=== PATIENT | female | born 1975 | race Caucasian/White ===

== ENCOUNTER → 2018-09-09 08:01 | Outpatient (CLI) | payer BC, SELFPAY ==
--- NOTE | 2018-09-09 08:03 | MM_ITS ---
MM Dig screening mamm BI w/CAD CAD Screening COMPARISON: Digital mammograms with CAD 02/03/2013 INDICATION: There is a history of breast cancer patient paternal grandmother diagnosed at age 85 TECHNIQUE: Standard CC and MLO images were obtained. R2 CAD reviewed. FINDINGS: Minimal scattered fiber glandular densities are seen in both breast primarily subareolar regions. There is no suspicious lesion and no suspicious microcalcifications. IMPRESSION: Fibrofatty parenchyma with no suspicious lesion seen BI-RADS Category: 1 Negative RECOMMENDED FOLLOW-UP: 1YR - 1 YEAR FOLLOW-UP (A letter has been sent to the patient regarding results of the study.)
== END ==
PROVIDERS: PCP Family Medicine; Visit Provider Obstetrics & Gynecology
DX: Z12.31 Encounter for screening mammogram for malignant neoplasm of breast (principal)
CPT/HCPCS: 77067

== ENCOUNTER → 2019-09-11 07:51 | Outpatient (CLI) | payer BC, SELFPAY ==
--- NOTE | 2019-09-11 07:51 | MM_ITS ---
PROCEDURE: MM DIG SCREENING MAMM BI W/CAD Digital Breast Tomosynthesis Included CLINICAL INDICATION: Routine Screening Mammogram There is a history of breast cancer patient's paternal grandmother diagnosed after menopause. COMPARISON: DMDB DIGITAL MAMM-DX BILATERAL from 07/12/2011 DMDBAV DIG MAMM-DX MALINI ADD VIEWS from 02/03/2013 TECHNIQUE: Standard CC and MLO images and 3D Tomosynthesis was obtained. R2 CAD reviewed. FINDINGS: Scattered fibroglandular densities are seen throughout both breast. There is slightly asymmetrically increased glandular elements in the subareolar region of the right breast and this has been noted on previous studies as well. In ruling out any suspicious abnormality in either breast. There is a benign-appearing microcalcification left breast. There are no suspicious microcalcifications. IMPRESSION: Fibrofatty parenchyma with no suspicious lesions seen BI-RAD Category: 2 Benign Finding(s) FOLLOW-UP: 1YR 1 Year Follow-up (A letter has been sent to the patient regarding results of the study.) Dictated by: Dr. Jose García MD 09/13/2019 08:[address] Jose García MD in [facility] 09/13/2019 08:39
== END ==
PROVIDERS: PCP Family Medicine; Visit Provider Obstetrics & Gynecology
DX: Z12.31 Encounter for screening mammogram for malignant neoplasm of breast (principal)
CPT/HCPCS: 77063; 77067

== ENCOUNTER → 2020-09-13 08:40 | Outpatient (CLI) | payer BC, SELFPAY ==
--- NOTE | 2020-09-13 08:41 | MM_ITS ---
PROCEDURE INFORMATION: Exam: MG Screening 3D Mammography Exam date and time: 09/13/2020 8:41 AM Age: 45 years old Clinical indication: Encounter for screening mammogram for malignant neoplasm of breast TECHNIQUE: Imaging protocol: Screening tomosynthesis and 2D mammography including computer-aided detection (CAD) when performed. COMPARISON: 1. MG MM DIG SCREENING MAMM BI W/CAD 09/11/2019 8:11 AM 2. MG DIG MAMM-SCREEN MALINI 09/09/2018 8:35 AM FINDINGS: MAMMOGRAPHY: Breast composition: The breast tissue is composed of scattered areas of fibroglandular density. Mass: None. Architectural distortion: None. Calcifications: No suspicious calcifications. Asymmetric density: None. Skin thickening: None. Axillary adenopathy: None. IMPRESSION: No mammographic evidence of malignancy. Annual screening is recommended unless otherwise clinically indicated. ASSESSMENT: BI-RADS Category 1: Negative
== END ==
PROVIDERS: PCP Family Medicine; Visit Provider Obstetrics & Gynecology
DX: Z12.31 Encounter for screening mammogram for malignant neoplasm of breast (principal)
CPT/HCPCS: 77063; 77067

== ENCOUNTER → 2020-12-27 14:21 | Outpatient (CLI) | payer BC, SELFPAY ==
--- NOTE | 2020-12-27 14:21 | US_ITS ---
PROCEDURE: US TRANSVAGINAL CLINICAL INDICATION: Right lower quad pain Prior ablation. COMPARISON: US PTV US PELVIS-TRANSVAGINAL ONLY from 02/22/2016 FINDINGS: The uterus is retroverted. Endometrial outline is not well defined which could be due to prior ablation. There is an area of decreased echogenicity in the uterine fundus at 2.4 x 2.3 cm suggesting a fibroid. This area somewhat difficult to image due to the retroversion of the uterus. UTERUS: 7cm x 5cmx 5cm with a combined endometrial thickness of 5.4mm LEFT OVARY: 3 x 1.7 cm. Small follicles noted. Blood flow is present. RIGHT OVARY: 3 x 2 cm. Small follicles. Blood flow is present. No adnexal mass or cul-de-sac fluid. IMPRESSION: Retroverted uterus with suspected 2.4 cm fibroid in the fundus. Suspect post ablation changes within the endometrium. No adnexal mass or cul-de-sac fluid. Dictated by: Sky Gurrola MD 12/28/2020 07:35 Sky Gurrola MD in [facility] 12/28/2020 07:35
== END ==
PROVIDERS: PCP Family Medicine; Visit Provider Obstetrics & Gynecology
DX: R10.31 Right lower quadrant pain (principal); R10.2 Pelvic and perineal pain
CPT/HCPCS: 76830

== ENCOUNTER → 2022-12-31 15:34 | Outpatient (CLI) | payer BC, SELFPAY ==
--- NOTE | 2022-12-31 15:37 | MM_ITS ---
PROCEDURE INFORMATION: Exam: MG Bilateral Screening 3D Mammography Exam date and time: 12/31/2022 3:31 PM Age: 47 years old Clinical indication: Screening examination TECHNIQUE: Imaging protocol: Bilateral Screening tomosynthesis and 2D mammography including computer-aided detection (CAD) when performed. COMPARISON: 1. MG MM DIG SCREENING MAMM BI W/CAD 09/13/2020 8:41 AM 2. MG MM DIG SCREENING MAMM BI W/CAD 09/11/2019 8:11 AM FINDINGS: MAMMOGRAPHY: Breast composition: There are scattered areas of fibroglandular density. Mass: None. Architectural distortion: None. Calcifications: No suspicious calcifications. Asymmetric density: None. Skin thickening: None. Axillary adenopathy: None. IMPRESSION: No mammographic evidence of malignancy. Annual screening is recommended unless otherwise clinically indicated. ASSESSMENT: BI-RADS Category 1: Negative
== END ==
PROVIDERS: PCP Family Medicine; Visit Provider Obstetrics & Gynecology
DX: Z12.31 Encounter for screening mammogram for malignant neoplasm of breast (principal)
CPT/HCPCS: 77063; 77067

== ENCOUNTER 2024-02-05 14:57 | Outpatient (CLI) | payer BC, SELFPAY ==
--- NOTE | 2024-02-05 14:58 | MM_ITS ---
PROCEDURE INFORMATION: Exam: MG Bilateral Screening 3D Mammography Exam date and time: 02/05/2024 2:56 PM Age: 48 years old Clinical indication: Screening. Her paternal grandmother had breast cancer. TECHNIQUE: Imaging protocol: Bilateral Screening tomosynthesis and 2D mammography including computer-aided detection (CAD) when performed. COMPARISON: 1. MG MM DIG SCREENING MAMM BI W/CAD 12/31/2022 3:31 PM 2. MG MM DIG SCREENING MAMM BI W/CAD 09/13/2020 8:41 AM 3. MG MM DIG SCREENING MAMM BI W/CAD 09/11/2019 8:11 AM 4. MG DIG MAMM-SCREEN MALINI 09/09/2018 8:35 AM FINDINGS: MAMMOGRAPHY: Breast composition: There are scattered areas of fibroglandular density. Mass: None. Architectural distortion: None. Calcifications: No suspicious calcifications. Asymmetric density: None. Skin thickening: None. Axillary adenopathy: None. IMPRESSION: No mammographic evidence of malignancy. Annual screening is recommended unless otherwise clinically indicated. ASSESSMENT: BI-RADS Category 1: Negative.
== END 2024-02-05 23:59 | disposition home or self-care (01) ==
LOC: RAD 14:58
PROVIDERS: PCP Family Medicine; Visit Provider Obstetrics & Gynecology
DX: Z12.31 Encounter for screening mammogram for malignant neoplasm of breast (principal)
CPT/HCPCS: 77063; 77067

== ENCOUNTER 2024-11-11 14:39 | Outpatient (CLI) | payer BC, SELFPAY ==
--- OUTSIDE RECORDS SUMMARY | 2024-10-12 08:00 | XMS_ITS | Encounter Summary ---
Author Organization [facility] [place] [address] Care Team Providers Care Industrial Analyst Name Role Phone Sherin Brady MD Primary Care Provider [phone] Reason for Visit * Reason Comments Injections Encounter Details Date Type Department Care Team (Latest Contact Info) Description 10/12/2024 8:00 AM EDT Clinical Support [facility] [address] [place] [address] Hussein Bright RMA B12 deficiency (Primary Dx) Social History Tobacco Use Types Packs/Day Years Used Date Smoking Tobacco: Former Cigarettes 0.5 29.8 0 03/18/1993 - 01/16/2023 Passive Smoke Exposure: Past Smokeless Tobacco: Never Comments:Quit on 04/09/11 Alcohol Use Standard Drinks/Week Comments Yes 3 (1 standard drink = 0.6 oz pur e alcohol) Overall Financial Resource Strain (CARDIA) Answe r Date Recorded Difficulty of Paying Living Expenses Not hard at all 02/09/2019 PHQ-2 Answer Date Recorded PHQ-2 Total Score 0 07/21/2024 Hunger Vital Sign Answer Date Recorded Worried About Running Out of Food in the Last Ye ar Never true 02/09/2019 Ran Out of Food in the Last Year Never true 02/09/2019 PRAPARE - Transportation Answer Date Re corded Lack of Transportation (Medical) No 02/09/2019 Lack of Transportation (Non-Medical) No 02/09/2019 Education Answer Date Recorded What is the highest level of school you have completed or the highest degree you have received? Some college, no degree 02/09/2019 Sexually Active Control Partners Comments Yes Surgical Male Comments No Sex and Gender Information Value Date Recorded Sex Assigned at Not on file Legal Sex Female 3:23 AM EDT Gender Identity Not on file Sexual Orientation Not on file documented as of this encounter Last Filed Vital Signs Vital Sign Reading Time Taken Comments Blood Pressure - - Pulse - - Temperature - - Respiratory Rate - - Oxygen Saturation - - Inhaled Oxygen Concentration - - Weight 71.2 kg (157 lb) 10/12/2024 11:32 AM EDT Height 160 cm (5' 3 ) 10/12/2024 11:32 AM EDT Body Mass Index 27.81 10/12/2024 11:32 AM EDT documented in this encounter Functional Status * Is the person deaf or does he/she have serious difficulty hearing? Answer Date of Assessment Author No 07/21/2024 7:54 AM EDT Hussein Bright RMA * Is the person blind or does he/she have serious difficulty seeing even when wearing glasses? Answer Date of Assessment Author No 07/21/2024 7:54 AM EDT Hussein Bright RMA * Does this person have serious difficulty walking or climbing stairs? Answer Date of Assessment Author No 07/21/2024 7:54 AM EDT Hussein Bright RMA * Does this person have difficulty dressing or bathing? Answer Date of Assessment Author No 07/21/2024 7:54 AM EDT Hussein Bright RMA * Because of a physical, mental or emotional condition, does this person have difficulty doing errands alone such as visiting a doctor's office or shopping? Answer Date of Assessment Author No 07/21/2024 7:54 AM EDT Hussein Bright RMA documented as of this encounter Mental Status * Because of a physical, mental or emotional condition, does this person have serious difficulty concentrating, remembering or making decisions? Answer Entry Date Author No 07/21/2024 7:54 AM EDT Hussein Bright RMA documented in this encounter Progress Notes * Hussein Bright RMA - 10/12/2024 8:00 AM EDT Patient came into the office for a B-12 injections Patient was informed to expect muscle pain afteran intramuscular injection and to call the office if there are any issues. documented in this encounter Plan of Treatment Upcoming Encounters Date Type Department Care Team (Late st Contact Info) Description 11/12/2024 8:00 AM EDT Clinical Support [facility] [address] [place] [address] documented as of this encounter Goals Goal Patient Goal Type Associated Problems Recent Progress Patient-Stated? Author Blood Pressure < 140/90 Blood Pressure 122/78(2024 10:03 AM EDT) No Sherin Brady MD Maintain a healthy diet, exercise regularly and maintain an ideal body weight General No Lida Her RMA Stay Tobacco Free Lifestyle No Lida Her RMA documented as of this encounter Visit Diagnoses Diagnosis B12 deficiency- Primary Other B-complex deficiencies documented in this encounter Administered Medications Inactive Administered Medications - up to 1 most recent administrations Medication Order MAR Action Action Date Dose Rate Site cyanocobalamin injection 1,000 mcg 1,000 mcg, Intramuscular, ONCE, 1 dose, On Sat10/12/24 at 1145, Dx: 1. B12 deficiencyIndications:B12 deficiency Given 10/12/2024 11:44 AM EDT 1,000 mcg Right Deltoid documented in this encounter Care Teams Industrial Analyst Relationship Specialty Start Date End Date Sherin Brady MD [address] [place] [address] PCP - General 05/16/10 documented as of this encounter
--- OUTSIDE RECORDS SUMMARY | 2024-10-13 10:00 | XMS_ITS | Encounter Summary ---
Author Organization [place] [address] Care Team Providers Care Consulting Engineer Name Role Phone Sherin Brady MD Primary Care Provider [phone] Reason for Visit * Reason Comments Insect Bite x3 days ankle Ankle Pain hornet x3 days left ankle swollen Encounter Details Date Type Department Care Team (Late st Contact Info) Description 10/13/2024 10:00 AM EDT Office Visit [facility] [address] [place] [phone] Lionel Albrecht, [employer] [address] [place], [place] [id number] Cellulitis of left ankle (Primary Dx); Insect bite of left ankle, initial encounter; Vaginal yeast infection Social History Tobacco Use Types Packs/Day Years Used Date Smoking Tobacco: Former Cigarettes 0.5 29.8 0 03/18/1993 - 01/16/2023 Passive Smoke Exposure: Past Smokeless Tobacco: Never Tobacco Cessation:Counseling Given: Not Answered Comments:Quit on 04/09/11 Alcohol Use Standard Drinks/Week [...] Sign Reading Time Taken Comments Blood Pressure 122/78 10/13/2024 10:03 AM EDT Pulse - - Temperature 36.9 C (98.4 F) 10/13/2024 10:03 AM EDT Respiratory Rate - - Oxygen Saturation - - Inhaled Oxygen Concentration - - Weight 71.8 kg (158 lb 6 oz) 10/13/2024 10:03 AM EDT Height 160 cm (5' 3 ) 10/13/2024 10:03 AM EDT Body Mass Index 28.05 10/13/2024 10:03 AM EDT documented in this encounter Functional [...] Hussein Bright RMA documented in this encounter Ordered Prescriptions Prescription Sig Dispense Quantity Refills Last Filled Start Date End Date famotidine (PEPCID) 40 mg Oral TabletIndications: Insect bite of left ankle, initial encounter Take 1 Tablet by mouth every evening. 30 Tablet 10/13/2024 fluconazole (DIFLUCAN) 150 mg Oral TabletIndications: Vaginal yeast infection Take 1 Tablet by mouth once for 1 dose. 1 Tablet 10/13/2024 cephALEXin (KEFLEX) 500 mg Oral CapsuleIndications :Cellulitis of left ankle Take 1 Capsule by mouth every 8 hours for 7 days. 21 Capsule 10/13/2024 5 documented in this encounter Progress Notes * Lionel Albrecht APRN - 10/13/2024 10:00 AM EDT Images from the original note were not included. Vitals: 10/13/24 1003 BP: 122/78 BP Location: Left arm Patient Position: Sitting Temp: 98.4 ??F (36.9 ??C) TempSrc: Forehead Weight: 158 lb 6 oz (71.8 kg) Height: 5' 3 (1.6 m) Body mass index is 28.05 kg/m??. SUBJECTIVE: Chief Complaint Patient presents with Insect Bite x3 days ankle Ankle Pain hornet x3 days left ankle swollen HPI: Insect Bite This is a new problem. The current episode started in the past 7 days. The problem has been gradually worsening since onset. The affected locations include the left ankle. The rash is characterized by redness, swelling and pain. She was exposed to an insect bite/sting. Past treatments include antihistamine. The treatment provided no relief. Foot Pain The pain is present in the left ankle. This is a new problem. The current episode started in the past 7 days. There has been no history of extremity trauma. The problem occurs constantly. The problemhas been gradually worsening. The quality of the pain is described as pounding and sharp. The pain is at a severity of 7/10. The pain is moderate. Associated symptoms include an inability to bear weight, a limited range of motion and tingling. The symptoms are aggravated by activity, standing and contact. She has tried NSAIDS for the symptoms. The treatment provided mild relief. Presents with left ankle edema, erythema after sting of unknown insect 3 days ago. Has taken benadryl, elevated leg, and ibuprofen with minimal improvement. Denies SOB, difficulty Review of Systems Cardiovascular: Positive for leg swelling. Skin: Positive for color change and rash. Neurological: Positive for tingling. OBJECTIVE: Physical Exam Constitutional: General: She is not in acute distress. Appearance: She is well-developed. She is not diaphoretic. HENT: Head: Normocephalic and atraumatic. Eyes: General: Right eye: No discharge. Left eye: No discharge. Neck: Vascular: No JVD. Cardiovascular: Rate and Rhythm: Normal rate and regular rhythm. Heart sounds: Normal heart sounds. No murmur heard. Pulmonary: Effort: Pulmonary effort is normal. No respiratory distress. Breath sounds: Normal breath sounds. No wheezing or rales. Musculoskeletal: Cervical back: Normal range of motion and neck supple. Left foot: Decreased range of motion. Feet: Left foot: Skin integrity: Erythema present. Skin: General: Skin is warm and dry. Findings: No rash. Neurological: Mental Status: She is alert and oriented to person, place, and time. Psychiatric: Behavior: Behavior normal. Thought Content: Thought content normal. Judgment: Judgment normal. Assessment & Plan Cellulitis of left ankle Orders: cephALEXin (KEFLEX) 500 mg Oral Capsule; Take 1 Capsule by mouth every 8 hours for 7 days. Insect bite of left ankle, initial encounter Orders: methylPREDNISolone acetate (DEPO-Medrol) injection 120 mg famotidine (PEPCID) 40 mg Oral Tablet; Take 1 Tablet by mouth every evening. Vaginal yeast infection Orders: fluconazole (DIFLUCAN) 150 mg Oral Tablet; Take 1 Tablet by mouth once for 1 dose. documented in this encounter Plan of Treatment Upcoming Encounters Date Type Department Care Team (Late st Contact Info) Description 11/12/2024 8:00 AM EDT Clinical Support [facility] [address] [place] [phone] documented as of this encounter Goals Goal Patient Goal Type Associated Problems Recent Progress Patient-Stated? Author Blood Pressure < 140/90 Blood Pressure 122/78(2024 10:03 AM EDT) No Sherin Brady MD Maintain a healthy diet, exercise regularly and maintain an ideal body weight General No Lida Her RMA Stay Tobacco Free Lifestyle No Lida Her RMA documented as of this encounter Visit Diagnoses Diagnosis Cellulitis of left ankle- Primary Cellulitis and abscess of leg, except foot Insect bite of left ankle, initial encounter Vaginal yeast infection Candidiasis of vulva and vagina documented in this encounter Administered Medications Inactive Administered Medications - up to 1 most recent administrations Medication Order MAR Action Action Date Dose Rate Site methylPREDNISolone acetate (DEPO-Medrol) injection 120 mg 120 mg, Intramuscular, ONCE, 1 dose, On Sat10/13/24 at 1030, Dx: 1. Insect bite of left ankle, initial encounterIndications:In sect bite of left ankle, initial encounter Given 10/13/2024 10:54 AM EDT 120 mg Right Upper Outer Quadrant documented in this encounter Orders Medications Ordered That Ritesh ht Not Have Been Administered Count Last Ordered Date First Ordered Date methylPREDNISolone acetate ( DEPO-Medrol) injection 120 mg 1 10/13/2024 documented in this encounter Care Teams Consulting Engineer Relationship Specialty Start Date End Date Sherin Brady MD [address] [place] [address] PCP - General 05/16/10 documented as of this encounter
--- OUTSIDE RECORDS SUMMARY | 2024-11-11 14:43 | XMS_ITS | Encounter Summary ---
Author Organization [place] [address] Care Team Providers Care Relief Captain Name Role Phone Sherin Brady MD Primary Care Provider Reason for Visit * Reason Onset Date Comments Results 09/25/2024 External Results Request - Breast Cancer Screening Encounter Details Date Type Department Care Team (Late st Contact Info) Description 09/25/2024 Telephone [facility] [address] [place] [address] Sherin Brady MD [address] [place] [address] Results (External Results Request - Breast Cancer Screening ) Social History Tobacco Use Types Packs/Day Years [...] on file documented as of this encounter Functional Status * Is the [...] Hussein Bright RMA documented in this encounter Miscellaneous Notes * Telephone Encounter - Jack Wood RMA - 09/25/2024 11:17 AM EDT The requested records Breast Cancer Screening from the facility were received and abstracted in thepatient's chart on 09/25/2024. [facility] Department Clinical Pool: [id number] * Telephone Encounter - HuygeethaZoraidae BUBBA - 09/25/2024 10:51 AM EDT 1st Attempt: External result requested: Breast Cancer Screening Referral Encounter Provider: Dr. rBady External facility name: [facility] Faxed: [phone] Process: [facility] makes two outreaches to external facility four weeks apart. Results will be abstracted in chart once received and documented. If no results received from facility after 60 days, or no result completed, our team documents no records received/ completed and the External Results Request will be closed. Questions or concerns please contact [facility]. [facility] Quality Clinical Pool: [id number] documented in this encounter Plan of Treatment Upcoming Encounters Date Type Department Care Team (Late st Contact Info) Description 11/12/2024 8:00 AM EDT Clinical Support [facility] [address] [place] [phone] documented as of this encounter Goals Goal Patient Goal Type Associated Problems Recent Progress Patient-Stated? Author Blood Pressure < 140/90 Blood Pressure 122/78(2024 10:03 AM EDT) No Sherin Brady MD Maintain a healthy diet, exercise regularly and maintain an ideal body weight General No Lida Her RMA Stay Tobacco Free Lifestyle No Lida Her RMA documented as of this encounter Visit Diagnoses Not on filedocumented in this encounter Care Teams Relief Captain Relationship Specialty Start Date End Date Sherin Brady MD [address] [place] [address] PCP - General 05/16/10 documented as of this encounter
--- OUTSIDE RECORDS SUMMARY | 2024-11-11 14:43 | XMS_ITS | Referral Summary ---
Author Organization [facility] Address [address] [place] [address] [place] [address] Care Team Providers Care Help Desk Rep Name Role Phone Sherin Brady MD Primary Care Provider [phone] SejalPricila hart MD Unavailable Allergies Active Allergy Reactions Criticality Noted Date Comments Hydromorphone Nausea,Rash 04/30/2013 Morphine And Related Nausea,Rash 04/30/2013 Oxycodone-Acetaminophen Nausea,Rash 04/30/2013 Hydrocodone-Acetaminophen Nausea,Rash 4 Medications metFORMIN (GLUCOPHAGE) 500 MG TABS Take 500 mg by mouth 2 (two) times daily with meals. Active levothyroxine (SYNTHROID, LEVOTHROID) 100 MCG TABS Take 110 mcg by mouth daily. Active omeprazole (PRILOSEC) 40 MG CPDR Take 40 mg by mouth daily. Active Active Problems Problem Noted Date Diagnosed Date Mastodynia, female 04/30/2013 Social History Tobacco Use Types Packs/Day Years Used Date Smoking Tobacco: Former Cigarettes 1 15 0 10/16/1998 - 10/16/2013 Alcohol Use Standard Drinks/Week Comments Yes 0 (1 standard drink = 0.6 oz pur e alcohol) occasionally Comments Unknown Sex and Gender Information Value Date Recorded Sex Assigned at Not on file Legal Sex Female 4:33 PM EST Gender Identity Not on file Sexual Orientation Not on file Occupation Industry Job Start Date Job End Date Not on file Not on file Not on file Not on file Last Filed Vital Signs Vital Sign Reading Time Taken Comments Blood Pressure 102/68 12/31/2013 10:56 AM EDT Pulse 66 04/30/2013 11:07 AM EST Temperature - - Respiratory Rate - - Oxygen Saturation - - Inhaled Oxygen Concentration - - Weight 63.5 kg (140 lb) 12/31/2013 10:56 AM EDT Height 160 cm (5' 3 ) 12/31/2013 10:56 AM EDT Body Mass Index 24.8 12/31/2013 10:56 AM EDT Plan of Treatment Not on file Procedures Procedure Name Priority Date/Time Associated Diagnosis Comments LINA DIAG BILAT Routine 12/31/2013 10:40 AM EDT Abnormal mammogram, unspecified from Last 3 Months or Most Recently Relevant to Health Maintenance Results * MAMMOGRAM BILAT DIGITAL W CAD (12/31/2013 10:40 AM EDT) Anatomical Region Laterality Modality Chest Bilateral Mammography 12/31/2013 10:5 6 AM EDT Impressions 12/31/2013 10:58 AM EDT There are no mammographic findings to suggest malignancy. Stable mammogram ASSESSMENT: Category BI-RADS: 2: Benign. RECOMMENDATION: Annual mammogram is requested Narrative 12/31/2013 10:58 AM EDT BILATERAL DIAGNOSTIC DIGITAL MAMMOGRAM: HISTORY: 6 month followup right breast diagnostic mammogram to reassess patient with history of palpable right breast mass. Routine screening left breast mammogram TECHNIQUE: CC CC and MLO views of both breasts were submitted. COMPARISON: April [id number] FINDINGS: There are scattered bilateral fibroglandular densities there are no suspicious calcifications or masses. Procedure Note Ellen Cruz MD / Mammography, Provider - 12/31/2013 BILATERAL DIAGNOSTIC DIGITAL MAMMOGRAM: HISTORY: 6 month followup right breast diagnostic mammogram to reassesspatient with history of palpable right breast mass. Routine screening leftbreast mammogram TECHNIQUE: CC CC and MLO views of both breasts were submitted. COMPARISON: April [id number] FINDINGS: There are scattered bilateral fibroglandular densities there areno suspicious calcifications or masses. IMPRESSION There are no mammographic findings to suggest malignancy. Stablemammogram ASSESSMENT: Category BI-RADS: 2: Benign. RECOMMENDATION: Annual mammogram is requested us Pricila Post MD [facility] Final Result from Last 3 Months or Most Recently Relevant to Health Maintenance Care Teams Help Desk Rep Relationship Specialty Start Date End Date Sherin Brady MD PCP - General Family Medicine 04/30/13 Pricila Post MD Surgeon General Surgery 10/26/13
--- OUTSIDE RECORDS SUMMARY | 2024-11-11 14:43 | XMS_ITS | Clinical Summary ---
Author Organization [facility] Address [address], [address] [place] [address] Care Team Providers Care Thread Tool Grinder Set Up Operator Name Role Phone Sherin Brady MD Primary Care Provider [phone] Allergies Active Allergy Reactions Criticality Noted Date Comments Codeine 01/23/2012 Hydrocodone 01/23/2012 Medications omeprazole (PRILOSEC) 40 MG capsule Take 1 capsule by mouth daily. 01/11/2012 Active levothyroxine (SYNTHROID) 88 MCG tablet Take 1 tablet by mouth daily. 30 tablet 11 01/28/2012 Active metFORMIN (GLUCOPHAGE) 850 MG tablet TAKE ONE TABLET BY MOUTH THREE TIMES DAILY WITH MEALS 270 tablet 2 07/23/2013 Active Active Problems Problem Noted Date Diagnosed Date PCOS (polycystic ovarian syndrome) 01/23/2012 Hypothyroidism Social History Tobacco Use Types Packs/Day Years Used Date Smoking Tobacco: Every Day Cigarettes 1 19 Tobacco Cessation:Ready to Q uit: No; Counseling Given: Yes Alcohol Use Standard Drinks/Week Comments Yes 0 (1 standard drink = 0.6 oz pur e alcohol) Comments No Sex and Gender Information Value Date Recorded Sex Assigned at Not on file Legal Sex Female 1:21 AM EST Gender Identity Not on file Sexual Orientation Not on file Last Filed Vital Signs Vital Sign Reading Time Taken Comments Blood Pressure 104/66 01/23/2012 1:39 PM EST Pulse 60 01/23/2012 1:39 PM EST Temperature - - Respiratory Rate - - Oxygen Saturation - - Inhaled Oxygen Concentration - - Weight 64 kg (141 lb) 01/23/2012 1:39 PM EST Height 160 cm (5' 3 ) 01/23/2012 1:39 PM EST Body Mass Index 24.98 01/23/2012 1:39 PM EST Plan of Treatment Not on file Care Teams Thread Tool Grinder Set Up Operator Relationship Specialty Start Date End Date Sherin Brady MD PCP - General Family Medicine 01/23/12
--- OUTSIDE RECORDS SUMMARY | 2024-11-11 14:43 | XMS_ITS | Encounter Summary ---
Author Organization [place] [address] Care Team Providers Care Director Of Procurement Name Role Phone Sherin Brady MD Primary Care Provider [phone] Reason for Visit * Reason Comments Medication Refill Encounter Details Date Type Department Care Team (Late st Contact Info) Description 09/14/2024 Refill [facility] [address] [place] [address] Lionel Albrecht, MARA [address] [place] [address] Medication Refill Social History Tobacco Use Types Packs/Day Years [...] Refills Last Filled Start Date End Date LEVOthyroxine (SYNTHROID) 125 mcg Oral TabletIndications:H ypothyroidism, unspecified type Take 1 tablet by mouth once daily 90 Tablet 09/16/2024 documented in this encounter Miscellaneous Notes * Telephone Encounter - Leti Gonzales CPhT - 09/16/2024 7:08 AM EDT levothyroxine - Refill request deferred to the office: Medication order not complete. Please update order to include dose and frequency of use. documented in this encounter Plan of Treatment Upcoming Encounters Date Type Department Care Team (Late st Contact Info) Description 11/12/2024 8:00 AM EDT Clinical Support [facility] [address] [place] [phone] documented as of this encounter Goals Goal Patient Goal Type Associated Problems Recent Progress Patient-Stated? Author Blood Pressure < 140/90 Blood Pressure 122/78(2024 10:03 AM EDT) No Sherin Brady MD Maintain a healthy diet, exercise regularly and maintain an ideal body weight General No Lida Her RMA Stay Tobacco Free Lifestyle No Lida Her RMA documented as of this encounter Visit Diagnoses Diagnosis Hypothyroidism, unspecified type documented in this encounter Discontinued Medications Medication Sig Discontinue Reason Start Date End Da te LEVOthyroxine (SYNTHROID) 125 mcg Oral TabletIndications:Hypothy roidism, unspecified type Take 1/2 tablet by mouth Saturday and Saturday, 1 tablet by mouth every other day. 07/22/2024 09/16/2024 documented as of this encounter Care Teams Director Of Procurement Relationship Specialty Start Date End Date Sherin Brady MD [address] [place] [address] PCP - General 05/16/10 documented as of this encounter
--- OUTSIDE RECORDS SUMMARY | 2024-11-11 14:43 | XMS_ITS | Clinical Summary ---
Author Organization [facility] Address [address] [place] [address] Care Team Providers Care Nurses Supervisor Name Role Phone Sherin Brady MD Primary Care Provider [phone] SejalPricila hart MD Unavailable [phone] Allergies Active Allergy Reactions Criticality Noted Date [...] Noted Date Diagnosed Date Mastodynia, female 04/30/2013 Family History Medical History Relation Name Comments Breast cancer Paternal Grandmother Relation Name Status Comments Paternal Grandmother Social History Tobacco Use Types Packs/Day Years [...] 12/31/2013 10:56 AM EDT Plan of Treatment Health Maintenance Due Date Last Done Comments DTap,Tdap,and Td (1 - Tdap) 1988 Pap Screening 1998 Mammogram Screening 2017 12/31/2013, 04/30/2013 Colonoscopy 2022 Influenza Vaccine (#1) 2024 RSV Vaccine (60+ or ) (1 - 1-dose 75+ series) 2052 HPV Aged Out No longer eligi ble based on patient's age to complete this topic Meningococcal conjugate mary nt 4 (MCV4) Aged Out No longer eligible b ased on patient's age to complete this topic Pneumococcal 0-49 Aged Out No longer eligible based on patient's age to complete this topic RSV Immunization (<20 months) Aged Out No longer eligible based on patient's age to complete this topic Procedures Procedure Name Priority Date/Time Associated Diagnosis [...] of both breasts were submitted. COMPARISON: April 2013, 2012, 2011 FINDINGS: There are scattered bilateral fibroglandular densities there are no suspicious calcifications or masses. Procedure Note Ellen Cruz MD / Mammography, Provider - 12/31/2013 BILATERAL DIAGNOSTIC DIGITAL MAMMOGRAM: HISTORY: 6 month followup right breast diagnostic mammogram to reassesspatient with history of palpable right breast mass. Routine screening leftbreast mammogram TECHNIQUE: CC CC and MLO views of both breasts were submitted. COMPARISON: April 2013, 2012, 2011 FINDINGS: There are scattered bilateral fibroglandular densities there areno suspicious calcifications or masses. IMPRESSION There are no mammographic findings to suggest malignancy. Stablemammogram ASSESSMENT: Category BI-RADS: 2: Benign. RECOMMENDATION: Annual mammogram is requested us Pricila Post MD LINA Final Result from Last 3 Months or Most Recently Relevant to Health Maintenance Care Teams Nurses Supervisor Relationship Specialty Start Date End Date Sherin Brady MD PCP - General Family Medicine 04/30/13 Pricila Post MD Surgeon General Surgery 10/26/13
--- OUTSIDE RECORDS SUMMARY | 2024-11-11 14:43 | XMS_ITS | Encounter Summary ---
Author Organization [place] [address] Care Team Providers Care Library Circulation Technician Name Role Phone Sherin Brady MD Primary Care Provider [phone] Encounter Details Date Type Department Care Team (Late st Contact Info) Description 07/22/2024 Results Follow-Up [facility] [address] [place] [address] Lionel Albrecht, DRAPERY INSTALLER [address] [place] [address] CBC, COMPREHENSIVE METABOLIC PANEL, HEMOGLOBIN A1C, Additional followed-up results: 5 Social History Tobacco Use Types Packs/Day Years [...] End Date LEVOthyroxine (SYNTHROID) 125 mcg Oral TabletIndications: Hypothyroidism, unspecified type Take 1/2 tablet by mouth Saturday and Saturday, 1 tablet by mouth every other day. 07/22/2024 09/16/2024 documented in this encounter Plan of Treatment Upcoming Encounters Date Type Department Care Team (Late st Contact Info) Description 11/12/2024 8:00 AM EDT Clinical Support [facility] [address] [place] [address] documented as of this encounter Goals Goal [...] mcg Oral TabletIndications:Hypothy roidism, unspecified type Take 1 tablet by mouth once daily 06/16/2024 07/22/2024 documented as of this encounter Care Teams Library Circulation Technician Relationship Specialty Start Date End Date Sherin Brady MD [address] [place] [address] PCP - General 05/16/10 documented as of this encounter
--- OUTSIDE RECORDS SUMMARY | 2024-11-11 14:43 | XMS_ITS | Encounter Summary ---
Author Organization [facility] Address [address] [place] [address] [place] [address] Phone Care Team Providers Care Senior Bi Architect Name Role Phone Sherin Brady MD Primary Care Provider [phone] Pricila Post MD Unavailable [phone] Encounter Details Date Type Department Care Team (Late st Contact Info) Description 03/30/2013 [facility] [address] [address] [place] [phone] Pricila Post MD [address] [place], [place] [address] Social History Tobacco Use Types Packs/Day Years Used Date Smoking Tobacco: Never Assessed Comments Unknown Sex and Gender Information Value Date Recorded Sex Assigned at Not on file Legal Sex Female 4:33 PM EST Gender Identity Not on file Sexual Orientation Not on file documented as of this encounter Plan of Treatment Not on file documented as of this encounter Visit Diagnoses Not on filedocumented in this encounter Care Teams Senior Bi Architect Relationship Specialty Start Date End Date Sherin Brady MD PCP - General Family Medicine 04/30/13 Pricila Post MD Surgeon General Surgery 10/26/13 documented as of this encounter
--- OUTSIDE RECORDS SUMMARY | 2024-11-11 14:43 | XMS_ITS | Encounter Summary ---
Author Organization [place] [address] Care Team Providers Care Advanced Practice Nurse Psychotherapist Name Role Phone Sherin Brady MD Primary Care Provider [phone] Reason for Visit * Reason Onset Date Comments Central Order Completion Outreach 09/25/2024 Mammo Encounter Details Date Type Department Care Team (Late Contact Info) Description 09/25/2024 Patient Outreach [facility] [address] [place] [address] Sherin Brady MD [address] [place] [address] Central Order Completion Outreach (Mammo) Social History Tobacco Use Types Packs/Day Years [...] documented in this encounter Progress Notes * Sameera Gavin RN - 09/25/2024 10:44 AM EDT SEP Order Completion Outcome Tracking Contact Attempt:: Final Mammogram Outcome:: Patient Declined Patient declined reason:: Completed Elsewhere [facility] [place] Dec-Jan 2024. Already schedule for this year. RN place external result request. documented in this encounter Plan of Treatment Upcoming Encounters Date Type Department Care Team (Late st Contact Info) Description 11/12/2024 8:00 AM EDT Clinical Support [facility] [address] [place] [phone] documented as of this encounter Goals Goal Patient Goal Type Associated Problems Recent Progress Patient-Stated? Author Blood Pressure < 140/90 Blood Pressure 122/78(2024 10:03 AM EDT) No Sherin Brady MD Maintain a healthy diet, exercise regularly and maintain an ideal body weight General No Lida Her RMA Stay Tobacco Free Lifestyle No Lida Her RMA documented as of this encounter Visit Diagnoses Diagnosis PCOS (polycystic ovarian syndrome)- Primary Polycystic ovaries documented in this encounter Orders Nursing Count Last Ordered Date First Orde red Date EXTERNAL RESULTS REQUEST 1 09/25/2024 documented in this encounter Care Teams Advanced Practice Nurse Psychotherapist Relationship Specialty Start Date End Date Sherin Brady MD [address] [place] [address] PCP - General 05/16/10 documented as of this encounter
--- OUTSIDE RECORDS SUMMARY | 2024-11-11 14:45 | XMS_ITS | Clinical Summary ---
Author Organization [facility] Address [address] [place] [address] Care Team Providers Care Steward/Stewardess Third Class Name Role Phone Provider, No Known Primary Care Provider [phone] Social History Tobacco Use Types Packs/Day Years Used Date Smoking Tobacco: Never Assessed Abuse Screen Answer Date Recorded Unsafe at Home or Work/School Not on file Feels Threatened by Someone? Not on file 01/2023 Does Anyone Keep You from Co ntacting Others or Doint Things Outside the Home? Not on file 12/26/2022 Physical Sign of Abuse Present Not on file 1 Housing Stability Answer Date Recorded Current Living Arrangements Not on file 12/16 Potentially Unsafe Housing Conditions Not on colt e 12/26/2022 Family and Community Support Answer [place] e Recorded Help with Day-to-Day Activities Not on file 12/26/2022 Lonely or Isolated Not on file 12/26/2022 Employment Answer Date Recorded Do you want help finding or keeping work or a [place] b? Not on file 12/26/2022 Disabilities Answer Date Recorded Concentrating, Remembering, or Making Decisions Difficulty Not on file 12/26/2022 Doing Errands Independently Difficulty Not on fi le 12/26/2022 Education Answer Date Recorded Help with school or training? Not on file Preferred Language Not on file 12/26/2022 Comments Unknown Sex and Gender Information Value Date Recorded Sex Assigned at Not on file Legal Sex Female 12:59 PM EST Gender Identity Not on file Sexual Orientation Not on file Plan of Treatment Health Maintenance Due Date Last Done Comments ANNUAL PHYSICAL 1977 Annual Gynecologic Pelvic an d Breast Exam 1977 HEPATITIS C SCREENING 1977 TDAP/TD VACCINES (1 - Tdap) 1996 MAMMOGRAM 2017 COLOGUARD 2022 COLON CANCER SCREENING 5 YEA R SIGMOIDOSCOPY 2022 COLONOSCOPY [address] CAN[address]ER SCREENING [address] COLONOGRAPHY 2022 FECAL OCCULT BLOOD TEST 2022 FIT Testing (1 year) 2022 COVID-19 Vaccine ( - 2023-2 5 season) 2023 INFLUENZA VACCINE 12/16/2024 Pneumococcal Vaccine 0-49 Aged Out No longer eligible based on patient's age to complete this topic Insurance Care Teams Steward/Stewardess Third Class Relationship Specialty Start Date End Date Provider, [place] [address] PCP - General 11/07/15
[2024-11-11 19:27] LABS: Hepatitis C Ab Qual. W/ RFX NEGATIVE (Negative)
[2024-11-13 08:26] LABS: Hepatitis B Surface Antigen Negative (Negative)
== END 2024-11-11 23:59 | disposition home or self-care (01) ==
LOC: LAB 14:39
PROVIDERS: PCP Family Medicine; Visit Provider Obstetrics & Gynecology
DX: N93.9 Abnormal uterine and vaginal bleeding, unspecified (principal)
CPT/HCPCS: 36415; 86803; 87340; 87389

== ENCOUNTER 2024-12-29 14:10 | Outpatient (CLI) | payer BC, SELFPAY ==
--- OUTSIDE RECORDS SUMMARY | 2024-12-29 14:13 | XMS_ITS | Clinical Summary ---
Author Organization [facility] Address [address] [place] [address] [place] [address] Care Team Providers Care Shirring Machine Operator Name Role Phone Sherin Brady MD Primary Care Provider [phone] SejalPricila hart MD Unavailable [phone] Allergies Active Allergy Reactions Criticality Noted [...] Recently Relevant to Health Maintenance Care Teams Shirring Machine Operator Relationship Specialty Start Date End Date Sherin Brady MD PCP - General Family Medicine 04/30/13 Pricila Post MD Surgeon General Surgery 10/26/13
--- OUTSIDE RECORDS SUMMARY | 2024-12-29 14:13 | XMS_ITS | Encounter Summary ---
Author Organization [facility] Address [address] [place] [address] [place] [address] Phone Care Team Providers Care District Representative Name Role Phone Sherin Brady MD Primary Care Provider [phone] Pricila Post MD Unavailable [phone] Encounter Details Date Type Department Care Team (Late st Contact Info) Description 03/30/2013 [facility] [place] [address] [place] [phone] Pricila Post MD [address] [place], [place] [address] Social History Tobacco Use Types Packs/Day Years [...] on filedocumented in this encounter Care Teams District Representative Relationship Specialty Start Date End Date Sherin Brady MD PCP - General Family Medicine 04/30/13 Pricila Post MD Surgeon General Surgery 10/26/13 documented as of this encounter
--- OUTSIDE RECORDS SUMMARY | 2024-12-29 14:13 | XMS_ITS | Clinical Summary ---
Author Organization [facility] Address [address] [place] [address] Care Team Providers Care Automotive Collision Repair Instructor Name Role Phone Provider, No Known Primary Care Provider [phone] Social History Tobacco Use Types Packs/Day Years [...] TEST 2022 FIT Testing (1 year) 2022 INFLUENZA VACCINE 10/16/2024 Pneumococcal Vaccine 0-49 Aged Out No longer eligible based on patient's age to complete this topic Insurance Care Teams Automotive Collision Repair Instructor Relationship Specialty Start Date End Date Provider, [place] [address] PCP - General 11/07/15
[2024-12-30 09:13] LABS: CA 19-9 31 U/mL (0-35)
== END 2024-12-29 23:59 | disposition home or self-care (01) ==
LOC: LAB 14:10
PROVIDERS: PCP Family Medicine; Visit Provider Obstetrics & Gynecology
DX: N83.209 Unspecified ovarian cyst, unspecified side (principal); R93.89 Abnormal findings on diagnostic imaging of other specified body structures
CPT/HCPCS: 36415; 86301; 86305

== ENCOUNTER 2025-02-23 08:11 | Outpatient (CLI) | payer BC, SELFPAY ==
--- NOTE | 2025-02-23 08:00 | MM_ITS ---
PROCEDURE INFORMATION: Exam: MG Bilateral Screening 3D Mammography Exam date and time: 02/23/2025 8:16 AM Age: 49 years old Clinical indication: Screening examination TECHNIQUE: Imaging protocol: Bilateral Screening tomosynthesis and 2D mammography including computer-aided detection (CAD) when performed. COMPARISON: 1. MG MM DIG SCREENING MAMM BI W/CAD 02/05/2024 2:56 PM 2. MG MM DIG SCREENING MAMM BI W/CAD 12/31/2022 3:31 PM FINDINGS: MAMMOGRAPHY: Breast composition: There are scattered areas of fibroglandular density. Mass: Questionable 0.4 cm mass in the immediate left retroareolar region Architectural distortion: None. Calcifications: No suspicious calcifications. Asymmetric density: None. Skin thickening: None. Axillary adenopathy: None. IMPRESSION: Patient to be recalled for spot compression views of the left breast in the CC and MLO projections, a full 90 degree lateral view, and left breast ultrasound for further evaluation of a left breast mass. ASSESSMENT: BI-RADS Category 0: Incomplete- Need Additional Imaging Evaluation
== END 2025-02-23 23:59 | disposition home or self-care (01) ==
LOC: RAD 08:12
PROVIDERS: PCP Family Medicine; Visit Provider Obstetrics & Gynecology
DX: Z12.31 Encounter for screening mammogram for malignant neoplasm of breast (principal); R92.323 Mammographic fibroglandular density, bilateral breasts; R92.8 Other abnormal and inconclusive findings on diagnostic imaging of breast
CPT/HCPCS: 77063; 77067

== ENCOUNTER 2025-03-16 13:33 | Outpatient (CLI) | payer BC, SELFPAY ==
--- OUTSIDE RECORDS SUMMARY | 2025-02-02 05:35 | XMS_ITS | Encounter Summary ---
Author Organization Healthcare Address [address] [place] [address] Care Team Providers Care Anchorman Name Role Phone Nell Mckeon DO Unavailable [phone] Sherin Brady MD Primary Care Provider [phone] Reason for Visit * Auth/Cert (Routine) Specialty Diagnoses / Procedures Referred By Christelle levine Referred To Contact Diagnoses Complex cyst of left ovary Complex cyst of left ovary [N83.292] Procedures NH LAPAROSCOPY W TOT HYSTERECTUTERUS <=250 GRAM W TUBE/OVARY NH INTRAOPERATIVE SENTINEL LYMPH NODE ID W DYE INJECTION NH LAP,LYMPH NODE BX NH REMOVAL OF OMENTUM Robot TLHBSO, SLN, OMEN Marlee Mike MD [address] [facility] [address] [address] Phone: tel: fax: [facility] [address] [place] [address] Phone: tel: Referral ID Status Reason Start Date Expiration Date Visits Re quested Visits Authorized [id number] 1 1 Encounter Details Date Type Department Care Team (Late st Contact Info) Description 02/02/2025 5:35 AM EST - 02/02/2025 6:16 PM EST Hospital Encounter [facility] [address] [place] [address] Marlee Mike MD [address] [facility] Agata Varela [facility] [address], [place] [address] Complex cyst of left ovary Discharge Disposition: Home or Self Care Social History Tobacco Use Types Packs/Day Years Used Date Smoking Tobacco: Never Smokeless Tobacco: Never Alcohol Use Standard Drinks/Week Comments Yes 4 (1 standard drink = 0.6 oz pur e alcohol) Comments No Sex and Gender Information Value Date Recorded Sex Assigned at Not on file Legal Sex Female 8:40 PM EDT Gender Identity Not on file Sexual Orientation Not on file documented as of this encounter Last Filed Vital Signs Vital Sign Reading Time Taken Comments Blood Pressure 112/76 02/02/2025 4:00 PM EST Pulse 80 02/02/2025 4:00 PM EST Temperature 36.6 C (97.9 F) 02/02/2025 11:15 AM EST Respiratory Rate 12 02/02/2025 2:00 PM EST Oxygen Saturation 96% 02/02/2025 4:00 PM EST Inhaled Oxygen Concentration - - Weight 76 kg (167 lb 8 oz) 02/02/2025 10:[address] Height 160 cm (5' 2.99 ) 02/02/2025 10:20 AM EST Body Mass Index 29.68 02/02/2025 10:20 AM EST documented in this encounter Functional Status * Pre-op Phone Call Discharge Planning Question Answer Date of Assessment Author Release to Parent/Legal Guardian Confirmation Yes 02/02/2025 6:15 PM Cherie Lazaro RN Living Arrangements Alone 02/02/2025 6:15 PM Cherie Quinones RN Support Systems Spouse/significant other 02/02/2025 6:15 PM Cherie Lazaro RN Type of Residence Private residence 02/02/2025 6:15 PM Cherie Lazaro RN Patient expects to be discharged to: home 02/02/2025 6:15 PM Cherie Lazaro RN * BMI (Calculated) Answer Date of Assessment Author 29.7 02/02/2025 10:20 AM Dante Lazaro RN * Percent Excess Weight Loss Answer Date of Assessment Author 0 02/02/2025 10:20 AM Dante Lazaro RN * Total Weight Change Percent Answer Date of Assessment Author 222102/02/2025 10:20 AM Dante Lazaro RN * Weight Change Since Preop Answer Date of Assessment Author 75.96 02/02/2025 10:20 AM Dante Lazaro RN * Initial Excess Weight Answer Date of Assessment Author -52.15 02/02/2025 10:20 AM Dante Lazaro RN * IBW in lbs (Bariatric) Answer Date of Assessment Author 114.96 02/02/2025 10:20 AM Dante Lazaro RN * Weight Change Since Last Visit Answer Date of Assessment Author 0 02/02/2025 10:20 AM Dante Lazaro RN * IBW in kg (Bariatric) Answer Date of Assessment Author 52.15 02/02/2025 10:20 AM Dante Lazaro RN * Percent of IBW Answer Date of Assessment Author 5,139.06 02/02/2025 10:20 AM Dante Lazaro RN * EBW (kg) Answer Date of Assessment Author 2,678.54 02/02/2025 10:20 AM Dante Lazaro RN * EBW (lbs) Answer Date of Assessment Author 2,672.84 02/02/2025 10:20 AM Dante Lazaro RN * Pain Management Interventions Answer Date of Assessment Author medication (see MAR);pillow support provided;position adjusted;relaxation techniques promoted;rest;quiet environment facilitated 02/02/2025 10:50 AM Cherie Lazaro RN * Fluid/Electrolyte Management Answer Date of Assessment Author electrolyte supplement initiated 02/02/2025 7:15 AM Harper Platt RN * Elevated Risk Identified Answer Date of Assessment Author fluid and electrolyte imbalance 02/02/2025 7:15 AM Harper Platt RN * Outcome Physiologic Homeostasis Answer Date of Assessment Author met 02/02/2025 9:51 AM Marquise Hinojosa RN * Elevated Risk Identified Answer Date of Assessment Author VTE (venous thromboembolism) 02/02/2025 7:15 AM Harper Platt RN * Outcome Minimized Risk and Safety Answer Date of Assessment Author met 02/02/2025 9:51 AM Marquise Hinojosa RN * Outcome Summary Question Answer Date of Assessment Author Plan of Care Reviewed With patient 02/02/2025 11: 13 AM Cherie Lazaro RN * Goal: Anesthesia/Sedation Recovery Question Answer Date of Assessment Author Outcome Anesthesia/Sedation Recovery progressing 02/02/2025 11:13 AM Cherie Lazaro RN * Goal: Optimal Comfort and Wellbeing Question Answer Date of Assessment Author Problem Identified pain 02/02/2025 11:13 AM BRIDGETTE T Cherie Griffin RN Outcome Optimal Comfort and Wellbeing progressing 02/02/2025 11:13 AM Cherie Lazaro RN Elevated Risk Identified pain 02/02/2025 11:13 AM Cherie Lazaro RN * PACU Interventions Question Answer Date of Assessment Author Head of Bed Elevated Self regulated 02/02/2025 10:20 A M Cherie Lazaro RN Warming Device Warm blankets 02/02/2025 11:15 AM KRISTINA S Cherie middleton RN Additional Comfort/Environmental Interventions Warm blanket 02/02/2025 11:15 AM Cherie Lazaro RN * Weight Change 24 hrs Answer Date of Assessment Author 5.078 02/02/2025 10:20 AM Dante Laazro RN * HLM Score Question Answer Date of Assessment Author HL Daily Mobility Goal 8 02/02/2025 10: 20 AM Cherie Lazaro RN JH HLM Daily Mobility Score 4 02/02/2025 10 :20 AM Cherie Lazaro RN * Pressure Injury Prevention (PIP) Interventions Question Answer Date of Assessment Author Pressure Reducing Devices Preventative foam dressing 02/02/2025 10:20 AM Cherie Lazaro RN Preventative Foam Dressing Location Coccyx 02/02/2025 10:20 AM Cherie Lazaro RN Preventative Foam Dressing Intervention Applied 02/02/2025 7:12 AM Harper Platt RN Bed Type Stretcher 02/02/2025 7:12 AM Harper Platt RN * Vital Signs Question Answer Date of Assessment Author BP 112/76 02/02/2025 4:00 PM Cherie Lazaro RN Temp 97.9 02/02/2025 11:15 AM EST Cherie Clarke, LEANNA Pulse 80 02/02/2025 4:00 PM EST Cherie Griffin, RN Resp 12 02/02/2025 2:00 PM Cherie Lazaro RN Cardiac Rhythm NSR 02/02/2025 11:15 AM EST Sc Cherie conde RN MAP (mmHg) 89 02/02/2025 4:00 PM EST Cherie Griffin RN * Oxygen Therapy Question Answer Date of Assessment Author SpO2 96 02/02/2025 4:00 PM Cherie Lazaro, LEANNA O2 Flow Rate (L/min) 2 02/02/2025 11:15 AM Cherie Lazaro RN Oxygen Therapy None 02/02/2025 4:00 PM Cherie Melton RN O2 Delivery Method Nasal cannula 02/02/2025 11:[address] Cherie Griffin RN * Cross Tie Cutter Question Answer Date of Assessment Author Telemetry Strip Reviewed Yes, I have reviewed and acknowledged the strip measurements as interpreted by the CPT's 02/02/2025 10:20 AM Cherie Lazaro RN Pool Servicer On Yes 02/02/2025 11:15 AM Cherie Lazaro, trackless trolley driver Audible Yes 02/02/2025 11: 15 AM Cherie Lazaro RN Telemetry Alarms Set Yes 02/02/2025 11:15 AM Chreie Lazaro RN Bedside Cross Tie Cutter On Yes 02/02/2025 11:15 AM Cherie Lazaro, RN Bedside Cardiac Audible Yes 02/02/2025 11:15 AM Cherie Lazaro, LEANNA Bedside Cardiac Alarms Set Yes 02/02/2025 11:15 AM Cherie Lazaro RN * Gastrointestinal Question Answer Date of Assessment Author GI Symptoms None 02/02/2025 10:30 AM Cherie Bloom RN * Peripheral Vascular Question Answer Date of Assessment Author Peripheral Vascular (WDL) WDL 02/02/2025 11:15 AM EST Scalf, Cherie D , RN Capillary Refill Less than/equal to 2 seconds (All extremities) 02/02/2025 11:15 AM Cherie Lazaro, RN * Musculoskeletal Question Answer Date of Assessment Author Musculoskeletal (WDL) WDL 02/02/2025 11:15 AM Cherie Lazaro, RN * Urine Assessment Question Answer Date of Assessment Author Urine Color Yellow/straw 02/02/2025 11:15 AM EST Norma fCherie, RN Urine Appearance Clear 02/02/2025 11:15 AM EST Cherie Griffin, RN * Haas Fall Risk Question Answer Date of Assessment Author History of Falling, Immediat e or Within 3 Months 0 02/02/2025 10:20 AM Cherie Lazaro , RN Secondary Diagnosis 15 02/02/2025 10:[address] Cherie Griffin, zyglo technician Aid 0 02/02/2025 10:20 AM EST Sc eltonCherie RN Intravenous Therapy/Heparin Lock 20 02/03/20 10:20 AM EST Cherie Griffin, RN Gait/Transferring 10 02/02/2025 10:20 AM EST Cherie Griffin, RN Mental Status 15 02/02/2025 10:20 AM EST Sca lfCherie, RN Haas Fall Risk Score 60 02/02/2025 10:20 AM Cherie Lazaro, RN * Chandler Scale Question Answer Date of Assessment Author Sensory Perceptions 4 02/02/2025 10:[address] Cherie Griffin, RN Moisture 3 02/02/2025 10:20 AM EST Scal fCherie, RN Activity 3 02/02/2025 10:20 AM EST Scal fCherie, RN Mobility 4 02/02/2025 10:20 AM EST Scal fCherie, RN Nutrition 3 02/02/2025 10:20 AM EST Scal fCherie, RN Friction and Shear 3 02/02/2025 10:20 AM ES T Cherie Griffin, RN Chandler Scale Score 20 02/02/2025 10:20 AM ES T Cherie Griffin, RN * Pain Location Answer Date of Assessment Author Abdomen 02/02/2025 10:50 AM Dante Lazaro RN * Vitals Question Answer Date of Assessment Author Daysi src Oral 02/02/2025 6:09 AM EST Geil, Allison BP Location Right arm 02/02/2025 6:09 AM EST Geil, Allison BP Method Automatic 02/02/2025 6:09 AM EST Geil, Allison Weight Method Bed scale 02/02/2025 6:09 AM EST Geil , Allison Patient Position Sitting 02/02/2025 6:09 AM EST G eil, Allison * Safe Environment Question Answer Date of Assessment Author Arm Bands On ID 02/02/2025 10:20 AM EST Cherie Clarke, RN Side Rails/Bed Safety 06/1902/02/2025 10:20 AM Cherie Lazaro, RN NonSkid Footwear On;Patient in bed 02/02/2025 10:20 AM Cherie Lazaro RN The Patient's Environment is Safe Yes 02/02/2025 10:20 AM Cherie Lazaro RN Bed Foot Left Rail Up State Yes 02/02/2025 10:20 AM EST Cherie Griffin , RN Bed Head Right Rail Up State Yes 02/02/2025 10:20 AM EST Cherie Griffin , RN Bed Head Left Rail Up State Yes 02/02/2025 10:20 AM Cherie Lazaro , RN Bed Foot Right Rail Up State Yes 02/02/2025 10:20 AM Cherie Lazaro , RN Bed Brake State Yes 02/02/2025 10:20 AM EST S calfCherie, RN Bed Low Height State Yes 02/02/2025 10:20 AM Cherie Lazaro, RN * Fall Risk Interventions Question Answer Date of Assessment Author Enhanced Safety Measures education provided 02/02/2025 10:20 AM Cherie Lazaro, RN Toilet Every 2 Hours-In Advance of Need Education provided 02/02/2025 10:20 AM Cherie Lazaro RN Hourly Visual Checks In bed 02/02/2025 10:20 AM Cherie Lazaro RN Room Door Open Education provided 02/02/2025 10 :20 AM Cherie Lazaro RN Gait Belt Used For Transfers Not applicable 02/02/2025 10:20 AM Cherie Lazaro RN Fall Bundle Components Call light within reach;Personal belongings within reach;Overbed table within reach;Bed in lowest position;Bed wheels locked;Non-skid footwear on if up in chair or ambulating;Staff to remain with patient during toileting;Fall risk sign on door;Staff to remain with patient during ambulation and tranfers 02/02/2025 10:20 AM Cherie Lazaro RN * Mobility Question Answer Date of Assessment Author Activity Management activity adjusted pe r tolerance 02/02/2025 10:20 AM Cherie Lazaro RN VTE Prevention/Management bilateral;SCDs (sequential compression devices) on 02/02/2025 3:30 PM Cherie Lazaro RN * Hygiene Question Answer Date of Assessment Author Perineal Care absorbent pad;cathet er care provided;education provided 02/02/2025 10:20 AM Cherie Lazaro RN San Care [place] Wipes Used Yes;Education provided 02/02/2025 10:20 AM Maritza Lazaro RN CHG (Chlorhexidine Gluconate) Hygiene Wipes 02/02/2025 6:03 AM Allison Patten * Precautions Question Answer Date of Assessment Author Isolation Precautions protective 02/02/2025 10:20 AM Cherie Lazaro RN Precautions Fall risk 02/02/2025 10:20 AM Cherie Bloom RN * Family/Significant Other Communication Question Answer Date of Assessment Author Family/Significant Other Update Called 11:32 AM Cherie Lazaro RN * Miscellaneous Devices Question Answer Date of Assessment Author Equipment education provided 02/02/2025 10:20 AM Cherie Quinones RN * Safety Equipment at Bedside Question Answer Date of Assessment Author Standard Bedside Safety Ambu bag/mask at bedside;Oxygen available and working;Suction available, setup and working 02/02/2025 10:20 AM Cherie Lazaro RN Additional Bedside Safety Bed in locked and low position;Clutter free environment 02/02/2025 10:20 AM Cherie Lazaro RN * IBW/kg (Calculated) Male Answer Date of Assessment Author 56.88 02/02/2025 10:20 AM Dante Lazaro RN * IBW/kg (Calculated) Female Answer Date of Assessment Author 52.38 02/02/2025 10:20 AM Dante Lazaro RN * Provider Notification Question Answer Date of Assessment Author Provider Role Resident 02/02/2025 11:15 AM Cherie Melton RN Provider Name MD Raghavendra 02/02/2025 11:15 AM Cherie Melton RN Method of Communication Secure message 02/02/2025 11:1 5 AM Cherie Lazaro RN * Intraop Skin Assessment Question Answer Date of Assessment Author Presence of skin impairment on admission to OR? No 02/02/2025 8:29 AM Estefania Hinojosa RN Pressure relief dressing in place? Yes 02/02/2025 8:29 AM Estefania Hinojosa RN Underlying skin checked? No 025 8:29 AM Estefania Hinojosa RN Pressure Reducing Devices Preventative foam dressing 02/02/2025 8:29 AM Estefania Hinojosa RN Preventative Foam Dressing Location Sacrum;Coccyx 02/02/2025 8:29 AM Estefania Hinojosa RN * Hourly Rounding Question Answer Date of Assessment Author Hourly Rounding Complete Per Guideline Yes 02/02/2025 10:20 AM Cherie Lazaro RN * Patient Violence Risk Assessment Question Answer Date of Assessment Author History of Violence: In the past 12 hours has the PATIENT exhibited any of the following? None 02/02/2025 10:20 AM Cherie Lazaro RN Potential for Violence: In the past 12 hours has the PATIENT exhibited any of the following? None 02/02/2025 10:20 AM Cherie Lazaro RN Risk No identified risk 02/02/2025 10:20 AM Cherie Quinones RN History of Violence: In the past 12 hours has a PARTNER IN CARE of the patient exhibited any of the following? None 02/02/2025 10:20 AM Cherie Lazaro RN * Restart Vitals Timer Answer Date of Assessment Author Yes 02/02/2025 2:00 PM Katia Lazaro RN * Height and Weight Question Answer Date of Assessment Author Height 62.992 02/02/2025 10:20 AM Cherie Bloom RN Weight 2680.02 02/02/2025 10:20 AM Cherie Bloom RN BSA (Calculated - sq m) 1.84 02/02/2025 10:20 AM Cherie Lazaro RN BMI (Calculated) 29.68 02/02/2025 10:20 AM Cherie Lazaro RN IBW/kg (Calculated) 52.38 02/02/2025 10:[address] Cherie Griffin RN * Neurological Question Answer Date of Assessment Author Level of Consciousness Alert 11:15 AM Cherie Lazaro RN Orientation Level Oriented X4 02/02/2025 11: 15 AM Cherie Lazaro RN Cognition Impulsive;Follows commands 02/02/2025 11:15 AM Cherie Lazaro RN Speech Clear 02/02/2025 11:15 AM Cherie Lazaro RN L Pupil Reaction Brisk 02/02/2025 10:2 0 AM Cherie Lazaro RN L Pupil Size (mm) 2 02/02/2025 10: 20 AM Cherie Lazaro RN R Pupil Reaction Brisk 02/02/2025 10:2 0 AM Cherie Lazaro RN R Pupil Size (mm) 2 02/02/2025 10: 20 AM Cherie Lazaro RN Swallow Able to swallow antonio ds and liquids without difficulty 02/02/2025 11:15 AM Cherie Lazaro RN Neuro (WDL) WDL 02/02/2025 7:12 AM Harper Platt RN R Pupil Shape Round 02/02/2025 10:20 AM Cherie Lazaro RN L Pupil Shape Round 02/02/2025 10:20 AM Cherie Lazaro RN * HEENT Question Answer Date of Assessment Author HEENT ([facility]) [facility] 02/02/2025 11:15 AM Cherie Bloom RN * Cardiac Question Answer Date of Assessment Author Cardiac Regularity Regular 02/02/2025 11:15 AM Cherie Quinones RN Cardiac ([facility]) [facility] 02/02/2025 7:12 AM Harper Quintanilla pe, RN * Gastrointestinal Question Answer Date of Assessment Author Abdominal Tenderness Soft;Tenderness 02/02/2025 11:15 AM Cherie Lazaro RN Bowel Sounds (All Quadrants) Hypoactive 11:15 AM Cherie Lazaro RN Abdomen Inspection Soft;Rounded 02/02/2025 11 :15 AM Cherie Lazaro RN Gastrointestinal ([facility]) [facility] 02/02/2025 7:12 AM Harper Platt RN * Genitourinary Question Answer Date of Assessment Author Genitourinary ([facility]) [facility] 02/02/2025 2:10 PM Namrata Faria Genitourinary Symptoms None 02/02/2025 2:10 PM Namrata Salinas * Psychosocial Question Answer Date of Assessment Author Psychological state Appropriate for situation 02/02/2025 10:20 AM Cherie Lazaro RN * Pain Assessment Question Answer Date of Assessment Author Patient's Stated Pain Goal 3 02/02/2025 11:15 AM Cherie Lazaro RN Patient is asleep Yes, assume pain is decreased 02/02/2025 1:00 PM Jesica Bacon RN * Mobility Question Answer Date of Assessment Author Ambulation Independent 02/02/2025 7:12 AM Harper Platt RN * Ludy Coma Scale Question Answer Date of Assessment Author Best Eye Response Spontaneous 02/02/2025 4:00 PM Cherie Lazaro RN Best Verbal Response Oriented 02/02/2025 4:[address] Cherie Griffin RN Best Motor Response Follows commands 02/02/2025 4:00 P M Cherie Lazaro RN Ludy Coma Scale Score 15 02/02/2025 4:00 PM Cherie Lazaro RN * Post Procedural (Discharge) Scoring System Question Answer Date of Assessment Author Circulation 2 02/02/2025 6:15 PM EST Cherie Griffin, RN Activity 2 02/02/2025 6:15 PM EST Cherie Griffin, RN Nausea/ Vomiting 2 02/02/2025 6:15 PM EST S Cherie middleton RN Pain 2 02/02/2025 6:15 PM EST Cherie Griffin RN Surgical Bleeding 2 02/02/2025 6:15 PM Cherie Lazaro RN Post Anesthesia Discharge Score 10 6:15 PM Cherie Lazaro RN * Weight in (lb) to have BMI = 25 Answer Date of Assessment Author 140.8 02/02/2025 10:20 AM Dante Lazaro RN * BMI (Calculated) Answer Date of Assessment Author 29.7 02/02/2025 10:20 AM Dante aLzaro RN * Percent Excess Weight Loss Answer Date of Assessment Author 0 02/02/2025 10:20 AM Dante Lazaro RN * Weight Change Since Preop Answer Date of Assessment Author 75.98 02/02/2025 10:20 AM Dante Lazaro RN * Initial Excess Weight Answer Date of Assessment Author -52.15 02/02/2025 10:20 AM Dante Lazaro RN * IBW in kg (Bariatric) Answer Date of Assessment Author 52.15 02/02/2025 10:20 AM Dante Lazaro RN * IBW in lb (Bariatric) Answer Date of Assessment Author 114.96 02/02/2025 10:20 AM Dante Lazaro RN * Weight Change Since Last Visit Answer Date of Assessment Author 0 02/02/2025 10:20 AM Dante Lazaro RN * Percent of IBW Answer Date of Assessment Author 145.7 02/02/2025 10:20 AM Dante Lazaro RN * EBW (kg) Answer Date of Assessment Author 23.81 02/02/2025 10:20 AM Dante Lazaro RN * EBW (lb) Answer Date of Assessment Author 52.54 02/02/2025 10:20 AM Dante Lazaro, RN * Difference in Weight Since Last Visit Answer Date of Assessment Author 0 02/02/2025 10:20 AM Dante Lazaro, RN * Pain Type Answer Date of Assessment Author Surgical pain 02/02/2025 10:50 AM Dante Lazaro RN * Temp (in Celsius) for [place] Answer Date of Assessment Author 36.6 02/02/2025 11:15 AM Dante Lazaro RN * Nutrition Question Answer Date of Assessment Author Diet Type Regular 02/02/2025 10:20 AM Cherie Bloom RN * 4-Eyes Skin Assessment Question Answer Date of Assessment Author 4 Eyes Skin Assessment Completed No 02/03/20 10:20 AM Cherie Lazaro RN * IBW/kg (Calculated) Answer Date of Assessment Author 52.38 02/02/2025 10:20 AM Dante Lazaro RN * Adult Low Range Vt 6mL/kg Answer Date of Assessment Author 314.28 02/02/2025 10:20 AM Dante Lazaro RN * Adult Moderate Range Vt 8mL/kg Answer Date of Assessment Author 419.04 02/02/2025 10:20 AM Dante Lazaro RN * Adult High Range Vt 10mL/kg Answer Date of Assessment Author 523.8 02/02/2025 10:20 AM Dante Lazaro RN * Patient Belongings at Bedside Question Answer Date of Assessment Author Belongings at Bedside Retained by yolanda levine and/or family/legal medical sales representative who assumes responsibility 02/02/2025 7:11 AM Harper Platt RN * Pain Score Answer Date of Assessment Author 5 02/02/2025 10:50 AM Dante Lazaro RN * Urine Output/Assessment Question Answer Date of Assessment Author Urine 100 02/02/2025 4:24 PM Cherie Lazaro RN * Fall Risk Calculated Score Answer Date of Assessment Author Waldo Meyer 02/02/2025 10:20 AM Dante Lazaro RN * Patient Specific Goals Question Answer Date of Assessment Author Patient/Family-Specific Goals (Include Timeframe) patient will have an Dann score of a 12 or back to baseline before leaving PACU 02/02/2025 10:20 AM Cherie Lazaro RN Individualized Care Needs pain regiment education reviewed 02/02/2025 10:20 AM Cherie Lazaro RN Anxieties, Fears or Concerns post-op pain management 02/02/2025 10:20 AM Cherie Lazaro RN * Pain Assessment Answer Date of Assessment Author 0-10 (Adult DVPRS/Peds 0-10) 02/02/2025 10:50 AM Cherie Lazaro RN * Ludy Coma Scale Numeric Answer Date of Assessment Author 15 02/02/2025 4:00 PM Katia Lazaro RN * Vitals Timer Question Answer Date of Assessment Author Restart Vitals Timer Yes 02/02/2025 11:15 AM Cherie Lazaro RN * Respiratory Assessment Question Answer Date of Assessment Author Bilateral Breath Sounds Clear;Diminished 02/02/2025 11 :15 AM Cherie Lazaro RN Respiratory Pattern Regular 02/02/2025 11:15 AM E Cherie Sanchez RN Respiratory (WDL) WDL 02/02/2025 7:12 AM Harper Platt RN * Integumentary Question Answer Date of Assessment Author Integumentary (WDL) WDL 02/02/2025 7:12 AM Harper Sin RN * Modified Jass Question Answer Date of Assessment Author Activity 2 02/02/2025 11:15 AM Cherie Bloom RN Respiration 2 02/02/2025 11:15 AM Cherie Bloom RN Hemodynamic Stability 2 02/02/2025 11:15 AM Cherie Lazaro RN Consciousness 2 02/02/2025 11:15 AM Cherie Melton RN Oxygen Saturation 1 02/02/2025 11:15 AM Cherie Lazaro RN Modified Jass Score 12 02/02/2025 11:15 A M Cherie Lazaro RN Pain 1 02/02/2025 11:15 AM Cherie Bloom RN Emetic Symptoms 2 02/02/2025 11:15 AM KRISTINA S Cherie middleton RN * C-SSRS (Frequent Screener) Question Answer Date of Assessment Author Is patient awake, alert, and able/willing to answer questions appropriately? No 02/02/2025 10:20 AM Cherie Lazaro RN * Pre-op Phone Call Discharge Planning Question Answer Date of Assessment Author Release to Parent/Legal Guardian Confirmation Yes 02/02/2025 6:15 PM Cherie Lazaro RN Living Arrangements Alone 02/02/2025 6:15 PM BRIDGETTE T Cherie Griffin RN Support Systems Spouse/significant other 02/02/2025 6:15 PM Cherie Lazaro RN Type of Residence Private residence 02/02/2025 6:15 PM Cherie Lazaro RN Patient expects to be discharged to: home 02/02/2025 6:15 PM Cherie Lazaro RN * Pain Management Interventions Answer Date of Assessment Author medication (see MAR);pillow support provided;position adjusted;relaxation techniques promoted;rest;quiet environment facilitated 02/02/2025 10:50 AM Cherie Lazaro RN * Fluid/Electrolyte Management Answer Date of Assessment Author electrolyte supplement initiated 02/02/2025 7:15 AM Harper Platt RN * Elevated Risk Identified Answer Date of Assessment Author fluid and electrolyte imbalance 02/02/2025 7:15 AM Harper Platt RN * Outcome Physiologic Homeostasis Answer Date of Assessment Author met 02/02/2025 9:51 AM Marquise Hinojosa RN * Elevated Risk Identified Answer Date of Assessment Author VTE (venous thromboembolism) 02/02/2025 7:15 AM Harper Platt RN * Outcome Minimized Risk and Safety Answer Date of Assessment Author met 02/02/2025 9:51 AM Marquise Hinojosa RN * Outcome Summary Question Answer Date of Assessment Author Plan of Care Reviewed With patient 02/02/2025 11: 13 AM Cherie Lazaro RN * Goal: Anesthesia/Sedation Recovery Question Answer Date of Assessment Author Outcome Anesthesia/Sedation Recovery progressing 02/02/2025 11:13 AM Cherie Lazaro RN * Goal: Optimal Comfort and Wellbeing Question Answer Date of Assessment Author Problem Identified pain 02/02/2025 11:13 AM BRIDGETTE T Cherie Griffin RN Outcome Optimal Comfort and Wellbeing progressing 02/02/2025 11:13 AM Cherie Lazaro RN Elevated Risk Identified pain 02/02/2025 11:13 AM Cherie Lazaro RN * PACU Interventions Question Answer Date of Assessment Author Head of Bed Elevated Self regulated 02/02/2025 10:20 A M Cherie Lazaro RN Warming Device Warm blankets 02/02/2025 11:15 AM KRISTINA S calfCherie RN Additional Comfort/Environmental Interventions Warm blanket 02/02/2025 11:15 AM Cherie Lazaro RN * HLM Score Question Answer Date of Assessment Author [facility] Daily Mobility Goal 8 02/02/2025 10: 20 AM Cherie Lazaro RN [facility] HLM Daily Mobility Score 4 02/02/2025 10 :20 AM Cherie Lazaro RN * Pressure Injury Prevention (PIP) Interventions Question Answer Date of Assessment Author Pressure Reducing Devices Preventative foam dressing 02/02/2025 10:20 AM Cherie Lazaro RN Preventative Foam Dressing Location Coccyx 02/02/2025 10:20 AM Cherie Lazaro RN Preventative Foam Dressing Intervention Applied 02/02/2025 7:12 AM Harper Platt RN Bed Type Stretcher 02/02/2025 7:12 AM Harper Platt RN * Vital Signs Question Answer Date of Assessment Author BP 112/76 02/02/2025 4:00 PM Cherie Lazaro RN Temp 97.9 02/02/2025 11:15 AM EST Cherie Clarke RN Pulse 80 02/02/2025 4:00 PM Cherie Lazaro, LEANNA Resp 12 02/02/2025 2:00 PM Cherie Lazaro RN Cardiac Rhythm NSR 02/02/2025 11:15 AM EST Cherie Richardson RN MAP (mmHg) 89 02/02/2025 4:00 PM EST Cherie Griffin RN * Oxygen Therapy Question Answer Date of Assessment Author SpO2 96 02/02/2025 4:00 PM Cherie Lazaro RN O2 Flow Rate (L/min) 2 02/02/2025 11:15 AM Cherie Lazaro RN Oxygen Therapy None 02/02/2025 4:00 PM Cherie Melton RN O2 Delivery Method Nasal cannula 02/02/2025 11:[address] Cherie Griffin RN * Cross Tie Cutter Question Answer Date of Assessment Author Telemetry Strip Reviewed Yes, I have reviewed and acknowledged the strip measurements as interpreted by the CPT's 02/02/2025 10:20 AM Cherie Lazaro RN Pool Servicer On Yes 02/02/2025 11:15 AM Cherie Lazaro RN Telemetry Audible Yes 02/02/2025 11: 15 AM Cherie Lazaro RN Telemetry Alarms Set Yes 02/02/2025 11:15 AM Cherie Lazaro RN * Gastrointestinal Question Answer Date of Assessment Author GI Symptoms None 02/02/2025 10:30 AM Cherie Bloom RN * Peripheral Vascular Question Answer Date of Assessment Author Peripheral Vascular (WDL) WDL 02/02/2025 11:15 AM Cherie Lazaro RN Capillary Refill Less than/equal to 2 seconds (All extremities) 02/02/2025 11:15 AM Cherie Lazaro RN * Musculoskeletal Question Answer Date of Assessment Author Musculoskeletal (WDL) WDL 02/02/2025 11:15 AM Cherie Lazaro RN * Urine Assessment Question Answer Date of Assessment Author Urine Color Yellow/straw 02/02/2025 11:15 AM EST Scal fCherie, RN Urine Appearance Clear 02/02/2025 11:15 AM EST Cherie Griffin, RN * Haas Fall Risk Question Answer Date of Assessment Author History of Falling, Immediat e or Within 3 Months 0 02/02/2025 10:20 AM EST Cherie Griffin , RN Secondary Diagnosis 15 02/02/2025 10:[address] Cherie Griffin, zyglo technician Aid 0 02/02/2025 10:20 AM EST Sc eltonCherie, RN Intravenous Therapy/Heparin Lock 20 02/03/20 10:20 AM EST Cherie Griffin, RN Gait/Transferring 10 02/02/2025 10:20 AM EST Cherie Griffin, RN Mental Status 15 02/02/2025 10:20 AM EST Sca lfCherie, RN Haas Fall Risk Score 60 02/02/2025 10:20 AM EST Cherie Griffin, RN * Chandler Scale Question Answer Date of Assessment Author Sensory Perceptions 4 02/02/2025 10:[address] Cherie Griffin, RN Moisture 3 02/02/2025 10:20 AM EST Scal f, Cherie Denise, RN Activity 3 02/02/2025 10:20 AM EST Scal f, Cherie Denise, RN Mobility 4 02/02/2025 10:20 AM EST Scal f, Cherie Denise, RN Nutrition 3 02/02/2025 10:20 AM EST Scal f, Cherie Denise, RN Friction and Shear 3 02/02/2025 10:20 AM ES T Cherie Griffin, RN Chandler Scale Score 20 02/02/2025 10:20 AM ES T NormafCherie, RN * Pain Location Answer Date of Assessment Author Abdomen 02/02/2025 10:50 AM EST Dante Griffin, RN * Vitals Question Answer Date of Assessment Author Temp src Oral 02/02/2025 6:09 AM EST Geil Allison BP Location Right arm 02/02/2025 6:09 AM EST Geil Allison BP Method Automatic 02/02/2025 6:09 AM EST Geil, Allison Patient Position Sitting 02/02/2025 6:09 AM EST Allison Madsen * Safe Environment Question Answer Date of Assessment Arm Bands On ID 02/02/2025 10:20 AM Cherie Bloom RN Side Rails/Bed Safety 06/1902/02/2025 10:20 AM Cherie Lazaro RN NonSkid Footwear On;Patient in bed 02/02/2025 10:20 AM Cherie Lazaro RN The Patient's Environment is Safe Yes 02/02/2025 10:20 AM Cherie Lazaro , LEANNA Bed Foot Left Rail Up State Yes 02/02/2025 10:20 AM Cherie Lazaro , LEANNA Bed Head Right Rail Up State Yes 02/02/2025 10:20 AM Cherie Lazaro RN Bed Head Left Rail Up State Yes 02/02/2025 10:20 AM Cherie Lazaro RN Bed Foot Right Rail Up State Yes 02/02/2025 10:20 AM Cherie Lazaro RN Bed Brake State Yes 02/02/2025 10:20 AM KRISTINA S Cherie middleton RN Bed Low Height State Yes 02/02/2025 10:20 AM Cherie Lazaro RN * Fall Risk Interventions Question Answer Date of Assessment Author Enhanced Safety Measures education provided 02/02/2025 10:20 AM Cherie Lazaro RN Toilet Every 2 Hours-In Advance of Need Education provided 02/02/2025 10:20 AM Cherie Lazaro RN Hourly Visual Checks In bed 02/02/2025 10:20 AM Cherie Lazaro RN Room Door Open Education provided 02/02/2025 10 :20 AM Cherie Lazaro RN Gait Belt Used For Transfers Not applicable 02/02/2025 10:20 AM Cherie Lazaro RN Fall Bundle Components Call light within reach;Personal belongings within reach;Overbed table within reach;Bed in lowest position;Bed wheels locked;Non-skid footwear on if up in chair or ambulating;Staff to remain with patient during toileting;Fall risk sign on door;Staff to remain with patient during ambulation and tranfers 02/02/2025 10:20 AM Cherie Lazaro RN * Mobility Question Answer Date of Assessment Author Activity Management activity adjusted pe r tolerance 02/02/2025 10:20 AM Cherie Lazaro RN VTE Prevention/Management bilateral;SCDs (sequential compression devices) on 02/02/2025 3:30 PM Cherie Lazaro RN * Hygiene Question Answer Date of Assessment Author Perineal Care absorbent pad;cathet er care provided;education provided 02/02/2025 10:20 AM Cherie Lazaro RN San Care [place] Wipes Used Yes;Education provided 02/02/2025 10:20 AM Maritza Lazaro RN CHG (Chlorhexidine Gluconate) Hygiene Wipes 02/02/2025 6:03 AM Allison Patten * Precautions Question Answer Date of Assessment Author Isolation Precautions protective 02/02/2025 10:20 AM Cherie Lazaro RN Precautions Fall risk 02/02/2025 10:20 AM Cherie Bloom RN * Family/Significant Other Communication Question Answer Date of Assessment Author Family/Significant Other Update Called 11:32 AM Cherie Lazaro RN * Miscellaneous Devices Question Answer Date of Assessment Author Equipment education provided 02/02/2025 10:20 AM Cherie Quinones RN * Safety Equipment at Bedside Question Answer Date of Assessment Author Standard Bedside Safety Ambu bag/mask at bedside;Oxygen available and working;Suction available, setup and working 02/02/2025 10:20 AM Cherie Lazaro RN Additional Bedside Safety Bed in locked and low position;Clutter free environment 02/02/2025 10:20 AM Cherie Lazaro RN * Provider Notification Question Answer Date of Assessment Author Provider Role Resident 02/02/2025 11:15 AM Cherie Melton RN Provider Name MD Raghavendra 02/02/2025 11:15 AM EST Sca lf, Cherie D, RN Method of Communication Secure message 02/02/2025 11:1 5 AM Cherie Lazaro RN * Hourly Rounding Question Answer Date of Assessment Author Hourly Rounding Complete Per Guideline Yes 02/02/2025 10:20 AM Cherie Lazaro RN * Patient Violence Risk Assessment Question Answer Date of Assessment Author History of Violence: In the past 12 hours has the PATIENT exhibited any of the following? None 02/02/2025 10:20 AM Cherie Lazaro RN Potential for Violence: In the past 12 hours has the PATIENT exhibited any of the following? None 02/02/2025 10:20 AM Cherie Lazaro RN Risk No identified risk 02/02/2025 10:20 AM Cherie Quinones RN History of Violence: In the past 12 hours has a PARTNER IN CARE of the patient exhibited any of the following? None 02/02/2025 10:20 AM Cherie Lazaro RN * Restart Vitals Timer Answer Date of Assessment Author Yes 02/02/2025 2:00 PM Katia Lazaro RN * Height and Weight Question Answer Date of Assessment Author Height 62.992 02/02/2025 10:20 AM Cherie Bloom RN Weight 2680.02 02/02/2025 10:20 AM Cherie Bloom RN BSA (Calculated - sq m) 1.84 02/02/2025 10:20 AM Cherie Lazaro RN BMI (Calculated) 29.68 02/02/2025 10:20 AM Cherie Lazaro RN * Neurological Question Answer Date of Assessment Author Level of Consciousness Alert 11:15 AM Cherie Lazaro RN Orientation Level Oriented X4 02/02/2025 11: 15 AM Cherie Lazaro RN Cognition Impulsive;Follows commands 02/02/2025 11:15 AM Cherie Lazaro RN Speech Clear 02/02/2025 11:15 AM Cherie Lazaro RN L Pupil Reaction Brisk 02/02/2025 10:2 0 AM Cherie Lazaro RN L Pupil Size (mm) 2 02/02/2025 10: 20 AM Cherie Lazaro RN R Pupil Reaction Brisk 02/02/2025 10:2 0 AM Cherie Lazaro RN R Pupil Size (mm) 2 02/02/2025 10: 20 AM Cherie Lazaro RN Swallow Able to swallow antonio ds and liquids without difficulty 02/02/2025 11:15 AM Cherie Lazaro, LEANNA R Pupil Shape Round 02/02/2025 10:20 AM Cherie Lazaro, LEANNA L Pupil Shape Round 02/02/2025 10:20 AM Cherie Lazaro RN * Gastrointestinal Question Answer Date of Assessment Author Abdominal Tenderness Soft;Tenderness 02/02/2025 11:15 AM Cherie Lazaro RN Bowel Sounds (All Quadrants) Hypoactive 02/02/2025 11:15 AM Cherie Lazaro RN Abdomen Inspection Soft;Rounded 02/02/2025 11:15 AM ES T Cherie Griffin RN * Genitourinary Question Answer Date of Assessment Author Genitourinary Symptoms None 02/02/2025 2:10 PM EST Namrata Lorenzo * Psychosocial Question Answer Date of Assessment Author Psychological state Appropriate for situation 02/02/2025 10:20 AM Cherie Lazaro RN * Pain Assessment Question Answer Date of Assessment Author Patient's Stated Pain Goal 3 02/02/2025 11:15 AM Cherie Lazaro RN Patient is asleep Yes, assume pain is decreased 02/02/2025 1:00 PM Jesica Bacon RN * Mobility Question Answer Date of Assessment Author Ambulation Independent 02/02/2025 7:12 AM Harper Platt RN * [place] Coma Scale Question Answer Date of Assessment Author Best Eye Response Spontaneous 02/02/2025 4:00 PM Cherie Lazaro RN Best Verbal Response Oriented 02/02/2025 4:[address] Cherie Griffin RN Best Motor Response Follows commands 02/02/2025 4:00 P M Cherie Lazaro RN Ludy Coma Scale Score 15 02/02/2025 4:00 PM Cherie Lazaro RN * Weight in (lb) to have BMI = 25 Answer Date of Assessment Author 140.8 02/02/2025 10:20 AM Dante Lazaro RN * Pain Type Answer Date of Assessment Author Surgical pain 02/02/2025 10:50 AM Dante Lazaro RN * Nutrition Question Answer Date of Assessment Author Diet Type Regular 02/02/2025 10:20 AM Cherie Bloom RN * 4-Eyes Skin Assessment Question Answer Date of Assessment Author 4 Eyes Skin Assessment Completed No 02/03/20 10:20 AM Cherie Lazaro RN * Patient Belongings at Bedside Question Answer Date of Assessment Author Belongings at Bedside Retained by yolanda levine and/or family/legal medical sales representative who assumes responsibility 02/02/2025 7:11 AM Harper Platt RN * Pain Score Answer Date of Assessment Author 5 02/02/2025 10:50 AM Dante Lazaro RN * Patient Specific Goals Question Answer Date of Assessment Author Patient/Family-Specific Goals (Include Timeframe) patient will have an Dann score of a 12 or back to baseline before leaving PACU 02/02/2025 10:20 AM Cherie Lazaro RN Individualized Care Needs pain regiment education reviewed 02/02/2025 10:20 AM Cherie Lazaro RN Anxieties, Fears or Concerns post-op pain management 02/02/2025 10:20 AM Cherie Lazaro RN * Pain Assessment Answer Date of Assessment Author 0-10 (Adult DVPRS/Peds 0-10) 02/02/2025 10:50 AM Cherie Lazaro RN * Respiratory Assessment Question Answer Date of Assessment Author Bilateral Breath Sounds Clear;Diminished 02/02/2025 11 :15 AM Cherie Lazaro RN Respiratory Pattern Regular 02/02/2025 11:[address] Cherie Griffin RN * C-SSRS (Frequent Screener) Question Answer Date of Assessment Author Is patient awake, alert, and able/willing to answer questions appropriately? No 02/02/2025 10:20 AM Cherie Lazaro RN documented as of this encounter Mental Status * Pre-op Phone Call Discharge Planning Question Answer Entry Date Author Release to Parent/Legal Guardian Confirmation Yes 02/02/2025 6:15 PM Cherie Lazaro RN Living Arrangements Alone 02/02/2025 6 :15 PM Cherie Lazaro RN Support Systems Spouse/significant other 02/02/2025 6:15 PM Cherie Lazaro RN Type of Residence Private residence 02/02/2025 6 :15 PM Cherie Lazaro RN Patient expects to be discharged to: home 02/02/2025 6:15 PM Cherie Lazaro RN * BMI (Calculated) Answer Entry Date Author 29.7 02/02/2025 10:20 AM Dante Lazaro RN * Percent Excess Weight Loss Answer Entry Date Author 0 02/02/2025 10:20 AM Dante Lazaro RN * Total Weight Change Percent Answer Entry Date Author 222102/02/2025 10:20 AM Dante Lazaro RN * Weight Change Since Preop Answer Entry Date Author 75.96 02/02/2025 10:20 AM Dante Lazaro RN * Initial Excess Weight Answer Entry Date Author -52.15 02/02/2025 10:20 AM Dante Lazaro RN * IBW in lbs (Bariatric) Answer Entry Date Author 114.96 02/02/2025 10:20 AM Dante Lazaro RN * Weight Change Since Last Visit Answer Entry Date Author 0 02/02/2025 10:20 AM Dante Lazaro RN * IBW in kg (Bariatric) Answer Entry Date Author 52.15 02/02/2025 10:20 AM Dante Lazaro RN * Percent of IBW Answer Entry Date Author 5,139.06 02/02/2025 10:20 AM Dante Lazaro RN * EBW (kg) Answer Entry Date Author 2,678.54 02/02/2025 10:20 AM Dante Lazaro RN * EBW (lbs) Answer Entry Date Author 2,672.84 02/02/2025 10:20 AM Dante Lazaro RN * Preprocedure Normothermia Interventions Question Answer Entry Date Author Warming Blankets Applied Yes 02/02/2025 7:02 AM Harper Platt RN Forced Air Warming Applied No 02/02/2025 7:0 2 AM Harper Platt RN * Intraprocedure Normothermia Interventions Question Answer Entry Date Author Minimize Patient Exposure Yes 02/02/2025 8:22 AM Estefania Hinojosa RN * Pain Management Interventions Answer Entry Date Author medication (see MAR);pillow support provided;position adjusted;relaxation techniques promoted;rest;quiet environment facilitated 02/02/2025 10:50 AM Cherie Lazaro RN * Fluid/Electrolyte Management Answer Entry Date Author electrolyte supplement initiated 02/02/2025 7:15 AM Harper Platt RN * Elevated Risk Identified Answer Entry Date Author fluid and electrolyte imbalance 02/02/2025 7:15 AM Harper Platt RN * Outcome Physiologic Homeostasis Answer Entry Date Author met 02/02/2025 9:51 AM Marquise Hinojosa RN * Elevated Risk Identified Answer Entry Date Author VTE (venous thromboembolism) 02/02/2025 7:15 AM Harper Platt RN * Outcome Minimized Risk and Safety Answer Entry Date Author met 02/02/2025 9:51 AM Marquise Hinojosa RN * Outcome Summary Question Answer Entry Date Author Plan of Care Reviewed With patient 02/02/2025 11: 13 AM Cherie Lazaro RN * Goal: Anesthesia/Sedation Recovery Question Answer Entry Date Author Outcome Anesthesia/Sedation Recovery progressing 02/02/2025 11:13 AM Cherie Lazaro RN * Goal: Optimal Comfort and Wellbeing Question Answer Entry Date Author Problem Identified pain 02/02/2025 11:13 AM Cherie Quinones RN Outcome Optimal Comfort and Wellbeing progressing 02/02/2025 11:13 AM Cherie Lazaro RN Elevated Risk Identified pain 02/02/2025 11:13 AM Cherie Lazaro RN * PACU Interventions Question Answer Entry Date Author Head of Bed Elevated Self regulated 02/02/2025 10:20 AM Cherie Lazaro RN Warming Device Warm blankets 02/02/2025 11:15 AM Cherie Lazaro RN Additional Comfort/Environmental Interventions Warm blanket 02/02/2025 11:15 AM Cherie Lazaro RN * Weight Change 24 hrs Answer Entry Date Author 5.078 02/02/2025 10:20 AM Dante Lazaro RN * HLM Score Question Answer Entry Date Author HLM Daily Mobility Goal 8 02/02/2025 10: 20 AM Cherie Lazaro RN HLM Daily Mobility Score 4 02/02/2025 10 :20 AM Cherie Lazaro RN * Pressure Injury Prevention (PIP) Interventions Question Answer Entry Date Author Pressure Reducing Devices Preventative f oam dressing 02/02/2025 10:20 AM Cherie Lazaro RN Preventative Foam Dressing Location Coccyx 02/02/2025 10:20 AM Cherie Lazaro RN Preventative Foam Dressing Intervention Applied 02/02/2025 7:12 AM Harper Platt RN Bed Type Stretcher 02/02/2025 7:12 AM Harper Platt RN * Vital Signs Question Answer Entry Date Author BP 112/76 02/02/2025 4:00 PM Cherie Lazaro RN Temp 97.9 02/02/2025 11:15 AM Cherie Bloom RN Pulse 80 02/02/2025 4:00 PM Cherie Lazaro, RN Resp 12 02/02/2025 2:00 PM Cherie Lazaro RN Cardiac Rhythm NSR 02/02/2025 11:15 AM Cherie Simms RN MAP (mmHg) 89 02/02/2025 4:00 PM Cherie Lazaro RN * Oxygen Therapy Question Answer Entry Date Author SpO2 96 02/02/2025 4:00 PM Cherie Lazaro RN O2 Flow Rate (L/min) 2 02/02/2025 11:15 AM Cherie Lazaro RN Oxygen Therapy None 02/02/2025 4:00 PM Cherie Melton RN O2 Delivery Method Nasal cannula 02/02/2025 11:[address] Cherie Griffin RN * Cross Tie Cutter Question Answer Entry Date Author Telemetry Strip Reviewed Yes, I have reviewed and acknowledged the strip measurements as interpreted by the CPT's 02/02/2025 10:20 AM Cherie Lazaro, trackless trolley driverPool Servicer On Yes 02/02/2025 11:15 AM Cherie Lazaro, trackless trolley driver Audible Yes 02/02/2025 11: 15 AM Cherie Lazaro, trackless trolley driver Alarms Set Yes 02/02/2025 11:15 AM Cherie Lazaro, LEANNA Bedside Cross Tie Cutter On Yes 02/02/2025 11:15 AM Cherie Lazaro, RN Bedside Cardiac Audible Yes 02/02/2025 11:15 AM Cherie Lazaro, RN Bedside Cardiac Alarms Set Yes 02/02/2025 11:15 AM Cherie Lazaro, LEANNA * Gastrointestinal Question Answer Entry Date Author GI Symptoms None 02/02/2025 10:30 AM Cherie Bloom, LEANNA * Peripheral Vascular Question Answer Entry Date Author Peripheral Vascular (WDL) WDL 02/02/2025 11:15 AM Cherie Lazaro RN Capillary Refill Less than/equal to 2 seconds (All extremities) 02/02/2025 11:15 AM Cherie Lazaro, RN * Musculoskeletal Question Answer Entry Date Author Musculoskeletal (WDL) WDL 02/02/2025 11:15 AM Cherie Lazaro, LEANNA * Urine Assessment Question Answer Entry Date Author Urine Color Yellow/straw 02/02/2025 11:15 AM Cherie Bloom, LEANNA Urine Appearance Clear 02/02/2025 11:15 AM Cherie Lazaro, LEANNA * Haas Fall Risk Question Answer Entry Date Author History of Falling, Immediat e or Within 3 Months 0 02/02/2025 10:20 AM EST NormafCherie , RN Secondary Diagnosis 15 02/02/2025 10:[address] ScalfCherie, zyglo technician Aid 0 02/02/2025 10:20 AM EST Sc eltonCherie, RN Intravenous Therapy/Heparin Lock 20 02/03/20 10:20 AM EST NormafCherie, RN Gait/Transferring 10 02/02/2025 10:20 AM EST NormafCherie, RN Mental Status 15 02/02/2025 10:20 AM EST Sca lf, Cherie Denise, RN Haas Fall Risk Score 60 02/02/2025 10:20 AM EST NormafCherie, RN * Chandler Scale Question Answer Entry Date Author Sensory Perceptions 4 02/02/2025 10:[address] NormafCherie, RN Moisture 3 02/02/2025 10:20 AM EST Scal f, Cherie Denise, RN Activity 3 02/02/2025 10:20 AM EST Scal f, Cherie Denise, RN Mobility 4 02/02/2025 10:20 AM EST Scal f, Cherie Denise, RN Nutrition 3 02/02/2025 10:20 AM EST Scal f, Cherie Denise, RN Friction and Shear 3 02/02/2025 10:20 AM ES T NormafCherie, RN Chandler Scale Score 20 02/02/2025 10:20 AM ES T NormafCherie, RN * Pain Location Answer Entry Date Author Abdomen 02/02/2025 10:50 AM EST Dante Griffin, RN * Vitals Question Answer Entry Date Author Temp src Oral 02/02/2025 6:09 AM EST Geil, Allison BP Location Right arm 02/02/2025 6:09 AM EST Geil, Allison BP Method Automatic 02/02/2025 6:09 AM EST Geil, Allison Weight Method Bed scale 02/02/2025 6:09 AM EST Geil , Allison Patient Position Sitting 02/02/2025 6:09 AM EST G eil, Allison * Safe Environment Question Answer Entry Date Author Arm Bands On ID 02/02/2025 10:20 AM EST Cherie Griffin, RN Side Rails/Bed Safety 06/1902/02/2025 10:20 AM Cherie Lazaro RN NonSkid Footwear On;Patient in bed 02/02/2025 10 :20 AM Cherie Lazaro RN The Patient's Environment is Safe Yes 02/02/2025 10:20 AM Cherie Lazaro RN Bed Foot Left Rail Up State Yes 02/02/2025 10:20 AM Cherie Lazaro RN Bed Head Right Rail Up State Yes 02/02/2025 10:20 AM Cherie Lazaro RN Bed Head Left Rail Up State Yes 02/02/2025 10:20 AM Cherie Lazaro RN Bed Foot Right Rail Up State Yes 02/02/2025 10:20 AM Cherie Lazaro RN Bed Brake State Yes 02/02/2025 10:20 AM Cherie Lazaro RN Bed Low Height State Yes 02/02/2025 10:20 AM Cherie Lazaro RN * Fall Risk Interventions Question Answer Entry Date Author Enhanced Safety Measures education provided 01/16 10:20 AM Cherie Lazaro RN Toilet Every 2 Hours-In Advance of Need Education provided 02/02/2025 10:20 AM Cherie Lazaro RN Hourly Visual Checks In bed 02/02/2025 10:20 AM Cherie Lazaro RN Room Door Open Education provided 02/02/2025 10 :20 AM Cherie Lazaro RN Gait Belt Used For Transfers Not applicable 02/02/2025 10:20 AM Cherie Lazaro RN Fall Bundle Components Call light within reach;Personal belongings within reach;Overbed table within reach;Bed in lowest position;Bed wheels locked;Non-skid footwear on if up in chair or ambulating;Staff to remain with patient during toileting;Fall risk sign on door;Staff to remain with patient during ambulation and tranfers 02/02/2025 10:20 AM Cherie Lazaro RN * Mobility Question Answer Entry Date Author Activity Management activity adjusted pe r tolerance 02/02/2025 10:20 AM Cherie Lazaro RN VTE Prevention/Management bilateral;SCDs (sequential compression devices) on 02/02/2025 3:30 PM Cherie Lazaro RN * Hygiene Question Answer Entry Date Author Perineal Care absorbent pad;cathet er care provided;education provided 02/02/2025 10:20 AM Cherie Lazaro RN San Care [place] Wipes Used Yes;Education provided 02/02/2025 10:20 AM Cherie Lazaro RN CHG (Chlorhexidine Gluconate) Hygiene Wipes 02/02/2025 6:03 AM Allison Patten * Precautions Question Answer Entry Date Author Isolation Precautions protective 02/02/2025 10:20 AM Cherie Lazaro RN Precautions Fall risk 02/02/2025 10:20 AM Cherie Bloom RN * Family/Significant Other Communication Question Answer Entry Date Author Family/Significant Other Update Called 11:32 AM Cherie Lazaro RN * Miscellaneous Devices Question Answer Entry Date Author Equipment education provided 02/02/2025 10:20 AM Cherie Quinones RN * Safety Equipment at Bedside Question Answer Entry Date Author Standard Bedside Safety Ambu bag/mask at bedside;Oxygen available and working;Suction available, setup and working 02/02/2025 10:20 AM Cherie Lazaro RN Additional Bedside Safety Bed in locked and low position;Clutter free environment 02/02/2025 10:20 AM Cherie Lazaro RN * IBW/kg (Calculated) Male Answer Entry Date Author 56.88 02/02/2025 10:20 AM Dante Lazaro RN * IBW/kg (Calculated) Female Answer Entry Date Author 52.38 02/02/2025 10:20 AM Dante Lazaro RN * NPO/Void Status Question Answer Entry Date Author Time of Last Liquid 9000 02/02/2025 7:02 AM Harper Sin RN Time of Last Void 81592 02/02/2025 7:02 AM Harper Platt RN Date of Last Liquid 58708 02/02/2025 7:02 AM Harper Sin RN Date of Last Solid 92668 02/02/2025 7:02 AM Harper Platt RN Time of Last Solid 51751 02/02/2025 7:02 AM Harper Platt RN * Provider Notification Question Answer Entry Date Author Provider Role Resident 02/02/2025 11:15 AM Cherie Melton RN Provider Name MD Raghavendra 02/02/2025 11:15 AM Cherie Melton RN Method of Communication Secure message 02/02/2025 11:1 5 AM Cherie Lazaro RN * Hourly Rounding Question Answer Entry Date Author Hourly Rounding Complete Per Guideline Yes 02/02/2025 10:20 AM Cherie Lazaro RN * Patient Violence Risk Assessment Question Answer Entry Date Author History of Violence: In the past 12 hours has the PATIENT exhibited any of the following? None 02/02/2025 10:20 AM Cherie Lazaro RN Potential for Violence: In the past 12 hours has the PATIENT exhibited any of the following? None 02/02/2025 10:20 AM Cherie Lazaro RN Risk No identified risk 02/02/2025 10 :20 AM Cherie Lazaro RN History of Violence: In the past 12 hours has a PARTNER IN CARE of the patient exhibited any of the following? None 02/02/2025 10:20 AM Cherie Lazaro RN * Chlorhexidine Screening Question Question Answer Entry Date Author Have you ever had a rash or burn develop after a hospital procedure and/or operation or been told you have an allergy or sensitivity to chlorhexidine or pink pre-surgical soap? No 02/02/2025 7:02 AM Harper Platt RN * Restart Vitals Timer Answer Entry Date Author Yes 02/02/2025 2:00 PM Katia Lazaro RN * Height and Weight Question Answer Entry Date Author Height 62.992 02/02/2025 10:20 AM Cherie Bloom RN Weight 2680.02 02/02/2025 10:20 AM Cherie Bloom RN BSA (Calculated - sq m) 1.84 02/02/2025 10:20 AM Cherie Laazro RN BMI (Calculated) 29.68 02/02/2025 10:20 AM Cherie Lazaro RN IBW/kg (Calculated) 52.38 02/02/2025 10:[address] Cherie Griffin RN * Neurological Question Answer Entry Date Author Level of Consciousness Alert 11:15 AM Cherie Lazaro RN Orientation Level Oriented X4 02/02/2025 11: 15 AM Cherie Lazaro RN Cognition Impulsive;Follows commands 02/02/2025 11:15 AM Cherie Lazaro RN Speech Clear 02/02/2025 11:15 AM Cherie Lazaro RN L Pupil Reaction Brisk 02/02/2025 10:2 0 AM Cherie Lazaro RN L Pupil Size (mm) 2 02/02/2025 10: 20 AM Cherie Lazaro RN R Pupil Reaction Brisk 02/02/2025 10:2 0 AM Cherie Lazaro RN R Pupil Size (mm) 2 02/02/2025 10: 20 AM Cherie Lazaro RN Swallow Able to swallow antonio ds and liquids without difficulty 02/02/2025 11:15 AM Cherie Lazaro RN Neuro ([facility]) [facility] 02/02/2025 7:12 AM Harper Platt RN R Pupil Shape Round 02/02/2025 10:20 AM Cherie Lazaro RN L Pupil Shape Round 02/02/2025 10:20 AM Cherie Lazaro RN * HEENT Question Answer Entry Date Author JAMES ([place]) [place] 02/02/2025 11:15 AM Cherie Bloom RN * Cardiac Question Answer Entry Date Author Cardiac Regularity Regular 02/02/2025 11:15 AM ES T Cherie Griffin RN Cardiac ([facility]) [facility] 02/02/2025 7:12 AM Harper Quintanilla pe, RN * Gastrointestinal Question Answer Entry Date Author Abdominal Tenderness Soft;Tenderness 02/02/2025 11:15 AM Cherie Lazaro RN Bowel Sounds (All Quadrants) Hypoactive 11:15 AM Cherie Lazaro RN Abdomen Inspection Soft;Rounded 02/02/2025 11 :15 AM Cherie Lazaro RN Gastrointestinal ([facility]) [facility] 7:12 AM Harper Platt RN * Genitourinary Question Answer Entry Date Author Genitourinary ([facility]) [facility] 02/02/2025 2:10 PM Namrata Faria Genitourinary Symptoms None 02/02/2025 2:10 PM Namrata Salinas * Psychosocial Question Answer Entry Date Author Psychological state Appropriate for situation 10:20 AM Cherie Lazaro RN * Pain Assessment Question Answer Entry Date Author Patient's Stated Pain Goal 3 02/02/2025 11:15 AM Cherie Lazaro RN Patient is asleep Yes, assume pain is decreased 02/02/2025 1:00 PM Jesica Bacon RN * Mobility Question Answer Entry Date Author Ambulation Independent 02/02/2025 7:12 AM Harper Platt RN * Preop Holding - SSI Checklist Question Answer Entry Date Author Nasal decolonization swabs d one in preop holding? Yes 02/02/2025 7:02 AM Harper Platt RN * Ludy Coma Scale Question Answer Entry Date Author Best Eye Response Spontaneous 02/02/2025 4:00 PM Cherie Lazaro RN Best Verbal Response Oriented 02/02/2025 4:00 PM E Cherie Sanchez RN Best Motor Response Follows commands 02/02/2025 4:00 P M Cherie Lazaro RN [place] Coma Scale Score 15 02/02/2025 4:00 PM Cherie Lazaro RN * Restart Pain Assessment Timer Answer Entry Date Author Yes 02/02/2025 10:50 AM EST Dante Griffin RN * Post Procedural (Discharge) Scoring System Question Answer Entry Date Author Circulation 2 02/02/2025 6:15 PM EST Cherie Griffin, RN Activity 2 02/02/2025 6:15 PM EST Cherie Griffin, RN Nausea/ Vomiting 2 02/02/2025 6:15 PM EST S calfCherie, RN Pain 2 02/02/2025 6:15 PM EST Cherie Griffin, bread room hand Bleeding 2 02/02/2025 6:15 PM EST Cherie Griffin, RN Post Anesthesia Discharge Score 10 6:15 PM Cherie Lazaro RN * Weight in (lb) to have BMI = 25 Answer Entry Date Author 140.8 02/02/2025 10:20 AM Dante Lazaro RN * BMI (Calculated) Answer Entry Date Author 29.7 02/02/2025 10:20 AM Dante Lazaro RN * Percent Excess Weight Loss Answer Entry Date Author 0 02/02/2025 10:20 AM EST Dante Griffin RN * Weight Change Since Preop Answer Entry Date Author 75.98 02/02/2025 10:20 AM Dante Lazaro RN * Initial Excess Weight Answer Entry Date Author -52.15 02/02/2025 10:20 AM Dante Lazaro RN * IBW in kg (Bariatric) Answer Entry Date Author 52.15 02/02/2025 10:20 AM EST Dante Griffin RN * IBW in lb (Bariatric) Answer Entry Date Author 114.96 02/02/2025 10:20 AM EST Dante Griffin RN * Weight Change Since Last Visit Answer Entry Date Author 0 02/02/2025 10:20 AM EST Dante Griffin, LEANNA * Percent of IBW Answer Entry Date Author 145.7 02/02/2025 10:20 AM Dante Lazaro RN * EBW (kg) Answer Entry Date Author 23.81 02/02/2025 10:20 AM EST Dante Griffin RN * EBW (lb) Answer Entry Date Author 52.54 02/02/2025 10:20 AM Dante Lazaro RN * Difference in Weight Since Last Visit Answer Entry Date Author 0 02/02/2025 10:20 AM Dante Lazaro RN * Pain Type Answer Entry Date Author Surgical pain 02/02/2025 10:50 AM Dante Lazaro RN * Anthropometrics Question Answer Entry Date Author Weight Change 0 02/02/2025 10:20 AM Cherie Melton RN * Temp (in Celsius) for [place] Answer Entry Date Author 36.6 02/02/2025 11:15 AM Dante Lazaro RN * Nutrition Question Answer Entry Date Author Diet Type Regular 02/02/2025 10:20 AM Cherie Bloom RN * 4-Eyes Skin Assessment Question Answer Entry Date Author 4 Eyes Skin Assessment Completed No 02/03/20 10:20 AM Cherie Lazaro RN * IBW/kg (Calculated) Answer Entry Date Author 52.38 02/02/2025 10:20 AM Dante Lazaro RN * Adult Low Range Vt 6mL/kg Answer Entry Date Author 314.28 02/02/2025 10:20 AM Dante Lazaro RN * Adult Moderate Range Vt 8mL/kg Answer Entry Date Author 419.04 02/02/2025 10:20 AM Dante Lazaro RN * Adult High Range Vt 10mL/kg Answer Entry Date Author 523.8 02/02/2025 10:20 AM EST Dante Griffin RN * Patient Belongings at Bedside Question Answer Entry Date Author Belongings at Bedside Retained by yolanda levine and/or family/legal medical sales representative who assumes responsibility 02/02/2025 7:11 AM Harper Platt RN * Patient Medications Question Answer Entry Date Author Medications brought by patient? No 4:26 PM Cherie Lazaro RN * Pain Score Answer Entry Date Author 5 02/02/2025 10:50 AM Dante Lazaro RN * Urine Output/Assessment Question Answer Entry Date Author Urine 100 02/02/2025 4:24 PM Cherie Lazaro RN * Fall Risk Calculated Score Answer Entry Date Author Waldo Meyer 02/02/2025 10:20 AM Dante Lazaro RN * Patient Specific Goals Question Answer Entry Date Author Patient/Family-Specific Goals (Include Timeframe) patient will have an Dann score of a 12 or back to baseline before leaving PACU 02/02/2025 10:20 AM Cherie Lazaro RN Individualized Care Needs pain regiment education reviewed 02/02/2025 10:20 AM Cherie Lazaro RN Anxieties, Fears or Concerns post-op pain management 02/02/2025 10:20 AM Cherie Lazaro RN * Pain Assessment Answer Entry Date Author 0-10 (Adult DVPRS/Peds 0-10) 02/02/2025 10:50 AM Cherie Lazaro RN * Ludy Coma Scale Numeric Answer Entry Date Author 15 02/02/2025 4:00 PM Katia Lazaro RN * Vitals Timer Question Answer Entry Date Author Restart Vitals Timer Yes 02/02/2025 11:15 AM Cherie Lazaro RN * Respiratory Assessment Question Answer Entry Date Author Bilateral Breath Sounds Clear;Diminished 02/02/2025 11 :15 AM Cherie Lazaro RN Respiratory Pattern Regular 02/02/2025 11:[address] Cherie Griffin RN Respiratory (WDL) WDL 02/02/2025 7:12 AM Harper Platt RN * Integumentary Question Answer Entry Date Author Integumentary (WDL) WDL 02/02/2025 7:12 AM Harper Sin RN * Modified Jass Question Answer Entry Date Author Activity 2 02/02/2025 11:15 AM Cherie Bloom RN Respiration 2 02/02/2025 11:15 AM Cherie Bloom RN Hemodynamic Stability 2 02/02/2025 11:15 AM EST Cherie Griffin RN Consciousness 2 02/02/2025 11:15 AM EST Cherie Millard RN Oxygen Saturation 1 02/02/2025 11:15 AM Cherie Lazaro RN Modified Jass Score 12 02/02/2025 11:15 A M EST Cherie Griffin RN Pain 1 02/02/2025 11:15 AM EST Cherie Clarke RN Emetic Symptoms 2 02/02/2025 11:15 AM EST S Cherie middleton RN * C-SSRS (Frequent Screener) Question Answer Entry Date Author Is patient awake, alert, and able/willing to answer questions appropriately? No 02/02/2025 10:20 AM Cherie Lazaro RN documented in this encounter Discharge Instructions * Discharge Instructions* Alyssa Hubbard MD - 02/02/2025 4:52 PM EST Images from the original note were not included. Caring for Yourself after Minimally Invasive Hysterectomy Medications: - take pain medication and stool softeners as detailed below Follow up: - you will have a follow up appointment about 4 weeks after surgery. If you need to see a provider before your follow up, there are several options call your doctor to schedule an appointment: [phone] Visit the gynecologic oncology Walk-In Clinic which is open Saturday-Saturday 8am- 10am. It is helpful if you call the clinic before arrival: [phone] Call the Cancer acute Treatment Clinic. Same day-appointments are available Saturday-Saturday 8am-5pm. Please call [phone] before arrival to schedule a visit Fever - If you feel feverish or have chills, take your temperature. - Call your doctor if your temperature is 100.4 degrees or above. This can be a sign of an infection Activity Do - Walk every day. You may get tired quickly and need to take breaks. - You can go up and down stairs. Don???t - Do not put anything in the vagina for at least 6 weeks or until approved by your provider (no sexual intercourse, tampons, medicines, or douching). - No tub baths or swimming until after your follow-up appointment. - Please avoid heavy lifting (over 10 pounds) or strenuous exercise for at least 6 weeks. - Do not drive while taking narcotic pain medicine. Do not drive until soreness from surgery goes away. Pain Control - We recommend alternating acetaminophen (Tylenol) and ibuprofen (Motrin) around the clock for the first few days. For example, take 600 mg of ibuprofen, then 3 hours later, take 650 mg of acetaminophen. Three hours later, you will be due for another dose of ibuprofen. - For severe pain not relieved by this, take oxycodone (narcotic pain medicine) as needed. Do not take it more than every 4-6 hours. Incisions - Check your incision daily. - Call your doctor if you notice any of these: increased redness swelling bleeding pus-like drainage clear drainage that does not stop - Your incisions are closed with a suture that will slowly dissolve. You do not need to have it removed. They are covered with dermabond, a skin glue. - You may shower 24 hours after surgery. Let soapy water run over the incisions and pat dry. - You may peel off the skin glue 1-2 weeks after surgery. Bowel Movements - It may take a few days for bowel movements to return to normal. The bowels slow after surgery because of stress, diet changes, inactivity, and narcotic pain medicines. - To get your bowels moving, you may take a mild laxative (Senna). If there is no bowel movement byday 4 or 5, you may add Miralax or Milk of Magnesia. - High fiber foods and drinking more water can also help prevent constipation. - Call your doctor if the constipation is not relieved. - It is normal to have a small amount of clear yellow drainage from the incision. Nutrition - You may eat your regular diet. Drink plenty of water. - Call your doctor for nausea and vomiting that lasts over 24 hours. Vaginal Discharge and Bleeding - There are absorbable sutures at the top of the vagina. You may have light spotting and vaginal discharge for several weeks after surgery. - Please call your doctor if you have heavy bleeding. Important Phone Numbers 8 a.m.-4:30 p.m.: call the Gynecologic Oncology Clinic at [phone]. 4:30 p.m.-8 a.m.: call the [facility] at [phone] and ask for the Gynecologic Oncology provider on-call. documented in this encounter Medications at Time of Discharge busPIRone (Buspar) 10 MG tablet Take 1 tablet by mouth 4 times a day. 06/16/2024 cetirizine (ZyrTEC) 10 MG tablet Take 1 tablet by mouth daily. 01/04/2025 docusate sodium 100 MG capsule Take 100 mg by mouth 2 times a day. 60 capsule 1 02/02/2025 famotidine (Pepcid) 20 MG tablet Take 1 tablet by mouth 2 times a day. 60 tablet 02/02/2025 ibuprofen 600 MG tablet Take 1 tablet by mouth every 6 hours. 60 tablet 2 02/03/2025 levothyroxine (Synthroid, Levoxyl) 125 MCG tablet Take 1 tablet by mouth daily. 12/10/2024 liothyronine (Cytomel) 5 MCG tablet Take 1 tablet by mouth daily. 07/21/2024 lisinopril 10 MG tablet Take 1 tablet by mouth daily. 07/21/2024 ondansetron ODT (Zofran-ODT) 4 MG disintegrating tablet Dissolve 1 tablet on the tongue every 6 hours as needed for nausea or vomiting. 20 tablet 02/02/2025 metFORMIN XR (Glucophage-XR) 500 MG 24 hr tablet Take 1 tablet by mouth twice a day. 07/21/2024 5 oxyCODONE (Roxicodone) 5 MG immediate release tablet Take 1 tablet by mouth every 4 hours as needed for severe pain. 3 tablet 02/02/2025 5 documented as of this encounter Miscellaneous Notes * Anesthesia PACU Signout - Kaylyn Mabry MD - 02/02/2025 11:28 AM EST Patient: Gemma Zarco Anesthesia Type: general Vitals Value Taken Time BP 96/67 02/02/25 11:15 Temp 36.6 ??C (97.8 ??F) 02/02/25 10:20 Pulse 95 02/02/25 11:27 Resp 16 02/02/25 11:27 SpO2 95 % 02/02/25 11:27 Vitals shown include unfiled device data. Anesthesia PACU Signout Patient location during evaluation: PACU Patient participation: complete - patient participated Level of consciousness: baseline and awake Pain management: adequate (pain score 0-3) Airway patency: natural airway Hydration status: acceptable PONV: none Cardiovascular status: acceptable and hemodynamically stable Respiratory status: acceptable, spontaneous ventilation, unassisted, nonlabored ventilation and nasal cannula Discharge Disposition: admit to inpatient unit Cosigned by Iris Singh MD at 02/02/2025 12:27 PM EST Associated attestation - Iris Singh MD - 02/02/2025 12:27 PM EST Signature only. * Op Note - Marlee Mike MD - 02/02/2025 8:15 AM EST Operative Note Date: 02/02/25 Location: [place] [facility] Name: Gemma Zarco, : 1975, Diagnoses: Pre-op Diagnosis Complex cyst of left ovary AUB Obesity BMI 30 S/p open appy S/p CCY S/p endometrial ablation Post-op Diagnosis Complex cyst of left ovary AUB Obesity BMI 30 S/p open appy S/p CCY S/p endometrial ablation Procedure(s): Robotic TLH/BSO/extensive YURIDIA Attending Surgeon(s): * Marlee Mike I - Primary Fastener Sewing Machine Operator(s): * Rochelle Back MD - Fellow Anesthesia: General ASA: III Blood Administration: Blood Product Administration History None Estimated Blood Loss: 15 ml Drains: Urethral Catheter Non-latex 16 Fr. (Active) Specimen: Specimens ID Source Frozen? 1 Pelvic Washing No Description: PELVIC WASHING 2 Uterus No Description: Uterus, cervix, bilateral fallopian tubes and Ovaries . Findings: extensive omental and small bowel adhesions to anterior abdominal wall in what appears maria dolores an umbilical hernia repair with possible mesh. Required docking in LUQ to perform adhesiolysis. Uterus, cervix tubes and ovaries all appeared grossly normal. 1-2cm simple cyst on right ovary. Minimal remaining omentum. Indications: Gemma Zarco is an 49 y.o. female who is having surgery for Complex cyst of left ovary. Narrative: The patient was brought to the operating room after signing informed consent. The patient was induced with general anesthesia. The patient was placed in dorsal lithotomy position using Sky Stirrups. The vagina was prepped and a San catheter was placed. Next, a speculum was inserted into the vagina. The cervix was visualized and grasped with a single tooth tenaculum. The cervix was sounded anddilated. A Arc[employer] uterine manipulator was placed. The patient???s arms were tucked and the patient was placed on a pink postioner pad to prevent sliding. The abdomen was prepped in usual fashion. A LUQ port was placed in the midclavicular, 2 fingerbredths below the left costal margin. An optiview trocar and camera were used to obtain direct entry into the abdominal cavity. The abdomen was insufflated with heated CO2 gas to a pressure of 14 mm Hg. No injuries were noted to bowel or vascular structures. The patient was placed in 28 degrees of trendelenburg. We saw a significant amount of adhesions in the mid and right side of the abdomen. We were able to get in a midline robotic port through the falciform and a left lateral port. We placed a robotic trocar through the 12mm port. We docked the robot in the LUQ to target the mid and right abdomen. I used a scissor and fenestrated bipolar in the right and left arms. Adhesiolysis was performed with blunt dissection, sharp dissection andcautery where appropriate to clear the abdominal wall. There was a loop of small bowel included in the adhesions. There was a small area of possible serosal defect from manipulation of the adhesion. Note was made of this location. Two additional robotic ports were then placed in the right lateral abdominal wall. The robot was docked in usual fashion to target the pelvis. The surgery took place using a bipolar fenestrated grasper (left arm), needle wagon driver (right arm) and an prograsp grasper (far right 4th arm). The area of the small bowel was identified. 3-0 vicryl was used to imbricate this area x1 to reinforce the bowel wall. The needle wagon driver was then exchanged for a monopolar scissor. The left round ligament was grasped and cauterized. The retroperitoneal space was explored and the ureter identified. The left IP ligament was skeletonized and cauterized. The left IP was transected and the ovary was freed of its adnexal attachments. The same procedure was performed on the right side. A bladder flap was created sharply. The bladder was carefully dissected free with monopolar cauteryand sharp dissection to the level of the V-care ring. Ureterolysis was performed bilaterally to follow the ureters deep to the uterine vessels. The uterine arteries were skeletonized above the V-care. Bipolar cautery was used to ablate the arteries. Pedicles were created parallel to the cervix until the level of the V-care ring was reached. Anterior and posterior colpotomies were made with the monopolar scissors over the V-care. Once the cervix was circumferentially transected from the vagina, the uterus, cervix, tubes and ovaries were removed from the vagina. The upper abdomen was inspected and minimal omentum was noted so we did not sample. The vagina was closed with a 0 VLoc in a running fashion. No vascular bleeding was noted at the IP ligaments or uterine arteries. The course of the ureter was visible away from all pedicles with goodvermiculation. The pelvis was irrigated and monopolar cautery used for hemostasis. SurgiSNOW was placed over the surgical bed. The robot was undocked and the 12 mm port was removed and its fascia closed with a 0 Vicryl and a Lauro-Jonatan. All ports were removed under direct visualization of the camera. No bleeding was noted. The port sites were closed with a subcuticular closure, 3.0 monocryl. The patient was extubated and transferred to the PACU in stable condition. All sharp, sponge and instrument counts were correct. The patient received a pre- operative dose of antibiotic. Dr Mikeparticipated for the entire procedure. Adhesiolysis greatly prolonged the procedure. We had to first dock in the LUQ and perform robotic adhesiolysis before we were able to adequately clear enough abdominal wall for our surgery. Overall, >60 minutes of additional time was required for retraction and visualization. There were NO signs of surgical site infection (SSI) present at the time of surgery (PATOS). Complications: None; patient tolerated the procedure well. Submitted by: Marlee Mike MD - 02/02/2025 * Interval H&P Note - Rosalina De La Rosa DO - 02/02/2025 6:46 AM EST Gynecologic Oncology Interval History & Physical Update H&P from 01/08/25 clinic visit reviewed as below. Patient presents today scheduled for robotic TLH + BSO + omentectomy secondary to complex left ovarian cyst with suspicion for borderline tumor. Patient doing well today. The patient was examined and no changes noted to H&P. Consent form reviewed with patient. All questions answered to patient's satisfaction. Chronic Conditions: - HTN: managed on lisinopril - Alejandro's: managed on Synthroid and Cytomel - Anxiety: managed on anxiety Dispo: To OR for robotic TLH + BSO + omentectomy, all other indicated procedures. Plan for discharge home today following postoperative recovery if procedure uncomplicated and patient doing well. Rosalina De La Rosa DO, PGY3 Obstetrics & Gynecology Resident Source Note - Rochelle Back MD - 01/08/2025 9:00 AM EDT Patient ID: Gemma Zarco is a 49 y.o. female. Referring Physician: Nell Mckeon DO [address] [place] [id number] Primary Care Provider: No primary care provider on file. History of Present Illness: Chief Complaint: left ovarian cyst Gemma Zarco is a 49 y.o. female seen in consultation for a newly diagnosed left ovarian cyst at the request of Dr. Nell Mckeon. She mentioned RLQ cramping to PCP who ordered a TVUS. It noted ancyst in left ovary with mural nodule. LEFT ovary: 3.3 x 2.6 x 2.1 cm. Complex cyst with solid appearing mural nodule in the left ovary measures 2.7 x 2.4 x 2.4 cm, with the mural nodule measuring up to 12 mm (best seen on image 91). No definite internal vascularity. Cul-de-sac: Small volume free fluid. 12/29/24 HE4 43.8 CA19-9 31 CA125 37.5 She has a long history of painful menses, pain between menses. 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 Alternates diarrhea/constipation. Tolerates normal diet, no unintended weight loss. 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 HENT: Negative. Respiratory: Negative. Cardiovascular: Negative. Gastrointestinal: Positive for constipation and diarrhea. Endocrine: Positive for hot flashes. Genitourinary: Positive for pelvic pain and vaginal discharge. Musculoskeletal: Negative. Skin: Negative. Neurological: Negative. Psychiatric/Behavioral: Negative. Cancer Staging No matching staging information was found for the patient. [No matching plan found] Subjective History: Medical/Surgical/Social/Family History I have reviewed and updated the patient history. Allergies Patient has no allergy information on record. [Current Medications] [Current Medications] No current outpatient medications on file. Tobacco Use: Low Risk (01/08/2025) Patient History Smoking Tobacco Use: Never Smokeless Tobacco Use: Never Passive Exposure: Not on file Recent Concern: Tobacco Use - Medium Risk (12/25/2024) Received from [facility] Patient History Smoking Tobacco Use: Former Smokeless Tobacco Use: Never Passive Exposure: Past Social History Substance and Sexual Activity Alcohol Use None Social History Substance and Sexual Activity Drug Use Not on file Social Connections: Unknown (12/26/2022) Received from [facility] Family and Community Support Help with Day-to-Day Activities: Not on file Lonely or Isolated: Not on file Objective Physical Exam: Vital Signs for this encounter: BSA: 1.78 meters squared Visit Vitals BP 113/77 Pulse 91 Temp 36.7 ??C (98.1 ??F) (Temporal) Resp 16 Ht 1.6 m (5' 3 ) Wt 70.9 kg (156 lb 4.9 oz) SpO2 98% BMI 27.69 kg/m?? Smoking Status Never BSA 1.78 m?? Physical Exam Vitals reviewed. HENT: Head: Normocephalic and atraumatic. Cardiovascular: Rate and Rhythm: Normal rate and regular rhythm. Pulmonary: Effort: Pulmonary effort is normal. Breath sounds: Normal breath sounds. Abdominal: General: Abdomen is flat. Bowel sounds are normal. Palpations: Abdomen is soft. Tenderness: There is no abdominal tenderness. Genitourinary: Comments: Vulva normal in appearance Normal appearing vagina and cervix Uterus small, mobile, non-tender No adnexal masses palpated bilaterally Rectovaginal exam deferred Musculoskeletal: General: Normal range of motion. Cervical back: Normal range of motion. Skin: General: Skin is warm and dry. Neurological: Mental Status: She is alert. Mental status is at baseline. Psychiatric: Mood and Affect: Mood normal. Performance Status: Asymptomatic Pain Scale: 0 Results: Creatinine, Plasma (mg/dL) Date/Time Value 10/08/2017 0705 0.61 Impression Complex cyst in the left ovary with echogenic mural nodule. Recommend consultation with gynecology oncology given suspicious features. Heterogeneous myometrium is nonspecific, but compatible with adenomyosis as described on the MRI from 11/18/2015. - Note: Radiology results need to be interpreted within a comprehensive clinical context. If you have questions about the radiology report, please contact the office of the ordering clinician. Narrative US PELVIS AND TRANSVAGINAL NON OB COMPLETE 12/28/2024 8:00 AM CLINICAL HISTORY: R10.20-Pelvic and perineal pain unspecified [id number]. COMPARISON: Pelvic ultrasound from 11/10/2015 PROCEDURE COMMENTS: Sonographic evaluation of the pelvis per ordered protocol with medical sales representative images and tech notes for sent for review. FINDINGS: Uterus: 9.7 x 5.2 x 5.1 cm overall size. Heterogeneity of the myometrium. Endometrium: 4 mm thickness. RIGHT ovary: 2.7 x 1.9 x 1.8 cm. Normal appearance for age. LEFT ovary: 3.3 x 2.6 x 2.1 cm. Complex cyst with solid appearing mural nodule in the left ovary measures 2.7 x 2.4 x 2.4 cm, with the mural nodule measuring up to 12 mm (best seen on image 91). No definite internal vascularity. Cul-de-sac: Small volume free fluid. Doppler flow: Normal color Doppler and spectral Doppler flow to the bilateral ovaries. Assessment/Plan Pap Smear was not collected today. Problem 1: left ovarian cyst Assessment and plan 1: Recommend Robotic TLH/BSO/OMX due to possible borderline tumor. Risk of bleeding, infection, damage to anything within the abdomen (bladder, bowel, ureters, blood vessels, nerves, etc), DVT/PE, anesthesia. Procedure and Blood Transfusion consent obtained. Will collect preop labs: CBC, CMP, A1c. I discussed expected hospital stay, recovery time and potential to need adjuvant treatment depending on pathology. I identified this patient as a good candidate for the Enhanced Recovery After Surgery protocol and she is agreeable to this plan. Extra educational information and instructions were provided by clinic nursing staff including goals for early ambulation, incentive spirometry use, early return to normal diet, and multimodal pain management with minimization of narcotic usage. Reviewed extended recovery protocol, stay in recovery area for a few hours to overnight with planned dc from recovery area by 10am. Letter to Dr. Nell Mckeon Problem 2: HTN Assessment and plan 2: continue home meds Problem 3: Alejandro thyroiditis Assessment and plan 3: continue home meds Problem 4: Moderate alcohol use (5-10 drinks a week) Assessment and plan 4: counseled on healthy alcohol intake Patient seen and plan discussed with Dr. Mike. Rochelle Esqueda MD Gynecologic Oncology Fellow, PGY 7 [facility] [address] [address] [address] [facility] [address] Dept: [phone] Dept Loc: [phone] Cosigned by Marlee Mike MD at 01/11/2025 12:48 PM EDT * PAT Phone Note - Leti Browne RN - 01/26/2025 1:44 PM EST HPI Gemma Zarco is a 49 y.o. female who presents with Pre-op Diagnosis * Complex cyst of left ovary [N83.292] now scheduled for Robot TLHBSO, SLN, OMEN (Bilateral). Date scheduled is 02/02/2025. 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 Motion sickness PCOS (polycystic ovarian syndrome) PTSD (post-traumatic stress disorder) 2018 [1] Family History Problem Relation Name Age of Onset Malig Hyperthermia Neg Hx [1] Social History Tobacco Use Smoking status: Never Smokeless tobacco: Never Vaping Use Vaping status: Every Day Substances: Nicotine Devices: Disposable Substance Use Topics Alcohol use: Yes Alcohol/week: 4.0 standard drinks of alcohol Types: 4 Glasses of wine per week Drug use: Never [1] Past Surgical History: Procedure Laterality Date BLADDER SURGERY Unknown bladder sling BUNIONECTOMY CHOLECYSTECTOMY EYE SURGERY 2006 Lasik OTHER SURGICAL HISTORY Hemmoroidectomy, bunion surgery, appendectomy, gall bladder removal, tonsillectomy, TONSILLECTOMY [1] Allergies Allergen Reactions Hydrocodone Nausea Hydrocodone-Acetaminophen Nausea and Rash Oxycodone-Acetaminophen Nausea and Rash [1] No current facility-administered medications for this encounter. Current Outpatient Medications: busPIRone, Take 1 tablet by mouth 4 times a day. cetirizine, Take 1 tablet by mouth daily. levothyroxine, Take 1 tablet by mouth daily. liothyronine, Take 1 tablet by mouth daily. lisinopril, Take 1 tablet by mouth daily. metFORMIN XR, Take 1 tablet by mouth twice a day. * Preprocedure Instructions - Leti Browne RN - 01/26/2025 1:42 PM EST Home Medication Instructions Current Medications Medication Instructions busPIRone (Buspar) 10 MG tablet Take morning of surgery cetirizine (ZyrTEC) 10 MG tablet Take morning of surgery levothyroxine (Synthroid, Levoxyl) 125 MCG tablet Take morning of surgery liothyronine (Cytomel) 5 MCG tablet Take morning of surgery lisinopril 10 MG tablet Hold day of surgery metFORMIN XR (Glucophage-XR) 500 MG 24 hr tablet Hold 48 days before surgery General Preoperative Instructions You will be called the business day before surgery with your arrival time Do not eat or drink anything after midnight except water with your medications unless other instructions are given No alcohol or smoking prior to surgery Arrive on time to avoid delays Parking/Registration procedure explained You MUST have a responsible adult available for transport to and from hospital Visitation policy for the day of surgery reviewed Bring insurance card, photo ID, along with power of deputy commonwealth's attorney, guardianship or advanced directives if applicable Do not bring money, jewelry or other valuables Hibiclens or dial soap bathing instructions reviewed if applicable No topicals on skin Notify surgeon of fever, illness, any changes or if you decide not to have surgery No solid food or milk after midnight Clear liquids 2 hours prior to arrival for surgery (water, Gatorade, or apple juice) * Porsha Johnson - Leti Browne RN - 01/26/2025 1:42 PM EST Images from the original note were not included. 40 Bathing Before Surgery Basic instructions ? You need to bathe with Hibiclens (chlorhexidine) before surgery. This will clean your skin and remove germs that live on the skin. This reduces your risk of infection after surgery. ? You can buy Hibiclens at most drug stores. ? You need to bathe with Hibiclens twice before surgery - once the night before surgery and again the morning of surgery. ? Do not use Hibiclens on your hair or anywhere above the neck. ? You should not shave with a razor or use hair removal creams near the surgery site for 4 days before surgery. Night before surgery If you take a shower or tub bath: 1. Wash with regular soap and water and rinse off. 2. You may wash your hair the night before or the morning of surgery. Shampoo and rinse as usual. 3. Pour 1 ounce (2 tablespoons) of Hibiclens on a clean washcloth. Wash the area where you will be having your surgery first. Then wash the rest of the body, leaving the groin area until last. 4. Allow the Hibiclens to stay on the skin for 5 minutes, then rinse off completely. 5. Use a clean towel to dry off. 6. Put on clean clothing and be sure to have clean sheets on your bed. ? If you take a bed bath: 1. Wash with regular soap and water and rinse off. 2. Place 1 ounce (2 tablespoons) of Hibiclens solution in a wash basin of clean water. Wash the area where you will be having surgery first. 3. Then wash the rest of the body. Leave the groin area until last. 4. Allow the Hibiclens to stay on the skin for 5 minutes. Then rinse off completely. 5. Use a clean towel to dry off. 6. Put on clean clothing. Be sure to have clean sheets on your bed. Morning of surgery ? Repeat the above steps. You are now ready for surgery with the cleanest possible skin! If you develop a skin problem between now and your surgery, please tell your doctor as soon as possible! * [facility] Leti Browne RN - 01/26/2025 1:42 PM EST Images from the original note were not included. 489 Map to [facility] Facilities Directions Easy directions to and from [address] (from [address]) Directions from I-75/[address]-64 to the [facility] Parking Garage: ? From [address], turn right off the exit ramp onto [address] ([place] [address] [address]) toward [place]. ? In 4.1 miles, turn left onto [address]. (at the [employer]). ? In a half-mile, turn right onto [address]. ? In .3 miles, turn right onto [address] (just past the [employer] gas station). Garage entrance is on the left. ? Important: This garage address will change to Jaylen Guadarrama on September 15, 2024. Directions from HealthCare Parking Garage to I-75/I-64: ? Turn left out of the garage onto [facility] [address]. ? Turn left onto [address]. ? In .3 miles, turn left down [address] ? In a half-mile, turn right onto [address] (at the [employer] gas station). ? In 4.1 miles, merge onto [address] /[address] (near the [employer] by [employer]). Parking Any patients or visitors of [facility] can park in the following areas: ? [facility] Parking Garage (main garage): [address] (Levels A-F) ? [facility] Garage: [address] (Levels 1-6) ? [facility] Cancer lot: Located off [address] (limited parking for [facility] outpatients only). Upon Your Arrival ? Patients and visitors going to [facility], G and [facility] may walk across the pedway, located at Level C of the main parking garage ([address] or take the free shuttle from Level A. Golf carts are available on the pedway. ? Patients and visitors going to all other hospital pavilions are encouraged to take a free shuttleat Level A of the main garage. ? Emergency Department (ED) patients in need of immediate treatment may be dropped off at the ED entrance at the 15-minute dropoff area. Vehicles in this lot must be moved to the main hospital garage after 15 minutes. The ED may also be accessed via the pedway off [facility] garage on Level C. If you need a shuttle to the ED, one can be called for you at Level A of the main garage or contact any of the information desks, . Additional Information For additional information, please visit our information desks located throughout [facility]. Information desks have additional maps and resources. Information desks are located at the main entrances of: [place] [facility] (first floor and ground floor), [facility], [facility] H, Pav[facility] CC, [facility] WH, [facility] (first and third floor), and [facility]. Informationdesk number: [phone]. Important Addresses [address] [facility] ? [facility] entrance ? Pavilion A ? Pavilion G ([facility]) ? Emergency Department [address] ? Pav[facility] H ? [facility] CC ([facility]) ? [facility] ([facility]) ? [facility] [address] [facility] ? [facility] [address] [facility] ? [facility] 110 [facility] ? [facility] ? [facility] * Porsha Johnson - Leti Browne RN - 01/26/2025 1:42 PM EST Images from the original note were not included. 1072 Patient Surgery Guide The doctors and staff of Surgical [facility] would like to welcome you, your family, and friends to [facility]. We offer access to more than 1,500 doctors from many specialty areas. Our goal is to provide high-quality, patient- centered care throughout your experience. We have a team approach tosurgery, and you and your family are an important part of our team. Surgeons, surgical nurses, anesthesiologists, dietitians, social workers, pharmacists, and others will work with you to decide the best plan of care for you. We understand surgery is a stressful time. This information will help you be more comfortable with [facility] and the surgical process. This information provides an overview answering many of yourquestions. But if you have further questions, please ask your doctor or nurse. Preoperative Anesthesia Clinic Your doctor may ask you to go to the Preoperative Anesthesia Clinic before your surgery. This visitallows us to evaluate your overall health and reduce the chance of delays or cancellation on the day of surgery. Please bring a complete list of the medicines your currently take. Bring any recent test reports you may have, including blood work, EKG, X-rays. Bring the results of any recent heart evaluation, including doctor?s notes and test reports. If you are not scheduled for a Preoperative Anesthesia Clinic visit, a nurse will call you to go over your health history and give you information about your surgery. It is very important you speak to a nurse before your surgery. The Preoperative Anesthesia Clinic is located on the first floor of the [facility] near the Pharmacy and main clinic entrance. We are open Saturday-Saturday from 8 a.m. to 4:30 p.m. A clinic medical sales representative can be reached at [phone]. Parking is available in the [facility] garage on [facility] or in the [facility] garage located at [address] [place] [address], directly across [facility] from [facility]. The day before surgery You will receive a phone call telling you what time you need to arrive at the hospital for surgery.If you miss the call, please call one of the following numbers (depending on where your surgery is scheduled): ? [facility]: [phone] or [phone] ? [facility]: [phone] or [phone] The day of surgery ? Arrive on time to avoid delays or cancellation. ? Park in the [facility] parking garage located at [address] It is directly across [facility] from the [facility]. ? If you are scheduled for surgery at [facility], take the hospital garage elevator to Level C, then cross the concourse bridge to the Surgery Waiting Room to register for your surgery. [facility] is located down the first hallway to the right at the end of the concourse bridge. If you need help crossing the concourse, you may meat pickler the patient golf cart shuttle directlyto the right of the elevators on Level C. ? If you are scheduled for surgery at the [facility], take the garage elevator to Level A and catch the free shuttle to the hospital. (Be careful not to take the [facility] shuttle - there is an ambassador there who can help you.) Exit the shuttle at the first shuttle stop, then proceed to the registration desk to the right of the entrance. ? Registration staff will take your insurance information and confirm your name, birthday, address and other information. When you arrive After you register, we will take you to the preoperative area. Here the nurses will get you ready for surgery. Visitors are limited in the preoperative area. Nurses will: ? Allow you to change into a hospital gown. ? Check your arm band for your name and birthday. Your arm band will be checked many times throughout your stay at [facility] to ensure your safety. ? Go over your health history. ? Review your medicines and allergies. ? Check your temperature, blood pressure, heart rate, height and weight. ? Start an IV. ? Tell you what to expect during your stay at the hospital. During surgery Your family and friends will be directed to the Surgery Waiting Room. There they will receive regular updates during your surgery. Your doctor will talk to them after your surgery. A food clerk is available in the waiting room to help family and visitors. Space is limited, so please limit the number of people who come with you for your surgery. After surgery We will take you to a special area called the Post-Anesthesia Care Unit, or ?PACU.? There nurses will take care of you as you recover from surgery. Most patients will stay in the PACU for about 1-2 hours. Some people might need to stay longer. During this time the doctors and nurses will: ? Keep your pain level as low as possible. ? Help keep you from being sick to your stomach. ? Make sure you are warm and comfortable. ? Update your family on how you are doing. The anesthesia doctor will decide when you can go home or to your room. If you are going home after surgery: A nurse will give you and your family instructions on how to care for yourself when you go home. You will also get written instructions. This information will tell you how to schedule a follow-up appointment if an appointment is not scheduled before you leave, and how to contact your surgeon. If you are staying in the hospital after surgery: You will stay in the PACU until you are assigned a room. Your family and friends may visit you once you get to your hospital room. Parents of children or caregivers of special needs patients may remain in the preoperative area forthe entire time. They will be allowed in the PACU as soon as possible after the operation. At home ? Plan to go straight home to rest when you leave the hospital. If you wish, your medicines to takehome can be brought to your room before you leave. ? Follow your doctor?s instructions about rest, what to eat, what you can and cannot do, which medicines to take and when you may return to your normal activities. ? Be sure to keep your follow-up appointment with your doctor. You should be scheduled for a clinicappointment before you leave the hospital. Special reminders If you take insulin or other medicine for diabetes, the doctor will tell you what dose to take before your surgery. This will probably be different from your normal dose. Please bring your insulin with you on the day of surgery. If you are taking a blood thinner (for example: Coumadin, Plavix, aspirin, etc.), please tell your surgeon and anesthesia doctor. For all other medicines, you will receive instructions during your Anesthesia Preoperative Clinic visit or phone screening. Updates from the operating room It is important to protect your privacy when you are in the hospital. We also want to make it easy for your family to find out how you are doing while you are in surgery. To do this, on the day of your surgery a nurse will ask you to choose a password and share it with just one family member or friend. This password will then be put on your chart. When your family member calls to check on your condition, he or she must give the password to the nurse. The nurse will look on your chart to make sure it is the correct password and then give the person information on your condition. If you have any questions about this process, please ask. Our mission is to give you the very best care, including protecting your privacy. Feel better faster You should take walks if possible and do plenty of deep breathing. This will help you feel better more quickly after surgery. Walking and deep breathing help prevent blood clots and pneumonia and mayhelp ease any muscle soreness. Surgery do's ? Be sure to bring your current insurance card and a picture ID. ? Please bring copies of the following,if you have them: living will, health care surrogate, power of deputy commonwealth's attorney or guardianship papers. ? Bring a responsible adult to drive you home (or ride with you in a taxi) if you are having outpatient surgery. ? Plan to have someone stay with you at home for 24 hours after your surgery. ? Bring a list of your current medicines, including how much you take and when you take it. You mayalso just bring the medicines (in their original containers) with you. ? Tell your doctor about any allergies you have to medicines or food. ? Wear comfortable, loose-fitting clothes and low-heeled shoes. ? Bring a case to store glasses, contact lenses or dentures during surgery. Label the containers with your name. ? Pack an overnight bag that includes personal care items, such as a toothbrush and lotion, if you are staying in the hospital. ? Bring a parent or guardian if you are younger than 18. ? Bring a favorite toy or blanket for children having surgery. Surgery don'ts ? Starting at midnight, don?t eat anything on the day of your surgery. ? Don?t drink anything after midnight (unless told otherwise by your doctor or nurse) the day before your surgery. ? Don?t smoke, use smokeless tobacco, eat mints or chew gum after midnight the day of your surgery. ? Don?t drink alcohol 24 hours before your surgery. ? Don?t wear makeup, jewelry (including body piercing) or nail ku[place]. ? Don?t bring money or valuables to the hospital. ? Don?t drive a motor vehicle for 24 hours after your surgery. ? Don?t make important decisions or sign any legal documents for 24 hours after your surgery. ? Don?t drink alcohol or take medicine not prescribed by your doctor for 24 hours after your surgery. Need to cancel? If you decide not to have surgery or if you need to cancel because of a fever, a breathing or viralillness, or a family emergency, please call your surgeon?s office and the Preoperative Anesthesia Clinic at [phone] or [phone]. If it is the day of surgery, call the location where you are scheduled to have your surgery: [facility] at [phone] or [phone] or [facility] at [phone] or [phone]. For more information Visit [email or web address] or call [phone] or [phone]. HealthCare does not discriminate. HealthCare complies with applicable Federal civil rights laws and does not discriminate on the basis of race, color, national origin, age, disability, or sex. documented in this encounter Plan of Treatment Not on file documented as of this encounter Procedures Procedure Name Priority Date/Time Associated Diagnosis Comments CBC W/O DIFFERENTIAL STAT 02/02/2025 2:06 PM EST SURGICAL PATHOLOGY EXAM Routine 02/03/20 9:26 AM EST Complex cyst of left ovary NON-GYNECOLOGIC CYTOLOGY Routine 02/02/2025 8:47 AM EST Complex cyst of left ovary NH LAPAROSCOPY W TOT HYSTERECTUTERUS <=250 GRAM W TUBE/OVARY 02/02/2025 7:23 AM EST Complex cyst of left ovary TYPE AND SCREEN Routine 02/02/2025 6:57 AM EST POCT , URINE Routine 02/02/2025 6:23 AM EST POCT GLUCOSE METER UNSOLICITED RESULTS Routine 02/02/2025 6:15 AM EST documented in this encounter Results * (ABNORMAL) CBC W/O Differential (02/02/2025 2:06 PM EST) WBC Count 11.76(H) 3.70 - 10.30 10*3/uL LAB HEMATOLOGY METHOD 02/02/2025 2:38 PM EST [facility] RBC Count 4.22 3.90 - 5.20 10*6/uL LAB HEMATOLOGY METHOD 02/02/2025 2:38 PM EST [facility] HGB 12.5 11.2 - 15.7 g/dL LAB HEMATOLOGY METHOD 02/02/2025 2:38 PM EST [facility] HCT 36.8 34.0 - 45.0 % LAB HEMATOLOGY METHOD 02/02/2025 2:38 PM EST [facility] Platelet Count 240 155 - 369 10*3/uL LAB HEMATOLOGY METHOD 02/02/2025 2:38 PM EST [facility] MCV 87 79 - 98 fL LAB HEMATOLOGY METHOD 02/02/2025 2:38 PM EST [facility] MCH 29.6 26.0 - 32.0 pg LAB HEMATOLOGY METHOD 02/02/2025 2:38 PM EST [facility] MCHC 34.0 30.7 - 35.5 g/dL LAB HEMATOLOGY METHOD 02/02/2025 2:38 PM EST [facility] RDW 12.0 11.5 - 14.5 % LAB HEMATOLOGY METHOD 02/02/2025 2:38 PM EST [facility] MPV 10.4 8.8 - 12.5 fL LAB HEMATOLOGY METHOD 02/02/2025 2:38 PM EST [facility] nRBC 0.0 <=0.0 per 100 WBCs LAB HEMATOLOGY METHOD 02/02/2025 2:38 PM EST [facility] Blood Venous blood specimen / Unknown Venipuncture / Unknown 02/02/2025 2:06 PM EST 02/02/2025 2:31 PM EST us Marlee Mike MD LAB BLOOD ORDERABLES Samreen l Result [facility] [address] [place] [address] * Surgical Pathology Exam (02/02/2025 9:26 AM EST) Case Report Surgical Pathology Case: [id number] Authorizing Provider: Marlee Mike MD Collected: 02/02/2025 0926 Ordering Location: [facility] RO[facility] Received: 02/02/2025 1023 Pathologist: Estrella Sheriff MD Specimen: Uterus, Uterus, cervix, bilateral fallopian tubes and Ovaries . 02/04/2025 4:49 PM EST [facility] Final Diagnosis UTERUS, CERVIX, FALLOPIAN TUBES, AND OVARIES, TOTAL LAPAROSCOPIC HYSTERECTOMY WITH BILATERAL SALPINGO-OOPHOREC ODILON: - OVARIES WITH HEMORRHAGIC CORPUS LUTEAL CYSTS AND CORPORA ALBICANTIA - BENIGN ENDOCERVIX POLYP - UTERINE CELLULAR LEIOMYOMA - BENIGN ENDOMETRIUM - LEFT FALLOPIAN TUBE WITH PARATUBAL CYST - RIGHT FALLOPIAN TUBE WITH NO SIGNIFICANT PATHOLOGIC CHANGES - NEGATIVE FOR DYSPLASIA, HYPERPLASIA OR MALIGNANCY 02/04/2025 4:49 PM EST [facility] at 1648 EST Clinical Information Complex cyst of left ovary [N83.292] 02/04/2025 4:49 PM EST [facility] Gross Description A. UTERUS, CERVIX, BILATERAL FALLOPIAN TUBES AND OVARIES . The specimen is received fresh and placed in formalin, labeled u terus, cervix, bilateral fallopian tubes and ovaries , and consists of a 185.0 g, total hysterectomy and bilateral salpingo oophorectomy to include a uterus 9.6 (fundus to ectocervix) by 5.8 (cornu to cornu) by 4.6 cm (anterior to posterior), right ovary (8.6 x 2.8 x 2.1 cm), right fallopian tube (5.4 cm in length by 1.1 cm in diameter), left ovary (3.1 x 3.2 x 2.8 cm), and left fallopian tube (6.1 cm in length by 0.9 cm in diameter). The uterine serosa is is pink-purple and congested. The external surfaces of the ovaries are love-pink, intact, and cribriform. Sectioning the ovaries reveals multiple smooth lined cysts that range from 0.5 to 0.8 cm in greatest dimension. The right ovary contains a large hemorrhagic corpus luteum. No discrete masses are identified. The external surface of the fallopian tubes are rivera-purple, congested, smooth, and glistening. The lumens are stellate and patent. No masses are identified. The 3.1 x 1.3 cm endometrial cavity is pink-red, stenotic, and has an average thickness of 0.1 cm. No masses or polyps are identified. 2.1 cm thick myometrium is love-pink, severely trabeculated, and contains 0.8 cm olve-white, whirled, and well-circumscribe d nodule. Within the anterior cervix, there is a 2.2 x 1.1 x 1.1 cm polyp. [employer]r sections are submitted as follows: A1: Anterior endomyometrium, full-thickness A2-A3: Posterior endomyometrium, full-thickness, bisected A4: Whorled nodule A5-A6: Posterior cervix and lower uterine segment, bisected A7-A8: Anterior cervix and lower uterine segment, bisected A9-A10: Anterior cervical polyp, bisected A11-A12: Right ovary A13: Right fallopian tube A14-A15: Left ovary A16: Left fallopian tube Cold Time: 57m BUD Cerna (ASCP) 02/04/2025 4:49 PM EST [facility] Note: A resident was involved in the service. I attest I examined the relevant preparations for the specimens and confirmed the diagnosis or interpretation. 02/04/2025 4:49 PM EST [facility] Tissue Uterine structure / Unknown 02/02/2025 9:26 AM EST 02/02/2025 10:23 AM EST Comment:Pre-op diagnosis: Complex cyst of left ovary [N83.292] us Marlee Mike MD LAB PATHOLOGY ORDERABLES Final Result Performing Organization Address City/State/[facility] Co de Phone Number [facility] [address] [place] [address] * Non-Gynecologic Cytology (02/02/2025 8:47 AM EST) Case Report Cytology Case: [id number] Authorizing Provider: Marlee Mike MD Collected: 02/02/2025 0847 Ordering Location: [facility] Received: 02/02/2025 0900 Pathologist: Shayla Amos MD Specimen: Pelvic Washing, PELVIC WASHING 02/03/2025 1:08 PM EST [facility] Final Diagnosis A. PELVIC WASHING: -NEGATIVE FOR MALIGNANCY. - REACTIVE MESOTHELIAL CELLS. 02/03/2025 1:08 PM EST [facility] at 1308 EST Gross Description A. PELVIC WASHING 35 mls cloudy yellow fluid for cell block and thin prep processing Cold Time: 3h 43m 02/03/2025 1:08 PM EST [facility] Clinical Information Complex cyst of left ovary [N83.292] 02/03/2025 1:08 PM EST [facility] Washing Fluid specimen from pelvis / Unknown 02/02/2025 8:47 AM EST 02/02/2025 9:00 AM EST Comment:Pre-op diagnosis: Complex cyst of left ovary [N83.292] us Marlee Mike MD LAB CYTOLOGY ORDERABLES F inal Result Performing Organization Address City/[facility]/ZIP Co de Phone Number [facility] [address] [place] [address] * Type and screen (02/02/2025 6:57 AM EST) Pathologist [facility] ABO/Rh O Negative 02/02/2025 7:11 AM EST [facility] Antibody Screen Negative 02/02/2025 7:11 AM EST [facility] Specimen Expiration 02/05/2025 23:59 02/02/2025 7:11 AM EST [facility] Blood Venous blood specimen / Unknown Venipuncture / Unknown 02/02/2025 6:57 AM EST 02/02/2025 7:11 AM EST Marlee Mike MD LAB BLOOD BANK TEST ORDER JOSE Final Result Performing Organization Address [facility] de Phone Number BLOOD BANK [address] [place] [address], * POCT , URINE (02/02/2025 6:23 AM EST) [facility] POCT Test, Urine Negative Males and Non- Females: Negative 02/02/2025 6:30 AM EST [facility] Shuttle Threader ID Allison Corbett 02/02/2025 6:30 AM EST [facility]ARE LAB Device ID [id number] 02/02/2025 6:30 AM EST [facility] Urine Urine specimen obtained by clean catch procedure / Unknown 02/02/2025 6:23 AM EST 02/02/2025 6:30 AM EST Marlee Mike MD LAB POINT OF CARE TEST DOCKED DEVICE UNSOLICITED RESULTS Final Result Performing Organization Address City/[facility] Co de Phone Number [facility] [address] [place] [address] * POCT glucose meter (02/02/2025 6:15 AM EST) [facility] POCT Glucose 94 74 - 99 mg/dL 02/02/2025 6:16 AM EST [facility] Comment:Accuracy of a glucos e result obtained from a capillary whole blood specimen relies upon adequate, non-compromised capillary blood flow. If the capillary glucose result is not consistent with the patient's clinical signs and symptoms, glucose testing should be repeated with either an arterial or venous sample on the glucometer or sent to the main labortory for testing. Comment 02/02/2025 6:16 AM EST [facility] Shuttle Threader ID Allison Corbett 02/02/2025 6:16 AM EST [facility] Device ID [id number] 02/02/2025 6:16 AM EST [facility] Specimen Type POC Capillary 02/02/2025 6:16 AM EST [facility] Blood Capillary blood specimen / Unknown 02/02/2025 6:15 AM EST 02/02/2025 6:16 AM EST Marlee Mike MD LAB POINT OF CARE TEST DOCKED DEVICE UNSOLICITED RESULTS Final Result Performing Organization Address City/State/[facility] Co de Phone Number [facility] [address] [place] [address] documented in this encounter Visit Diagnoses Diagnosis Complex cyst of left ovary- Primary Ovarian mass, left documented in this encounter Admitting Diagnoses Diagnosis Complex cyst of left ovary Ovarian mass, left documented in this encounter Administered Medications Inactive Administered Medications - up to 3 most recent administrations Medication Order MAR Action Action Date Dose Rate Site acetaminophen (Tylenol) tablet 1,000 mg 1,000 mg, Oral, Once, 1 dose, On Sat02/02/25 at 0730, Routine, Holding - Preprocedure Given 02/02/2025 7:01 AM EST 1,000 mg diphenhydrAMINE (Benadryl) injection 12.5 mg 12.5 mg, Intravenous, Every 6 hours PRN, Starting on Sat02/02/25 at 0954, Until Sat02/02/25 at 2017, Routine, Recovery(Phase II-Outpatient)/On Unit(Inpatient), itching docusate sodium (Colace) capsule 100 mg 100 mg, Oral, 2 times daily, First dose on Sat02/02/25 at 1045, Until Discontinued, Routine, Phase II/On Unit Given 02/02/2025 10:30 AM EST 100 mg droperidol (Inapsine) injection 0.625 mg 0.625 mg, Intravenous, Once as needed, 1 dose, Starting on Sat02/02/25 at 0953, Until Sat02/02/25 at 1030, Routine, Recovery (Phase I only), nausea, vomiting Given 02/02/2025 10:30 AM EST 0.625 mg famotidine (Pepcid) 40 MG/5ML suspension 20 mg 20 mg, Oral, 2 times daily, First dose on Sat02/02/25 at 1045, Until Discontinued, Routine, Recovery(Phase II-Outpatient)/On Unit(Inpatient) famotidine (Pepcid) tablet 20 mg 20 mg, Oral, 2 times daily, First dose on Sat02/02/25 at 1045, Until Discontinued, Routine, Recovery(Phase II-Outpatient)/On Unit(Inpatient) Given 02/02/2025 10:30 AM EST 20 mg famotidine PF (Pepcid) injection 20 mg 20 mg, Intravenous, 2 times daily, First dose on Sat02/02/25 at 1045, Until Discontinued, Routine, Recovery(Phase II-Outpatient)/On Unit(Inpatient) fentaNYL (Sublimaze) injection 50 mcg 50 mcg, Intravenous, Every 5 min PRN, 2 doses, Starting on Sat02/02/25 at 0953, Until Sat02/02/25 at 1131, Routine, Recovery (Phase I only), DVPRS >/= 5, CPOT >/= 3, FLACC >/= 4, PAINAD >/= 4 Given 02/02/2025 10:50 AM EST 50 mcg gabapentin (Neurontin) capsule 100 mg 100 mg, Oral, 3 times daily, First dose on Sat02/02/25 at 1045, Until Discontinued, Routine, Recovery(Phase II-Outpatient)/On Unit(Inpatient) Given 02/02/2025 4:01 PM EST 100 mg Given 02/02/2025 10:30 AM EST 100 mg heparin (porcine) injection 5,000 Units 5,000 Units, Subcutaneous, Once, 1 dose, On Sat02/02/25 at 0730, Routine, Holding - Preprocedure Given 02/02/2025 6:59 AM EST 5,000 Units Right Upper Arm (Back) hydrOXYzine pamoate (Vistaril) capsule 25 mg 25 mg, Oral, Every 6 hours PRN, Starting on Sat02/02/25 at 0954, Until Sat02/02/25 at 2016, Routine, Recovery(Phase II-Outpatient)/On Unit(Inpatient), itching, anxiety Given 02/02/2025 10:30 AM EST 25 mg ibuprofen tablet 600 mg 600 mg, Oral, Every 6 hours scheduled, First dose on Sat02/02/25 at 1600, Until Discontinued, Routine Given 02/02/2025 4:01 PM EST 600 mg lactated Ringer's infusion 50 mL/hr, Intravenous, Continuous, Starting on Sat02/02/25 at 0730, Until Sat02/02/25 at 0959, Routine New Bag 02/02/2025 7:17 AM EST 50 mL/hr 50 mL/hr lactated Ringer's infusion 75 mL/hr, Intravenous, Continuous, Starting on Sat02/02/25 at 1045, Until Sat02/02/25 at 2017, Routine New Bag 02/02/2025 10:50 AM EST 75 mL/hr 75 mL/hr ondansetron (Zofran) 4 MG/5ML solution 4 mg 4 mg, Oral, Every 6 hours PRN, Starting on Sat02/02/25 at 0954, Until Sat02/02/25 at 2017, Routine, Recovery(Phase II-Outpatient)/On Unit(Inpatient), nausea, vomiting ondansetron (Zofran) injection 4 mg 4 mg, Intravenous, Every 6 hours PRN, Starting on Sat02/02/25 at 0954, Until Sat02/02/25 at 2017, Routine, Recovery(Phase II-Outpatient)/On Unit(Inpatient), vomiting, nausea ondansetron ODT (Zofran-ODT) disintegrating tablet 4 mg 4 mg, Oral, Every 6 hours PRN, Starting on Sat02/02/25 at 0954, Until Sat02/02/25 at 2016, Routine, Recovery(Phase II-Outpatient)/On Unit(Inpatient), nausea, vomiting oxyCODONE (Roxicodone) immediate release tablet 10 mg 10 mg, Oral, Every 30 min PRN, 2 doses, Starting on Sat02/02/25 at 0953, Until Sat02/02/25 at 1131, Routine, Recovery (Phase I only), Moderate Severe Pain with CPOT score of 3 or greater OR FLACC PAINAD NPASS NRS Peralta-Farmer Faces score of 4 or greater OR DVPRS NIPS score of 5 or greater, DVPRS >/= 5, CPOT >/= 3, FLACC >/= 4, PAINAD >/= 4 Given 02/02/2025 10:30 AM EST 10 mg Povidone-Iodine 5 % swab solution 1 Application Nasal, Once, 1 dose, On Sat02/02/25 at 0730, Routine Given 02/02/2025 7:07 AM EST 1 Application prochlorperazine (Compazine) injection 2.5 mg 2.5 mg, Intravenous, Every 6 hours PRN, Starting on Sat02/02/25 at 0954, Until Sat02/02/25 at 2016, Routine, Recovery(Phase II-Outpatient)/On Unit(Inpatient), nausea, vomiting prochlorperazine (Compazine) injection 5 mg 5 mg, Intramuscular, Every 6 hours PRN, Starting on Sat02/02/25 at 0954, Until Sat02/02/25 at 2016, Routine, Recovery(Phase II-Outpatient)/On Unit(Inpatient), nausea, vomiting prochlorperazine (Compazine) suppository 25 mg 25 mg, Rectal, Every 12 hours PRN, Starting on Sat02/02/25 at 0954, Until Sat02/02/25 at 2016, Routine, Recovery(Phase II-Outpatient)/On Unit(Inpatient), nausea, vomiting prochlorperazine (Compazine) tablet 5 mg 5 mg, Oral, Every 6 hours PRN, Starting on Sat02/02/25 at 0954, Until Sat02/02/25 at 2016, Routine, Recovery(Phase II-Outpatient)/On Unit(Inpatient), nausea, vomiting scopolamine (Transderm-Scop) patch 1 patch 1 patch, Transdermal, Every 72 hours, First dose on Sat02/02/25 at 0730, Until Discontinued, Routine, Holding - Preprocedure Medication Applied 02/02/2025 6:58 AM EST 1 patch Behind Right Ear senna (Senokot) tablet 8.6 mg 8.6 mg, Oral, Nightly, First dose on Sat02/02/25 at 2100, Until Discontinued, Routine, Phase II/On Unit documented in this encounter Active and Recently Administered Medications Times are shown in EST. Scheduled Medication Order 01/31/2025 02/01/2025 02/02/2025 acetaminophen (Tylenol) tablet 1,000 mg (COMPLETED) 1,000 mg, Oral, Once, 1 dose, On Sat02/02/25 at 0730, Routine, Holding - Preprocedure 0701 (Given - Provid er: Harper Hensley RN) ceFAZolin (Ancef) injection 2 g (COMPLETED) 2 g, Intravenous, Once, 1 dose, On Sat02/02/25 at 0830, Routine, Anesthesia Intraprocedure 0802 (Given - Provid er: Dawson Toscano CRNA, DNP) docusate sodium (Colace) capsule 100 mg 100 mg, Oral, 2 times daily, First dose on Sat02/02/25 at 1045, Until Discontinued, Routine, Phase II/On Unit 1030 (Given - Provid er: Cherie Griffin RN) famotidine (Pepcid) 40 MG/5ML suspension 20 mg(Linked Group 1) 20 mg, Oral, 2 times daily, First dose on Sat02/02/25 at 1045, Until Discontinued, Routine, Recovery(Phase II-Outpatient)/On Unit(Inpatient) 1030 (See Alternativ e - Provider: Cherie Griffin RN) famotidine (Pepcid) tablet 20 mg(Linked Group 1) 20 mg, Oral, 2 times daily, First dose on Sat02/02/25 at 1045, Until Discontinued, Routine, Recovery(Phase II-Outpatient)/On Unit(Inpatient) 1030 (Given - Provid er: Cherie Griffin RN) famotidine PF (Pepcid) injection 20 mg(Linked Group 1) 20 mg, Intravenous, 2 times daily, First dose on Sat02/02/25 at 1045, Until Discontinued, Routine, Recovery(Phase II-Outpatient)/On Unit(Inpatient) 1030 (See Alternativ e - Provider: Cherie Griffin RN) gabapentin (Neurontin) capsule 100 mg 100 mg, Oral, 3 times daily, First dose on Sat02/02/25 at 1045, Until Discontinued, Routine, Recovery(Phase II-Outpatient)/On Unit(Inpatient) 1030 (Given - Provid er: Cherie Griffin RN)1601 (Given - Provider: Cherie Griffin RN) heparin (porcine) injection 5,000 Units (COMPLETED) 5,000 Units, Subcutaneous, Once, 1 dose, On Sat02/02/25 at 0730, Routine, Holding - Preprocedure 0659 (Given - Provid er: Harper Hensley RN) ibuprofen tablet 600 mg 600 mg, Oral, Every 6 hours scheduled, First dose on Sat02/02/25 at 1600, Until Discontinued, Routine 1601 (Given - Provid er: Cherie Griffin RN) levothyroxine (Synthroid, Levoxyl) tablet 125 mcg 125 mcg, Oral, Every morning, First dose on Sat02/03/25 at 0600, Until Discontinued, Routine, Recovery(Phase II-Outpatient)/On Unit(Inpatient) Povidone-Iodine 5 % swab solution 1 Application (COMPLETED) Nasal, Once, 1 dose, On Sat02/02/25 at 0730, Routine 0707 (Given - Provid er: Harper Hensley RN) scopolamine (Transderm-Scop) patch 1 patch (CANCELED) 1 patch, Transdermal, Every 72 hours, First dose on Sat02/02/25 at 0730, Until Discontinued, Routine, Holding - Preprocedure 0658 (Medication Juancarlos lied - Provider: Harper Hensley RN)0959 (Due: Medication Removed - Provider: Cherie Griffin RN - Comment: Time automatically adjusted from order being discontinued) senna (Senokot) tablet 8.6 mg 8.6 mg, Oral, Nightly, First dose on Sat02/02/25 at 2100, Until Discontinued, Routine, Phase II/On Unit Continuous Medication Order 01/31/2025 02/01/2025 02/02/2025 lactated Ringer's infusion (CANCELED) 50 mL/hr, Intravenous, Continuous, Starting on Sat02/02/25 at 0730, Until Sat02/02/25 at 0959, Routine 0717 (New Bag - Prov ider: Harper Hensley RN) lactated Ringer's infusion 75 mL/hr, Intravenous, Continuous, Starting on Sat02/02/25 at 1045, Until Sat02/02/25 at 2017, Routine 1050 (New [facility] ider: Cherie Griffin RN) PRN Medication Order 01/31/2025 02/01/2025 02/02/2025 bupivacaine PF (Marcaine) 0.25 % injection (CANCELED) As needed, Starting on Sat02/02/25 at 1004, Until Sat02/02/25 at 1014, Routine, Intraprocedure 1004 (Given - Provid er: Marlee Mike MD) diphenhydrAMINE (Benadryl) injection 12.5 mg 12.5 mg, Intravenous, Every 6 hours PRN, Starting on Sat02/02/25 at 0954, Until Sat02/02/25 at 2017, Routine, Recovery(Phase II-Outpatient)/On Unit(Inpatient), itching droperidol (Inapsine) injection 0.625 mg (COMPLETED) 0.625 mg, Intravenous, Once as needed, 1 dose, Starting on Sat02/02/25 at 0953, Until Sat02/02/25 at 1030, Routine, Recovery (Phase I only), nausea, vomiting 1030 (Given - Provid er: Cherie Griffin RN) fentaNYL (Sublimaze) injection 50 mcg (CANCELED)(Linked Group 2) 50 mcg, Intravenous, Every 5 min PRN, 2 doses, Starting on Sat02/02/25 at 0953, Until Sat02/02/25 at 1131, Routine, Recovery (Phase I only), DVPRS >/= 5, CPOT >/= 3, FLACC >/= 4, PAINAD >/= 4 1050 (Given - Provid er: Cherie Griffin RN) hydrOXYzine pamoate (Vistaril) capsule 25 mg 25 mg, Oral, Every 6 hours PRN, Starting on Sat02/02/25 at 0954, Until Sat02/02/25 at 2017, Routine, Recovery(Phase II-Outpatient)/On Unit(Inpatient), itching, anxiety 1030 (Given - Provid er: Cherie Griffin RN) ondansetron (Zofran) 4 MG/5ML solution 4 mg(Linked Group 3) 4 mg, Oral, Every 6 hours PRN, Starting on Sat02/02/25 at 0954, Until Sat02/02/25 at 2016, Routine, Recovery(Phase II-Outpatient)/On Unit(Inpatient), nausea, vomiting ondansetron (Zofran) injection 4 mg(Linked Group 3) 4 mg, Intravenous, Every 6 hours PRN, Starting on Sat02/02/25 at 0954, Until Sat02/02/25 at 2016, Routine, Recovery(Phase II-Outpatient)/On Unit(Inpatient), vomiting, nausea ondansetron ODT (Zofran-ODT) disintegrating tablet 4 mg(Linked Group 3) 4 mg, Oral, Every 6 hours PRN, Starting on Sat02/02/25 at 0954, Until Sat02/02/25 at 2016, Routine, Recovery(Phase II-Outpatient)/On Unit(Inpatient), nausea, vomiting oxyCODONE (Roxicodone) immediate release tablet 10 mg (CANCELED)(Linked Group 4) 10 mg, Oral, Every 30 min PRN, 2 doses, Starting on Sat02/02/25 at 0953, Until Sat02/02/25 at 1131, Routine, Recovery (Phase I only), Moderate Severe Pain with CPOT score of 3 or greater OR FLACC PAINAD NPASS NRS Peralta-Farmer Faces score of 4 or greater OR DVPRS NIPS score of 5 or greater, DVPRS >/= 5, CPOT >/= 3, FLACC >/= 4, PAINAD >/= 4 1030 (Given - Provid er: Cherie Griffin RN) prochlorperazine (Compazine) injection 2.5 mg(Linked Group 5) 2.5 mg, Intravenous, Every 6 hours PRN, Starting on Sat02/02/25 at 0954, Until Sat02/02/25 at 2016, Routine, Recovery(Phase II-Outpatient)/On Unit(Inpatient), nausea, vomiting prochlorperazine (Compazine) injection 5 mg(Linked Group 5) 5 mg, Intramuscular, Every 6 hours PRN, Starting on Sat02/02/25 at 0954, Until Sat02/02/25 at 2016, Routine, Recovery(Phase II-Outpatient)/On Unit(Inpatient), nausea, vomiting prochlorperazine (Compazine) suppository 25 mg(Linked Group 5) 25 mg, Rectal, Every 12 hours PRN, Starting on Sat02/02/25 at 0954, Until Sat02/02/25 at 2017, Routine, Recovery(Phase II-Outpatient)/On Unit(Inpatient), nausea, vomiting prochlorperazine (Compazine) tablet 5 mg(Linked Group 5) 5 mg, Oral, Every 6 hours PRN, Starting on Sat02/02/25 at 0954, Until Sat02/02/25 at 2017, Routine, Recovery(Phase II-Outpatient)/On Unit(Inpatient), nausea, vomiting Linked Groups Order Group 1: famotidine (Pepcid) tablet 20 mgJump to med 20 mg, Oral, 2 times daily, First dose on Sat02/02/25 at 1045, Until Discontinued, Routine, Recovery(Phase II-Outpatient)/On Unit(Inpatient) Or famotidine (Pepcid) 40 MG/5ML suspension 20 mgJump to med 20 mg, Oral, 2 times daily, First dose on Sat02/02/25 at 1045, Until Discontinued, Routine, Recovery(Phase II-Outpatient)/On Unit(Inpatient) Or famotidine PF (Pepcid) injection 20 mgJump to med 20 mg, Intravenous, 2 times daily, First dose on Sat02/02/25 at 1045, Until Discontinued, Routine, Recovery(Phase II-Outpatient)/On Unit(Inpatient) Group 2: fentaNYL (Sublimaze) injection 50 mcg (CANCELED)Jump to med 50 mcg, Intravenous, Every 5 min PRN, 2 doses, Starting on Sat02/02/25 at 0953, Until Sat02/02/25 at 1131, Routine, Recovery (Phase I only), DVPRS >/= 5, CPOT >/= 3, FLACC >/= 4, PAINAD >/= 4 And HYDROmorphone (Dilaudid) injection 0.5 mg (CANCELED) 0.5 mg, Intravenous, Every 10 min PRN, 3 doses, Starting on Sat02/02/25 at 0953, Until Sat02/02/25 at 1131, Routine, Recovery (Phase I only), DVPRS >/= 5, CPOT >/= 3, FLACC >/= 4, PAINAD >/= 4 Group 3: ondansetron ODT (Zofran-ODT) disintegrating tablet 4 mgJump to med 4 mg, Oral, Every 6 hours PRN, Starting on Sat02/02/25 at 0954, Until Sat02/02/25 at 2017, Routine, Recovery(Phase II-Outpatient)/On Unit(Inpatient), nausea, vomiting Or ondansetron (Zofran) injection 4 mgJump to med 4 mg, Intravenous, Every 6 hours PRN, Starting on Sat02/02/25 at 0954, Until Sat02/02/25 at 2017, Routine, Recovery(Phase II-Outpatient)/On Unit(Inpatient), vomiting, nausea Or ondansetron (Zofran) 4 MG/5ML solution 4 mgJump to med 4 mg, Oral, Every 6 hours PRN, Starting on Sat02/02/25 at 0954, Until Sat02/02/25 at 2017, Routine, Recovery(Phase II-Outpatient)/On Unit(Inpatient), nausea, vomiting Group 4: oxyCODONE (Roxicodone) immediate release tablet 5 mg (CANCELED) 5 mg, Oral, Every 30 min PRN, 2 doses, Starting on Sat02/02/25 at 0953, Until Sat02/02/25 at 1131, Routine, Recovery (Phase I only), Moderate Severe Pain with CPOT score of 3 or greater OR FLACC PAINAD NPASS NRS Peralta-Farmer Faces score of 4 or greater OR DVPRS NIPS score of 5 or greater, DVPRS >/= 5, CPOT >/= 3, FLACC >/= 4, PAINAD >/= 4 Or oxyCODONE (Roxicodone) immediate release tablet 10 mg (CANCELED)Jump to med 10 mg, Oral, Every 30 min PRN, 2 doses, Starting on Sat02/02/25 at 0953, Until Sat02/02/25 at 1131, Routine, Recovery (Phase I only), Moderate Severe Pain with CPOT score of 3 or greater OR FLACC PAINAD NPASS NRS Peralta-Farmer Faces score of 4 or greater OR DVPRS NIPS score of 5 or greater, DVPRS >/= 5, CPOT >/= 3, FLACC >/= 4, PAINAD >/= 4 Group 5: prochlorperazine (Compazine) tablet 5 mgJump to med 5 mg, Oral, Every 6 hours PRN, Starting on Sat02/02/25 at 0954, Until Sat02/02/25 at 2016, Routine, Recovery(Phase II-Outpatient)/On Unit(Inpatient), nausea, vomiting Or prochlorperazine (Compazine) suppository 25 mgJump to med 25 mg, Rectal, Every 12 hours PRN, Starting on Sat02/02/25 at 0954, Until Sat02/02/25 at 2016, Routine, Recovery(Phase II-Outpatient)/On Unit(Inpatient), nausea, vomiting Or prochlorperazine (Compazine) injection 2.5 mgJump to med 2.5 mg, Intravenous, Every 6 hours PRN, Starting on Sat02/02/25 at 0954, Until Sat02/02/25 at 2016, Routine, Recovery(Phase II-Outpatient)/On Unit(Inpatient), nausea, vomiting Or prochlorperazine (Compazine) injection 5 mgJump to med 5 mg, Intramuscular, Every 6 hours PRN, Starting on Sat02/02/25 at 0954, Until Sat02/02/25 at 2016, Routine, Recovery(Phase II-Outpatient)/On Unit(Inpatient), nausea, vomiting documented in this encounter Care Teams Anchorman Relationship Specialty Start Date End Date Sherin Brady MD [address] [place] [id number] PCP - General 01/08/25 Nell Mckeon DO [facility] [address] Referring Physician Obstetrics and Gynecology 12/29/24 documented as of this encounter
--- OUTSIDE RECORDS SUMMARY | 2025-02-02 07:36 | XMS_ITS | Encounter Summary ---
Author Organization Healthcare Address [address] [place] [address] Care Team Providers Care Director Of Operations Home Health Name Role Phone Nell Mckeon DO Unavailable [phone] Sherin Brady MD Primary Care Provider [phone] Reason for Visit * Auth/Cert (Routine) Specialty Diagnoses / Procedures Referred By Christelle t Referred To Contact Diagnoses Complex cyst of left ovary Complex cyst of left ovary [N83.292] Procedures NE LAPAROSCOPY W TOT HYSTERECTUTERUS <=250 GRAM W TUBE/OVARY NE INTRAOPERATIVE SENTINEL LYMPH NODE ID W DYE INJECTION NE LAP,LYMPH NODE BX NE REMOVAL OF OMENTUM Robot TLHBSO, SLN, OMEN Marlee Mike MD [address] [facility] [address] [address] [place] [address] Phone: tel: fax: [facility] [address] [place] [address] Phone: tel: Referral ID Status Reason Start Date Expiration Date Visits Re quested Visits Authorized [id number] 1 1 Encounter Details Date Type Department Care Team (Late st Contact Info) Description 02/02/2025 7:36 AM EST Anesthesia Event [facility] [address] [place] [address] Kash Berman MD [address] [place] [address] Dawson Toscano CRNA, ROSALINO [address] [place] [address] Anesthesia Record Procedure Summary Procedure Name Responsible Anesthesiologist Anesthesia Start Time Anesthesia Stop Time Robot ULISES KIMBLE (Bilateral: Abdomen) Kash Berman MD 02/02/25 0736 02/02/25 1021 Events Date Time Event Comment 02/02/2025 0709 0736 An Start The patient was reevaluated immediately before sedation and remains eligible for anesthesia plan. 0738 In Room 0740 An Start Data 0745 An Induction The patient was reevaluated immediately before moderate or deep sedation use and before anesthesia induction. 0748 An Intubation 0750 Anesthesia Ready 0815 Proc Start 1006 Proc Fin 1011 An Extubation 1013 an stop data 1014 Out of Room 1019 Handoff to Receiving I compl eted my handoff to the receiving clinician during which we: 1. Identified the patient 2. Identified the responsible provider 3. Reviewed the pertinent medical history 4. Discussed the surgical course 5. Reviewed intra-op anesthesia management and issues during anesthesia 6. Set expectations for post-procedure period 7. Allowed opportunity for questions and acknowledgement of understanding. 1021 An Stop Meds Name Total midazolam (Versed) injection 1 mg/mL 2 m g fentaNYL (Sublimaze) injection 50 mcg/mL 100 mcg lidocaine PF (Xylocaine-MPF) 2% 100 mg propofol (Diprivan) injection 10 mg/mL 2 00 mg rocuronium (ZeMuron) injection 10 mg/mL 70 mg dexamethasone (Decadron) injection 4 mg/ mL 4 mg HYDROmorphone PF (Dilaudid) injection 1 mg/mL 1 mg phenylephrine (Zak-Synephrine) prefilled syringe 1 mg/10 mL 200 mcg ondansetron (Zofran) injection 2 mg/mL 4 mg sugammadex (Bridion) injection 100 mg/mL 100 mg ceFAZolin (Ancef) injection 2 g 2 g lactated Ringer's infusion 0 mL * Agents No agents on file. * Blood No blood administrations on file. Lines, Drains, and Airways Type Details Placement Removal Wound 02/02/25; 0835; N; Y es; Surgical; Abdomen; Upper, Mid 02/02/25 0835 by Estefania Resendiz RN Peripheral IV Placement Date: 02/02/25; Placement Time: 712; Catheter Size: 20 G; Orientation: Right; Location: Antecubital; Site Prep: Alcohol; Inserted by: dominic sanchez; Insertion Attempts: 1; Patient Tolerance: Tolerated well; Removal Date: 02/02/25; Removal Time: 181402/02/25 0713 by Dominic Sanchez RN 02/02/25 181 by Cherie Griffin RN ETT Placement Date: 02/02/25; Placement Time: 0748 (created via procedure documentation); Mask Ventilation: 1; Technique: Direct laryngoscopy; Type: ETT - single; Single Lumen Tube Size: 7.5 mm; Cuffed: Yes; Laryngoscope: Katharina; Blade Size: 3; Location: Oral; Grade View: Grade I; Insertion Attempts: 1; Placement Verification: Capnometry; Placed by: SILVINO; Removal Date: 02/02/25; Removal Time: 1011 02/02/25 0748 by Dawson Toscano CRNA, DNP 02/02/25 1011 by Dawson Toscano CRNA, DNP Peripheral IV Placement Date: 02/02/25; Placement Time: 0750 (created via procedure documentation); Catheter Size: 20 G; Orientation: Left, Posterior; Location: Hand; Technique: Anatomical landmarks; Inserted by: Dawson Toscano CRNA, DNP; Insertion Attempts: 1; Removal Date: 02/02/25; Removal Time: 181402/02/25 0750 by Dawson Toscano CRNA, DNP 02/02/25 1815 by Cherie Griffin RN Urethral Catheter Placement Date: 02/02/25; Placement Time: 0815; Inserted by: DR AKANKSHA VALERIO; Type: Non-latex; Size: 16 Fr.; Balloon Size: 10 mL; Urine Returned: Yes; Removal Date: 02/02/25; Removal Time: 1505; Removal Reason: Per order 02/02/25 0815 by Estefania Resendiz RN 02/02/25 1505 by Namrata Lorenzo documented in this encounter Social History Tobacco Use Types Packs/Day Years [...] on file documented as of this encounter Mental Status * Resp Rate (Set) Answer Entry Date Author 14 02/02/2025 10:06 AM EST Interfac e, Device In * Pressure Support (cm H2O) Answer Entry Date Author 10 02/02/2025 10:08 AM EST Interfac e, Device In * Minute Ventilation Set (L/min) Answer Entry Date Author 0.1 02/02/2025 10:12 AM EST Interfac e, Device In * Insp Time (sec) Answer Entry Date Author 2 02/02/2025 10:06 AM EST Interfac e, Device In * Patient Category Range Answer Entry Date Author Adult 02/02/2025 10:13 AM EST Interfac e, Device In * Output Question Answer Entry Date Author Urine 400 02/02/2025 9:58 AM EST Dawson Bean CRNA, DNP * Anesthesia Monitoring Question Answer Entry Date Author Temp 80.9 02/02/2025 10:07 AM EST Inte rface, Device In * Assessment Question Answer Entry Date Author Warming Device Forced warm air 02/02/2025 8:05 AM EST Dawson Toscano CRNA, DNP O2 Delivery Method Endotracheal tube;Mechanical ventilator 02/02/2025 7:48 AM EST Dawson Toscano CRNA, DNP * Other Vitals Question Answer Entry Date Author BIS Monitor 52 02/02/2025 10:08 AM EST Inte rface, Device In * iCO2 Answer Entry Date Author 0 02/02/2025 10:13 AM EST Interfac e, Device In documented in this encounter Miscellaneous Notes * Anesthesia Postprocedure Evaluation - Dawson Toscano CRNA, ROSALINO - 02/02/2025 10:23 AM EST Patient: Gemma Zarco Anesthesia Type: general Vitals Value Taken Time BP 148/106 02/02/25 10:20 Temp 37.2 02/02/25 10:23 Pulse 98 02/02/25 10:22 Resp 19 02/02/25 10:22 SpO2 97 % 02/02/25 10:22 Vitals shown include unfiled device data. Anesthesia Post Evaluation Patient location during evaluation: PACU Patient participation: complete - patient participated Level of consciousness: awake Pain management: adequate (pain score 0-3) Airway patency: natural airway Cardiovascular status: acceptable and hemodynamically stable Respiratory status: acceptable, spontaneous ventilation, unassisted, nonlabored ventilation and face mask Hydration status: acceptable Nausea/Vomiting: No No notable events documented. * Anesthesia Procedure Notes - Dawson Toscano CRNA, DNP - 02/02/2025 8:08 AM ESTAssociated Order(s): Peripheral IV Peripheral IV Date/Time: 02/02/2025 7:50 AM Inserted by: Dawson Toscano CRNA, DNP Placement Needle size: 20 G Location: hand Site prep: alcohol Technique: anatomical landmarks Attempts: 1 * Anesthesia Procedure Notes - Dawson Toscano CRNA, DNP - 02/02/2025 8:06 AM ESTAssociated Order(s): Airway Airway Date/Time: 02/02/2025 7:48 AM Reason: elective Airway not difficult General Information and Staff Patient location during procedure: OR Anesthesiologist: Kash Berman MD CHAR FILTER TANK TENDER: Dawson Toscano CRNA, DNP Performed: SILVINO Patient Condition Indications for airway management: anesthesia Patient position: sniffing Final Airway Details Final airway type: endotracheal airway Successful airway: ETT Cuffed: yes Successful intubation technique: direct laryngoscopy Adjuncts used in placement: intubating stylet Endotracheal tube insertion site: oral Blade: Katharina Blade size: #3 ETT size (mm): 7.5 Cormack-Lehane Classification: grade I - full view of glottis Placement verified by: capnometry Measured from: lips ETT to lips (cm): 21 * Anesthesia Preprocedure Evaluation - Kash Berman MD - 02/02/2025 6:51 AM EST Images from the original note were not included. Patient: Gemma Menendez Kiskaden is a 49 y.o. female with body mass index is 29.67 kg/m??. who presents with Complex cyst of left ovary, now for Robot TLHBSO, SLN, OMEN (Bilateral) Procedure Information Date/Time: 02/02/25744 Procedure: Robot TLHBSO, SLN, OMEN (Bilateral) Location: [facility] Surgeons: Marlee Mike MD Past Medical History: Diagnosis Date Depression 2008 GERD (gastroesophageal reflux disease) 2009 Hypertension Hypothyroidism 2008 [place]oto???s Motion sickness PCOS (polycystic ovarian syndrome) PTSD (post-traumatic stress disorder) 2017 The risks, options, and benefits of general anesthesia were discussed with the patient. All questions addressed. Rationale reviewed. Patient understands options (including no intervention), prefers general anesthesia. Relevant Problems No relevant active problems ALLERGIES Allergies[1] NPO STATUS Past Medical History[2] AIRWAY HISTORY Airway Detailed Review Displaying the 20 most recent records Date Difficult Airway Blade Size ETT Size C-L Class Final Type Intubation Method 08/07/23 - - - - - - 10/09/17 - - - - - - MEDICATIONS Outpatient Current Outpatient Medications Medication Instructions busPIRone (BUSPAR) 10 mg, 4 times daily cetirizine (ZYRTEC) 10 mg, Daily levothyroxine (SYNTHROID, LEVOXYL) 125 mcg, Daily liothyronine (CYTOMEL) 5 mcg, Daily lisinopril 10 mg, Daily metFORMIN XR (GLUCOPHAGE-XR) 500 mg, 2 times daily Scheduled Current Scheduled Medications[3] PRNs Current PRN Medications[4] SURGICAL HX: Surgical History[5] SOCIAL HX: Social History[6] OBJECTIVE DATA LABS Lab Results Component Value Date WBC 6.54 01/08/2025 HGB 14.2 01/08/2025 HCT 42.8 01/08/2025 MCV 88 01/08/2025 PLT 335 01/08/2025 Lab Results Component Value Date CALCIUM 9.1 01/08/2025 BUN 10 01/08/2025 CREATININE 0.56 (L) 01/08/2025 BCR 18 01/08/2025 NA 139 01/08/2025 K 4.6 01/08/2025 CL 106 01/08/2025 CO2 24 01/08/2025 Type and Screen No results found for: ABO Lab Results Component Value Date HGBA1C 5.1 01/08/2025 Lab Results Component Value Date PGLU 94 02/02/2025 GLUCOSE 112 (H) 01/08/2025 ABG No results found for: PHART , TRM2YKB , PO2ART , SO2ART , BEART , PHD0LUZ , HCTART , SODIUMART , POTASSIUMART , POCTCL , POCGLU , IONCALART , LACTATE No results found for: PH , PCO2 , PO2 , T2WZVDHK , BASEEXC , HCTSYR , KSYR , CLSYR , GLUSYR , CAION , LACTATE ECHO No echocardiogram results found for the past 12 months PFTs No results found for: CGN2FIK , VZX7CYIA , EDX6JZD , FVCPRED BP Readings from Last 5 Encounters: 02/02/25 119/88 01/08/25 113/77 Physical Exam Airway Mallampati: II Mouth opening: normal TM distance: >3 FB Neck ROM: full Cardiovascular Rhythm: regular Rate: normal Dental Pulmonary Breath sounds clear to auscultation Neurological Skin Musculoskeletal Extremities Anesthesia Plan ASA 3 Plan was reviewed with: CHAR FILTER TANK TENDER Anesthesia technique(s) discussed with the patient/family: general Anesthesia plan agreed upon was: general Anesthetic plan and risks discussed with patient and spouse. Use of blood products discussed with patient who consented to blood products. Anesthesia Evaluation [1] Allergies Allergen Reactions Hydrocodone Nausea Hydrocodone-Acetaminophen Nausea and Rash Oxycodone-Acetaminophen Nausea and Rash [2] Past Medical History: Diagnosis Date Depression 2008 GERD (gastroesophageal reflux disease) 2009 Hypertension Hypothyroidism 2007 [place]???s Motion sickness PCOS (polycystic ovarian syndrome) PTSD (post-traumatic stress disorder) 2017 [3] acetaminophen, 1,000 mg, Oral, Once heparin (porcine), 5,000 Units, Subcutaneous, Once lactated Ringer's, 100 mL/hr, Intravenous, Once Povidone-Iodine, 1 Application, Nasal, Once scopolamine, 1 patch, Transdermal, q72h Insert peripheral IV, , , Once AND Saline lock IV, , , Once AND sodium chloride, 10 mL, Intravenous, q12h AND sodium chloride, 10 mL, Intravenous, PRN Insert peripheral IV, , , Once AND Saline lock IV, , , Once AND sodium chloride, 10 mL, Intravenous, q12h AND sodium chloride, 10 mL, Intravenous, PRN [4] PRN medications: ipratropium-albuterol, lidocaine, ondansetron, Insert peripheral IV AND Saline lock IV AND sodium chloride AND sodium chloride, Insert peripheral IV AND Saline lock IV AND sodium chloride AND sodium chloride, sodium citrate-citric acid [5] Past Surgical History: Procedure Laterality Date BLADDER SURGERY Unknown bladder sling BUNIONECTOMY CHOLECYSTECTOMY EYE SURGERY 2006 Lasik OTHER SURGICAL HISTORY Hemmoroidectomy, bunion surgery, appendectomy, gall bladder removal, tonsillectomy, TONSILLECTOMY [6] Social History Tobacco Use Smoking status: Never Smokeless tobacco: Never Vaping Use Vaping status: Every Day Substances: Nicotine Devices: Disposable Substance Use Topics Alcohol use: Yes Alcohol/week: 4.0 standard drinks of alcohol Types: 4 Glasses of wine per week Drug use: Never documented in this encounter Plan of Treatment Not on file documented as of this encounter Procedures Procedure Name Priority Date/Time Associated Diagnosis Comments ANESTHESIA PERIPHERAL IV PLACEMENT Routine 02/02/2025 7:50 AM EST PB ANESTHESIA PLACEHOLDER Routine 02/02/2025 7:48 AM EST NE AN ELECTIVE ENDOTRACHEAL AIRWAY Routine 02/02/2025 7:48 AM EST documented in this encounter Results * Peripheral IV (02/02/2025 7:50 AM EST) Narrative Dawson Toscano CRNA, DNP - 02/02/2025 7:50 AM EST Dawson Toscano CRNA, DNP 02/02/2025 8:08 AM Peripheral IV Date/Time: 02/02/2025 7:50 AM Inserted by: Dawson Toscano CRNA, DNP Placement Needle size: 20 G Location: hand Site prep: alcohol Technique: anatomical landmarks Attempts: 1 us Kash Berman MD ANESTHESIA ORDERABLES Final Result * NE AN ELECTIVE ENDOTRACHEAL AIRWAY, PB ANESTHESIA PLACEHOLDER (02/02/2025 7:48 AM EST) Narrative Dawson Toscano CRNA, DNP - 02/02/2025 7:48 AM EST Dawson Toscano CRNA, DNP 02/02/2025 8:08 AM Airway Date/Time: 02/02/2025 7:48 AM Reason: elective Airway not difficult General Information and Staff Patient location during procedure: OR Anesthesiologist: Kash Berman MD CHAR FILTER TANK TENDER: Dawson Toscano CRNA, DNP Performed: SILVINO Patient Condition Indications for airway management: anesthesia Patient position: sniffing Final Airway Details Final airway type: endotracheal airway Successful airway: ETT Cuffed: yes Successful intubation technique: direct laryngoscopy Adjuncts used in placement: intubating stylet Endotracheal tube insertion site: oral Blade: Katharina Blade size: #3 ETT size (mm): 7.5 Cormack-Lehane Classification: grade I - full view of glottis Placement verified by: capnometry Measured from: lips ETT to lips (cm): 21 us Kash Berman MD ANESTHESIA ORDERABLES Final Result documented in this encounter Visit Diagnoses Not on filedocumented in this encounter Administered Medications Inactive Administered Medications - up to 3 most recent administrations Medication Order MAR Action Action Date Dose Rate Site ceFAZolin (Ancef) injection 2 g 2 g, Intravenous, Once, 1 dose, On Sat02/02/25 at 0830, Routine, Anesthesia Intraprocedure Given 02/02/2025 8:02 AM EST 2 g dexamethasone (Decadron) injection Intravenous, As needed, Starting on Sat02/02/25 at 0816, Until Sat02/02/25 at 1023, Routine, Anesthesia Intraprocedure Given 02/02/2025 8:16 AM EST 4 mg fentaNYL (Sublimaze) injection Intravenous, As needed, Starting on Sat02/02/25 at 0745, Until Sat02/02/25 at 1023, Routine, Anesthesia Intraprocedure Given 02/02/2025 8:16 AM EST 50 mcg Given 02/02/2025 7:45 AM EST 50 mcg HYDROmorphone PF (Dilaudid) injection Intravenous, As needed, Starting on Sat02/02/25 at 0955, Until Sat02/02/25 at 1023, Routine, Anesthesia Intraprocedure Given 02/02/2025 10:05 AM EST 0. 5 mg Given 02/02/2025 9:55 AM EST 0.5 mg lactated Ringer's infusion Intravenous, Continuous PRN, Starting on Sat02/02/25 at 0736, Until Sat02/02/25 at 1023, Routine New Bag 02/02/2025 7:36 AM EST lidocaine PF (Xylocaine) 2 % injection Intravenous, As needed, Starting on Sat02/02/25 at 0745, Until Sat02/02/25 at 1023, Routine, Anesthesia Intraprocedure Given 02/02/2025 7:45 AM EST 100 mg midazolam (Versed) injection Intravenous, As needed, Starting on Sat02/02/25 at 0736, Until Sat02/02/25 at 1023, Routine, Anesthesia Intraprocedure Given 02/02/2025 7:36 AM EST 2 m g ondansetron (Zofran) injection Intravenous, As needed, Starting on Sat02/02/25 at 0954, Until Sat02/02/25 at 1023, Routine, Anesthesia Intraprocedure Given 02/02/2025 9:54 AM EST 4 m g phenylephrine in NS (Zak-Synephrine) 100 mcg/mL prefilled syringe Intravenous, As needed, Starting on Sat02/02/25 at 0846, Until Sat02/02/25 at 1023, Routine, Anesthesia Intraprocedure Given 02/02/2025 9:07 AM EST 100 mcg Given 02/02/2025 8:46 AM EST 100 mcg propofol (Diprivan) injection Intravenous, As needed, Starting on Sat02/02/25 at 0745, Until Sat02/02/25 at 1023, Routine, Anesthesia Intraprocedure Given 02/02/2025 7:52 AM EST 50 mg Given 02/02/2025 7:45 AM EST 150 mg rocuronium (ZeMuron) injection Intravenous, As needed, Starting on Sat02/02/25 at 0736, Until Sat02/02/25 at 1023, Routine, Anesthesia Intraprocedure Given 02/02/2025 8:41 AM EST 20 mg Given 02/02/2025 7:45 AM EST 50 mg sugammadex (Bridion) 100 MG/ML injection Intravenous, As needed, Starting on Sat02/02/25 at 1006, Until Sat02/02/25 at 1023, Routine, Anesthesia Intraprocedure Given 02/02/2025 10:06 AM EST 10 0 mg documented in this encounter Care Teams Director Of Operations Home Health Relationship Specialty Start Date End Date Sherin Brady MD [address] [place] [address] PCP - General 01/08/25 Nell Mckeon DO [facility] [address] Referring Physician Obstetrics and Gynecology 12/29/24 documented as of this encounter
--- OUTSIDE RECORDS SUMMARY | 2025-02-02 07:45 | XMS_ITS | Encounter Summary ---
Author Organization Healthcare Address [address] [id number] Care Team Providers Care Packaging Inspector Name Role Phone Nell Mckeon DO Unavailable [phone] Sherin Brady MD Primary Care Provider [phone] Reason for Visit * Auth/Cert (Routine) Specialty Diagnoses / Procedures Referred By Christelle levine Referred To Contact Diagnoses Complex cyst of left ovary Complex cyst of left ovary [N83.292] Procedures NV LAPAROSCOPY W TOT HYSTERECTUTERUS <=250 GRAM W TUBE/OVARY NV INTRAOPERATIVE SENTINEL LYMPH NODE ID W DYE INJECTION NV LAP,LYMPH NODE BX NV REMOVAL OF OMENTUM Robot TLHBSO, SLN, OMEN Marlee Mike MD [address] [facility] Agata Varela [address] [address] Phone: tel: fax: [facility] [address] [place] [address] Phone: tel: Referral ID Status Reason Start Date Expiration Date Visits Re quested Visits Authorized [id number] 1 1 Encounter Details Date Type Department Care Team (Late st Contact Info) Description 02/02/2025 7:45 AM EST - 02/02/2025 12:00 PM EST Surgery [facility] [address] [place] [address] Marlee Mike MD [address] [place] [address] Agata V[address]la [address] [address] Robot TLHBSO, WASHINGS [[id number] (CPT )] Surgery Details Date/Time Status Location OR Service Patient Class Case Class Case Type Trauma Case? 02/02/2025 7:45 AM Posted AP OR [facility] Gynecologic Oncology Extended Recovery E1 - Elective (Do not proceed without financial clearance) Panel 1 Procedure LRB Anes Op Region Wound Class Comments Robot TLHBSO, WASHINGS Bilateral General Abdomen Cl ass II/ Clean Contaminated Surgeon Surgeon Role Service Panel Rochelle Back MD Fellow 1 Marlee Mike MD Primary Gynecologic Onco logy 1 documented in this encounter Social History Tobacco [...] Sign Reading Time Taken Comments Blood Pressure 99/74 02/02/2025 12:00 PM EST Pulse 92 02/02/2025 12:00 PM EST Temperature 36.6 C (97.9 F) 02/02/2025 11:15 AM EST Respiratory Rate 13 02/02/2025 12:00 PM EST Oxygen Saturation 96% 02/02/2025 12:00 PM EST Inhaled Oxygen Concentration - - [...] RN Living Arrangements Alone 02/02/2025 6:15 PM ES T Cherie Griffin RN Support Systems Spouse/significant other 02/02/2025 6:15 PM EST Cherie Griffin RN Type of Residence Private residence 02/02/2025 [...] Change Percent Answer Date of Assessment Author 2222 02/02/2025 10:20 AM Dante Lazaro RN * [...] Author VTE (venous thromboembolism) 02/02/2025 7:15 AM aHrper Platt RN * Outcome Minimized Risk and [...] Assessment Author 5.078 02/02/2025 10:20 AM Dante Lazaro RN * HLM Score Question Answer Date of Assessment Author SOLIS HLM Daily Mobility Goal 8 02/02/2025 10: 20 AM Cherie Lazaro RN JH HLDonny Daily Mobility Score 4 02/02/2025 10 :20 [...] RN Temp 97.9 02/02/2025 11:15 AM Cherie Bloom, LEANNA Pulse 80 02/02/2025 4:00 PM Cherie Lazaro, LEANNA Resp 12 02/02/2025 2:00 PM Cherie Lazaro RN Cardiac Rhythm NSR 02/02/2025 11:15 AM EST Sc Cherie conde RN MAP (mmHg) 89 02/02/2025 4:00 PM Cherie Lazaro RN * Oxygen Therapy Question Answer Date of Assessment Author SpO2 96 02/02/2025 4:00 PM Cherie Lazaro RN O2 Flow Rate (L/min) 2 02/02/2025 11:15 AM Cherie Lazaro RN Oxygen Therapy None 02/02/2025 4:00 PM Cherie Melton RN O2 Delivery Method Nasal cannula 02/02/2025 11:[address] Cherie Griffin RN * Senior Structural Engineer Question Answer Date of Assessment Author Telemetry Strip Reviewed Yes, I have reviewed and acknowledged the strip measurements as interpreted by the CPT's 02/02/2025 10:20 AM Cherie Lazaro RN Tunnel Worker On Yes 02/02/2025 11:15 AM Cherie Lazaro RN Telemetry Audible Yes 02/02/2025 11: 15 AM Cherie Lazaro RN Telemetry Alarms Set Yes 02/02/2025 11:15 AM Cherie Lazaro RN Bedside Senior Structural Engineer On Yes 02/02/2025 11:15 AM Cherie Lazaro RN Bedside Cardiac Audible Yes 02/02/2025 11:15 AM Cherie Lazaro RN Bedside Cardiac Alarms Set Yes 02/02/2025 11:15 AM Cherie Lazaro RN * Gastrointestinal Question Answer Date of Assessment Author GI Symptoms None 02/02/2025 10:30 AM EST Cherie Clarke, RN * Peripheral Vascular Question Answer Date of Assessment Author Peripheral Vascular ([facility]) [facility] 02/02/2025 11:15 AM Cherie Lazaro RN Capillary Refill Less than/equal to 2 seconds (All extremities) 02/02/2025 11:15 AM Cherie Lazaro, RN * Musculoskeletal Question Answer Date of Assessment Author Musculoskeletal ([facility]) [facility] 02/02/2025 11:15 AM Cherie Lazaro RN * Urine Assessment Question Answer Date of Assessment Author Urine Color Yellow/straw 02/02/2025 11:15 AM Cherie Bloom RN Urine Appearance Clear 02/02/2025 11:15 AM Cherie Lazaro, RN * Waldo Fall Risk Question Answer Date of Assessment Author History of Falling, Immediat e or Within 3 Months 0 02/02/2025 10:20 AM Cherie Lazaro RN Secondary Diagnosis 15 02/02/2025 10:[address] Cherie Griffin RN Ambulatory Aid 0 02/02/2025 10:20 AM EST Cherie Richardson RN Intravenous Therapy/Heparin Lock 20 02/03/20 25 10:20 AM EST Cherie Griffin RN Gait/Transferring 10 02/02/2025 10:20 AM EST Cherie Griffin, RN Mental Status 15 02/02/2025 10:20 AM EST Sca lfCherie, RN Waldo Fall Risk Score 60 02/02/2025 10:20 AM Cherie Lazaro, RN * Chandler Scale Question Answer Date of Assessment Author Sensory Perceptions 4 02/02/2025 10:[address] Cherie Griffin, RN Moisture 3 02/02/2025 10:20 AM EST Cherie Clarke, RN Activity 3 02/02/2025 10:20 AM EST [...] Bands On ID 02/02/2025 10:20 AM EST Norma fCherie, RN Side Rails/Bed Safety 4/02/02/2025 10:20 AM EST Cherie Griffin, RN NonSkid Footwear On;Patient in bed 02/02/2025 10:20 AM EST Cherie Griffin, RN The Patient's Environment is Safe Yes 02/02/2025 10:20 AM EST Cherie Griffin , RN Bed Foot Left Rail Up State Yes 02/02/2025 10:20 AM EST NormafCherie , RN Bed Head Right Rail Up State Yes 02/02/2025 10:20 AM EST Cherie Griffin , RN Bed Head Left Rail Up State Yes 02/02/2025 10:20 AM EST Cherie Griffin , RN Bed Foot Right Rail Up State Yes 02/02/2025 10:20 AM EST Cherie Griffin , RN Bed Brake State Yes 02/02/2025 10:20 AM Cherie Menon RN Bed Low Height State Yes 02/02/2025 [...] RN Precautions Fall risk 02/02/2025 10:20 AM EST Scal f, Cherie D, RN * Family/Significant Other Communication Question Answer [...] Complete Per Guideline Yes 02/02/2025 10:20 AM EST Scalf, Cherie D , RN * Patient Violence Risk Assessment Question [...] IBW/kg (Calculated) 52.38 02/02/2025 10:20 AM E Cherie Sanchez RN * Neurological Question Answer Date of [...] 02/02/2025 11:15 AM Cherie Lazaro RN Neuro ([facility]) [facility] 02/02/2025 7:12 AM Harper Platt RN R Pupil Shape Round 02/02/2025 10:20 AM Cherie Lazaro RN L Pupil Shape Round 02/02/2025 10:20 AM Cherie Lazaro RN * HEENT Question Answer Date of Assessment Author HEENT ([facility]) [facility] 02/02/2025 11:15 AM Cherie Bloom RN * Cardiac Question Answer Date of Assessment Author Cardiac Regularity Regular 02/02/2025 11:15 AM Cherie Quinones RN Cardiac ([facility]) [facility] 02/02/2025 7:12 AM Harper Juarez RN * Gastrointestinal Question Answer Date of Assessment Author Abdominal Tenderness Soft;Tenderness 02/02/2025 11:15 AM Cherie Lazaro RN Bowel Sounds (All Quadrants) Hypoactive 11:15 AM Cherie Lazaro RN Abdomen Inspection Soft;Rounded 02/02/2025 11 :15 AM Cherie Lazaro RN Gastrointestinal ([facility]) [facility] 02/02/2025 7:12 AM Harper Platt RN * Genitourinary Question Answer Date of Assessment Author Genitourinary ([facility]) [facility] 02/02/2025 2:10 PM Namrata Faria Genitourinary [...] assume pain is decreased 02/02/2025 1:00 PM EST Jesica Rubin RN * Mobility Question Answer Date of Assessment Author Ambulation Independent 02/02/2025 7:12 AM EST Harper Hensley RN * [place] Coma Scale Question Answer Date of Assessment Author Best Eye Response Spontaneous 02/02/2025 4:00 PM EST Cherie Griffin, LEANNA Best Verbal Response Oriented 02/02/2025 4:[address] Cherie Griffin RN Best Motor Response Follows commands 02/02/2025 4:00 P M Cherie Lazaro RN [place] Coma Scale Score 15 02/02/2025 4:00 PM Cherie Lazaro RN * Post Procedural (Discharge) Scoring System Question Answer Date of Assessment Author Circulation 2 02/02/2025 6:15 PM EST Cherie Griffin RN Activity 2 02/02/2025 6:15 PM EST Cherie Griffin RN Nausea/ Vomiting 2 02/02/2025 6:15 PM EST S calfCherie RN Pain 2 02/02/2025 6:15 PM EST Cherie Griffin wet roaster Bleeding 2 02/02/2025 6:15 PM EST Cherie Griffin RN Post Anesthesia Discharge Score 10 6:15 PM EST Cherie Griffin RN * Weight in (lb) to have [...] of Assessment Author -52.15 02/02/2025 10:20 AM EST Scalf, C aitlyn D, RN * IBW in kg (Bariatric) Answer Date of Assessment Author 52.15 02/02/2025 10:20 AM Dante Lazaro RN * IBW in lb (Bariatric) Answer Date of Assessment Author 114.96 02/02/2025 10:20 AM EST Dante Griffin, RN * Weight Change Since Last Visit Answer Date of Assessment Author 0 02/02/2025 10:20 AM Dante Lazaro, RN * Percent of IBW Answer Date of Assessment Author 145.7 02/02/2025 10:20 AM EST Dante Griffin, RN * EBW (kg) Answer Date of Assessment Author 23.81 02/02/2025 10:20 AM Dante Lazaro, RN * EBW (lb) Answer Date of Assessment Author 52.54 02/02/2025 10:20 AM Dante Lazaro, RN * Difference in Weight Since Last Visit Answer Date of Assessment Author 0 02/02/2025 10:20 AM Dante Lazaro, RN * Pain Type Answer Date of Assessment Author Surgical pain 02/02/2025 10:50 AM Dante Lazaro, RN * Temp (in Celsius) for SAUK-SUIATTLE IV Answer Date of Assessment Author 36.6 02/02/2025 11:15 AM Dante Lazaro, RN * Nutrition Question Answer Date of Assessment Author Diet Type Regular 02/02/2025 10:20 AM Cherie Bloom, LEANNA * 4-Eyes Skin Assessment Question Answer Date of Assessment Author 4 Eyes Skin Assessment Completed No 02/03/20 25 10:20 AM Cherie Lazaro, RN * IBW/kg (Calculated) Answer Date of Assessment Author 52.38 02/02/2025 10:20 AM Dante Lazaro, RN * Adult Low Range Vt 6mL/kg Answer Date of Assessment Author 314.28 02/02/2025 10:20 AM Dante Lazaro, RN * Adult Moderate Range Vt 8mL/kg Answer Date of Assessment Author 419.04 02/02/2025 10:20 AM Dante Lazaro, RN * Adult High Range Vt 10mL/kg Answer Date of Assessment Author 523.8 02/02/2025 10:20 AM Dante Lazaro RN * Patient Belongings at Bedside Question Answer Date of Assessment Author Belongings at Bedside Retained by yolanda levine and/or family/legal insurance verification representative who assumes responsibility 02/02/2025 7:11 AM Harper Platt RN * Pain Score Answer Date of Assessment Author 5 02/02/2025 10:50 AM Dante Lazaro RN * Urine Output/Assessment Question Answer Date of Assessment Author Urine 100 02/02/2025 4:24 PM Cherie Lazaro RN * Fall Risk Calculated Score Answer Date of Assessment Author Haas High 02/02/2025 10:20 AM Dante Lazaro RN * [...] Assessment Author Activity 2 02/02/2025 11:15 AM KRISTINA Green fCherie, LEANNA Respiration 2 02/02/2025 11:15 AM EST Norma fCherie, LEANNA Hemodynamic Stability 2 02/02/2025 11:15 AM Cherie Lazaro, RN Consciousness 2 02/02/2025 11:15 AM EST Sca lfCherie, RN Oxygen Saturation 1 02/02/2025 11:15 AM Cherie Lazaro RN Modified Jass Score 12 02/02/2025 11:15 A M Cherie Lazaro RN Pain 1 02/02/2025 11:15 AM Cherie Bloom RN Emetic Symptoms 2 02/02/2025 11:15 AM KRISTINA S calfCherie RN * C-SSRS (Frequent Screener) Question Answer [...] Score Question Answer Date of Assessment Author SOLIS SAUCEDO Daily Mobility Goal 8 02/02/2025 10: 20 [...] Lazaro RN * Oxygen Therapy Question Answer Date of Assessment Author SpO2 96 02/02/2025 4:00 PM Cherie Lazaro RN O2 Flow Rate (L/min) 2 02/02/2025 11:15 AM Cherie Lazaro RN Oxygen Therapy None 02/02/2025 4:00 PM Cherie Melton RN O2 Delivery Method Nasal cannula 02/02/2025 11:[address] Cherie Griffin RN * Senior Structural Engineer Question Answer Date of Assessment Author Telemetry Strip Reviewed Yes, I have reviewed and acknowledged the strip measurements as interpreted by the CPT's 02/02/2025 10:20 AM Cherie Lazaro RN Tunnel Worker On Yes 02/02/2025 11:15 AM Cherie Lazaro RN Telemetry Audible Yes 02/02/2025 11: 15 AM Cherie Lazaro RN Telemetry Alarms Set Yes 02/02/2025 11:15 AM Cherie Lazaro RN * Gastrointestinal Question Answer Date of Assessment Author GI Symptoms None 02/02/2025 10:30 AM EST Scal f, Cherie D, RN * Peripheral Vascular Question Answer Date of Assessment Author Peripheral Vascular (WDL) WD 02/02/2025 11:15 AM EST Cherie Griffin RN Capillary Refill Less than/equal to 2 seconds (All extremities) 02/02/2025 11:15 AM EST Cherie Griffin, RN * Musculoskeletal Question Answer Date of Assessment Author Musculoskeletal (WDL) WD 02/02/2025 11:15 AM Cherie Lazaro, RN * Urine Assessment Question Answer Date of Assessment Author Urine Color Yellow/straw 02/02/2025 11:15 AM EST Cherie Clarke, RN Urine Appearance Clear 02/02/2025 11:15 AM EST Cherie Griffin, RN * Haas Fall Risk Question Answer Date of Assessment Author History of Falling, Immediat e or Within 3 Months 0 02/02/2025 10:20 AM EST Cherie Griffin , RN Secondary Diagnosis 15 02/02/2025 10:[address] Cherie Griffin, boat laborer Aid 0 02/02/2025 10:20 AM EST Sc mcfpCherie, RN Intravenous Therapy/Heparin Lock 20 02/03/20 10:20 [...] Friction and Shear 3 02/02/2025 10:20 AM Cherie Quinones, RN Chandler Scale Score 20 02/02/2025 10:20 AM ES Cherie Noble, RN * Pain Location Answer Date of Assessment Author Abdomen 02/02/2025 10:50 AM Dante Lazaro RN * Vitals Question Answer Date of Assessment Author Daysi ramos Oral 02/02/2025 6:09 AM EST Geil, Allison [...] AM Cherie Lazaro , RN Bed Foot Left Rail Up State Yes 02/02/2025 10:20 AM EST Cherie Griffin , RN Bed Head Right Rail Up State Yes 02/02/2025 10:20 AM Cherie Lazaro , RN Bed Head Left Rail Up State Yes 02/02/2025 10:20 AM Cherie Lazaro , RN Bed Foot Right Rail Up State Yes 02/02/2025 10:20 AM EST Cherie Griffin , RN Bed Brake State Yes 02/02/2025 [...] difficulty 02/02/2025 11:15 AM Cherie Lazaro RN R Pupil Shape Round 02/02/2025 10:20 AM Cherie Lazaro RN L Pupil Shape Round 02/02/2025 10:20 AM Cherie Lazaro RN * Gastrointestinal Question Answer Date of Assessment Author Abdominal Tenderness Soft;Tenderness 02/02/2025 11:15 AM Cherie Lazaro RN Bowel Sounds (All Quadrants) Hypoactive 02/02/2025 11:15 AM Cherie Lazaro RN Abdomen Inspection Soft;Rounded 02/02/2025 11:15 AM ES T Cherie Grfifin RN * Genitourinary Question Answer Date of Assessment Author Genitourinary Symptoms None 02/02/2025 2:10 PM Namrata [...] 02/02/2025 7:12 AM Harper Platt RN * [place] Coma Scale Question Answer Date of Assessment Author Best Eye Response Spontaneous 02/02/2025 4:00 PM Cherie Lazaro RN Best Verbal Response Oriented 02/02/2025 4:[address] Cherie Griffin RN Best Motor Response Follows commands 02/02/2025 4:00 P M Cherie Lazaro RN [place] Coma Scale Score 15 02/02/2025 4:00 PM [...] Bedside Retained by yolanda levine and/or family/legal insurance verification representative who assumes responsibility 02/02/2025 7:11 AM [...] Pattern Regular 02/02/2025 11:[address] Chreie Griffin RN * C-SSRS (Frequent Screener) Question [...] Weight Change Percent Answer Entry Date Author 2222 02/02/2025 10:20 AM Dante Lazaro RN * [...] Author BP 112/76 02/02/2025 4:00 PM Cherie Lzaaro RN Temp 97.9 02/02/2025 11:15 AM Cherie Bloom RN Pulse 80 02/02/2025 4:00 PM Cherie Lazaro, RN Resp 12 02/02/2025 2:00 PM EST Cherie Griffin RN Cardiac Rhythm NSR 02/02/2025 11:15 AM EST Cherie Richardson RN MAP (mmHg) 89 02/02/2025 4:00 PM Cherie Lazaro, LEANNA * Oxygen Therapy Question Answer Entry Date Author SpO2 96 02/02/2025 4:00 PM Cherie Lazaro, LEANNA O2 Flow Rate (L/min) 2 02/02/2025 11:15 AM Cherie Lazaro RN Oxygen Therapy None 02/02/2025 4:00 PM Cherie Melton RN O2 Delivery Method Nasal cannula 02/02/2025 11:[address] Cherie Griffin RN * Senior Structural Engineer Question Answer Entry Date Author Telemetry Strip Reviewed Yes, I have reviewed and acknowledged the strip measurements as interpreted by the CPT's 02/02/2025 10:20 AM Cherie Lazaro RN Tunnel Worker On Yes 02/02/2025 11:15 AM Cherie Lazaro RN Telemetry Audible Yes 02/02/2025 11: 15 AM Cherie Lazaro RN Telemetry Alarms Set Yes 02/02/2025 11:15 AM Cherie Lazaro, LEANNA Bedside Senior Structural Engineer On Yes 02/02/2025 11:15 AM Cherie Lazaro RN Bedside Cardiac Audible Yes 02/02/2025 11:15 AM Cherie Lazaro, LEANNA Bedside Cardiac Alarms Set Yes 02/02/2025 11:15 AM Cherie Lazaro, LEANNA * Gastrointestinal Question Answer Entry Date Author GI Symptoms None 02/02/2025 10:30 AM Cherie Bloom RN * Peripheral Vascular Question Answer Entry Date Author Peripheral Vascular (WDL) WDL 02/02/2025 11:15 AM Cherie Lazaro RN Capillary Refill Less than/equal to 2 seconds (All extremities) 02/02/2025 11:15 AM EST Scalf, Cherie D, RN * Musculoskeletal Question Answer Entry Date Author Musculoskeletal (WDL) WDL 02/02/2025 11:15 AM EST Cherie Griffin, RN * Urine Assessment Question Answer Entry Date Author Urine Color Yellow/straw 02/02/2025 11:15 AM EST Norma fCherie, RN Urine Appearance Clear 02/02/2025 11:15 AM EST Cherie Griffin, RN * Haas Fall Risk Question Answer Entry Date Author History of Falling, Immediat e or Within 3 Months 0 02/02/2025 10:20 AM EST Cherie Griffin , RN Secondary Diagnosis 15 02/02/2025 10:[address] NormafCherie, boat laborer Aid 0 02/02/2025 10:20 AM EST Sc [...] Cherie Griffin, RN * Pain Location Answer Entry Date Author Abdomen 02/02/2025 10:50 AM EST Dante Griffin RN * Vitals Question Answer Entry Date [...] Bands On ID 02/02/2025 10:20 AM Cherie Lazaro, RN Side Rails/Bed Safety 402/02/2025 10:20 AM Cherie Lazaro, RN NonSkid Footwear On;Patient in bed 02/02/2025 10 :20 AM Cherie Lazaro, RN The Patient's Environment is Safe Yes 02/02/2025 10:20 AM Cherie Lazaro, RN Bed Foot Left Rail Up State Yes 02/02/2025 10:20 AM Cherie Lazaro, RN Bed Head Right Rail Up State Yes 02/02/2025 10:20 AM Cherie Lazaro, RN Bed Head Left Rail Up State Yes 02/02/2025 10:20 AM Cherie Lazaro, RN Bed Foot Right Rail Up State Yes 02/02/2025 10:20 AM Cherie Lazaro, RN Bed Brake State Yes 02/02/2025 10:20 AM Cherie Lazaro, RN Bed Low Height State Yes 02/02/2025 10:20 AM Cherie Lazaro, RN * Fall Risk Interventions Question Answer Entry Date Author Enhanced Safety Measures education provided 01/16 10:20 AM Cherie Lazaro, RN Toilet Every 2 Hours-In Advance of Need Education provided 02/02/2025 10:20 AM Cherie Lazaro, RN Hourly Visual Checks In bed 02/02/2025 [...] adjusted pe r tolerance 02/02/2025 10:20 AM Cherei Lazaro RN VTE Prevention/Management bilateral;SCDs (sequential compression [...] Author Equipment education provided 02/02/2025 10:20 AM BRIDGETTE T Cherie Griffin RN * Safety Equipment at Bedside Question [...] Harper Sin RN Time of Last Void 22738 02/02/2025 7:02 AM Harper Platt RN Date of Last Liquid 05063 02/02/2025 7:02 AM Harper Sin RN Date of Last Solid 38012 02/02/2025 7:02 AM Harper Platt RN Time of Last Solid 45923 02/02/2025 7:02 AM Harper Platt RN * [...] Bloom RN Weight 2680.02 02/02/2025 10:20 AM KRISTINA Green fCherie RN BSA (Calculated - sq m) 1.84 [...] * HEENT Question Answer Entry Date Author HEENT ([facility]) [facility] 02/02/2025 11:15 AM Cherie Bloom RN * Cardiac Question Answer Entry Date Author Cardiac Regularity Regular 02/02/2025 11:15 AM Cherie Quinones RN Cardiac ([facility]) [facility] 02/02/2025 7:12 AM Harper Juarez RN * Gastrointestinal Question Answer Entry Date Author Abdominal Tenderness Soft;Tenderness 02/02/2025 11:15 AM Cherie Lazaro RN Bowel Sounds (All Quadrants) Hypoactive 11:15 AM Cherie Lazaro RN Abdomen Inspection Soft;Rounded 02/02/2025 11 :15 AM Cherie Lazaro RN Gastrointestinal ([facility]) [facility] 7:12 AM Harper Platt RN * Genitourinary Question Answer Entry Date Author Genitourinary ([facility]) [facility] 02/02/2025 2:10 PM Namrata Faria Genitourinary [...] 02/02/2025 7:02 AM Harper Platt RN * [place] Coma Scale Question Answer Entry Date Author Best Eye Response Spontaneous 02/02/2025 4:00 PM Cherie Lazaro, LEANNA Best Verbal Response Oriented 02/02/2025 4:[address] Cherie Griffin RN Best Motor Response Follows commands 02/02/2025 4:00 P M Cherie Lazaro, LEANNA [place] Coma Scale Score 15 02/02/2025 4:00 PM Cherie Lazaro RN * Restart Pain Assessment Timer Answer Entry Date Author Yes 02/02/2025 10:50 AM Dante Lazaro RN * Post Procedural (Discharge) Scoring System Question Answer Entry Date Author Circulation 2 02/02/2025 6:15 PM EST Cherie Griffin, RN Activity 2 02/02/2025 6:15 PM Cherie Lazaro, RN Nausea/ Vomiting 2 02/02/2025 6:15 PM EST S calfCherie, RN Pain 2 02/02/2025 6:15 PM Cherie Lazaro, wet roaster Bleeding 2 02/02/2025 6:15 PM Cherie Lazaro, LEANNA Post Anesthesia Discharge Score 10 6:15 PM Cherie Lazaro RN * Weight in (lb) to have BMI = 25 Answer Entry Date Author 140.8 02/02/2025 10:20 AM Dante Lazaro RN * BMI (Calculated) Answer Entry Date Author 29.7 02/02/2025 10:20 AM Dante Lazaro RN * Percent Excess Weight Loss Answer Entry Date Author 0 02/02/2025 10:20 AM Dnate Lazaro RN * Weight Change Since Preop Answer Entry Date Author 75.98 02/02/2025 10:20 AM Dante Lazaro RN * Initial Excess Weight Answer Entry Date Author -52.15 02/02/2025 10:20 AM Dante Lazaro RN * IBW in kg (Bariatric) Answer Entry Date Author 52.15 02/02/2025 10:20 AM EST Scalf, C aitlyn D, RN * IBW in lb (Bariatric) Answer Entry Date Author 114.96 02/02/2025 10:20 AM EST ScalfDante, LEANNA * Weight Change Since Last Visit Answer Entry Date Author 0 02/02/2025 10:20 AM EST ScalfDante, RN * Percent of IBW Answer Entry Date Author 145.7 02/02/2025 10:20 AM EST NormafDante RN * EBW (kg) Answer Entry Date Author 23.81 02/02/2025 10:20 AM EST ScalfDante, RN * EBW (lb) Answer Entry Date Author 52.54 02/02/2025 10:20 AM EST Dante Griffin RN * Difference in Weight Since Last Visit Answer Entry Date Author 0 02/02/2025 10:20 AM EST Dante Griffin, RN * Pain Type Answer Entry Date Author Surgical pain 02/02/2025 10:50 AM EST Dante Griffin RN * Anthropometrics Question Answer Entry Date Author Weight Change 0 02/02/2025 10:20 AM EST Sca lfCherie RN * Temp (in Celsius) for SAUK-SUIATTLE IV Answer Entry Date Author 36.6 02/02/2025 11:15 AM EST Dante Griffin RN * Nutrition Question Answer Entry Date Author Diet Type Regular 02/02/2025 10:20 AM EST Cherie Clarke RN * 4-Eyes Skin Assessment Question Answer Entry Date Author 4 Eyes Skin Assessment Completed No 02/03/20 10:20 AM EST Cherie Griffin RN * IBW/kg (Calculated) Answer Entry Date Author 52.38 02/02/2025 10:20 AM EST NormafDante, RN * Adult Low Range Vt 6mL/kg Answer Entry Date Author 314.28 02/02/2025 10:20 AM EST NormafDante, RN * Adult Moderate Range Vt 8mL/kg Answer Entry Date Author 419.04 02/02/2025 10:20 AM EST NormafDante, RN * Adult High Range Vt 10mL/kg Answer Entry Date Author 523.8 02/02/2025 10:20 AM Dante Lazaro RN * Patient Belongings at Bedside Question Answer Entry Date Author Belongings at Bedside Retained by yolanda levine and/or family/legal insurance verification representative who assumes responsibility 02/02/2025 7:11 AM [...] Calculated Score Answer Entry Date Author Waldo High 02/02/2025 10:20 AM Dante Lazaro RN * [...] 02/02/2025 10:50 AM Cherie Lazaro RN * [place] Coma Scale Numeric Answer Entry Date Author [...] Date Author Activity 2 02/02/2025 11:15 AM EST Cherie Clarke, LEANNA Respiration 2 02/02/2025 11:15 AM EST Cherie Clarke, LEANNA Hemodynamic Stability 2 02/02/2025 11:15 AM EST Cherie Griffin, LEANNA Consciousness 2 02/02/2025 11:15 AM EST Sca lfCherie RN Oxygen Saturation 1 02/02/2025 11:15 AM EST Cherie Griffin RN Modified Jass Score 12 02/02/2025 11:15 A M EST Cherie Griffin RN Pain 1 02/02/2025 11:15 AM EST Cherie Clarke RN Emetic Symptoms 2 02/02/2025 11:15 AM EST S calfCherie RN * C-SSRS (Frequent Screener) Question Answer [...] call your doctor to schedule an appointment: [phone] Visit the gynecologic oncology [facility] which is open Saturday-Saturday 8am- 10am. It is helpful if you call the clinic before arrival: [phone] Call the Cancer acute Treatment Clinic. Same day-appointments are available Saturday-Saturday 8am-5pm. Please call [phone] before arrival to schedule a visit Fever [...] p.m.: call the Gynecologic Oncology Clinic at [phone]. 4:30 p.m.-8 a.m.: call the After Hours Paging Log Haul Operator at [phone] and ask for the Gynecologic Oncology provider [...] tablet by mouth twice a day. 07/21/2024 oxyCODONE (Roxicodone) 5 MG immediate release tablet [...] AM EST Operative Note Date: 02/02/25 Location: [facility] Name: Gemma Zarco, : 1975, Diagnoses: Pre-op Diagnosis Complex cyst of left ovary AUB Obesity BMI 30 S/p open appy S/p CCY S/p endometrial ablation Post-op Diagnosis Complex cyst of left ovary AUB Obesity BMI 30 S/p open appy S/p CCY S/p endometrial ablation Procedure(s): Robotic TLH/BSO/extensive YURIDIA Attending Surgeon(s): * Marlee Mike I - Primary Stock Transfer Clerk(s): * Rochelle Back MD - Fellow Anesthesia: [...] tenaculum. The cervix was sounded anddilated. A Travel [employer] uterine manipulator was placed. The patient???s arms [...] a bipolar fenestrated grasper (left arm), needle charter and tour bus driver (right arm) and an prograsp grasper (far right 4th arm). The area of the small bowel was identified. 3-0 vicryl was used to imbricate this area x1 to reinforce the bowel wall. The needle charter and tour bus driver was then exchanged for a monopolar [...] DO [address] [place] [address] Primary Care Provider: No primary care provider [...] menses, pain between menses. 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 Alternates diarrhea/constipation. Tolerates normal diet, no unintended weight loss. 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 COMPARISON: Pelvic ultrasound from 11/10/2015 PROCEDURE COMMENTS: Sonographic evaluation of the pelvis per ordered protocol with insurance verification representative images and tech notes for sent [...] MD Gynecologic Oncology Fellow, PGY 7 AP [facility] GYNECOLOGY [address] [facility] [id number] Dept: [phone] Dept Loc: [phone] Cosigned by Marlee Mike MD at 01/11/2025 [...] Date Depression 2008 GERD (gastroesophageal reflux disease) 2010 Hypertension Hypothyroidism 2008 [place]???s Motion sickness PCOS [...] card, photo ID, along with power of compliance attorney, guardianship or advanced directives if applicable [...] (water, Gatorade, or apple juice) * Porsha On[facility] - Leti Browne RN - 01/26/2025 1:42 [...] doctor as soon as possible! * Porsha Johnson - Leti Browne RN - 01/26/2025 1:42 PM EST Images from the original note were not included. 489 Map to HealthCare Facilities Directions Easy directions to and from I-[address] (from [address]) Directions from I-75/I-64 to the [facility] Parking Garage: ? From [address], turn right off the exit ramp onto [address] ([place] [address]/[place] [address]) toward [place]. ? In 4.1 miles, turn left onto [address] (at the [employer] gas station). ? In a half-mile, turn right onto [address]. ? In .3 miles, turn right onto [address] (just past the [employer] gas station). Garage entrance is on the left. ? Important: This garage address will change to [address] [place] [address] on September 15, 2024. Directions from HealthCare Parking Garage to I-75/I-64: ? Turn left out of the garage onto [facility]. ? Turn left onto [address]. ? In .3 miles, turn left down [address] ? In a half-mile, turn right onto [address] (at the [employer] gas station). ? In 4.1 miles, merge onto [address] /[address]75 (near the [facility] by Kehinde Patterson). Parking Any patients or visitors of [facility] can park in the following areas: ? [facility] Parking Garage (main garage): [address] (Levels A-F) ? [facility] Garage: [address] (Levels 1-6) ? [facility] Cancer lot: Located off [address] (limited parking for [facility] outpatients only). Upon Your Arrival ? Patients and visitors going to Pavilion A, H, G and [facility] may walk across the pedway, located at [...] also be accessed via the pedway off [facility] garage on Level C. If you need a shuttle to the ED, one can be called for you at Level A of the main garage or contact any of the information desks, . Additional Information For additional information, please visit our information desks located throughout [facility]. Information desks have additional maps and resources. Information desks are located at the main entrances of: [facility] A (first floor and ground floor), [facility], Pav[facility] H, Pavilion CC, [facility] WH, [facility] (first and third floor), and [facility]. Informationdesk number: [phone]. Important Addresses [address] [facility] ? [facility] entrance ? Pavilion A ? Pavilion G ([facility]) ? Emergency Department [address] ? Pavilion H ? Pavilion CC ([facility]) ? [facility] ([facility]) ? [facility] [address] [facility] ? [facility] [address] [facility] ? [facility] 110 [facility] ? [facility] ? [facility] * [facility] - Leti Browne RN - 01/26/2025 1:42 PM EST Images from the original note were not included. 1072 Patient Surgery Guide The doctors and staff of Surgical Services would like to welcome you, your family, and friends to [facility]. We offer access to more than [...] will help you be more comfortable with [facility] and the surgical process. This information [...] located on the first floor of the [facility] near the Pharmacy and main clinic entrance. We are open Saturday-Saturday from 8 a.m. to 4:30 p.m. A clinic insurance verification representative can be reached at [phone]. Parking is available in the [facility] garage on [facility] or in the [employer] garage located at [address] [place] [address], directly across [facility] from [facility]. The day before surgery You will receive a phone call telling you what time you need to arrive at the hospital for surgery.If you miss the call, please call one of the following numbers (depending on where your surgery is scheduled): ? [facility]: [phone] or [phone] ? [facility]: [phone] or [phone] The day of surgery ? Arrive on time to avoid delays or cancellation. ? Park in the [facility] parking garage located at [address] [facility]. It is directly across [facility] from the medical otis. ? If you are scheduled for surgery at [facility], take the hospital garage elevator to Level C, then cross the concourse bridge to the Surgery Waiting Room to register for your surgery. [facility] is located down the first hallway to the right at the end of the concourse bridge. If you need help crossing the concourse, you may cotton picker the patient golf cart shuttle directlyto the right of the elevators on Level C. ? If you are scheduled for surgery at the [facility], take the garage elevator to Level A and catch the free shuttle to the hospital. (Be careful not to take the [facility] shuttle - there is an [...] checked many times throughout your stay at [facility] to ensure your safety. ? Go [...] talk to them after your surgery. A hr clerk is available in the waiting room [...] living will, health care surrogate, power of compliance attorney or guardianship papers. ? Bring a [...] makeup, jewelry (including body piercing) or nail albanian. ? Don?t bring money or valuables to [...] office and the Preoperative Anesthesia Clinic at [phone] or [phone]. If it is the day of surgery, call the location where you are scheduled to have your surgery: [facility] at [phone] or [phone] or [facility] at [phone] or [phone]. For more information Visit [email or web address] or call [phone] or [phone]. HealthCare does not discriminate. [facility] complies with applicable Federal civil rights laws [...] AM EST Complex cyst of left ovary [place] LAPAROSCOPY W TOT HYSTERECTUTERUS <=250 GRAM W [...] LAB HEMATOLOGY METHOD 02/02/2025 2:38 PM EST [facility] RBC Count 4.22 3.90 - 5.20 10*6/uL LAB HEMATOLOGY METHOD 02/02/2025 2:38 PM EST [facility] HGB 12.5 11.2 - 15.7 g/dL LAB HEMATOLOGY METHOD 02/02/2025 2:38 PM EST [facility] HCT 36.8 34.0 - 45.0 % LAB HEMATOLOGY METHOD 02/02/2025 2:38 PM EST [facility] Platelet Count 240 155 - 369 10*3/uL LAB HEMATOLOGY METHOD 02/02/2025 2:38 PM EST [facility] MCV 87 79 - 98 fL LAB HEMATOLOGY METHOD 02/02/2025 2:38 PM EST [facility] MCH 29.6 26.0 - 32.0 pg LAB HEMATOLOGY METHOD 02/02/2025 2:38 PM EST [facility] MCHC 34.0 30.7 - 35.5 g/dL LAB HEMATOLOGY METHOD 02/02/2025 2:38 PM EST [facility] RDW 12.0 11.5 - 14.5 % LAB HEMATOLOGY METHOD 02/02/2025 2:38 PM EST [facility] MPV 10.4 8.8 - 12.5 fL LAB HEMATOLOGY METHOD 02/02/2025 2:38 PM EST [facility] nRBC 0.0 <=0.0 per 100 WBCs LAB HEMATOLOGY METHOD 02/02/2025 2:38 PM EST [facility] Blood Venous blood specimen / Unknown Venipuncture / Unknown 02/02/2025 2:06 PM EST 02/02/2025 2:31 PM EST us Marlee Mike MD LAB BLOOD ORDERABLES Samreen l Result [facility] [address] [place] [address] * Surgical Pathology Exam (02/02/2025 9:26 AM EST) Case Report Surgical Pathology Case: [id number] Authorizing Provider: Marlee Mike MD Collected: 02/02/2025 0926 Ordering Location: [facility] OPERATING ROOM Received: 02/02/2025 1023 Pathologist: Estrella Sheriff MD Specimen: Uterus, Uterus, cervix, bilateral fallopian tubes and Ovaries . 02/04/2025 4:49 PM EST [facility] Final Diagnosis UTERUS, CERVIX, FALLOPIAN TUBES, [...] HYPERPLASIA OR MALIGNANCY 02/04/2025 4:49 PM EST [facility] at 1648 EST Clinical Information Complex cyst of left ovary [N83.292] 02/04/2025 4:49 PM EST [facility] Gross Description A. UTERUS, CERVIX, BILATERAL [...] love-pink, severely trabeculated, and contains 0.8 cm love-white, whirled, and well-circumscribe d nodule. Within the anterior cervix, there is a 2.2 x 1.1 x 1.1 cm polyp. Title I Director sections are submitted as follows: A1: Anterior endomyometrium, full-thickness A2-A3: Posterior endomyometrium, full-thickness, bisected A4: Whorled nodule A5-A6: Posterior cervix and lower uterine segment, bisected A7-A8: Anterior cervix and lower uterine segment, bisected A9-A10: Anterior cervical polyp, bisected A11-A12: Right ovary A13: Right fallopian tube A14-A15: Left ovary A16: Left fallopian tube Cold Time: 57m BUD Cerna (ASCP) 02/04/2025 4:49 PM EST [facility] Note: A resident was involved in the service. I attest I examined the relevant preparations for the specimens and confirmed the diagnosis or interpretation. 02/04/2025 4:49 PM EST [facility] Tissue Uterine structure / Unknown 02/02/2025 9:26 AM EST 02/02/2025 10:23 AM EST Comment:Pre-op diagnosis: Complex cyst of left ovary [N83.292] us Marlee Mike MD LAB PATHOLOGY ORDERABLES Final Result [facility] [address] [place] [address] * Non-Gynecologic Cytology (02/02/2025 8:47 AM EST) Case Report Cytology Case: [id number] Authorizing Provider: Marlee Mike MD Collected: 02/02/2025 0847 Ordering Location: [facility] OPERATING ROOM Received: 02/02/2025 0900 Pathologist: Shayla Amos MD Specimen: Pelvic Washing, PELVIC WASHING 02/03/2025 1:08 PM EST [facility] Final Diagnosis A. PELVIC WASHING: -NEGATIVE FOR MALIGNANCY. - REACTIVE MESOTHELIAL CELLS. 02/03/2025 1:[address] [facility] at 1308 EST Gross Description A. PELVIC WASHING 35 mls cloudy yellow fluid for cell block and thin prep processing Cold Time: 3h 43m 02/03/2025 1:[address] [facility] Clinical Information Complex cyst of left ovary [N83.292] 02/03/2025 1:08 PM EST [facility] Washing Fluid specimen from pelvis / Unknown 02/02/2025 8:47 AM EST 02/02/2025 9:00 AM EST Comment:Pre-op diagnosis: Complex cyst of left ovary [N83.292] us Marlee Mike MD LAB CYTOLOGY ORDERABLES F inal Result Performing Organization Address City/[facility] Co de Phone Number [facility] [address] [place] [address] * Type and screen (02/02/2025 6:57 AM EST) ABO/Rh O Negative 02/02/2025 7:11 AM EST BLOOD BANK Antibody Screen Negative 02/02/2025 7:11 AM EST BLOOD BANK Specimen Expiration 02/05/2025 23:59 02/02/2025 7:11 AM EST BLOOD BANK Blood Venous blood specimen / Unknown Venipuncture / Unknown 02/02/2025 6:57 AM EST 02/02/2025 7:11 AM EST us Marlee Mike MD LAB BLOOD BANK TEST ORDER JOSE Final Result Performing Organization Address [facility] Phone Number BLOOD BANK [address] [place] [address], * POCT , URINE (02/02/2025 6:23 AM EST) POCT Test, Urine Negative Males and Non- Females: Negative 02/02/2025 6:30 AM EST [facility] Log Haul Operator ID Allison Corbett 02/02/2025 6:30 AM EST [facility] LAB Device ID [id number] 02/02/2025 6:30 AM EST [facility] Urine Urine specimen obtained by clean catch procedure / Unknown 02/02/2025 6:23 AM EST 02/02/2025 6:30 AM EST us Marlee Mike MD LAB POINT OF CARE TEST DOCKED DEVICE UNSOLICITED RESULTS Final Result Performing Organization Address [facility] Co de Phone Number [facility] [address] [place] [address] * POCT glucose meter (02/02/2025 6:15 AM EST) POCT Glucose 94 74 - 99 mg/dL [...] for testing. Comment 02/02/2025 6:16 AM EST [facility] Log Haul Operator ID Allison Corbett 02/02/2025 6:16 AM EST [facility] Device ID [id number] 02/02/2025 6:16 AM EST [facility] Specimen Type POC Capillary 02/02/2025 6:16 AM EST [facility] Blood Capillary blood specimen / Unknown 02/02/2025 6:15 AM EST 02/02/2025 6:16 AM EST us Marlee Mike MD LAB POINT OF CARE TEST DOCKED DEVICE UNSOLICITED RESULTS Final Result Performing Organization Address [facility] Co de Phone Number [facility] [address] [place] [address] documented in this encounter Visit Diagnoses Diagnosis Complex cyst of left ovary- Primary Ovarian mass, left Complex cyst of left ovary documented in this encounter Admitting Diagnoses Diagnosis [...] Given 02/02/2025 7:01 AM EST 1,000 mg bupivacaine PF (Marcaine) 0.25 % injection As needed, Starting on Sat02/02/25 at 1004, Until Sat02/02/25 at 1014, Routine, Intraprocedure Given 02/02/2025 10:04 AM EST 10 mL Abdominal Tissue diphenhydrAMINE (Benadryl) injection 12.5 mg 12.5 mg, [...] 2017, Routine, Recovery(Phase II-Outpatient)/On Unit(Inpatient), itching, anxiety Given [...] 2017, Routine, Recovery(Phase II-Outpatient)/On Unit(Inpatient), nausea, vomiting scopolamine [...] Until Sat02/02/25 at 2017, Routine 1050 (New Bag - Prov ider: Cherie Griffin RN) PRN Medication Order [...] 2017, Routine, Recovery(Phase II-Outpatient)/On Unit(Inpatient), nausea, vomiting oxyCODONE [...] 2016, Routine, Recovery(Phase II-Outpatient)/On Unit(Inpatient), nausea, vomiting Linked [...] vomiting documented in this encounter Care Teams Packaging Inspector Relationship Specialty Start Date End Date Sherin Brady MD [address] [id number] PCP - General 01/08/25 Nell Mckeon DO [facility] [id number] Referring Physician Obstetrics and Gynecology 12/29/24 documented as of this encounter
--- OUTSIDE RECORDS SUMMARY | 2025-02-13 19:41 | XMS_ITS | Encounter Summary ---
Author Organization Healthcare Address [address] [place] [address] Care Team Providers Care Inspector Balance Wheel Motion Name Role Phone Nell Mckeon DO Unavailable [phone] Sherin Brady MD Primary Care Provider [phone] Reason for Visit * Reason Comments Vaginal Bleeding Post-op Problem Encounter Details Date Type Department Care Team ([facility] st Contact Info) Description 02/13/2025 7:41 PM EST - 02/13/2025 11:56 PM EST Emergency [facility] Emergency Department [address] [place] [address] Kp Mann MD [address] [place] [address] Anton Obrien MD [address] [place] [address] Vaginal bleeding (Primary Dx); Acute UTI Discharge Disposition: Home or Self Care Social History Tobacco Use Types Packs/Day Years Used Date Smoking Tobacco: Never Smokeless Tobacco: Never Alcohol Use Standard Drinks/Week Comments Yes 4 (1 standard drink = 0.6 oz pur e alcohol) CAGE ASSESSMENT Answer Date Recorded Cage unable to access Not on file 02/13/2025 Maximum number of drinks you had on a given occasion in the last month? 3 drinks 02/13/2025 How many alcoholic Beverages do you typically drink in a week? 0 - 7 per week 02/13/2025 Have you ever felt you should CUT down on your d rinking? 0 02/13/2025 Have you been ANNOYED by peo ple criticizing your drinking? 0 02/13/2025 Have you felt GUILTY about your drinking? 0 02/13/2025 Have you had a drink first t [place] in the morning ([employer]DRAISING CONSULTANT) to steady your nerves or to get rid of a hangover? 0 02/13/2025 CAGE Questionnaire Score 0 025 Comments No Sex and Gender Information Value Date Recorded Sex Assigned at Not on file Legal Sex Female 8:40 PM EDT Gender Identity Not on file Sexual Orientation Not on file documented as of this encounter Last Filed Vital Signs Vital Sign Reading Time Taken Comments Blood Pressure 119/84 02/13/2025 11:32 PM EST Pulse 93 02/13/2025 11:32 PM EST Temperature 36.5 C (97.7 F) 02/13/2025 11:32 PM EST Respiratory Rate 18 02/13/2025 11:32 PM EST Oxygen Saturation 96% 02/13/2025 11:32 PM EST Inhaled Oxygen Concentration - - Weight 68 kg (150 lb) 02/13/2025 7:11 PM EST Height 160 cm (5' 3 ) 02/13/2025 7:11 PM EST Body Mass Index 26.57 02/13/2025 7:11 PM EST documented in this encounter Functional Status * BMI (Calculated) Answer Date of Assessment Author 26.6 02/13/2025 7:11 PM EST Nadya Urrutia RN * Percent Excess Weight Loss Answer Date of Assessment Author 0 02/13/2025 7:11 PM EST Nadya Urrutia RN * Total Weight Change Percent Answer Date of Assessment Author 222102/13/2025 7:11 PM Nadya Arguelles RN * Weight Change Since Preop Answer Date of Assessment Author 68.02 02/13/2025 7:11 PM Nadya Arguelles RN * Initial Excess Weight Answer Date of Assessment Author -52.16 02/13/2025 7:11 PM Nadya Arguelles RN * IBW in lbs (Bariatric) Answer Date of Assessment Author 115 02/13/2025 7:11 PM Nadya Arguelles RN * Weight Change Since Last Visit Answer Date of Assessment Author 68.02 02/13/2025 7:11 PM Nadya Arguelles RN * IBW in kg (Bariatric) Answer Date of Assessment Author 52.16 02/13/2025 7:11 PM Nadya Arguelles RN * Percent of IBW Answer Date of Assessment Author 4,601.23 02/13/2025 7:11 PM Nadya Arguelles RN * EBW (kg) Answer Date of Assessment Author 2,398.52 02/13/2025 7:11 PM Nadya Arguelles RN * EBW (lbs) Answer Date of Assessment Author 2,392.81 02/13/2025 7:11 PM Nadya Arguelles RN * Safety Interventions Question Answer Date of Assessment Author Safety Precautions/Falls Reduction assistive device/personal items within reach 02/13/2025 7:54 PM Jane Godinez RN All Alarms none present 02/13/2025 7:54 PM Jane Matthew RN * General Emergency Care CPG Interventions Question Answer Date of Assessment Author Coping Interventions care explained to patient/family prior to performing 02/13/2025 7:54 PM Jane Godinez RN General Care Management calm environment promoted 02/13/2025 7:54 PM Jane Godinez RN * Weight Change 24 hrs Answer Date of Assessment Author -7.938 02/13/2025 7:11 PM Nadya Arguelles RN * Vital Signs Question Answer Date of Assessment Author BP 119/84 02/13/2025 11:32 PM Jane Whitney RN Temp 97.7 02/13/2025 11:32 PM Jane Whitney RN Temp src Oral 02/13/2025 11:32 PM Jane Whitney RN Pulse 93 02/13/2025 11:32 PM Jane Whitney RN Resp 18 02/13/2025 11:32 PM Jane Whitney RN Heart Rate Source Monitor 02/13/2025 11:32 PM Jane Godinez RN BP Location Right arm 02/13/2025 11:32 PM Jane Whitney RN BP Method Automatic 02/13/2025 11:32 PM Jane Whitney RN MAP (mmHg) 96 02/13/2025 11:32 PM Jane Whitney RN Patient Position Sitting 02/13/2025 11:32 PM Jane Godinez RN * Oxygen Therapy Question Answer Date of Assessment Author SpO2 96 02/13/2025 11:32 PM Jane Whitney RN Pulse Oximetry Type Intermittent 02/13/2025 11:[address] Jane Ramos RN Patient Activity During SpO2 Measurement At rest 02/13/2025 11:32 PM Tona Godinez RN Oxygen Therapy None 02/13/2025 11:32 PM EST Jane Cardoso RN * BSA (Calculated - sq m) Answer Date of Assessment Author 1.74 02/13/2025 7:11 PM Nadya Arguelles RN * BMI (Calculated) Answer Date of Assessment Author 26.58 02/13/2025 7:11 PM Nadya Arguelles RN * Stool Assessment Question Answer Date of Assessment Author Most Recent BM Date [address] 02/13/2025 7:56 PM Jane Nevarez RN * Height and Weight Question Answer Date of Assessment Author Height 63 02/13/2025 7:11 PM Nadya Caal RN Weight 2400 02/13/2025 7:11 PM Nadya Caal RN Height Method Stated 02/13/2025 7:11 PM Nadya Buenrostro RN * IBW/kg (Calculated) Male Answer Date of Assessment Author 56.9 02/13/2025 7:11 PM Nadya Arguelles RN * IBW/kg (Calculated) Female Answer Date of Assessment Author 52.4 02/13/2025 7:11 PM Nadya Arguelles RN * PAINAD (Pain Assessment in Advanced Dementia) Question Answer Date of Assessment Author Pain Management Interventions rest 02/13/2025 11:31 PM Jane Godinez RN * Airway Question Answer Date of Assessment Author Airway Patency Patent 02/13/2025 7:57 PM EST Jane Hewitt RN Airway (WDL) WDL 02/13/2025 7:57 PM EST Jane Fabian RN * Breathing Question Answer Date of Assessment Author R Breath Sounds Clear 02/13/2025 7:57 PM EST Jane Cardoso RN L Breath Sounds Clear 02/13/2025 7:57 PM EST Jane Cardoso RN Chest Assessment Symmetrical 02/13/2025 7:57 PM Jane Lozano RN Breathing (WDL) WDL 02/13/2025 7:57 PM EST Jane Cardoso RN Respiratory Effort Unlabored 02/13/2025 7:57 PM EST Jane Ramos RN Respiratory Depth/Rhythm Regular 02/13/2025 7:57 PM Jane Godinez RN * Circulation Question Answer Date of Assessment Author R Radial Pulse +2 02/13/2025 7:57 PM EST Jane Hewitt RN L Radial Pulse +2 02/13/2025 7:57 PM EST Jane Hewitt RN Skin Color Appropriate for ethnicity 02/13/2025 7:57 PM Jane Godinez RN Circulation (WDL) WDL 02/13/2025 7:57 PM Jane Godinez RN Capillary Refill Less than/equal to 2 seconds (All extremities) 02/13/2025 7:57 PM Jane Godinez RN * Disability Question Answer Date of Assessment Author Level of Consciousness Alert 02/13/2025 7:57 PM Jane Godinez RN L Pupil Reaction Brisk 02/13/2025 7:57 PM Jane Lozano RN L Pupil Size (mm) 3 02/13/2025 7:57 PM Jane Godinez RN R Pupil Reaction Brisk 02/13/2025 7:57 PM Jane Lozano RN R Pupil Size (mm) 3 02/13/2025 7:57 PM Jane Godinez RN Disability (WDL) WDL 02/13/2025 7:57 PM Jane Lozano RN Best Eye Response Spontaneous 02/13/2025 7:57 PM Jane Godinez RN Best Verbal Response Oriented 02/13/2025 7:57 PM E Jane Landis RN Best Motor Response Follows commands 02/13/2025 7:57 P M Jane Godinez RN Ludy Coma Scale Score 15 02/13/2025 7:57 PM Jane Godinez RN R Pupil Shape Round 02/13/2025 7:57 PM Jane Whitney RN L Pupil Shape Round 02/13/2025 7:57 PM Jane Whitney RN * Restart Vitals Timer Answer Date of Assessment Author Yes 02/13/2025 11:32 PM Jane Godinez RN * IBW/kg (Calculated) Answer Date of Assessment Author 52.4 02/13/2025 7:11 PM Nadya Arguelles RN * Calculated C-SSRS Risk Score (Lifetime/Recent) Answer Date of Assessment Author No Risk Indicated 02/13/2025 7:57 PM Jane Abreu RN * Acuity Question Answer Date of Assessment Author Patient Acuity 3 02/13/2025 7:13 PM EST Nadya Bass RN * SBIRT CAGE Screen Question Answer Date of Assessment Author Have you ever felt you shoul d CUT down on your drinking? 0 02/13/2025 7:55 PM Jane Godinez RN Have you been ANNOYED by peo ple criticizing your drinking? 0 02/13/2025 7:55 PM Jane Godinez RN Have you felt GUILTY about y our drinking? 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 0 02/13/2025 7:55 PM Jane Godinez RN CAGE Questionnaire Score 0 02/13/2025 7:55 PM Jane Godinez RN Alcohol Screen ASN 02/13/2025 7:55 PM Jane Yadav RN * SBIRT Quantity and Frequency Questions Question Answer Date of Assessment Author Maximum number of drinks you had on a given occasion in the last month? 3 drinks 02/13/2025 7:55 PM Jane Godinez RN How many alcoholic Beverages do you typically drink in a week? 0 - 7 per week 02/13/2025 7:55 PM Jane Godinez RN * Learning Assessment Question Answer Date of Assessment Author Education Level College 02/13/2025 7:55 PM Jane Benton RN Factors that Impact Ability to Learn None 02/13/2025 7:55 PM Jane Godinez RN Cultural Considerations None 02/13/2025 7:55 P M Jane Godinez RN Church Considerations None 02/13/2025 7:55 PM Jane Godinez RN * Abuse Screen Question Answer Date of Assessment Author Are you or have you been threatened or abused physically, emotionally, or sexually by a partner, spouse, or family member? No 02/13/2025 7:54 PM Jane Godinez RN * TE 1 Fall Risk Factor Assessment Question Answer Date of Assessment Author Presented to ED because of fall 0 7:57 PM Jane Godinez RN Age > 70 0 02/13/2025 7:57 PM Jane Matthew RN Intoxicated with alcohol or substance confusion 0 02/13/2025 7:57 PM Jane Godinez RN Ambulates or transfers with assistive devices or assist 0 02/13/2025 7:57 PM Jane Godinez RN Unable to ambulate or transfer 0 02/13/2025 7:57 PM Jane Godinez RN Nursing judgement 0 02/13/2025 7:57 PM Jane Godinez RN KINDER 1 Fall Risk Score 0 02/13/2025 7:57 PM Jane Godinez RN * [place] Suicide Severity Rating Scale Question Answer Date of Assessment Author Is patient awake, alert, and able to answer questions appropriately? Yes 02/13/2025 7:57 PM Jane Godinez RN * Patient Belongings Placed in Locker Question Answer Date of Assessment Author Belongings at Bedside Retained by yolanda levine and/or family/legal guest experience representative who assumes responsibility 02/13/2025 7:55 PM Jane Godinez RN * [place] Suicide Severity Rating Scale Question Answer Date of Assessment Author 1. Wish to be (Past 1 Month) No 02/13/2025 7:57 PM Jane Godinez RN 2. Non-Specific Active Suici [place] Thoughts (Past 1 Month) No 02/13/2025 7:57 PM Nirav Godinez RN 6. Suicidal Behavior (Lifetime) No 7:57 PM Jane Godinez RN * Weight in (lb) to have BMI = 25 Answer Date of Assessment Author 140.8 02/13/2025 7:11 PM Nadya Arguelles RN * BMI (Calculated) Answer Date of Assessment Author 26.6 02/13/2025 7:11 PM Nadya Arguelles RN * Percent Excess Weight Loss Answer Date of Assessment Author 0 02/13/2025 7:11 PM Nadya Arguelles RN * Weight Change Since Preop Answer Date of Assessment Author 68.04 02/13/2025 7:11 PM Nadya Arguelles RN * Initial Excess Weight Answer Date of Assessment Author -52.16 02/13/2025 7:11 PM Nadya Arguelles RN * IBW in kg (Bariatric) Answer Date of Assessment Author 52.16 02/13/2025 7:11 PM Nadya Arguelles RN * IBW in lb (Bariatric) Answer Date of Assessment Author 115 02/13/2025 7:11 PM Nadya Arguelles RN * Weight Change Since Last Visit Answer Date of Assessment Author 68.04 02/13/2025 7:11 PM Nadya Arguelles RN * Percent of IBW Answer Date of Assessment Author 130.43 02/13/2025 7:11 PM Nadya Arguelles RN * EBW (kg) Answer Date of Assessment Author 15.86 02/13/2025 7:11 PM Nadya Arguelles RN * EBW (lb) Answer Date of Assessment Author 35 02/13/2025 7:11 PM Nadya Arguelles RN * Difference in Weight Since Last Visit Answer Date of Assessment Author -7.94 02/13/2025 7:11 PM Nadya Arguelles RN * Temp (in Celsius) for YUHAAVIATAM IV Answer Date of Assessment Author 36.5 02/13/2025 11:32 PM Jane Godinez RN * Pain Assessment Question Answer Date of Assessment Author Pain Location Abdomen 02/13/2025 11:31 PM Jane Godinez RN Pain Descriptors Aching 02/13/2025 10:2 8 PM Jane Godinez RN Patient's Stated Pain Goal 3 02/13/2025 7:55 PM Jane Godinez RN Pain Type Surgical pain 02/13/2025 11:31 PM Jane Godinez RN Pain Score 5 02/13/2025 11:31 PM Jane Godinez RN Pain Assessment 0-10 (Adult DVPRS/Peds 0-10) 02/13/2025 11:31 PM Jane Godinez RN * IBW/kg (Calculated) Answer Date of Assessment Author 52.4 02/13/2025 7:11 PM Nadya Arguelles RN * Adult Low Range Vt 6mL/kg Answer Date of Assessment Author 314.4 02/13/2025 7:11 PM Nadya Arguelles RN * Adult Moderate Range Vt 8mL/kg Answer Date of Assessment Author 419.2 02/13/2025 7:11 PM Nadya Argeulles RN * Adult High Range Vt 10mL/kg Answer Date of Assessment Author 524 02/13/2025 7:11 PM Nadya Arguelles RN * [place] Coma Scale Numeric Answer Date of Assessment Author 15 02/13/2025 7:57 PM Jane Godinez RN * Gastrointestinal Question Answer Date of Assessment Author Abdominal Tenderness Tenderness 02/13/2025 7:56 PM Jane Godinez RN Bowel Sounds (All Quadrants) Active 02/13/2025 7:56 PM Jane Godinez RN Abdomen Inspection Soft;Flat 02/13/2025 7: 56 PM Jane Godinez RN Pain Location Right lower quadrant;Epigastric;R ight upper quadrant;Left lower quadrant;Left upper quadrant 02/13/2025 7:56 PM Jane Godinez RN Gastrointestinal Pertinent Negatives Bowel sounds x 4 02/13/2025 7:56 PM Jane Godinez RN Gastrointestinal (WDL) X 7:56 PM Jane Godinez RN * Genitourinary Question Answer Date of Assessment Author Urine Color Red 02/13/2025 7:55 PM Jane Matthew RN Urinary Incontinence No 02/13/2025 7:55 PM E Jane Landis RN Genitourinary Pertinent Negatives Continent 02/13/2025 7:55 PM Jane Godinez RN Genitourinary (WDL) X 02/13/2025 7:55 PM Jane Nevarez RN * Vitals Timer Question Answer Date of Assessment Author Update Vitals Alert Interval 240 02/13/2025 1 1:32 PM Jane Godinez RN Restart Vitals Timer Yes 02/13/2025 11:32 PM Jane Godinez RN Restart Vitals Timer Yes 02/13/2025 11:32 PM Jane Godinez RN * Hourly Rounding Question Answer Date of Assessment Author Activity Assistance Patient independent 02/14/20 11:31 PM Jane Godinez RN Repositioned Turns self 02/13/2025 11:31 PM Jane Godinez RN Head of Bed Elevated HOB 30 02/13/2025 11:31 PM Jane Godinez RN Toileting Independent 02/13/2025 11:31 PM Jane Godinez RN Call Light Call light present a nd within reach 02/13/2025 11:31 PM Jane Godinez RN Rest/ Sleep Awake 02/13/2025 11:31 PM Jane Godinez RN Rest/ Sleep Enhancement Care clustered t o minimize awakenings 02/13/2025 11:31 PM Jane Godinez RN Completed Hourly Rounding Yes 02/13/2025 11:31 PM Jane Godinez RN Plan of Care Reviewed With Patient;Significant other 02/13/2025 11:31 PM Jane Godinez RN * Safety Interventions Question Answer Date of Assessment Author Safety Precautions/Falls Reduction assistive device/personal items within reach 02/13/2025 7:54 PM Jane Godinez RN All Alarms none present 02/13/2025 7:54 PM Jane Matthew RN * General Emergency Care CPG Interventions Question Answer Date of Assessment Author Coping Interventions care explained to patient/family prior to performing 02/13/2025 7:54 PM Jane Godinez RN General Care Management calm environment promoted 02/13/2025 7:54 PM Jane Godinez RN * Vital Signs Question Answer Date of Assessment Author BP 119/84 02/13/2025 11:32 PM Jane Whitney RN Temp 97.7 02/13/2025 11:32 PM Jane Whitney RN Temp src Oral 02/13/2025 11:32 PM Jane Whitney RN Pulse 93 02/13/2025 11:32 PM Jane Whitney RN Resp 18 02/13/2025 11:32 PM Jane Whitney RN Heart Rate Source Monitor 02/13/2025 11:32 PM Jane Godinez RN BP Location Right arm 02/13/2025 11:32 PM Jane Whitney RN BP Method Automatic 02/13/2025 11:32 PM Jane Whitney RN MAP (mmHg) 96 02/13/2025 11:32 PM Jane Whitney RN Patient Position Sitting 02/13/2025 11:32 PM Jane Godinez RN * Oxygen Therapy Question Answer Date of Assessment Author SpO2 96 02/13/2025 11:32 PM Jane Whitney RN Pulse Oximetry Type Intermittent 02/13/2025 11:32 PM E Jane Landis RN Patient Activity During SpO2 Measurement At rest 02/13/2025 11:32 PM Tona Godinez RN Oxygen Therapy None 02/13/2025 11:32 PM EST Jnae Cardoso RN * BSA (Calculated - sq m) Answer Date of Assessment Author 1.74 02/13/2025 7:11 PM EST Nadya Urrutia RN * BMI (Calculated) Answer Date of Assessment Author 26.58 02/13/2025 7:11 PM Nadya Arguelles RN * Stool Assessment Question Answer Date of Assessment Author Most Recent BM Date [address] 02/13/2025 7:56 PM Jane Nevarez RN * Height and Weight Question Answer Date of Assessment Author Height 63 02/13/2025 7:11 PM Nadya Caal RN Weight 2400 02/13/2025 7:11 PM Nadya Caal RN * PAINAD (Pain Assessment in Advanced Dementia) Question Answer Date of Assessment Author Pain Management Interventions rest 02/13/2025 11:31 PM Jane Godinez RN * Breathing Question Answer Date of Assessment Author R Breath Sounds Clear 02/13/2025 7:57 PM EST Jane Cardoso RN L Breath Sounds Clear 02/13/2025 7:57 PM Jane Benton RN Chest Assessment Symmetrical 02/13/2025 7:57 PM EST Jane Maldonado RN Respiratory Effort Unlabored 02/13/2025 7:57 PM Jane Godinez RN Respiratory Depth/Rhythm Regular 02/13/2025 7:57 PM Jane Godinez RN * Circulation Question Answer Date of Assessment Author R Radial Pulse +2 02/13/2025 7:57 PM EST Jane Hewitt RN L Radial Pulse +2 02/13/2025 7:57 PM EST Jane Hewitt RN Skin Color Appropriate for ethnicity 02/13/2025 7:57 PM Jane Godinez RN Capillary Refill Less than/equal to 2 seconds (All extremities) 02/13/2025 7:57 PM Jane Godinez RN * Disability Question Answer Date of Assessment Author Level of Consciousness Alert 02/13/2025 7:57 PM Jane Godinez RN L Pupil Reaction Brisk 02/13/2025 7:57 PM Jane Lozano RN L Pupil Size (mm) 3 02/13/2025 7:57 PM Jane Godinez RN R Pupil Reaction Brisk 02/13/2025 7:57 PM Jane Lozano RN R Pupil Size (mm) 3 02/13/2025 7:57 PM Jane Godinez RN Best Eye Response Spontaneous 02/13/2025 7:57 PM Jane Godinez RN Best Verbal Response Oriented 02/13/2025 7:57 PM Jane Bolden RN Best Motor Response Follows commands 02/13/2025 7:57 P Jane Araiza RN Ludy Coma Scale Score 15 02/13/2025 7:57 PM Jane Godinez RN R Pupil Shape Round 02/13/2025 7:57 PM Jane Whitney RN L Pupil Shape Round 02/13/2025 7:57 PM Jane Whitney RN * Restart Vitals Timer Answer Date of Assessment Author Yes 02/13/2025 11:32 PM Jane Godinez RN * Calculated C-SSRS Risk Score (Lifetime/Recent) Answer Date of Assessment Author No Risk Indicated 02/13/2025 7:57 PM Jane Abreu RN * Learning Assessment Question Answer Date of Assessment Author Education Level College 02/13/2025 7:55 PM Jane Benton RN Factors that Impact Ability to Learn None 02/13/2025 7:55 PM Jane Godinez RN Cultural Considerations None 02/13/2025 7:55 P Jane Araiza RN Church Considerations None 02/13/2025 7:55 PM Jane Godinez RN * KINDER 1 Fall Risk Factor Assessment Question Answer Date of Assessment Author Presented to ED because of fall 0 7:57 PM Jane Godinez RN Age > 70 0 02/13/2025 7:57 PM Jane Matthew RN Intoxicated with alcohol or substance confusion 0 02/13/2025 7:57 PM Jane Godinez RN Ambulates or transfers with assistive devices or assist 0 02/13/2025 7:57 PM Jane Godinez RN Unable to ambulate or transfer 0 02/13/2025 7:57 PM Jane Godinez RN Nursing judgement 0 02/13/2025 7:57 PM Jane Godinez RN KINDER 1 Fall Risk Score 0 02/13/2025 7:57 PM Jane Godinez RN * Patient Belongings Placed in Locker Question Answer Date of Assessment Author Belongings at Bedside Retained by jamelen t and/or family/legal guest experience representative who assumes responsibility 02/13/2025 7:55 PM Jane Godinez RN * [place] Suicide Severity Rating Scale Question Answer Date of Assessment Author 1. Wish to be (Past 1 Month) No 02/13/2025 7:57 PM Jane Godinez RN 2. Non-Specific Active Suici [place] Thoughts (Past 1 Month) No 02/13/2025 7:57 PM Nirav Godinez RN 6. Suicidal Behavior (Lifetime) No 7:57 PM Jane Godinez RN * Weight in (lb) to have BMI = 25 Answer Date of Assessment Author 140.8 02/13/2025 7:11 PM Nadya Arguelles RN * Pain Assessment Question Answer Date of Assessment Author Pain Location Abdomen 02/13/2025 11:31 PM Jane Godinez RN Pain Descriptors Aching 02/13/2025 10:2 8 PM Jane Godinez RN Patient's Stated Pain Goal 3 02/13/2025 7:55 PM Jane Godinez RN Pain Type Surgical pain 02/13/2025 11:31 PM Jane Godinez RN Pain Score 5 02/13/2025 11:31 PM Jane Godinez RN Pain Assessment 0-10 (Adult DVPRS/Peds 0-10) 02/13/2025 11:31 PM Jane Godinez RN * Gastrointestinal Question Answer Date of Assessment Author Abdominal Tenderness Tenderness 02/13/2025 7:56 PM E Jane Landis RN Bowel Sounds (All Quadrants) Active 02/13/2025 7:56 PM Jane Godinez RN Abdomen Inspection Soft;Flat 02/13/2025 7:56 PM Jane Godinez RN * Genitourinary Question Answer Date of Assessment Author Urine Color Red 02/13/2025 7:55 PM Jane Matthew RN Urinary Incontinence No 02/13/2025 7:55 PM E Jane Landis RN * Hourly Rounding Question Answer Date of Assessment Author Activity Assistance Patient independent 02/14/20 11:31 PM Jane Godinez RN Repositioned Turns self 02/13/2025 11:31 PM Jane Godinez RN Head of Bed Elevated HOB 30 02/13/2025 11:31 PM Jane Godinez RN Toileting Independent 02/13/2025 11:31 PM Jane Godinez RN Call Light Call light present a nd within reach 02/13/2025 11:31 PM Jane Godinez RN Rest/ Sleep Awake 02/13/2025 11:31 PM Jane Godinez RN Rest/ Sleep Enhancement Care clustered t o minimize awakenings 02/13/2025 11:31 PM Jane Godinez RN Completed Hourly Rounding Yes 02/13/2025 11:31 PM Jane Godinez RN Plan of Care Reviewed With Patient;Significant other 02/13/2025 11:31 PM Jane Godinez RN documented as of this encounter Mental Status * BMI (Calculated) Answer Entry Date Author 26.6 02/13/2025 7:11 PM Nadya Arguelles RN * Percent Excess Weight Loss Answer Entry Date Author 0 02/13/2025 7:11 PM Nadya Arguelles RN * Total Weight Change Percent Answer Entry Date Author 222102/13/2025 7:11 PM Nadya Arguelles RN * Weight Change Since Preop Answer Entry Date Author 68.02 02/13/2025 7:11 PM Nadya Arguelles RN * Initial Excess Weight Answer Entry Date Author -52.16 02/13/2025 7:11 PM Nadya Arguelles RN * IBW in lbs (Bariatric) Answer Entry Date Author 115 02/13/2025 7:11 PM aNdya Arguelles RN * Weight Change Since Last Visit Answer Entry Date Author 68.02 02/13/2025 7:11 PM Nadya Arguelles RN * IBW in kg (Bariatric) Answer Entry Date Author 52.16 02/13/2025 7:11 PM Nadya Arguelles RN * Percent of IBW Answer Entry Date Author 4,601.23 02/13/2025 7:11 PM Nadya Arguelles RN * EBW (kg) Answer Entry Date Author 2,398.52 02/13/2025 7:11 PM Nadya Arguelles RN * EBW (lbs) Answer Entry Date Author 2,392.81 02/13/2025 7:11 PM Nadya Arguelles RN * Safety Interventions Question Answer Entry Date Author Safety Precautions/Falls Reduction assistive device/personal items within reach 02/13/2025 7:54 PM Jane Godinez RN All Alarms none present 02/13/2025 7:54 PM Jane Godinez RN * General Emergency Care CPG Interventions Question Answer Entry Date Author Coping Interventions care explained to patient/family prior to performing 02/13/2025 7:54 PM Jane Godinez RN General Care Management calm environment promoted 02/13/2025 7:54 PM Jane Godinez RN * Acuity/Destination Question Answer Entry Date Author Triage Complete Triage complete 02/13/2025 7:32 PM Mandy Danielson RN ED Destination Main 02/13/2025 7:32 PM Mandy Lunsford RN * Weight Change 24 hrs Answer Entry Date Author -7.938 02/13/2025 7:11 PM Nadya Arguelles RN * Vital Signs Question Answer Entry Date Author BP 119/84 02/13/2025 11:32 PM Jane Whitney RN Temp 97.7 02/13/2025 11:32 PM Jane Whitney RN Temp src Oral 02/13/2025 11:32 PM Jane Whitney RN Pulse 93 02/13/2025 11:32 PM Jane Whitney RN Resp 18 02/13/2025 11:32 PM Jane Whitney RN Heart Rate Source Monitor 02/13/2025 11:32 PM Jane Godinez RN BP Location Right arm 02/13/2025 11:32 PM Jane Whitney RN BP Method Automatic 02/13/2025 11:32 PM Jane Whitney RN MAP (mmHg) 96 02/13/2025 11:32 PM Jane Whitney RN Patient Position Sitting 02/13/2025 11:32 PM Jane Godinez RN * Oxygen Therapy Question Answer Entry Date Author SpO2 96 02/13/2025 11:32 PM Jane Godinez RN Pulse Oximetry Type Intermittent 02/13/2025 1 1:32 PM Jane Godinez RN Patient Activity During SpO2 Measurement At rest 02/13/2025 11:32 PM Jane Godinez RN Oxygen Therapy None 02/13/2025 11:32 PM Jane Godinez RN * BSA (Calculated - sq m) Answer Entry Date Author 1.74 02/13/2025 7:11 PM Nadya Arguelles RN * BMI (Calculated) Answer Entry Date Author 26.58 02/13/2025 7:11 PM Nadya Arguelles RN * Stool Assessment Question Answer Entry Date Author Most Recent BM Date 67596 02/13/2025 7:56 PM Jane Nevarez RN * Height and Weight Question Answer Entry Date Author Height 63 02/13/2025 7:11 PM Nadya Caal RN Weight 2400 02/13/2025 7:11 PM Nadya Caal RN Height Method Stated 02/13/2025 7:11 PM Nadya Buenrostro RN * IBW/kg (Calculated) Male Answer Entry Date Author 56.9 02/13/2025 7:11 PM EST Nadya Urrutia RN * IBW/kg (Calculated) Female Answer Entry Date Author 52.4 02/13/2025 7:11 PM EST Nadya Urrutia RN * PAINAD (Pain Assessment in Advanced Dementia) Question Answer Entry Date Author Pain Management Interventions rest 02/13/2025 11:31 PM Jane Godinez RN * Airway Question Answer Entry Date Author Airway Patency Patent 02/13/2025 7:57 PM EST Jane Hewitt RN Airway (WDL) WDL 02/13/2025 7:57 PM EST Jane Fabian RN * Breathing Question Answer Entry Date Author R Breath Sounds Clear 02/13/2025 7:57 PM EST Jane Cardoso RN L Breath Sounds Clear 02/13/2025 7:57 PM EST Jane Cardoso RN Chest Assessment Symmetrical 02/13/2025 7:57 PM EST Jane Maldonado RN Breathing (WDL) WDL 02/13/2025 7:57 PM EST Jane Cardoso RN Respiratory Effort Unlabored 02/13/2025 7:57 PM Jane Godinez RN Respiratory Depth/Rhythm Regular 02/13/2025 7:57 PM Jane Godinez RN * Circulation Question Answer Entry Date Author R Radial Pulse +2 02/13/2025 7:57 PM Jane Godinez RN L Radial Pulse +2 02/13/2025 7:57 PM Jane Godinez RN Skin Color Appropriate for ethnicity 2024 7:57 PM Jane Godinez RN Circulation (WDL) WDL 02/13/2025 7:5 7 PM Jane Godinez RN Capillary Refill Less than/equal to 2 seconds (All extremities) 02/13/2025 7:57 PM Jane Godinez RN * Disability Question Answer Entry Date Author Level of Consciousness Alert 7:57 PM Jane Godinez RN L Pupil Reaction Brisk 02/13/2025 7:57 PM Jane Godinez RN L Pupil Size (mm) 3 02/13/2025 7:5 7 PM Jane Godinez RN R Pupil Reaction Brisk 02/13/2025 7:57 PM Jane Godinez RN R Pupil Size (mm) 3 02/13/2025 7:5 7 PM Jane Godinez RN Disability (WDL) WDL 02/13/2025 7:57 PM Jane Godinez RN Best Eye Response Spontaneous 02/13/2025 7:5 7 PM Jane Godinez RN Best Verbal Response Oriented 02/13/2025 7:57 PM Jane Godinez RN Best Motor Response Follows commands 02/13/2025 7:57 PM Jane Godinez RN Ludy Coma Scale Score 15 025 7:57 PM Jane Godinez RN R Pupil Shape Round 02/13/2025 7:57 PM Jane Godinez RN L Pupil Shape Round 02/13/2025 7:57 PM Jane Godinez RN * Restart Vitals Timer Answer Entry Date Author Yes 02/13/2025 11:32 PM Jane Godinez RN * Injection Rate mL/s Answer Entry Date Author 2 02/13/2025 9:23 PM EST Jose A Herrera T * IBW/kg (Calculated) Answer Entry Date Author 52.4 02/13/2025 7:11 PM EST Nadya Urrutia RN * Calculated C-SSRS Risk Score (Lifetime/Recent) Answer Entry Date Author No Risk Indicated 02/13/2025 7:57 PM Jane Abreu RN * Departure Condition Question Answer Entry Date Author Mobility at Departure Ambulatory 02/13/2025 11:55 PM Jane Godinez RN Patient Teaching Discharge instructio nando reviewed;Medications discussed;Patient verbalized understanding 02/13/2025 11:55 PM Jane Godinez RN Departure Mode With family or spouse 02/13/2025 11:55 PM Jane Godinez RN * Restart Pain Assessment Timer Answer Entry Date Author Yes 02/13/2025 11:31 PM Jane Godinez RN * Acuity Question Answer Entry Date Author Patient Acuity 3 02/13/2025 7:13 PM Nadya Johnston RN * SBIRT CAGE Screen Question Answer Entry Date Author Have you ever felt you shoul d CUT down on your drinking? 0 02/13/2025 7:55 PM Jane Godinez RN Have you been ANNOYED by peo ple criticizing your drinking? 0 02/13/2025 7:55 PM Jane Godinez RN Have you felt GUILTY about y our drinking? 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 0 02/13/2025 7:55 PM Jane Godinez RN CAGE Questionnaire Score 0 02/13/2025 7:55 PM Jane Godinez RN Alcohol Screen ASN 02/13/2025 7:55 PM Jane Yadav RN * TE 1 Fall Risk Factor Assessment Question Answer Entry Date Author Presented to ED because of fall 0 7:57 PM Jane Godinez RN Age > 70 0 02/13/2025 7:57 PM Jane Matthew RN Intoxicated with alcohol or substance confusion 0 02/13/2025 7:57 PM Jane Godinez RN Ambulates or transfers with assistive devices or assist 0 02/13/2025 7:57 PM Jane Godinez RN Unable to ambulate or transfer 0 02/13/2025 7:57 PM Jane Godinez RN Nursing judgement 0 02/13/2025 7:57 PM Jane Godinez RN KINDER 1 Fall Risk Score 0 02/13/2025 7:57 PM Jane Godinez RN * [place] Suicide Severity Rating Scale Question Answer Entry Date Author Is patient awake, alert, and able to answer questions appropriately? Yes 02/13/2025 7:57 PM Jane Godinez RN * Patient Belongings Placed in Locker Question Answer Entry Date Author Belongings at Bedside Retained by yolanda julianna and/or family/legal guest experience representative who assumes responsibility 02/13/2025 7:55 PM Jane Godinez RN * BODY AND FRAME MAN Information Question Answer Entry Date Author Mode of Arrival Private Vehicle 02/13/2025 7:19 PM Mandy Danielson RN * [place] Suicide Severity Rating Scale Question Answer Entry Date Author 1. Wish to be (Past 1 Month) No 02/13/2025 7:57 PM Jane Godinez RN 2. Non-Specific Active Suici [place] Thoughts (Past 1 Month) No 02/13/2025 7:57 PM Nirav Godinez RN 6. Suicidal Behavior (Lifetime) No 7:57 PM Jane Godinez RN * Weight in (lb) to have BMI = 25 Answer Entry Date Author 140.8 02/13/2025 7:11 PM Nadya Arguelles RN * BMI (Calculated) Answer Entry Date Author 26.6 02/13/2025 7:11 PM Nadya Arguelles RN * Percent Excess Weight Loss Answer Entry Date Author 0 02/13/2025 7:11 PM Nadya Arguelles RN * Weight Change Since Preop Answer Entry Date Author 68.04 02/13/2025 7:11 PM Nadya Arguelles RN * Initial Excess Weight Answer Entry Date Author -52.16 02/13/2025 7:11 PM Nadya Arguelles RN * IBW in kg (Bariatric) Answer Entry Date Author 52.16 02/13/2025 7:11 PM Nadya Arguelles RN * IBW in lb (Bariatric) Answer Entry Date Author 115 02/13/2025 7:11 PM Nadya Arguelles RN * Weight Change Since Last Visit Answer Entry Date Author 68.04 02/13/2025 7:11 PM Nadya Arguelles RN * Percent of IBW Answer Entry Date Author 130.43 02/13/2025 7:11 PM Nadya Arguelles RN * EBW (kg) Answer Entry Date Author 15.86 02/13/2025 7:11 PM Nadya Arguelles RN * EBW (lb) Answer Entry Date Author 35 02/13/2025 7:11 PM Nadya Arguelles RN * Difference in Weight Since Last Visit Answer Entry Date Author -7.94 02/13/2025 7:11 PM Nadya Arguelles RN * Temp (in Celsius) for YUHAAVIATAM IV Answer Entry Date Author 36.5 02/13/2025 11:32 PM Jane Godinez RN * Pain Assessment Question Answer Entry Date Author Pain Location Abdomen 02/13/2025 11:31 PM Jane Godinez RN Pain Descriptors Aching 02/13/2025 10:2 8 PM Jane Godinez RN Patient's Stated Pain Goal 3 02/13/2025 7:55 PM Jane Godinez RN Pain Type Surgical pain 02/13/2025 11:31 PM Jane Godinez RN Pain Score 5 02/13/2025 11:31 PM Jane Godinez RN Pain Assessment 0-10 (Adult DVPRS/Pe ds 0-10) 02/13/2025 11:31 PM Jane Godinez RN * IBW/kg (Calculated) Answer Entry Date Author 52.4 02/13/2025 7:11 PM Nadya Arguelles RN * Adult Low Range Vt 6mL/kg Answer Entry Date Author 314.4 02/13/2025 7:11 PM Nadya Arguelles RN * Adult Moderate Range Vt 8mL/kg Answer Entry Date Author 419.2 02/13/2025 7:11 PM Nadya Arguelles RN * Adult High Range Vt 10mL/kg Answer Entry Date Author 524 02/13/2025 7:11 PM Nadya Arguelles RN * Ludy Coma Scale Numeric Answer Entry Date Author 15 02/13/2025 7:57 PM Jane Godinez RN * Gastrointestinal Question Answer Entry Date Author Abdominal Tenderness Tenderness 02/13/2025 7:56 PM Jane Bolden RN Bowel Sounds (All Quadrants) Active 02/13/2025 7 :56 PM Jane Godinez RN Abdomen Inspection Soft;Flat 02/13/2025 7:56 PM Jane Godinez RN * Genitourinary Question Answer Entry Date Author Urine Color Red 02/13/2025 7:55 PM Jane Matthew RN Urinary Incontinence No 02/13/2025 7:55 PM E Jane Landis RN * Vitals Timer Question Answer Entry Date Author Update Vitals Alert Interval 240 02/13/2025 1 1:32 PM Jane Godinez RN Restart Vitals Timer Yes 02/13/2025 11:32 PM Jane Godinez RN Restart Vitals Timer Yes 02/13/2025 11:32 PM Jane Godinez RN * Hourly Rounding Question Answer Entry Date Author Activity Assistance Patient independent 02/14/20 11:31 PM Jane Godinez RN Repositioned Turns self 02/13/2025 11:31 PM Jane Godinez RN Head of Bed Elevated HOB 30 02/13/2025 11:31 PM Jane Godinez RN Toileting Independent 02/13/2025 11:31 PM Jane Godinez RN Call Light Call light present a nd within reach 02/13/2025 11:31 PM Jane Godinez RN Rest/ Sleep Awake 02/13/2025 11:31 PM Jane Godinez RN Rest/ Sleep Enhancement Care clustered t o minimize awakenings 02/13/2025 11:31 PM Jane Godinez RN Completed Hourly Rounding Yes 2024 11:31 PM Jane Godinez RN Plan of Care Reviewed With Patient;Significant other 02/13/2025 11:31 PM Jane Godinez RN documented in this encounter Discharge Instructions * Discharge Instructions* Mandy Urrutia MD - 02/13/2025 11:15 PM EST A prescription for an antibiotic has been sent to the pharmacy for you. Please take as prescribed. OBGYN will help arrange a close follow-up appointment for you on Saturday or Saturday. Please also schedule an appointment with your primary care provider and request that they obtain labs to check your liver function. Return to the emergency department if you have fever/chills, new or worsening abdominal pain, if your symptoms don't improve, vaginal bleeding, vomiting, or if you have any other concerns. documented in this encounter Medications at Time [...] for nausea or vomiting. 20 tablet 02/02/2025 amoxicillin-clavulan ate (Augmentin) 875-125 MG tabletIndications:Ac mtaheus UTI Take 1 tablet by mouth 2 times a day for 5 days. 10 tablet 02/13/2025 5 metFORMIN XR (Glucophage-XR) 500 MG 24 hr tablet Take 1 tablet by mouth twice a day. 07/21/2024 5 oxyCODONE (Roxicodone) 5 MG immediate release tablet Take 1 tablet by mouth every 4 hours as needed for severe pain. 3 tablet 02/02/2025 5 documented as of this encounter Miscellaneous Notes * Consults - Diego Santiago MD - 02/13/2025 9:40 PM ESTAssociated Order(s): Inpatient consult to Gynecologic Oncology Gynecologic Oncology Consult Note Patient Name: Gemma Zarco : 1975 Inpatient consult to Gynecologic Oncology Consult performed by: Diego Santiago MD Consult ordered by: Nichole Perez MD Subjective Subjective History of Present Illness: Gemma Zarco is a 49 y.o. female presenting with vaginal bleeding mixed with discharge on POD#11 from uncomplicated RA-TLH/BSO with Dr. Mike here for large/complex but benign ovarian cyst.She reports that she has been having vaginal bleeding that has filled several panty liners throughout the day today and has been present with wiping. She has had no vaginal bleeding since light spotting 3-4d following surgery. She also reports intermittent periumbilical and left lower quadrant painthat has been present over the past 1-2 days. She denies dizziness/lightheadedness. Denies fever, chills. States that she has not had anything inside the vagina since surgery. She otherwise has not done any heavy lifting. Past Medical History: Past Medical History[1] Past Surgical History: Surgical History[2] Family History: Family History[3] Social History: Social History[4] Medications: Current Outpatient Medications Medication Instructions amoxicillin-clavulanate (Augmentin) 875-125 MG tablet 1 tablet, Oral, 2 times daily busPIRone (BUSPAR) 10 mg, 4 times daily cetirizine (ZYRTEC) 10 mg, Daily DSS 100 mg, Oral, 2 times daily famotidine (PEPCID) 20 mg, Oral, 2 times daily ibuprofen 600 mg, Oral, Every 6 hours scheduled levothyroxine (SYNTHROID, LEVOXYL) 125 mcg, Daily liothyronine (CYTOMEL) 5 mcg, Daily lisinopril 10 mg, Daily metFORMIN XR (GLUCOPHAGE-XR) 500 mg, 2 times daily ondansetron ODT (ZOFRAN-ODT) 4 mg, Oral, Every 6 hours PRN oxyCODONE (ROXICODONE) 5 mg, Oral, Every 4 hours PRN Allergies: Allergies[5] Review of Systems: Review of Systems Constitutional: Negative for chills, fatigue and fever. Respiratory: Negative for cough, chest tightness and shortness of breath. Cardiovascular: Negative for chest pain and leg swelling. Gastrointestinal: Negative for abdominal pain, constipation, diarrhea, nausea and vomiting. Genitourinary: Positive for pelvic pain, vaginal bleeding and vaginal discharge. Negative for decreased urine volume, dysuria, flank pain, frequency, hematuria and urgency. Neurological: Negative for dizziness, weakness and light-headedness. Objective Objective Vital Signs: Visit Vitals BP 119/84 (BP Location: Right arm, Patient Position: Sitting) Pulse 93 Temp 36.5 ??C (97.7 ??F) (Oral) Resp 18 BMI: Body mass index is 26.57 kg/m??. Weight: Wt Readings from Last 3 Encounters: 02/13/25 68 kg (150 lb) 02/02/25 76 kg (167 lb 8 oz) 01/08/25 70.9 kg (156 lb 4.9 oz) Physical Exam Constitutional: General: She is not in acute distress. Appearance: Normal appearance. She is not ill-appearing. Genitourinary: No lesions in the vagina. Genitourinary Comments: intact vaginal cuff on visual speculum exam and bimanual exam. Some yellow/suárez discharge noted within the vaginal vault. Right Labia: No rash, tenderness or lesions. Left Labia: No tenderness, lesions or rash. Vaginal cuff intact. Perineal sutures intact. No vaginal discharge, tenderness, bleeding, ulceration or cuff induration. Cervix is absent. Uterus is absent. Pulmonary: Effort: Pulmonary effort is normal. No respiratory distress. Neurological: Mental Status: She is alert and oriented to person, place, and time. Gait: Gait normal. Vitals reviewed. Results: Lab Results Component Value Date WBC 12.43 (H) 02/13/2025 RBC 4.20 02/13/2025 HGB 12.5 02/13/2025 HCT 36.1 02/13/2025 PLT 424 (H) 02/13/2025 MCV 86 02/13/2025 MCH 29.8 02/13/2025 MCHC 34.6 02/13/2025 RDW 11.8 02/13/2025 MPV 9.4 02/13/2025 NRBC 0.0 02/13/2025 Lab Results Component Value Date GLUCOSE 109 (H) 02/13/2025 BUN 14 02/13/2025 CREATININE 0.70 02/13/2025 BCR 20 02/13/2025 NA 139 02/13/2025 K 4.3 02/13/2025 CL 102 02/13/2025 CO2 28 02/13/2025 ANIONGAP 9 02/13/2025 CALCIUM 9.6 02/13/2025 TP 7.2 02/13/2025 ALBUMIN 4.0 02/13/2025 AST 85 (H) 02/13/2025 ALT 155 (H) 02/13/2025 ALKPHOS 123 (H) 02/13/2025 BILITOT 0.2 02/13/2025 EGFR 107.5 02/13/2025 No results found for: MG , PHOS , CAION No results found for: INR Imaging: CT Abdomen Pelvis w IV Contrast Result Date: 02/13/2025 1. Status post hysterectomy. There is a fluid collection in the uterine bed measuring approximately5 x 3 cm. Small focus of air is present in the collection. This could be related to postoperative seroma. Cannot exclude the possibility of developing abscess. Postsurgical changes present in the pelvis 2. Thickening urinary bladder wall which could be due to nondistention or cystitis. Please correlate with urinalysis. 3. Low-density changes in a mildly prominent left gonadal vein raising the suspicion of thrombophlebitis CRITICAL RESULT: No. COMMUNICATION: Per this written report. Drafted by Sky Gurrola MD on 02/13/2025 9:58 PM Final report signed by Sky Gurrola MD on 02/13/2025 10:08 PM Assessment/Plan Assessment / Plan Gemma Zarco is a 49 y.o. presenting with vaginal bleeding mixed with discharge on POD#11 from uncomplicated RA-TLH/BSO. # Vaginal bleeding & discharge - vaginal bleeding mixed with discharge on POD#11 from uncomplicated RA-TLH/BSO with Dr. Mikefor large/complex but benign ovarian cyst. - Filled several panty liners throughout the day today and has been present with wiping. - No other vaginal bleeding since light spotting 3-4d following surgery. - H/H stable - AFVSS in ED - Exam reveals intact vaginal cuff on visual speculum exam and bimanual exam. Some yellow/suárez discharge noted within the vaginal vault. - CT A/P 02/13: Status post hysterectomy. There is a fluid collection in the uterine bed measuring approximately 5 x 3 cm. Small focus of air is present in the collection. This could be related to postoperative seroma. Cannot exclude the possibility of developing abscess. Postsurgical changes present in the pelvis. Thickening urinary bladder wall which could be due to nondistention or cystitis. Please correlate with urinalysis. Low-density changes in a mildly prominent left gonadal vein raisingthe suspicion of thrombophlebitis Plan: - Per imaging and exam findings, likely c/w seroma vs early abscess. - Patient is eager to discharge due to a family emergency - Plan for 5 days of PO Augmentin for coverage - Patient will follow-up this week in the [facility] for close observation - follow-up STI swabs # UTI - UA c/f UTI Plan: - Recommend 1 dose rocephin today in ED # Pelvic & periumbilical pain - 1-2d history - Pain with the palpation near the umbilicus and in the left lower quadrant. No rebound or guarding. Nonacute abdomen - Imaging as above Plan: - Non-emergent abdomen and CT findings c/w post-operative changes and possible early seroma vs abscess - Patient strongly desires discharge home due to a family emergency - Recommend pain management with tylenol/ibuprofen scheduled and muscle relaxers - Return precautions discussed at length - Replete electrolytes PRN Dispo: Appropriate for outpatient follow up. Thank you for including us in the care of this patient. [facility] will sign off.. Please message on-call [facility] resident via [employer] Secure Chat or page [phone] for questions or concerns regarding this patient's care. Diego Santiago MD PGY-3 Obstetrics & Gynecology [phone] [1] Past Medical History: Diagnosis Date Depression 2008 GERD (gastroesophageal reflux disease) 2010 Hypertension Hypothyroidism 2008 [place]???s Motion sickness PCOS (polycystic ovarian syndrome) PTSD (post-traumatic stress disorder) 2018 [2] Past Surgical History: Procedure Laterality Date BLADDER SURGERY Unknown bladder sling BUNIONECTOMY CHOLECYSTECTOMY EYE SURGERY 2006 Lasik OTHER SURGICAL HISTORY Hemmoroidectomy, bunion surgery, appendectomy, gall bladder removal, tonsillectomy, TONSILLECTOMY [3] Family History Problem Relation Name Age of Onset Malig Hyperthermia Neg Hx [4] Social History Socioeconomic History Marital status: Tobacco Use Smoking status: Never Smokeless tobacco: Never Vaping Use Vaping status: Every Day Substances: Nicotine Devices: Disposable Substance and Sexual Activity Alcohol use: Yes Alcohol/week: 4.0 standard drinks of alcohol Types: 4 Glasses of wine per week Drug use: Never Sexual activity: Not Currently Social Drivers of Health Financial Resource Strain: Low Risk (02/09/2019) Received from [facility] Overall Financial Resource Strain (CARDIA) Difficulty of Paying Living Expenses: Not hard at all Food Insecurity: No Food Insecurity (02/09/2019) Received from [facility] Hunger Vital Sign Worried About Running Out of Food in the Last Year: Never true Ran Out of Food in the Last Year: Never true Transportation Needs: No Transportation Needs (02/09/2019) Received from [facility] PRAPARE - Transportation Lack of Transportation (Medical): No Lack of Transportation (Non-Medical): No Social Connections: Unknown (12/26/2022) Received from [facility] Family and Community Support Help with Day-to-Day Activities: Not on file Lonely or Isolated: Not on file Intimate Partner Violence: Unknown (12/26/2022) Received from [facility] Abuse Screen Unsafe at Home or Work/School: Not on file Feels Threatened by Someone?: Not on file Does Anyone Keep You from Contacting Others or Doint Things Outside the Home?: Not on file Physical Sign of Abuse Present: Not on file Housing Stability: Unknown (12/26/2022) Received from [facility] Housing Stability Current Living Arrangements: Not on file Potentially Unsafe Housing Conditions: Not on file [5] Allergies Allergen Reactions Hydrocodone Nausea Hydrocodone-Acetaminophen Nausea and Rash Oxycodone-Acetaminophen Nausea and Rash Cosigned by Nichole Perez MD at 02/14/2025 9:21 AM EST Associated attestation - Nichole Perez MD - 02/14/2025 9:21 AM EST Signature only. * ED Provider Notes - Kp Mann MD - 02/13/2025 7:07 PM EST Images from the original note were not included. - HPI Chief Complaint Patient presents with Vaginal Bleeding Post-op Problem PIT NOTE Gemma Zarco is a 49 y.o. female with a h/o hysterectomy (02/02/2025) who presents to the ED withpost-op problem. Pt reports vaginal bleeding (saturating 3-4 panty liners) with onset beginning today. She states she had a total hysterectomy on 02/02/25. She states she was told by on-call sx team to come to ED. Per records, pathology after hysterectomy was normal. Pt c/o intermittent abdominal pain following sx but not worse than baseline today. Pt reports fever and pressure with urination. Pt denies chest pain, shortness of breath, cough, vomiting, and diarrhea. Pt denies any other complaints at this time. Resident attestation: I agree with the above statements and would like to add the following. Pt is a 49 yo F with past medical hx of endometriosis and PCOS s/p hysterectomy on 02/02/2025, HTN, and hypothyroidism who presents to the emergency department for abdominal pain and vaginal bleeding. Pt states she had been doing well since discharge. She endorses a temperature of 100.2 F two days ago. Today, she began experiencing intermittent, sharp, left-sided abdominal pain and vaginal bleeding. Pt states she has saturated 4 panty liners. She also endorses a pressure-like sensation with urination.Denies nausea, vomiting, constipation, diarrhea, dysuria, fever, and any other concerns. 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 Constitutional: General: She is not in acute distress. Appearance: She is not ill-appearing. HENT: Head: Normocephalic and atraumatic. Comments: No facial swelling Nose: Nose normal. Mouth/Throat: Mouth: Mucous membranes are moist. Eyes: Conjunctiva/sclera: Conjunctivae normal. Cardiovascular: Rate and Rhythm: Normal rate and regular rhythm. Heart sounds: Normal heart sounds. Pulmonary: Effort: Pulmonary effort is normal. No respiratory distress. Breath sounds: Normal breath sounds and air entry. Comments: Speaking full sentences. Symmetric chest rise Abdominal: General: There is no distension. Palpations: Abdomen is soft. Tenderness: There is abdominal tenderness. There is guarding. Musculoskeletal: General: No swelling or deformity. Normal range of motion. Cervical back: Normal range of motion. No rigidity. Comments: Atraumatic, moves all extremities spontaneously Skin: General: Skin is warm and dry. Neurological: General: No focal deficit present. Mental Status: She is alert. Mental status is at baseline. Comments: Awake Psychiatric: Mood and Affect: Mood normal. Behavior: Behavior normal. No data recorded ED Course & MDM Date/Time: 02/13/2025/7:33 PM Scribe Attestation: This note was dictated to me, Jesica Parish, acting as a scribe for Dr. Curtis Celis MD. Attending Attestation: The documentation was recorded by Jesica Parish acting as scribe in my presence at the time of the encounter and accurately reflects the service I personally performed. - Assessment: 49 y.o. female presents to ED with complaint of vaginal bleeding and abdominal pain. It should be noted that the chronic conditions includes endometriosis and PCOS s/p hysterectomy on 02/02/2025, HTN, and hypothyroidism, which currently is not at goal therapy. This complicates the clinical picture because it Comorbidities: may be exacerbating symptoms, increases the amount and complexity of data to be reviewed, and increases the risk for morbidity Differential Diagnosis: Hematoma, seroma, intraabdominal abscess, UTI, pyelonephritis, vaginal cufftear, peritonitis, STI Prior records and op note was reviewed in the electronic medical record. Hysterectomy 2 weeks ago. Past medical history includes vaginal cysts, chronic pelvic pain, UTIs, B12 deficiency, anemia, and depression. On initial examination, patient is lying on the stretcher bed in no acute distress. Patient is afebrile, normotensive, tachycardic, non tachypneic, and has normal oxygen saturation on room air. On physical exam, patient's abdomen is soft and nondistended. Several well-healing surgical incision sites are present over the abdomen with no evidence of dehiscence, bleeding, or purulent drainage. Abdomen is tender to palpation over the left side with guarding. I personally reviewed the hematologic labs. CBC is remarkable for leukocytosis, increased concern for an acutely infectious process. Hemoglobin is stable compared to previous hemoglobin value 2 weeksago. CMP demonstrates transaminitis and elevation in alk-phos, nonspecific. UA demonstrates large leukocyte esterase, negative nitrite, 11-20 white blood cells, and negative bacteria. I had an interactive discussion with Gynecology regarding the patient's presentation. They agreed to evaluate the patient in the ED. Rhythm strip independently interpreted. It showed sinus tachycardia resolving to sinus rhythm. No acute ischemia noted. In order to fully explore the differential diagnosis the following treatments and tests were ordered: ED Medication Administration from 02/13/2025 1907 to 02/16/20252014 Date/Time Order Dose Route Action 02/13/2025 2123 EST iohexol (OMNIPaque) 300 MG/ML injection 100 mL 100 mL Intravenous Given 02/13/2025 2318 EST cefTRIAXone (Rocephin) 2 g in sodium chloride 0.9% 100 mL IVPB (vial adapter required) 2 g Intravenous New Bag 02/13/2025 2350 EST cefTRIAXone (Rocephin) 2 g in sodium chloride 0.9% 100 mL IVPB (vial adapter required) 0 g Intravenous Stopped All Other Orders Ordered Status Ordering Provider 02/14/25 0757 Inpatient consult to Gynecologic Oncology Once Specialty: Gynecologic Oncology Provider: (Not yet assigned) Completed DIEGO SANTIAGO 02/13/25 2156 Once Specialty: Thoracic Diseases Provider: (Not yet assigned) Canceled MANDY URRUTIA 02/13/252147 Once Specialty: Thoracic Diseases Provider: (Not yet assigned) Canceled MANDY URRUTIA 02/13/252111 Chlamydia trachomatis DNA by PCR STAT Final result MANDY URRUTIA 02/13/252111 Trichomonas Vaginalis Antigen Once Final result MANDY URRUTIA 02/13/252111 Neisseria gonorrhea DNA, Quantitative STAT Final result MANDY URRUTIA 02/13/252100 Urine Culture Once Final result CURTIS CELIS 02/13/252100 SEND JUDY MESSAGE Once Final result CURTIS CELIS 02/13/252035 CT Abdomen Pelvis w IV Contrast Once Final result MANDY URRUTIA 02/13/251947 Urinalysis Microscopic Examination Once Final result CURTIS CELIS 02/13/251931 APTT STAT Final result CURTIS CELIS 02/13/251930 Type and screen Start now Final result CURTIS CELIS 02/13/251930 Urinalysis with reflex microscopic AND reflex culture (IF UTI SUSPECTED) STAT Final result CURTIS CELIS 02/13/251930 CMP STAT Final result CURTIS CELIS 02/13/251930 Once Canceled CURTIS CELIS 02/13/251930 Urinalysis with reflex microscopic (Culture NOT Included) PROCEDURE ONCE Final result CURTIS CELIS 02/13/251930 Urine Suárez Panel PROCEDURE ONCE Final result CURTIS CELIS 02/13/251930 CBC w/diff STAT Final result CURTIS CELIS ED Course as of 02/16/252014 Sat Feb 13, 20252111 Pelvic exam performed by OBGYN with myself and professional driver present. No evidence of active vaginal bleeding. Swabs obtained. [SJ] 2229 CT Abdomen Pelvis w IV Contrast IMPRESSION: 1. Status post hysterectomy. There is a fluid collection in the uterine bed measuring approximately5 x 3 cm. Small focus of air is present in the collection. This could be related to postoperative seroma. Cannot exclude the possibility of developing abscess. Postsurgical changes present in the pelvis 2. Thickening urinary bladder wall which could be due to nondistention or cystitis. Please correlate with urinalysis. 3. Low-density changes in a mildly prominent left gonadal vein raising the suspicion of thrombophlebitis [SJ] ED Course User Index [SJ] Mandy Urrutia MD Clinical Impressions as of 02/16/252014 Vaginal bleeding Acute UTI An interactive conversation was obtained with gynecology consult service. Management was discussed.Upon discussion with Gynecology, it was recommended to administer ceftriaxone for treatment of possible UTI. They also recommend a 5 day course of Augmentin. They believe the CT finding is more consistent with seroma than a developing abscess. They also state they have low concern for the finding of possible thrombophlebitis. They believe the patient is appropriate for discharge with close follow-up in the Gynecology Clinic. I discussed the lab and imaging findings with the patient who expresses understanding. Antibiotics were sent to the pharmacy. All questions answered. Strict return precautions given. Patient is agreeable to the plan at this time. Social Determinates of Health Risks (including Economic Stability, Education and level of understanding, Healthcare access and quality and concerning social factors): None identified on this visit Ultimately, this patient was Was discharged Home (Discharge) The primary encounter diagnosis was Vaginal bleeding. A diagnosis of Acute UTI was alsopertinent to this visit. Patient was counseled on the diagnoses. Discharge medications if any are listed below. Listed medications are thought be either curative for listed diagnoses or will help control ongoing symptoms. Patient is requested to follow up with OBGYN in order to obtain specialty care. Instructions on follow up as well as precautions to return to the ER provided verbally by the EM provider, as well as written in patients discharge education packet. ED Prescriptions Medication Sig Dispense Start Date End Date Auth. Provider amoxicillin-clavulanate (Augmentin) 875-125 MG tablet (Status: Discontinued) Take 1 tablet by mouth2 times a day for 5 days. 10 tablet 02/13/2025 02/13/2025 Kp Mann MD amoxicillin-clavulanate (Augmentin) 875-125 MG tablet Take 1 tablet by mouth 2 times a day for 5 days. 10 tablet 02/13/2025 02/18/2025 Kp Mann MD Discharge Instructions A prescription for an antibiotic has been sent to the pharmacy for you. Please take as prescribed. OBGYN will help arrange a close follow-up appointment for you on Saturday or Saturday. Please also schedule an appointment with your primary care provider and request that they obtain labs to check your liver function. Return to the emergency department if you have fever/chills, new or worsening abdominal pain, if your symptoms don't improve, vaginal bleeding, vomiting, or if you have any other concerns. Disposition Discharge AVS (Polish Snapshot) - Printed 02/13/2025 Follow-Ups: Follow up with Sherin Brady MD - Mandy Urrutia MD Resident 12/05/12 2149 Kp Traore MD, personally saw the patient, performed critical or segal portions of the service including being present and available at all procedures, and discussed the care with the Resident. I saw and evaluated the patient. I discussed the case with the resident and agree with the findingsand plan as documented. [1] Past Medical History: Diagnosis Date Depression 2009 GERD (gastroesophageal reflux disease) 2010 Hypertension Hypothyroidism 2008 [place]???s Motion sickness PCOS (polycystic ovarian syndrome) PTSD (post-traumatic stress disorder) 2018 [2] Past Surgical History: Procedure Laterality Date BLADDER SURGERY Unknown bladder sling BUNIONECTOMY CHOLECYSTECTOMY EYE SURGERY 2006 Lasik OTHER SURGICAL HISTORY Hemmoroidectomy, bunion surgery, appendectomy, gall bladder removal, tonsillectomy, TONSILLECTOMY [3] Family History Problem Relation Name Age of Onset Malig Hyperthermia Neg Hx [4] Tobacco Use Smoking status: Never Smokeless tobacco: Never Vaping Use Vaping status: Every Day Substances: Nicotine Devices: Disposable Substance Use Topics Alcohol use: Yes Alcohol/week: 4.0 standard drinks of alcohol Types: 4 Glasses of wine per week Drug use: Never [5] Allergies Allergen Reactions Hydrocodone Nausea Hydrocodone-Acetaminophen Nausea and Rash Oxycodone-Acetaminophen Nausea and Rash Kp Mann MD 02/17/25 3768 * ED Triage Notes - Nadya Urrutia RN - 02/13/2025 7:07 PM EST Reports having total hysterectomy on 02/02/25, today started having vaginal bleeding. States she has saturated 3-4 panty liners documented in this encounter Plan of Treatment Not on file documented as of this encounter Procedures Procedure Name Priority Date/Time Associated Diagnosis Comments TRICHOMONAS VAGINALIS ANTIGEN STAT 02/13/2025 9:[address] ABDOMEN PELVIS W IV CONTRAST STAT 02/13/2025 9:30 PM EST CHLAMYDIA TRACHOMATIS DNA BY PCR STAT 02/13/2025 9:14 PM EST NEISSERIA GONORRHEA DNA BY PCR STAT 02/13/2025 9:14 PM EST SEND JUDY MESSAGE STAT 02/13/2025 7: 37 PM EST URINALYSIS WITH REFLEX MICROSCOPIC AND CULTURE STAT 02/13/2025 7:37 PM EST URINE SUÁREZ PANEL STAT 02/13/2025 7:37 PM EST URINALYSIS MICROSCOPIC FOR UA REFLEX STAT 02/13/2025 7:37 PM EST URINALYSIS WITH REFLEX MICROSCOPIC STAT 02/13/2025 7:37 PM EST APTT STAT 02/13/2025 7:37 PM EST URINE CULTURE STAT 02/13/2025 7:37 PM EST CBC WITH AUTO DIFFERENTIAL STAT 02/13/2025 7:36 PM EST TYPE AND SCREEN STAT 02/13/2025 7:36 PM EST COMPREHENSIVE METABOLIC PANEL, PLASMA STAT 02/13/2025 7:36 PM EST documented in this encounter Results * Trichomonas Vaginalis Antigen (02/13/2025 9:45 PM EST) Trichomonas vaginalis Antigen Result Negative Negative 02/14/2025 7:01 AM EST [facility] Swab Vaginal structure / Unknown Non-blood Collection / Unknown 02/13/2025 9:45 PM EST 02/13/2025 10:14 PM EST Narrative [facility] - 02/14/2025 7:01 AM EST This test was developed and its performance characteristics determined by [facility]. It has not been cleared or approved by the US Food and Drug Administration. FDA does not require this test to go through premarket FDA review. This test is used for clinical purposes. It should not be regarded as investigational or for research. This laboratory is certified under the Clinical Laboratory Improvement Amendments (CLIA) as qualified to perform high complexity clinical laboratory testing. us Kp Mann MD LAB MICROBIOLOGY - GENERAL ORDERABLES Final Result [facility] [address] [place] [address] * CT Abdomen Pelvis w IV Contrast (02/13/2025 9:30 PM EST) Anatomical Region Laterality Modality Abdomen, Pelvis Computed Tomogra phy Impressions 02/13/2025 10:08 PM EST 1. Status post hysterectomy. There is a fluid collection in the uterine bed measuring approximately 5 x 3 cm. Small focus of air is present in the collection. This could be related to postoperative seroma. Cannot exclude the possibility of developing abscess. Postsurgical changes present in the pelvis 2. Thickening urinary bladder wall which could be due to nondistention or cystitis. Please correlate with urinalysis. 3. Low-density changes in a mildly prominent left gonadal vein raising the suspicion of thrombophlebitis CRITICAL RESULT: No. COMMUNICATION: Per this written report. Drafted by Sky Gurrola MD on 02/13/2025 9:58 PM Final report signed by Sky Gurrola MD on 02/13/2025 10:08 PM Narrative 02/13/2025 10:08 PM EST CLINICAL INDICATION: Post-hysterectomy abdominal pain and vaginal bleeding TECHNIQUE: Imaging of the abdomen and pelvis was performed, from lung bases through pubic symphysis, using spiral technique, following administration of IV contrast, 100 mL. Delayed (excretory phase) images were performed through the kidneys. Reformatted images in the coronal and sagittal planes were generated from the axial data set to facilitate diagnostic accuracy. Total DLP (Dose-Length Product): 573.24 mGy.cm. Please note: The reported value represents the total of one or more individual components during the CT acquisition on this date and at this time, and as such, the same value may appear in more than one CT report depending on the interpreting/reporting physicians. COMPARISON: None. FINDINGS: Lung Bases: Lung bases are clear. Abdomen and pelvis: Prior cholecystectomy. No biliary dilatation. No focal liver lesion. Homogeneous enhancement of the spleen and pancreas. No peripancreatic inflammatory change or fluid collection. Unremarkable adrenal morphology. No renal or ureteral calculi. No hydronephrosis or hydroureter. Normal caliber of the large and small bowel with no evidence of obstruction. Nonvisualization of the appendix. Status post hysterectomy. There is a somewhat irregular fluid collection in the uterine bed containing a small focus of gas on the right. This collection does have perceptible alexander and measures 5.4 cm transverse 2.6 cm AP, and 2 cm cephalad to caudad. There is some stranding of the pelvic fat. There is thickening of the urinary bladder wall. Urinary bladder is incompletely distended. Unremarkable appearing abdominal aorta and branches.. No adenopathy. There is decrease attenuation within a mildly prominent left gonadal vein on both the portal venous and delayed images raising suspicion of gonadal vein thrombosis. No adenopathy. No acute osseous findings. There is a small umbilical hernia containing fat. Procedure Note Sky Gurrola MD - 02/13/2025 CLINICAL INDICATION: Post-hysterectomy abdominal pain and vaginal bleeding TECHNIQUE: Imaging of the abdomen and pelvis was performed, from lung bases throughpubic symphysis, using spiral technique, following administration of IVcontrast, 100 mL. Delayed (excretory phase) images were performed throughthe kidneys. Reformatted images in the coronal and sagittal planes weregenerated from the axial data set to facilitate diagnostic accuracy. Total DLP (Dose-Length Product): 573.24 mGy.cm. Please note: The reportedvalue represents the total of one or more individual components during theCT acquisition on this date and at this time, and as such, the same valuemay appear in more than one CT report depending on theinterpreting/reporting physicians. COMPARISON: None. FINDINGS: Lung Bases: Lung bases are clear. Abdomen and pelvis: Prior cholecystectomy. No biliary dilatation. No focal liver lesion.Homogeneous enhancement of the spleen and pancreas. No peripancreaticinflammatory change or fluid collection. Unremarkable adrenal morphology. No renal or ureteral calculi. Nohydronephrosis or hydroureter. Normal caliber of the large and small bowel with no evidence ofobstruction. Nonvisualization of the appendix. Status post hysterectomy. There is a somewhat irregular fluid collectionin the uterine bed containing a small focus of gas on the right. Thiscollection does have perceptible alexander and measures 5.4 cm transverse 2.6cm AP, and 2 cm cephalad to caudad. There is some stranding of the pelvicfat. There is thickening of the urinary bladder wall. Urinary bladder isincompletely distended. Unremarkable appearing abdominal aorta and branches.. No adenopathy. Thereis decrease attenuation within a mildly prominent left gonadal vein onboth the portal venous and delayed images raising suspicion of gonadalvein thrombosis. No adenopathy. No acute osseous findings. There is a small umbilical hernia containingfat. IMPRESSION: 1. Status post hysterectomy. There is a fluid collection in the uterinebed measuring approximately 5 x 3 cm. Small focus of air is present in thecollection. This could be related to postoperative seroma. Cannot excludethe possibility of developing abscess. Postsurgical changes present in thepelvis 2. Thickening urinary bladder wall which could be due to nondistention orcystitis. Please correlate with urinalysis. 3. Low-density changes in a mildly prominent left gonadal vein raising thesuspicion of thrombophlebitis CRITICAL RESULT: No. COMMUNICATION: Per this written report. Drafted by Sky Gurrola MD on 02/13/2025 9:58 PM Final report signed by Sky Gurrola MD on 02/13/2025 10:08 PM Kp Mann MD IMG CT PROCEDURES Final Re sult * Chlamydia trachomatis DNA by PCR (02/13/2025 9:14 PM EST) Chlamydia trachomatis DNA PCR Result Not Detected Not Detected 02/16/2025 2:18 PM EST [facility] Swab Vaginal structure / Unknown Non-blood Collection / Unknown 02/13/2025 9:14 PM EST 02/13/2025 9:46 PM EST Narrative [facility] - 02/16/2025 2:18 PM EST This test is performed by the [employer] instrument for Real Time PCR C. trachomatis and N. gonorrhea. This test is FDA approved for use with endocervical, vaginal, and urine specimens. This test is used for clinical purposes. It should not be regarded as invesigational or for research. The [facility] is certified under the Clinical Laboratory Improvement Amendments of 1988 (CLIA-88) as qualified to perform high complexity clinical laboratory testing. Kp Mann MD LAB MICROBIOLOGY - GENERAL ORDERABLES Final Result Performing Organization Address [facility] Co de Phone Number [facility] [address] [place] [address] * Neisseria gonorrhea DNA, Quantitative (02/13/2025 9:14 PM EST) Neisseria gonorrhea DNA PCR Result Not Detected Not Detected. 02/16/2025 2:18 PM EST [facility] Swab Vaginal structure / Unknown Non-blood Collection / Unknown 02/13/2025 9:14 PM EST 02/13/2025 9:46 PM EST Narrative [facility] - 02/16/2025 2:18 PM EST This test is performed by the [employer] instrument for Real Time PCR C. trachomatis and N. gonorrhea. This test is FDA approved for use with endocervical, vaginal, and urine specimens. This test is used for clinical purposes. It should not be regarded as invesigational or for research. The [facility] is certified under the Clinical Laboratory Improvement Amendments of 1988 (CLIA-88) as qualified to perform high complexity clinical laboratory testing. Kp Mann MD LAB MICROBIOLOGY - GENERAL ORDERABLES Final Result Performing Organization Address [facility] Phone Number [facility] [address] [place] [address] * SEND JUDY MESSAGE (02/13/2025 7:37 PM EST) Urine Urine specimen obtained by clean catch procedure / Unknown Non-blood Collection / Unknown 02/13/2025 7:37 PM EST 02/13/2025 7:56 PM EST Curtis Celis MD LAB URINE ORDERABLES Final Res ult Performing Organization Address [facility] Co de Phone Number [facility] [address] [place] [address] * Urine Culture (02/13/2025 7:37 PM EST) Culture No growth at day 1 02/15/2025 8:21 AM EST [facility] Urine Urine specimen obtained by clean catch procedure / Unknown Non-blood Collection / Unknown 02/13/2025 7:37 PM EST 02/13/2025 7:56 PM EST us Curtis Celis MD LAB MICROBIOLOGY - GENERAL ORD ERABLES Final Result Performing Organization Address [facility] Co de Phone Number [facility] [address] [place] [address] * Urinalysis Microscopic Examination (02/13/2025 7:37 PM EST) Urine Urine specimen obtained by clean catch procedure / Unknown Non-blood Collection / Unknown 02/13/2025 7:37 PM EST 02/13/2025 7:45 PM EST us Curtis Celis MD LAB URINE ORDERABLES Final Res ult Performing Organization Address [facility] Co de Phone Number [facility] [address] [place] [address] * APTT (02/13/2025 7:37 PM EST) aPTT 28 25 - 35 sec 02/13/2025 8:02 PM EST [facility] Blood Venous blood specimen / Unknown Venipuncture / Unknown 02/13/2025 7:37 PM EST 02/13/2025 7:45 PM EST us Curtis Celis MD LAB BLOOD ORDERABLES Final Res ult Performing Organization Address City/[facility] Co de Phone Number [facility] [address] [place] [address] * Urine Suárez Panel (02/13/2025 7:37 PM EST) Extra Sent for Culture 02/13/2025 9:01 PM EST [facility] Urine Urine specimen obtained by clean catch procedure / Unknown Non-blood Collection / Unknown 02/13/2025 7:37 PM EST 02/13/2025 7:56 PM EST us Curtis Celis MD LAB URINE ORDERABLES Final Res ult [facility] [address] [place] [address] * (ABNORMAL) Urinalysis with reflex microscopic (Culture NOT Included) (02/13/2025 7:37 PM EST) Color, Urine Yellow LAB URINALYSIS - AUTOMATED METHOD 02/13/2025 8:15 PM EST [facility] Clarity, Urine Clear LAB URINALYSIS - AUTOMATED METHOD 02/13/2025 8:15 PM EST [facility] Spec [place], Urine 1.007 1.005 - 1.030 LAB URINALYSIS - AUTOMATED METHOD 02/13/2025 8:15 PM EST [facility] pH, Urine 6.0 5.0 - 8.0 LAB URINALYSIS - AUTOMATED METHOD 02/13/2025 8:15 PM EST [facility] Protein, Urine Negative Negative mg/dL LAB URINALYSIS - AUTOMATED METHOD 02/13/2025 8:15 PM EST [facility] Glucose, Urine Negative Negative mg/dL LAB URINALYSIS - AUTOMATED METHOD 02/13/2025 8:15 PM EST [facility] Ketones, Urine Negative Negative mg/dL LAB URINALYSIS - AUTOMATED METHOD 02/13/2025 8:15 PM EST [facility] Blood, Urine Moderate(A) Negative LAB URINALYSIS - AUTOMATED METHOD 02/13/2025 8:15 PM EST [facility] Bilirubin, Urine Negative Negative LAB URINALYSIS - AUTOMATED METHOD 02/13/2025 8:15 PM EST [facility] Urobilinogen, Urine 0.2 0.2 to 1.0 mg/dL LAB URINALYSIS - AUTOMATED METHOD 02/13/2025 8:15 PM EST [facility] Leukocytes, Urine Large(A) Negative LAB URINALYSIS - AUTOMATED METHOD 02/13/2025 8:15 PM [facility] Nitrite, Urine Negative Negative LAB URINALYSIS - AUTOMATED METHOD 02/13/2025 8:15 PM EST [facility] RBC, Urine 1 0 to 3 /HPF LAB URINALYSIS - AUTOMATED METHOD 02/13/2025 8:15 PM EST [facility] Comment:This result was prev iously suppressed from the chart. WBC, Urine 11 - 20(A) 0 to 5 /HPF LAB URINALYSIS - AUTOMATED METHOD 02/13/2025 8:15 PM EST [facility] Comment:This result was prev iously suppressed from the chart. Squamous Epithelial Cells 0 - 2 0 to 5 /HPF LAB URINALYSIS - AUTOMATED METHOD 02/13/2025 8:15 PM EST [facility] Comment:This result was prev iously suppressed from the chart. Hyaline Casts 0 - 2 0 to 5 /LPF LAB URINALYSIS - AUTOMATED METHOD 02/13/2025 8:15 PM EST [facility] Comment:This result was prev iously suppressed from the chart. Bacteria, Urine Negative Negative LAB URINALYSIS - AUTOMATED METHOD 02/13/2025 8:15 PM EST [facility] Comment:This result was prev iously suppressed from the chart. Urine Urine specimen obtained by clean catch procedure / Unknown Non-blood Collection / Unknown 02/13/2025 7:37 PM EST 02/13/2025 7:45 PM EST Curtis Celis MD LAB URINE ORDERABLES Final Res ult Performing Organization Address City/[facility]/ZIP Co de Phone Number [facility] [address] [place] [address] * Type and screen (02/13/2025 7:36 PM EST) ABO/Rh O Negative 02/13/2025 7:42 PM EST BLOOD BANK Antibody Screen Negative 02/13/2025 7:42 PM EST BLOOD BANK Specimen Expiration 02/16/2025 23:59 02/13/2025 7:42 PM EST BLOOD BANK Blood Venous blood specimen / Unknown Venipuncture / Unknown 02/13/2025 7:36 PM EST 02/13/2025 7:42 PM EST us Curtis Celis MD LAB BLOOD BANK TEST ORDERABLES Final Result Performing Organization Address [facility]/ZIP Co de Phone Number BLOOD BANK [address] [place] [address], [place] * (ABNORMAL) CMP (02/13/2025 7:36 PM EST) Glucose, Plasma 109(H) 74 - 99 mg/dL 02/13/2025 8:08 PM [facility] BUN, Plasma 14 7 - 21 mg/dL 02/13/2025 8:08 PM [facility] Creatinine, Plasma 0.70 0.60 - 1.10 mg/dL 02/13/2025 8:08 PM [facility] BUN/Creatinine Ratio 20 02/13/2025 8:08 PM [facility] Sodium, Plasma 139 136 - 145 mmol/L 02/13/2025 8:08 PM [facility] Potassium, Plasma 4.3 3.6 - 4.9 mmol/L 02/13/2025 8:08 PM [facility] Chloride, Plasma 102 97 - 107 mmol/L 02/13/2025 8:08 PM [facility] CO2, Plasma 28 22 - 29 mmol/L 02/13/2025 8:08 PM [facility] Anion Gap 9 6 - 16 mmol/L 02/13/2025 8:08 PM [facility] Total Calcium, Plasma 9.6 8.9 - 10.2 mg/dL 02/13/2025 8:08 PM [facility] Total Protein 7.2 6.3 - 7.9 g/dL 02/13/2025 8:08 PM [facility] Albumin, Plasma 4.0 3.5 - 5.2 g/dL 02/13/2025 8:08 PM [facility] AST, Plasma 85(H) 10 - 35 U/L 02/13/2025 8:08 PM [facility] ALT, Plasma 155(H) 10 - 35 U/L 02/13/2025 8:08 PM [facility] Alkaline Phosphatase, Plasma 123(H) 35 - 104 U/L 02/13/2025 8:08 PM [facility] Total Bilirubin, Plasma 0.2 0.2 - 1.1 mg/dL 02/13/2025 8:08 PM [facility] eGFRcr 107.5 mL/min/1.7 3m*2 02/13/2025 8:08 PM [facility] Comment:Reported eGFRcr in m L/min/1.73m2 is based the CKD-EPI 2020 equation that does not use a race coefficient. Blood Venous blood specimen / Unknown Venipuncture / Unknown 02/13/2025 7:36 PM EST 02/13/2025 7:43 PM EST us Curtis Celis MD LAB BLOOD ORDERABLES Final Res ult [facility] [address] [place] [address] * (ABNORMAL) CBC w/diff (02/13/2025 7:36 PM EST) WBC Count 12.43(H) 3.70 - 10.30 10*3/uL LAB HEMATOLOGY METHOD 02/13/2025 7:46 PM EST [facility] RBC Count 4.20 3.90 - 5.20 10*6/uL LAB HEMATOLOGY METHOD 02/13/2025 7:46 PM EST [facility] HGB 12.5 11.2 - 15.7 g/dL LAB HEMATOLOGY METHOD 02/13/2025 7:46 PM EST [facility] HCT 36.1 34.0 - 45.0 % LAB HEMATOLOGY METHOD 02/13/2025 7:46 PM EST [facility] Platelet Count 424(H) 155 - 369 10*3/uL LAB HEMATOLOGY METHOD 02/13/2025 7:46 PM EST [facility] MCV 86 79 - 98 fL LAB HEMATOLOGY METHOD 02/13/2025 7:46 PM EST [facility] MCH 29.8 26.0 - 32.0 pg LAB HEMATOLOGY METHOD 02/13/2025 7:46 PM EST [facility] MCHC 34.6 30.7 - 35.5 g/dL LAB HEMATOLOGY METHOD 02/13/2025 7:46 PM EST [facility] RDW 11.8 11.5 - 14.5 % LAB HEMATOLOGY METHOD 02/13/2025 7:46 PM EST [facility] MPV 9.4 8.8 - 12.5 fL LAB HEMATOLOGY METHOD 02/13/2025 7:46 PM EST [facility] nRBC 0.0 <=0.0 per 100 WBCs LAB HEMATOLOGY METHOD 02/13/2025 7:46 PM EST [facility] Differential Type Automated LAB HEMATOLOGY METHOD 02/13/2025 7:46 PM [facility] Neutrophils % 57 % LAB HEMATOLOGY METHOD 02/13/2025 7:46 PM EST [facility] Lymphocytes % 31 % LAB HEMATOLOGY METHOD 02/13/2025 7:46 PM EST [facility] Monocytes % 7 % LAB HEMATOLOGY METHOD 02/13/2025 7:46 PM EST [facility] Eosinophils % 4 % LAB HEMATOLOGY METHOD 02/13/2025 7:46 PM EST [facility] Basophils % 1 % LAB HEMATOLOGY METHOD 02/13/2025 7:46 PM [facility] Immature Granulocytes % 0 % LAB HEMATOLOGY METHOD 02/13/2025 7:46 PM EST [facility] Neutrophils Absolute 7.16(H) 1.60 - 6.10 10*3/uL LAB HEMATOLOGY METHOD 02/13/2025 7:46 PM EST [facility] Lymphocytes Absolute 3.80 1.20 - 3.90 10*3/uL LAB HEMATOLOGY METHOD 02/13/2025 7:46 PM [facility] Monocytes Absolute 0.86 0.30 - 0.90 10*3/uL LAB HEMATOLOGY METHOD 02/13/2025 7:46 PM [facility] Eosinophils Absolute 0.48 0.00 - 0.50 10*3/uL LAB HEMATOLOGY METHOD 02/13/2025 7:46 PM [facility] Basophils Absolute 0.09 0.00 - 0.10 10*3/uL LAB HEMATOLOGY METHOD 02/13/2025 7:46 PM [facility] Immature Granulocytes Absolute 0.04 0.00 - 0.06 10*3/uL LAB HEMATOLOGY METHOD 02/13/2025 7:46 PM [facility] Blood Venous blood specimen / Unknown Venipuncture / Unknown 02/13/2025 7:36 PM EST 02/13/2025 7:43 PM EST [facility] - 02/13/2025 7:46 PM EST Therapeutic decision making should be based on absolute values, rather than percentages. Curtis Celis MD LAB BLOOD ORDERABLES Final Res ult [facility] [address] [place] [address] documented in this encounter Visit Diagnoses Diagnosis Vaginal bleeding- Primary Other specified noninflammatory disorder of vagina Acute UTI Urinary tract infection, site not specified documented in this encounter Administered Medications Inactive Administered Medications - up to 3 most recent administrations Medication Order MAR Action Action Date Dose Rate Site cefTRIAXone (Rocephin) 2 g in sodium chloride 0.9% 100 mL IVPB (vial adapter required) 2 g, Intravenous, Once, 1 dose, On 02/13/25 at 2245, Routine New Bag 02/13/2025 11:18 PM EST 2 g 220 mL/hr iohexol (OMNIPaque) 300 MG/ML injection 100 mL 100 mL, Intravenous, Once in imaging, 1 dose, Starting on 02/13/25 at 2043, Until 02/13/25 at 2123, Routine, Imaging Protocol Orders Given 02/13/2025 9:23 PM EST 100 mL documented in this encounter Active and Recently Administered Medications Times are shown in EST. Scheduled Medication Order 02/11/2025 02/12/2025 02/13/2025 cefTRIAXone (Rocephin) 2 g in sodium chloride 0.9% 100 mL IVPB (vial adapter required) (COMPLETED) 2 g, Intravenous, Once, 1 dose, On 02/13/25 at 2245, Routine 2318 (New Bag - Prov ider: Jane Ramos RN)2350 (Stopped - Provider: Jane Ramos RN) iohexol (OMNIPaque) 300 MG/ML injection 100 mL (COMPLETED) 100 mL, Intravenous, Once in imaging, 1 dose, Starting on 02/13/25 at 2043, Until 02/13/25 at 2123, Routine, Imaging Protocol Orders 2122 (Given - Provid er: Carla Herrera) documented in this encounter Care Teams Inspector Balance Wheel Motion Relationship Specialty Start Date End Date Sherin Brady MD [address] [place] [id number] PCP - General 01/08/25 Nell Mckeon DO [facility] [id number] Referring Physician Obstetrics and Gynecology 12/29/24 documented as of this encounter
--- OUTSIDE RECORDS SUMMARY | 2025-02-16 10:30 | XMS_ITS | Encounter Summary ---
Author Organization [facility] Address [address] [id number] Care Team Providers Care Mandarin Tutor Name Role Phone Nell Mckeon DO Unavailable [phone] Sherin Brady MD Primary Care Provider [phone] Reason for Visit * Reason Comments Follow-up Encounter Details Date Type Department Care Team ([facility] st Contact Info) Description 02/16/2025 10:30 AM EST Office Visit [facility] [address] [place] [address] Leslye Dooley, DOCUMENTATION LEAD [address] [facility] [address] [place] [address] Transition of care (Primary Dx); Postoperative vaginal bleeding following genitourinary procedure Social History Tobacco Use Types Packs/Day Years Used Date Smoking Tobacco: Never Smokeless Tobacco: Never Tobacco Cessation:Counseling Given: Not Answered Alcohol Use Standard Drinks/Week Comments Yes 4 (1 standard drink = 0.6 oz pur e alcohol) PHQ-2 Answer Date Recorded Patient Health Questionnaire-2 Score 0 02/16/2025 CAGE ASSESSMENT Answer Date Recorded Cage unable [...] drink first [place] 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) to steady your nerves or to get [...] Sign Reading Time Taken Comments Blood Pressure 106/73 02/16/2025 10:19 AM EST Pulse 88 02/16/2025 10:19 AM EST Temperature 36.5 C (97.7 F) 02/16/2025 10:19 AM EST Respiratory Rate 16 02/16/2025 10:19 AM EST Oxygen Saturation 98% 02/16/2025 10:19 AM EST Inhaled Oxygen Concentration - - Weight 70 kg (154 lb 5.2 oz) 02/16/2025 10:19 AM EST Height 160 cm (5' 3 ) 02/16/2025 10:19 AM EST Body Mass Index 27.34 02/16/2025 10:19 AM EST documented in this encounter Functional Status * BP Answer Date of Assessment Author 106/73 02/16/2025 10:19 AM EST Zurdo Rg RN * Temp Answer Date of Assessment Author 97.7 02/16/2025 10:19 AM EST Zurdo Rg RN * Temp src Answer Date of Assessment Author Temporal 02/16/2025 10:19 AM EST Zurdo Rg RN * Pulse Answer Date of Assessment Author 88 02/16/2025 10:19 AM EST Zurdo Rg, RN * Resp Answer Date of Assessment Author 16 02/16/2025 10:19 AM EST Zurdo Rg RN * SpO2 Answer Date of Assessment Author 98 02/16/2025 10:19 AM EST Zurdo Rg RN * Height Answer Date of Assessment Author 63 02/16/2025 10:19 AM EST Zurdo Rg, RN * Weight Answer Date of Assessment Author 2469.15 02/16/2025 10:19 AM EST Zurdo Rg RN * BMI (Calculated) Answer Date of Assessment Author 27.4 02/16/2025 10:19 AM Zurdo Rose RN * Percent Excess Weight Loss Answer Date of Assessment Author 0 02/16/2025 10:19 AM Zurdo Rose RN * Total Weight Change Percent Answer Date of Assessment Author 2222 02/16/2025 10:19 AM Zurdo Rose RN * Weight Change Since Preop Answer Date of Assessment Author 69.98 02/16/2025 10:19 AM Zurdo Rose RN * Initial Excess Weight Answer Date of Assessment Author -52.16 02/16/2025 10:19 AM Zurdo Rose RN * IBW in lbs (Bariatric) Answer Date of Assessment Author 115 02/16/2025 10:19 AM Zurdo Rose RN * Weight Change Since Last Visit Answer Date of Assessment Author 69.98 02/16/2025 10:19 AM Zurdo Rose RN * IBW in kg (Bariatric) Answer Date of Assessment Author 52.16 02/16/2025 10:19 AM Zurdo Rose RN * Percent of IBW Answer Date of Assessment Author 4,733.8 02/16/2025 10:19 AM Zurdo Rose RN * EBW (kg) Answer Date of Assessment Author 2,467.67 02/16/2025 10:19 AM Zurdo Rose RN * EBW (lbs) Answer Date of Assessment Author 2,461.96 02/16/2025 10:19 AM Zurdo Rose RN * Distress Thermometer Score Question Answer Date of Assessment Author Based on the past week, dasha wray select the number that best describes how much distress you have had. 0 being none and 10 being the most extreme. 0 02/16/2025 10:12 AM Nadeen Rose RN * Weight Change 24 hrs Answer Date of Assessment Author 1.96 02/16/2025 10:19 AM Zurdo Rose RN * Depression Screening Question Answer Date of Assessment Author Will the patient answer the depression risk questions? Yes 02/16/2025 10:20 AM Zurdo Rose RN * BSA (Calculated - sq m) Answer Date of Assessment Author 1.76 02/16/2025 10:19 AM Zurdo Rose RN * BMI (Calculated) Answer Date of Assessment Author 27.34 02/16/2025 10:19 AM Zurdo Rose RN * BP Location Answer Date of Assessment Author Left arm 02/16/2025 10:19 AM Zurdo Rose RN * IBW/kg (Calculated) Male Answer Date of Assessment Author 56.9 02/16/2025 10:19 AM Zurdo Rose RN * IBW/kg (Calculated) Female Answer Date of Assessment Author 52.4 02/16/2025 10:19 AM Zurdo Rose RN * Restart Vitals Timer Answer Date of Assessment Author Yes 02/16/2025 10:19 AM Zurdo Rose RN * IBW/kg (Calculated) Answer Date of Assessment Author 52.4 02/16/2025 10:19 AM Zurdo Rose RN * Over the past 2 weeks, how often have you been bothered by any of the following problems? Question Answer Date of Assessment Author Little interest or pleasure in doing things Not at all 02/16/2025 10:20 AM Zurdo Rose RN Feeling down, depressed, or hopeless Not at all 02/16/2025 10:20 AM Zurdo Rose RN Patient Health Questionnaire-2 Score 0 02/16/2025 10:20 AM Enoch Rose RN * How difficult have these problems made it for you to do your work, take care of things at home, or get along with other people? Answer Date of Assessment Author Not difficult at all 02/16/2025 10:20 AM Zurdo Martinez RN * Weight in (lb) to have BMI = 25 Answer Date of Assessment Author 140.8 02/16/2025 10:19 AM Zurdo Rose RN * BMI (Calculated) Answer Date of Assessment Author 27.4 02/16/2025 10:19 AM Zurdo Rose RN * Percent Excess Weight Loss Answer Date of Assessment Author 0 02/16/2025 10:19 AM Zurdo Rose RN * Weight Change Since Preop Answer Date of Assessment Author 70 02/16/2025 10:19 AM Zurdo Rose RN * Initial Excess Weight Answer Date of Assessment Author -52.16 02/16/2025 10:19 AM Zurdo Rose RN * IBW in kg (Bariatric) Answer Date of Assessment Author 52.16 02/16/2025 10:19 AM Zurdo Rose RN * IBW in lb (Bariatric) Answer Date of Assessment Author 115 02/16/2025 10:19 AM Zurdo Rose RN * Weight Change Since Last Visit Answer Date of Assessment Author 70 02/16/2025 10:19 AM Zurdo Rose RN * Percent of IBW Answer Date of Assessment Author 134.19 02/16/2025 10:19 AM Zurdo Rose RN * EBW (kg) Answer Date of Assessment Author 17.82 02/16/2025 10:19 AM Zurdo Rose RN * EBW (lb) Answer Date of Assessment Author 39.32 02/16/2025 10:19 AM Zurdo Rose RN * Difference in Weight Since Last Visit Answer Date of Assessment Author 1.96 02/16/2025 10:19 AM Zurdo Rose RN * Temp (in Celsius) for CHINIK IV Answer Date of Assessment Author 36.5 02/16/2025 10:19 AM Zurdo Rose RN * IBW/kg (Calculated) Answer Date of Assessment Author 52.4 02/16/2025 10:19 AM Zurdo Rose RN * Adult Low Range Vt 6mL/kg Answer Date of Assessment Author 314.4 02/16/2025 10:19 AM Zurdo Rose, RN * Adult Moderate Range Vt 8mL/kg Answer Date of Assessment Author 419.2 02/16/2025 10:19 AM Zurdo Rose RN * Adult High Range Vt 10mL/kg Answer Date of Assessment Author 524 02/16/2025 10:19 AM Zurdo Rose RN * Pain Score Answer Date of Assessment Author 0 02/16/2025 10:10 AM Zurdo Rose RN * Vitals Timer Question Answer Date of Assessment Author Restart Vitals Timer Yes 02/16/2025 10:19 AM Zurdo Rose, RN * Patient Position Answer Date of Assessment Author Sitting 02/16/2025 10:19 AM Zurdo Rose RN * Pain Screening/Additional Assessments Question Answer Date of Assessment Author Pain Screening/Assessments Pain Screening 02/16/2025 10:10 AM Enoch Rose, RN * Pain Screening Answer Date of Assessment Author 0-10 02/16/2025 10:10 AM Zurdo Rose RN * BP Answer Date of Assessment Author 106/73 02/16/2025 10:19 AM Zurdo Rose RN * Temp Answer Date of Assessment Author 97.7 02/16/2025 10:19 AM Zrudo Rose RN * Temp src Answer Date of Assessment Author Temporal 02/16/2025 10:19 AM Zurdo Rose, RN * Pulse Answer Date of Assessment Author 88 02/16/2025 10:19 AM Zurdo Rose, RN * Resp Answer Date of Assessment Author 16 02/16/2025 10:19 AM Zurdo Rose, RN * SpO2 Answer Date of Assessment Author 98 02/16/2025 10:19 AM Zurdo Rose, RN * Height Answer Date of Assessment Author 63 02/16/2025 10:19 AM Zurdo Rose, RN * Weight Answer Date of Assessment Author 2469.15 02/16/2025 10:19 AM Zurdo Rose RN * Distress Thermometer Score Question Answer Date of Assessment Author Based on the past week, dasha wray select the number that best describes how much distress you have had. 0 being none and 10 being the most extreme. 0 02/16/2025 10:12 AM Nadeen Rose RN * BSA (Calculated - sq m) Answer Date of Assessment Author 1.76 02/16/2025 10:19 AM Zurdo Rose RN * BMI (Calculated) Answer Date of Assessment Author 27.34 02/16/2025 10:19 AM Zurdo Rose RN * BP Location Answer Date of Assessment Author Left arm 02/16/2025 10:19 AM Zurdo Rose RN * Restart Vitals Timer Answer Date of Assessment Author Yes 02/16/2025 10:19 AM Zurdo Rose RN * Over the past 2 weeks, how often have you been bothered by any of the following problems? Question Answer Date of Assessment Author Little interest or pleasure in doing things Not at all 02/16/2025 10:20 AM Zurdo Rose RN Feeling down, depressed, or hopeless Not at all 02/16/2025 10:20 AM Zurdo Rose RN Patient Health Questionnaire-2 Score 0 02/16/2025 10:20 AM Enoch Rose RN * How difficult have these problems made it for you to do your work, take care of things at home, or get along with other people? Answer Date of Assessment Author Not difficult at all 02/16/2025 10:20 AM Zurdo Martinez RN * Weight in (lb) to have BMI = 25 Answer Date of Assessment Author 140.8 02/16/2025 10:19 AM Zurdo Rose RN * Pain Score Answer Date of Assessment Author 0 02/16/2025 10:10 AM Zurdo Rose RN * Patient Position Answer Date of Assessment Author Sitting 02/16/2025 10:19 AM Zurdo Rose RN * Learning Needs Screening Question Answer Date of Assessment Author Are there things (barriers) that make it harder for this patient to learn? No Barriers 02/16/2025 10:12 AM Zurdo Rose RN What is the best language to use for teaching this patient about his/her health? Niuean 02/16/2025 10:12 AM Enoch Rose RN What format does this patient think is most helpful for learning? Listening;Reading;Dem onstration 02/16/2025 10:12 AM Zurdo Rose RN Primary Learner Patient 02/16/2025 10:12 AM Zurdo Moses RN * Readiness to Learn Question Answer Date of Assessment Author Readiness Eager 02/16/2025 10:12 AM Zurdo Reeves RN documented as of this encounter Mental Status * BP Answer Entry Date Author 106/73 02/16/2025 10:19 AM Zurdo Rose RN * Temp Answer Entry Date Author 97.7 02/16/2025 10:19 AM Zurdo Rose RN * Temp src Answer Entry Date Author Temporal 02/16/2025 10:19 AM Zurdo Rose RN * Pulse Answer Entry Date Author 88 02/16/2025 10:19 AM Zurdo Rose RN * Resp Answer Entry Date Author 16 02/16/2025 10:19 AM Zurdo Rose RN * SpO2 Answer Entry Date Author 98 02/16/2025 10:19 AM Zurdo Rose RN * Height Answer Entry Date Author 63 02/16/2025 10:19 AM Zurdo Rose RN * Weight Answer Entry Date Author 2469.15 02/16/2025 10:19 AM Zurdo Rose RN * BMI (Calculated) Answer Entry Date Author 27.4 02/16/2025 10:19 AM Zurdo Rose RN * Percent Excess Weight Loss Answer Entry Date Author 0 02/16/2025 10:19 AM Zurdo Rose RN * Total Weight Change Percent Answer Entry Date Author 222102/16/2025 10:19 AM Zurdo Rose RN * Weight Change Since Preop Answer Entry Date Author 69.98 02/16/2025 10:19 AM Zurdo Rose RN * Initial Excess Weight Answer Entry Date Author -52.16 02/16/2025 10:19 AM Zurdo Rose RN * IBW in lbs (Bariatric) Answer Entry Date Author 115 02/16/2025 10:19 AM Zurdo Rose RN * Weight Change Since Last Visit Answer Entry Date Author 69.98 02/16/2025 10:19 AM Zurdo Rose RN * IBW in kg (Bariatric) Answer Entry Date Author 52.16 02/16/2025 10:19 AM Zurdo Rose RN * Percent of IBW Answer Entry Date Author 4,733.8 02/16/2025 10:19 AM Zurdo Rose RN * EBW (kg) Answer Entry Date Author 2,467.67 02/16/2025 10:19 AM Zurdo Rose RN * EBW (lbs) Answer Entry Date Author 2,461.96 02/16/2025 10:19 AM Zurdo Rose RN * Distress Thermometer Score Question Answer Entry Date Author Based on the past week, dasha wray select the number that best describes how much distress you have had. 0 being none and 10 being the most extreme. 0 02/16/2025 10:12 AM Nadeen Rose RN * Weight Change 24 hrs Answer Entry Date Author 1.96 02/16/2025 10:19 AM Zurdo Rose RN * Depression Screening Question Answer Entry Date Author Will the patient answer the depression risk questions? Yes 02/16/2025 10:20 AM Zurdo Rose RN * BSA (Calculated - sq m) Answer Entry Date Author 1.76 02/16/2025 10:19 AM Zurdo Rose RN * BMI (Calculated) Answer Entry Date Author 27.34 02/16/2025 10:19 AM Zurdo Rose RN * BP Location Answer Entry Date Author Left arm 02/16/2025 10:19 AM Zurdo Rose RN * IBW/kg (Calculated) Male Answer Entry Date Author 56.9 02/16/2025 10:19 AM Zurdo Rose RN * IBW/kg (Calculated) Female Answer Entry Date Author 52.4 02/16/2025 10:19 AM Zurdo Rose RN * Restart Vitals Timer Answer Entry Date Author Yes 02/16/2025 10:19 AM Zurdo Rose RN * IBW/kg (Calculated) Answer Entry Date Author 52.4 02/16/2025 10:19 AM Zurdo Rose RN * Over the past 2 weeks, how often have you been bothered by any of the following problems? Question Answer Entry Date Author Little interest or pleasure in doing things Not at all 02/16/2025 10:20 AM Zurdo Rose RN Feeling down, depressed, or hopeless Not at all 02/16/2025 10:20 AM Zurdo Rose RN Patient Health Questionnaire-2 Score 0 02/16/2025 10:20 AM Enoch Rose RN * [facility] Mental Health Concern Calculation Answer Entry Date Author 3 02/16/2025 10:20 AM Zurdo Rose RN * How difficult have these problems made it for you to do your work, take care of things at home, or get along with other people? Answer Entry Date Author Not difficult at all 02/16/2025 10:20 AM Zurdo Martinez RN * Restart Pain Assessment Timer Answer Entry Date Author Yes 02/16/2025 10:10 AM Zurdo Rose RN * Weight in (lb) to have BMI = 25 Answer Entry Date Author 140.8 02/16/2025 10:19 AM Zurdo Rose RN * BMI (Calculated) Answer Entry Date Author 27.4 02/16/2025 10:19 AM Zurdo Rose RN * Percent Excess Weight Loss Answer Entry Date Author 0 02/16/2025 10:19 AM Zurdo Rose RN * Weight Change Since Preop Answer Entry Date Author 70 02/16/2025 10:19 AM Zurdo Rose RN * Initial Excess Weight Answer Entry Date Author -52.16 02/16/2025 10:19 AM Zurdo Rose RN * IBW in kg (Bariatric) Answer Entry Date Author 52.16 02/16/2025 10:19 AM Zurdo Rose RN * IBW in lb (Bariatric) Answer Entry Date Author 115 02/16/2025 10:19 AM Zurdo Rose RN * Weight Change Since Last Visit Answer Entry Date Author 70 02/16/2025 10:19 AM Zurdo Rose RN * Percent of IBW Answer Entry Date Author 134.19 02/16/2025 10:19 AM Zurdo Rose RN * EBW (kg) Answer Entry Date Author 17.82 02/16/2025 10:19 AM Zurdo Rose RN * EBW (lb) Answer Entry Date Author 39.32 02/16/2025 10:19 AM Zurdo Rose RN * Difference in Weight Since Last Visit Answer Entry Date Author 1.96 02/16/2025 10:19 AM Zurdo Rose RN * Temp (in Celsius) for CHINIK IV Answer Entry Date Author 36.5 02/16/2025 10:19 AM Zurdo Rose RN * IBW/kg (Calculated) Answer Entry Date Author 52.4 02/16/2025 10:19 AM Zurdo Rose RN * Adult Low Range Vt 6mL/kg Answer Entry Date Author 314.4 02/16/2025 10:19 AM Zurdo Rose RN * Adult Moderate Range Vt 8mL/kg Answer Entry Date Author 419.2 02/16/2025 10:19 AM Zurdo Rose RN * Adult High Range Vt 10mL/kg Answer Entry Date Author 524 02/16/2025 10:19 AM Zurdo Rose RN * Pain Score Answer Entry Date Author 0 02/16/2025 10:10 AM Zurdo Rose RN * BP Cuff Size Answer Entry Date Author Adult long 02/16/2025 10:19 AM Zurdo Rose RN * Vitals Timer Question Answer Entry Date Author Restart Vitals Timer Yes 02/16/2025 10:19 AM Zurdo Rose RN * Patient Position Answer Entry Date Author Sitting 02/16/2025 10:19 AM Zurdo Rose RN * Pain Screening Answer Entry Date Author 0-10 02/16/2025 10:10 AM EST Zurdo Rg RN documented in this encounter Miscellaneous Notes * Progress Notes - Leslye Dooley, DOCUMENTATION LEAD - 02/16/2025 10:30 AM EST Patient ID: Gemma Zarco is a 49 y.o. female. Referring Physician: No referring provider defined for this encounter. Primary Care Provider: Sherin Brady MD History of Present Illness: Chief Complaint: left ovarian cyst Gemma Zarco is a 49 y.o. female seen in today for a follow-up post ED visit from 02/13/25. Patient underwent a TLHBSO on 02/02/2025. She presented to the ED with complaints of heavy post-op bleeding. Lab work, UA with culture and CT scan was performed in the ED. Patient reports that her vaginal bleeding has decreased since her ED visit, reports it is more of a bloody discharge. She reports to o y using 1 panty liner per day (was using 3-4 per day prior to ED visit) and the odor with her discharge has also decreased. She states that she is having no pain and has no changes in bowel movements. She report that her urinary symptoms are improving since starting Augmentin. CT from ED 02/13/2025 IMPRESSION: 1. Status post hysterectomy. There is [...] gonadal vein raising the suspicion of thrombophlebitis -She has a long history of painful menses, pain between menses. 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 Alternates diarrhea/constipation. Tolerates normal diet, no unintended weight loss. 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 Negative for chills and fever. HENT: Negative. Respiratory: Negative. Negative for chest tightness and shortness of breath. Cardiovascular: Negative. Negative for chest pain and leg swelling. Gastrointestinal: Negative for constipation, diarrhea, nausea and vomiting. Endocrine: Positive for hot flashes. Genitourinary: Positive for dysuria (Has improved since ED visit.), vaginal bleeding (Has improved since ED visit.) and vaginal discharge. Negative for difficulty urinating and pelvic pain. Musculoskeletal: Negative. Skin: Negative. Neurological: Negative. Negative for dizziness. Psychiatric/Behavioral: Negative. All other systems reviewed and are negative. Cancer Staging No matching staging information was found for the patient. [No matching plan found] Subjective History: Medical/Surgical/Social/Family History I have reviewed and updated the patient history. Allergies Hydrocodone, Hydrocodone-acetaminophen, and Oxycodone-acetaminophen Current Medications[1] Tobacco Use: Low Risk (02/16/2025) Patient History Smoking Tobacco Use: Never Smokeless Tobacco Use: Never Passive Exposure: Not on file Recent Concern: Tobacco Use - Medium Risk (12/25/2024) Received from [facility] Patient History Smoking Tobacco Use: Former Smokeless Tobacco Use: Never Passive Exposure: Past Social History Substance and Sexual Activity Alcohol Use Yes Alcohol/week: 4.0 standard drinks of alcohol Types: 4 Glasses of wine per week Social History Substance and Sexual Activity Drug Use Never Social Connections: Unknown (12/26/2022) Received from [facility] Family and Community Support Help with Day-to-Day Activities: Not on file Lonely or Isolated: Not on file Objective Physical Exam: Vital Signs for this encounter: BSA: 1.76 meters squared Visit Vitals BP 106/73 (BP Location: Left arm, Patient Position: Sitting, BP Cuff Size: Adult long) Pulse 88 Temp 36.5 ??C (97.7 ??F) (Temporal) Resp 16 Ht 1.6 m (5' 3 ) Wt 70 kg (154 lb 5.2 oz) LMP 01/04/2025 (Approximate) Comment: upt negative SpO2 98% BMI 27.34 kg/m?? OB Status Having periods Smoking Status Never BSA 1.76 m?? Physical Exam Vitals reviewed. HENT: Head: Normocephalic and atraumatic. Cardiovascular: Rate and Rhythm: Normal rate and regular rhythm. Pulmonary: Effort: Pulmonary effort is normal. Breath sounds: Normal breath sounds. Abdominal: General: Abdomen is flat. Bowel sounds are normal. Palpations: Abdomen is soft. Tenderness: There is no abdominal tenderness. Genitourinary: Comments: No exam done today. Patient had normal vaginal cuff on exam on 02/13/25. Musculoskeletal: General: Normal range of motion. Cervical back: Normal range of motion. Skin: General: Skin is warm and dry. Neurological: Mental Status: She is alert. Mental status is at baseline. Psychiatric: Mood and Affect: Mood normal. Performance Status: Asymptomatic Pain Scale: 0 Results: WBC Count (10*3/uL) Date/Time Value 02/13/20251935 12.43 (H) HGB (g/dL) Date/Time Value 02/13/20251935 12.5 HCT (%) Date/Time Value 02/13/20251935 36.1 Platelet Count (10*3/uL) Date/Time Value 02/13/20251935 424 (H) Creatinine, Plasma (mg/dL) Date/Time Value 02/13/20251935 0.70 AST, Plasma (U/L) Date/Time Value 02/13/20251935 85 (H) Impression Complex cyst in the left ovary [...] CLINICAL HISTORY: R10.20-Pelvic and perineal pain unspecified [id number]. COMPARISON: Pelvic ultrasound from 11/10/2015 PROCEDURE COMMENTS: Sonographic evaluation of the pelvis per ordered protocol with sales representative sales manager images and tech notes for sent for [...] Smear was not collected today. Problem 1: Follow-up from ED visit Assessment and plan 2: Vaginal bleeding decreasing. CBC, CMP, and UA collected today. Patient has post-op follow up on 03/10/[address] Lomeli. No exam done, documentation stating a normal vaginal cuff in the ED on 02/13/25. Problem 2: left ovarian cyst Assessment and plan 2: Recommend Robotic TLH/BSO/OMX due to possible borderline [...] 10am. Letter to Dr. Nell Mckeon Problem 3: HTN Assessment and plan 3: continue home meds Problem 3: Alejandro thyroiditis Assessment and plan 4: continue home meds Problem 5: Moderate alcohol use (5-10 drinks a week) Assessment and plan 5: counseled on healthy alcohol intake MARA Malhotra [facility] [address] [facility] [address] [facility] [address] Dept: [phone] Dept Loc: [phone] [1] Current Outpatient Medications: amoxicillin-clavulanate (Augmentin) 875-125 MG tablet, Take 1 tablet by mouth 2 times a day for 5 days., Disp: 10 tablet, Rfl: 0 busPIRone (Buspar) 10 MG tablet, Take 1 tablet by mouth 4 times a day., Disp: , Rfl: cetirizine (ZyrTEC) 10 MG tablet, Take 1 tablet by mouth daily., Disp: , Rfl: docusate sodium 100 MG capsule, Take 100 mg by mouth 2 times a day., Disp: 60 capsule, Rfl: 1 famotidine (Pepcid) 20 MG tablet, Take 1 tablet by mouth 2 times a day., Disp: 60 tablet, Rfl: 0 ibuprofen 600 MG tablet, Take 1 tablet by mouth every 6 hours., Disp: 60 tablet, Rfl: 2 levothyroxine (Synthroid, Levoxyl) 125 MCG tablet, Take 1 tablet by mouth daily., Disp: , Rfl: liothyronine (Cytomel) 5 MCG tablet, Take 1 tablet by mouth daily., Disp: , Rfl: lisinopril 10 MG tablet, Take 1 tablet by mouth daily., Disp: , Rfl: ondansetron ODT (Zofran-ODT) 4 MG disintegrating tablet, Dissolve 1 tablet on the tongue every 6 hours as needed for nausea or vomiting., Disp: 20 tablet, Rfl: 0 metFORMIN XR (Glucophage-XR) 500 MG 24 hr tablet, Take 1 tablet by mouth twice a day. (Patient not taking: Reported on 02/16/2025), Disp: , Rfl: oxyCODONE (Roxicodone) 5 MG immediate release tablet, Take 1 tablet by mouth every 4 hours as needed for severe pain. (Patient not taking: Reported on 02/16/2025), Disp: 3 tablet, Rfl: 0 Cosigned by Sheirce Thomas APRN at 02/16/2025 11:08 AM EST Associated attestation - Sherice Thomas APRN - 02/16/2025 11:08 AM EST The patient was seen only by Advanced Practice Provider (HILLARY). documented in this encounter Plan of Treatment Not on file documented as of this encounter Procedures Procedure Name Priority Date/Time Associated Diagnosis Comments SEND JUDY MESSAGE Routine 02/16/2025 10 :44 AM EST Transition of care Postoperative vaginal bleeding following genitourinary procedure URINALYSIS WITH REFLEX MICROSCOPIC AND CULTURE Routine 02/16/2025 10:44 AM EST Transition of care Postoperative vaginal bleeding following genitourinary procedure URINE SUÁREZ PANEL Routine 02/16/2025 10:4 4 AM EST Transition of care Postoperative vaginal bleeding following genitourinary procedure URINALYSIS MICROSCOPIC FOR UA REFLEX Routine 02/16/2025 10:44 AM EST Transition of care Postoperative vaginal bleeding following genitourinary procedure URINALYSIS WITH REFLEX MICROSCOPIC Routine 02/16/2025 10:44 AM EST Transition of care Postoperative vaginal bleeding following genitourinary procedure URINE CULTURE Routine 02/16/2025 10:44 AM EST Transition of care Postoperative vaginal bleeding following genitourinary procedure CBC WITH AUTO DIFFERENTIAL Routine 02/16/2025 10:41 AM EST Transition of care COMPREHENSIVE METABOLIC PANEL, PLASMA Routine 02/16/2025 10:41 AM EST Transition of care documented in this encounter Results * SEND Deezer MESSAGE (02/16/2025 10:44 AM EST) Urine Urine specimen obtained by clean catch procedure / Unknown Non-blood Collection / Unknown 02/16/2025 10:44 AM EST 02/16/2025 11:11 AM EST Leslye Dooley APRN LAB URINE ORDERABLES Final R esult [facility] [address] [place] [address] * Urine Culture (02/16/2025 10:44 AM EST) Culture No growth at day 1 02/17/2025 1:[address] [facility] Urine Urine specimen obtained by clean catch procedure / Unknown Non-blood Collection / Unknown 02/16/2025 10:44 AM EST 02/16/2025 11:11 AM EST us Leslye Dooley APRN LAB MICROBIOLOGY - GENERAL O RDERABLES Final Result Performing Organization Address City/[facility]/ZIP Co de Phone Number [facility] [address] [place] [address] * Urinalysis Microscopic Examination (02/16/2025 10:44 AM EST) Urine Urine specimen obtained by clean catch procedure / Unknown Non-blood Collection / Unknown 02/16/2025 10:44 AM EST 02/16/2025 11:11 AM EST us Leslye Dooley APRN LAB URINE ORDERABLES Final R esult Performing Organization Address City/[facility] Co de Phone Number [facility] [address] [place] [address] * Urine Suárez Panel (02/16/2025 10:44 AM EST) Extra Sent for Culture 02/16/2025 1:[address] [facility] Urine Urine specimen obtained by clean catch procedure / Unknown Non-blood Collection / Unknown 02/16/2025 10:44 AM EST 02/16/2025 11:11 AM EST Leslye Dooley APRN LAB URINE ORDERABLES Final R esult Performing Organization Address City/[facility] Co de Phone Number [facility] [address] [place] [address] * (ABNORMAL) Urinalysis with reflex microscopic (Culture NOT Included) (02/16/2025 10:44 AM EST) Color, Urine Yellow LAB URINALYSIS - AUTOMATED METHOD 02/16/2025 11:[address] [facility] Clarity, Urine Clear LAB URINALYSIS - AUTOMATED METHOD 02/16/2025 11:[address] [facility] Spec [place], Urine 1.008 1.005 - 1.030 LAB URINALYSIS - AUTOMATED METHOD 02/16/2025 11:[address] [facility] pH, Urine 6.5 5.0 - 8.0 LAB URINALYSIS - AUTOMATED METHOD 02/16/2025 11:[address] [facility] Protein, Urine Negative Negative mg/dL LAB URINALYSIS - AUTOMATED METHOD 02/16/2025 11:[address] [facility] Glucose, Urine Negative Negative mg/dL LAB URINALYSIS - AUTOMATED METHOD 02/16/2025 11:[address] [facility] Ketones, Urine Negative Negative mg/dL LAB URINALYSIS - AUTOMATED METHOD 02/16/2025 11:[address] [facility] Blood, Urine Moderate(A) Negative LAB URINALYSIS - AUTOMATED METHOD 02/16/2025 11:[address] [facility] Bilirubin, Urine Negative Negative LAB URINALYSIS - AUTOMATED METHOD 02/16/2025 11:[address] [facility] Urobilinogen, Urine 0.2 0.2 to 1.0 mg/dL LAB URINALYSIS - AUTOMATED METHOD 02/16/2025 11:[address] [facility] Leukocytes, Urine Large(A) Negative LAB URINALYSIS - AUTOMATED METHOD 02/16/2025 11:[address] [facility] Nitrite, Urine Negative Negative LAB URINALYSIS - AUTOMATED METHOD 02/16/2025 11:[address] [facility] RBC, Urine 2 0 to 3 /HPF LAB URINALYSIS - AUTOMATED METHOD 02/16/2025 11:[address] [facility] WBC, Urine >50(A) 0 to 5 /HPF LAB URINALYSIS - AUTOMATED METHOD 02/16/2025 11:[address] [facility] Squamous Epithelial Cells 0 - 2 0 to 5 /HPF LAB URINALYSIS - AUTOMATED METHOD 02/16/2025 11:[address] [facility] Hyaline Casts 3 - 5 0 to 5 /LPF LAB URINALYSIS - AUTOMATED METHOD 02/16/2025 11:[address] [facility] Bacteria, Urine Negative Negative LAB URINALYSIS - AUTOMATED METHOD 02/16/2025 11:[address] [facility] Urine Urine specimen obtained by clean catch procedure / Unknown Non-blood Collection / Unknown 02/16/2025 10:44 AM EST 02/16/2025 11:11 AM EST Leslye Dooley APRN LAB URINE ORDERABLES Final R esult [facility] [address] [place] [address] * (ABNORMAL) Comprehensive metabolic panel (02/16/2025 10:41 AM EST) Glucose, Plasma 104(H) 74 - 99 mg/dL 02/16/2025 11:[address] [facility] BUN, Plasma 15 7 - 21 mg/dL 02/16/2025 11:[address] [facility] Creatinine, Plasma 0.58(L) 0.60 - 1.10 mg/dL 02/16/2025 11:[address] [facility] BUN/Creatinine Ratio 26 02/16/2025 11:[address] [facility] Sodium, Plasma 139 136 - 145 mmol/L 02/16/2025 11:[address] [facility] Potassium, Plasma 4.0 3.6 - 4.9 mmol/L 02/16/2025 11:[address] [facility] Chloride, Plasma 102 97 - 107 mmol/L 02/16/2025 11:[address] [facility] CO2, Plasma 26 22 - 29 mmol/L 02/16/2025 11:[address] [facility] Anion Gap 11 6 - 16 mmol/L 02/16/2025 11:[address] [facility] Total Calcium, Plasma 9.4 8.9 - 10.2 mg/dL 02/16/2025 11:[address] [facility] Total Protein 7.3 6.3 - 7.9 g/dL 02/16/2025 11:[address] [facility] Albumin, Plasma 4.1 3.5 - 5.2 g/dL 02/16/2025 11:[address] [facility] AST, Plasma 30 10 - 35 U/L 02/16/2025 11:[address] [facility] ALT, Plasma 85(H) 10 - 35 U/L 02/16/2025 11:[address] [facility] Alkaline Phosphatase, Plasma 110(H) 35 - 104 U/L 02/16/2025 11:[address] [facility] Total Bilirubin, Plasma <0.2(L) 0.2 - 1.1 mg/dL 02/16/2025 11:[address] [facility] eGFRcr 112.5 mL/min/1.7 3m*2 02/16/2025 11:[address] [facility] Comment:Reported eGFRcr in m L/min/1.73m2 is based the CKD-EPI 2020 equation that does not use a race coefficient. Blood Venous blood specimen / Unknown Venipuncture / Unknown 02/16/2025 10:41 AM EST 02/16/2025 11:13 AM EST us Leslye Dooley APRN LAB BLOOD ORDERABLES Final R esult [facility] [address] [place] [address] * (ABNORMAL) CBC and Differential (02/16/2025 10:41 AM EST) WBC Count 8.58 3.70 - 10.30 10*3/uL LAB HEMATOLOGY METHOD 02/16/2025 11:[address] [facility] RBC Count 4.48 3.90 - 5.20 10*6/uL LAB HEMATOLOGY METHOD 02/16/2025 11:[address] [facility] HGB 12.9 11.2 - 15.7 g/dL LAB HEMATOLOGY METHOD 02/16/2025 11:[address] [facility] HCT 38.1 34.0 - 45.0 % LAB HEMATOLOGY METHOD 02/16/2025 11:[address] [facility] Platelet Count 470(H) 155 - 369 10*3/uL LAB HEMATOLOGY METHOD 02/16/2025 11:[address] [facility] MCV 85 79 - 98 fL LAB HEMATOLOGY METHOD 02/16/2025 11:[address] [facility] MCH 28.8 26.0 - 32.0 pg LAB HEMATOLOGY METHOD 02/16/2025 11:20 AM [facility] MCHC 33.9 30.7 - 35.5 g/dL LAB HEMATOLOGY METHOD 02/16/2025 11:20 AM [facility] RDW 11.5 11.5 - 14.5 % LAB HEMATOLOGY METHOD 02/16/2025 11:20 AM [facility] MPV 9.5 8.8 - 12.5 fL LAB HEMATOLOGY METHOD 02/16/2025 11:20 AM [facility] nRBC 0.0 <=0.0 per 100 WBCs LAB HEMATOLOGY METHOD 02/16/2025 11:[address] [facility] Differential Type Automated LAB HEMATOLOGY METHOD 02/16/2025 11:[address] [facility] Neutrophils % 56 % LAB HEMATOLOGY METHOD 02/16/2025 11:[address] [facility] Lymphocytes % 31 % LAB HEMATOLOGY METHOD 02/16/2025 11:[address] [facility] Monocytes % 6 % LAB HEMATOLOGY METHOD 02/16/2025 11:[address] [facility] Eosinophils % 5 % LAB HEMATOLOGY METHOD 02/16/2025 11:[address] [facility] Basophils % 1 % LAB HEMATOLOGY METHOD 02/16/2025 11:[address] [facility] Immature Granulocytes % 1 % LAB HEMATOLOGY METHOD 02/16/2025 11:[address] [facility] Neutrophils Absolute 4.87 1.60 - 6.10 10*3/uL LAB HEMATOLOGY METHOD 02/16/2025 11:[address] [facility] Lymphocytes Absolute 2.69 1.20 - 3.90 10*3/uL LAB HEMATOLOGY METHOD 02/16/2025 11:[address] [facility] Monocytes Absolute 0.47 0.30 - 0.90 10*3/uL LAB HEMATOLOGY METHOD 02/16/2025 11:[address] [facility] Eosinophils Absolute 0.41 0.00 - 0.50 10*3/uL LAB HEMATOLOGY METHOD 02/16/2025 11:[address] [facility] Basophils Absolute 0.08 0.00 - 0.10 10*3/uL LAB HEMATOLOGY METHOD 02/16/2025 11:[address] [facility] Immature Granulocytes Absolute 0.06 0.00 - 0.06 10*3/uL LAB HEMATOLOGY METHOD 02/16/2025 11:[address] [facility] Blood Venous blood specimen / Unknown Venipuncture / Unknown 02/16/2025 10:41 AM EST 02/16/2025 11:[address] [facility] - 02/16/2025 11:20 AM EST Therapeutic decision making should be based on absolute values, rather than percentages. us Leslye Dooley APRN LAB BLOOD ORDERABLES Final R esult [facility] [address] [place] [address] documented in this encounter Visit Diagnoses Diagnosis Transition of care- Primary Postoperative vaginal bleeding following genitourinary procedure documented in this encounter Care Teams Mandarin Tutor Relationship Specialty Start Date End Date Sherin Brady MD [address] [place] [id number] PCP - General 01/08/25 Nell Mckeon DO [facility] [address] Referring Physician Obstetrics and Gynecology 12/29/24 documented as of this encounter
--- OUTSIDE RECORDS SUMMARY | 2025-03-10 13:45 | XMS_ITS | Encounter Summary ---
Author Organization [facility] Address [address] [place] [address] Care Team Providers Care Line Haul Truck Driver Name Role Phone Nell Mckeon DO Unavailable [phone] Sherin Brady MD Primary Care Provider [phone] Encounter Details Date Type Department Care Team (Late st Contact Info) Description 03/10/2025 1:45 PM EST Office Visit [facility] [address] [place] [address] Marlee Mike MD [address] [facility] [address] [place] [address] Complex cyst of left ovary (Primary Dx); Primary hypertension; Alejandro thyroiditis; Moderate alcohol consumption; Postoperative vaginal bleeding following genitourinary procedure; Alcohol use Social History Tobacco Use Types Packs/Day Years Used Date Smoking Tobacco: Never Smokeless Tobacco: Never Alcohol Use Standard Drinks/Week Comments Yes 4 (1 standard drink = 0.6 oz pur e alcohol) PHQ-2 Answer Date Recorded Patient Health Questionnaire-2 Score 0 03/10/2025 CAGE ASSESSMENT Answer Date Recorded Cage unable [...] drink first [place] 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) to 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 nerves or to get [...] Sign Reading Time Taken Comments Blood Pressure 117/83 03/10/2025 1:53 PM EST Pulse 99 03/10/2025 1:53 PM EST Temperature 36.8 C (98.2 F) 03/10/2025 1:53 PM EST Respiratory Rate 16 03/10/2025 1:53 PM EST Oxygen Saturation 96% 03/10/2025 1:53 PM EST Inhaled Oxygen Concentration - - Weight 71.7 kg (158 lb) 03/10/2025 1:53 PM EST Height 160 cm (5' 2.99 ) 03/10/2025 1:53 PM EST Body Mass Index 28 03/10/2025 1:53 PM EST documented in this encounter Functional Status * BP Answer Date of Assessment Author 117/83 03/10/2025 1:53 PM EST Green, Ne maribell * Temp Answer Date of Assessment Author 98.2 03/10/2025 1:53 PM EST Green, Ne maribell * Temp src Answer Date of Assessment Author Temporal 03/10/2025 1:53 PM EST Green, Ne maribell * Pulse Answer Date of Assessment Author 99 03/10/2025 1:53 PM EST Green, Ne maribell * Resp Answer Date of Assessment Author 16 03/10/2025 1:53 PM EST Green, Ne maribell * SpO2 Answer Date of Assessment Author 96 03/10/2025 1:53 PM EST Green, Ne maribell * Height Answer Date of Assessment Author 62.992 03/10/2025 1:53 PM EST Green, Ne maribell * Weight Answer Date of Assessment Author 2528 03/10/2025 1:53 PM EST Green, Ne maribell * BMI (Calculated) Answer Date of Assessment Author 28.1 03/10/2025 1:53 PM EST Green, Ne maribell * Percent Excess Weight Loss Answer Date of Assessment Author 0 03/10/2025 1:53 PM EST Green, Ne maribell * Total Weight Change Percent Answer Date of Assessment Author 2222 03/10/2025 1:53 PM EST Green, Ne maribell * Weight Change Since Preop Answer Date of Assessment Author 71.65 03/10/2025 1:53 PM EST Green, Ne maribell * Initial Excess Weight Answer Date of Assessment Author -52.15 03/10/2025 1:53 PM EST Green, Ne maribell * IBW in lbs (Bariatric) Answer Date of Assessment Author 114.96 03/10/2025 1:53 PM EST Green, Ne maribell * Weight Change Since Last Visit Answer Date of Assessment Author 71.65 03/10/2025 1:53 PM EST Green, Ne maribell * IBW in kg (Bariatric) Answer Date of Assessment Author 52.15 03/10/2025 1:53 PM EST Green, Ne maribell * Percent of IBW Answer Date of Assessment Author 4,847.56 03/10/2025 1:53 PM EST Green, Ne maribell * EBW (kg) Answer Date of Assessment Author 2,526.52 03/10/2025 1:53 PM EST Green, Ne maribell * EBW (lbs) Answer Date of Assessment Author 2,520.82 03/10/2025 1:53 PM EST Green, Ne maribell * Weight Change 24 hrs Answer Date of Assessment Author 1.668 03/10/2025 1:53 PM EST Green, Ne maribell * Depression Screening Question Answer Date of Assessment Author Will the patient answer the depression risk questions? Yes 03/10/2025 1:54 PM EST Green, Nekesha * BSA (Calculated - sq m) Answer Date of Assessment Author 1.78 03/10/2025 1:53 PM EST Green, Ne maribell * BMI (Calculated) Answer Date of Assessment Author 28 03/10/2025 1:53 PM EST Green, Ne maribell * IBW/kg (Calculated) Male Answer Date of Assessment Author 56.88 03/10/2025 1:53 PM EST Green, Ne maribell * IBW/kg (Calculated) Female Answer Date of Assessment Author 52.38 03/10/2025 1:53 PM EST Green, Ne maribell * Restart Vitals Timer Answer Date of Assessment Author Yes 03/10/2025 1:53 PM EST Green, Ne maribell * IBW/kg (Calculated) Answer Date of Assessment Author 52.38 03/10/2025 1:53 PM EST Green, Ne maribell * Over the past 2 weeks, how often have you been bothered by any of the following problems? Question Answer Date of Assessment Author Little interest or pleasure in doing things Not at all 03/10/2025 1:54 PM EST Green, Nekesha Feeling down, depressed, or hopeless Not at all 02/16 1:54 PM EST Green, Nekesha Patient Health Questionnaire-2 Score 0 02/16 1:54 PM EST Green, Nekesha * Weight in (lb) to have BMI = 25 Answer Date of Assessment Author 140.8 03/10/2025 1:53 PM EST Green, Ne maribell * BMI (Calculated) Answer Date of Assessment Author 28.1 03/10/2025 1:53 PM EST Green, Ne maribell * Percent Excess Weight Loss Answer Date of Assessment Author 0 03/10/2025 1:53 PM EST Green, Ne maribell * Weight Change Since Preop Answer Date of Assessment Author 71.67 03/10/2025 1:53 PM EST Green, Ne maribell * Initial Excess Weight Answer Date of Assessment Author -52.15 03/10/2025 1:53 PM EST Green, Ne maribell * IBW in kg (Bariatric) Answer Date of Assessment Author 52.15 03/10/2025 1:53 PM EST Green, Ne maribell * IBW in lb (Bariatric) Answer Date of Assessment Author 114.96 03/10/2025 1:53 PM EST Green, Ne maribell * Weight Change Since Last Visit Answer Date of Assessment Author 71.67 03/10/2025 1:53 PM EST Green, Ne maribell * Percent of IBW Answer Date of Assessment Author 137.44 03/10/2025 1:53 PM EST Green, Ne maribell * EBW (kg) Answer Date of Assessment Author 19.5 03/10/2025 1:53 PM EST Green, Ne maribell * EBW (lb) Answer Date of Assessment Author 43.04 03/10/2025 1:53 PM EST Green, Ne maribell * Difference in Weight Since Last Visit Answer Date of Assessment Author 1.67 03/10/2025 1:53 PM EST Green, Ne maribell * Temp (in Celsius) for [place] IV Answer Date of Assessment Author 36.8 03/10/2025 1:53 PM EST Green, Ne maribell * IBW/kg (Calculated) Answer Date of Assessment Author 52.38 03/10/2025 1:53 PM EST Green, Ne maribell * Adult Low Range Vt 6mL/kg Answer Date of Assessment Author 314.28 03/10/2025 1:53 PM EST Green, Ne maribell * Adult Moderate Range Vt 8mL/kg Answer Date of Assessment Author 419.04 03/10/2025 1:53 PM EST Green, Ne maribell * Adult High Range Vt 10mL/kg Answer Date of Assessment Author 523.8 03/10/2025 1:53 PM EST Green, Ne maribell * Pain Score Answer Date of Assessment Author 0 03/10/2025 1:53 PM EST Green, Ne maribell * Vitals Timer Question Answer Date of Assessment Author Restart Vitals Timer Yes 03/10/2025 1:[address] Green, Nekesha * Pain Screening/Additional Assessments Question Answer Date of Assessment Author Pain Screening/Assessments Pain Screening 03/10/2025 1 :53 PM EST Green, Nekesha * Pain Screening Answer Date of Assessment Author 0-10 03/10/2025 1:53 PM EST Green, Ne maribell * BP Answer Date of Assessment Author 117/83 03/10/2025 1:53 PM EST Green, Ne maribell * Temp Answer Date of Assessment Author 98.2 03/10/2025 1:53 PM EST Green, Ne maribell * Temp src Answer Date of Assessment Author Temporal 03/10/2025 1:53 PM EST Green, Ne maribell * Pulse Answer Date of Assessment Author 99 03/10/2025 1:53 PM EST Green, Ne maribell * Resp Answer Date of Assessment Author 16 03/10/2025 1:53 PM EST Green, Ne maribell * SpO2 Answer Date of Assessment Author 96 03/10/2025 1:53 PM EST Green, Ne maribell * Height Answer Date of Assessment Author 62.992 03/10/2025 1:53 PM EST Green, Ne maribell * Weight Answer Date of Assessment Author 2528 03/10/2025 1:53 PM EST Green, Ne maribell * BSA (Calculated - sq m) Answer Date of Assessment Author 1.78 03/10/2025 1:53 PM EST Green, Ne maribell * BMI (Calculated) Answer Date of Assessment Author 28 03/10/2025 1:53 PM EST Green, Ne maribell * Restart Vitals Timer Answer Date of Assessment Author Yes 03/10/2025 1:53 PM EST Green, Ne maribell * Over the past 2 weeks, how often have you been bothered by any of the following problems? Question Answer Date of Assessment Author Little interest or pleasure in doing things Not at all 03/10/2025 1:54 PM EST Green, Nekesha Feeling down, depressed, or hopeless Not at all 02/16 1:54 PM EST Green, Nekesha Patient Health Questionnaire-2 Score 0 02/16 1:54 PM EST Green, Nekesha * Weight in (lb) to have BMI = 25 Answer Date of Assessment Author 140.8 03/10/2025 1:53 PM EST Green, Ne maribell * Pain Score Answer Date of Assessment Author 0 03/10/2025 1:53 PM EST Green, Ne maribell documented as of this encounter Mental Status * BP Answer Entry Date Author 117/83 03/10/2025 1:53 PM EST Green, Ne maribell * Temp Answer Entry Date Author 98.2 03/10/2025 1:53 PM EST Green, Ne maribell * Temp src Answer Entry Date Author Temporal 03/10/2025 1:53 PM EST Green, Ne maribell * Pulse Answer Entry Date Author 99 03/10/2025 1:53 PM EST Green, Ne maribell * Resp Answer Entry Date Author 16 03/10/2025 1:53 PM EST Green, Ne maribell * SpO2 Answer Entry Date Author 96 03/10/2025 1:53 PM EST Green, Ne maribell * Height Answer Entry Date Author 62.992 03/10/2025 1:53 PM EST Green, Ne maribell * Weight Answer Entry Date Author 25203/10/2025 1:53 PM EST Green, Ne maribell * BMI (Calculated) Answer Entry Date Author 28.1 03/10/2025 1:53 PM EST Green, Ne maribell * Percent Excess Weight Loss Answer Entry Date Author 0 03/10/2025 1:53 PM EST Green, Ne maribell * Total Weight Change Percent Answer Entry Date Author 22203/10/2025 1:53 PM EST Green, Ne maribell * Weight Change Since Preop Answer Entry Date Author 71.65 03/10/2025 1:53 PM EST Green, Ne maribell * Initial Excess Weight Answer Entry Date Author -52.15 03/10/2025 1:53 PM EST Green, Ne maribell * IBW in lbs (Bariatric) Answer Entry Date Author 114.96 03/10/2025 1:53 PM EST Green, Ne maribell * Weight Change Since Last Visit Answer Entry Date Author 71.65 03/10/2025 1:53 PM EST Green, Ne maribell * IBW in kg (Bariatric) Answer Entry Date Author 52.15 03/10/2025 1:53 PM EST Green, Ne maribell * Percent of IBW Answer Entry Date Author 4,847.56 03/10/2025 1:53 PM EST Green, Ne maribell * EBW (kg) Answer Entry Date Author 2,526.52 03/10/2025 1:53 PM EST Green, Ne maribell * EBW (lbs) Answer Entry Date Author 2,520.82 03/10/2025 1:53 PM EST Green, Ne maribell * Weight Change 24 hrs Answer Entry Date Author 1.668 03/10/2025 1:53 PM EST Green, Ne maribell * Depression Screening Question Answer Entry Date Author Will the patient answer the depression risk questions? Yes 03/10/2025 1:54 PM EST Green, Nekesha * Patient reported weight Answer Entry Date Author 150 03/10/2025 12:14 PM EST Mychart, Generic * Patient reported height Answer Entry Date Author 5 3 03/10/2025 12:14 PM EST Mychart, Generic * Patient reported weight one month ago Answer Entry Date Author 155 03/10/2025 12:14 PM EST Mychart, Generic * Patient reported weight six months ago Answer Entry Date Author 155 03/10/2025 12:14 PM EST Mychart, Generic * During the past two weeks my weight has Answer Entry Date Author not changed 03/10/2025 12:14 PM EST Mychart, Generic * Food Intake Answer Entry Date Author less than usual 03/10/2025 12:14 PM EST Mychart, Generic * No problems eating Answer Entry Date Author Yes 03/10/2025 12:14 PM EST Mychart, Generic * Other symptoms Answer Entry Date Author No 03/10/2025 12:14 PM EST Mychart, Generic * Patient rates activity and functions over past month as Answer Entry Date Author not my normal self, but able to be up and about with fairly normal activities 03/10/2025 12:14 PM EST Mychart, Generic * Weight change % 6 months Answer Entry Date Author -3.23 03/10/2025 12:14 PM EST Mychart, Generic * Weight change % 1 month Answer Entry Date Author -3.23 03/10/2025 12:14 PM EST Mychart, Generic * Box 1 Answer Entry Date Author 2 03/10/2025 12:14 PM EST Mychart, Generic * Box 2 Answer Entry Date Author 1 03/10/2025 12:14 PM EST Mychart, Generic * Scoring Weight Loss Answer Entry Date Author 2 03/10/2025 12:14 PM EST Mychart, Generic * Box 3 Answer Entry Date Author 4 03/10/2025 12:14 PM EST Mychart, Generic * Box 4 Answer Entry Date Author 1 03/10/2025 12:14 PM EST Mychart, Generic * PG-SGA (SF) -(Additive Score box 1-4) Answer Entry Date Author 8 03/10/2025 12:14 PM EST Mychart, Generic * No appetite, just did not feel like eating Answer Entry Date Author No 03/10/2025 12:14 PM EST Mychart, Generic * Nausea Answer Entry Date Author No 03/10/2025 12:14 PM EST Mychart, Generic * Constipation Answer Entry Date Author No 03/10/2025 12:14 PM EST Mychart, Generic * Mouth sores Answer Entry Date Author No 03/10/2025 12:14 PM EST Mychart, Generic * Things taste funny or have no taste Answer Entry Date Author Yes 03/10/2025 12:14 PM EST Mychart, Generic * Problems swallowing Answer Entry Date Author No 03/10/2025 12:14 PM EST Mychart, Generic * Pain Answer Entry Date Author No 03/10/2025 12:14 PM EST Mychart, Generic * Diarrhea Answer Entry Date Author No 03/10/2025 12:14 PM EST Mychart, Generic * Dry mouth Answer Entry Date Author Yes 03/10/2025 12:14 PM EST Mychart, Generic * Smells bother me Answer Entry Date Author Yes 03/10/2025 12:14 PM EST Mychart, Generic * Feel full quickly Answer Entry Date Author Yes 03/10/2025 12:14 PM EST Mychart, Generic * Fatigue Answer Entry Date Author No 03/10/2025 12:14 PM EST Mychart, Generic * kg/cm or lbs/ft ? Answer Entry Date Author lbs/ft 03/10/2025 12:14 PM EST Mychart, Generic * Box 1 (A) Answer Entry Date Author 2 03/10/2025 12:14 PM EST Mychart, Generic * Global Assessment Score (Box 1 + Box 2 + Box 3 + Box 4 + Worksheet 4) Answer Entry Date Author 8 03/10/2025 12:14 PM EST Mychart, Generic * PG-SGA Categorical Stage Answer Entry Date Author B 03/10/2025 12:14 PM EST Mychart, Generic * BSA (Calculated - sq m) Answer Entry Date Author 1.78 03/10/2025 1:53 PM EST Green, Ne maribell * BMI (Calculated) Answer Entry Date Author 28 03/10/2025 1:53 PM EST Green, Ne maribell * IBW/kg (Calculated) Male Answer Entry Date Author 56.88 03/10/2025 1:53 PM EST Green, Ne maribell * IBW/kg (Calculated) Female Answer Entry Date Author 52.38 03/10/2025 1:53 PM EST Green, Ne maribell * Restart Vitals Timer Answer Entry Date Author Yes 03/10/2025 1:53 PM EST Green, Ne maribell * IBW/kg (Calculated) Answer Entry Date Author 52.38 03/10/2025 1:53 PM EST Green, Ne maribell * Over the past 2 weeks, how often have you been bothered by any of the following problems? Question Answer Entry Date Author Little interest or pleasure in doing things Not at all 03/10/2025 1:54 PM EST Green, Nekesha Feeling down, depressed, or hopeless Not at all 02/16 1:54 PM EST Green, Nekesha Patient Health Questionnaire-2 Score 0 02/16 1:54 PM EST Green, Nekesha * [facility] Mental Health Concern Calculation Answer Entry Date Author 3 03/10/2025 1:54 PM EST Green, Ne maribell * Restart Pain Assessment Timer Answer Entry Date Author Yes 03/10/2025 1:53 PM EST Green, N ekesha * Weight in (lb) to have BMI = 25 Answer Entry Date Author 140.8 03/10/2025 1:53 PM EST Green, Ne maribell * BMI (Calculated) Answer Entry Date Author 28.1 03/10/2025 1:53 PM EST Green, Ne maribell * Percent Excess Weight Loss Answer Entry Date Author 0 03/10/2025 1:53 PM EST Green, Ne maribell * Weight Change Since Preop Answer Entry Date Author 71.67 03/10/2025 1:53 PM EST Green, Ne maribell * Initial Excess Weight Answer Entry Date Author -52.15 03/10/2025 1:53 PM EST Green, Ne maribell * IBW in kg (Bariatric) Answer Entry Date Author 52.15 03/10/2025 1:53 PM EST Green, Ne maribell * IBW in lb (Bariatric) Answer Entry Date Author 114.96 03/10/2025 1:53 PM EST Green, Ne maribell * Weight Change Since Last Visit Answer Entry Date Author 71.67 03/10/2025 1:53 PM EST Green, Ne maribell * Percent of IBW Answer Entry Date Author 137.44 03/10/2025 1:53 PM EST Green, Ne maribell * EBW (kg) Answer Entry Date Author 19.5 03/10/2025 1:53 PM EST Green, Ne maribell * EBW (lb) Answer Entry Date Author 43.04 03/10/2025 1:53 PM EST Green, Ne maribell * Difference in Weight Since Last Visit Answer Entry Date Author 1.67 03/10/2025 1:53 PM EST Green, Ne maribell * Temp (in Celsius) for [place] IV Answer Entry Date Author 36.8 03/10/2025 1:53 PM EST Green, Ne maribell * IBW/kg (Calculated) Answer Entry Date Author 52.38 03/10/2025 1:53 PM EST Green, Ne maribell * Adult Low Range Vt 6mL/kg Answer Entry Date Author 314.28 03/10/2025 1:53 PM EST Green, Ne maribell * Adult Moderate Range Vt 8mL/kg Answer Entry Date Author 419.04 03/10/2025 1:53 PM EST Green, Ne maribell * Adult High Range Vt 10mL/kg Answer Entry Date Author 523.8 03/10/2025 1:53 PM EST Green, Ne maribell * Pain Score Answer Entry Date Author 0 03/10/2025 1:53 PM EST Green, Ne maribell * Vitals Timer Question Answer Entry Date Author Restart Vitals Timer Yes 03/10/2025 1:[address] Ethel Is[place]ha * Pain Screening Answer Entry Date Author 0-10 03/10/2025 1:53 PM EST Green, Ne maribell documented in this encounter Miscellaneous Notes * Progress Notes - Gisela Garcia MD - 03/10/2025 1:45 PM EST Images from the original note were not included. Patient ID: Gemma Zarco is a 49 [...] ancyst in left ovary with mural nodule. She has a long history of painful menses, pain between menses. 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 Alternates diarrhea/constipation. Tolerates normal diet, no unintended weight loss. S/p Robotic TLH/BSO 02/02/25 with benign pathology Interval History: She is here for a post op visit. Reports scant spotting after Thanksgiving and recently treated for UTI, urinary symptoms now improved. No issues with bowel function. Reports hot flashes and night sweats, interested in starting something. Did not require pain medications. 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 Hx: SVDx2 Menopause: on/off hot flashes PapHx:normal [...] Use - Medium Risk (12/25/2024) Received from [facility] Patient History Smoking Tobacco Use: Former Smokeless Tobacco Use: Never Passive Exposure: Past Social History Substance and Sexual Activity Alcohol Use Yes Alcohol/week: 4.0 standard drinks of alcohol Types: 4 Glasses of wine per week Social History Substance and Sexual Activity Drug Use Never Social Connections: Unknown (12/26/2022) Received from [facility] Family and Community Support Help with Day-to-Day Activities: Not on file Lonely or Isolated: Not on file Objective Physical Exam: Vital Signs for this encounter: BSA: 1.79 meters squared Visit Vitals BP 117/83 Pulse 99 Temp 36.8 ??C (98.2 ??F) (Temporal) Resp 16 Ht 1.6 m (5' 2.99 ) Wt 71.7 kg (158 lb) SpO2 96% BMI 28.00 kg/m?? OB Status Having periods Smoking Status Never BSA 1.79 m?? Physical Exam Vitals reviewed. Exam conducted with a clay stain mixer present. HENT: Head: Normocephalic and atraumatic. Cardiovascular: Rate and Rhythm: Normal rate and regular rhythm. Pulmonary: Effort: Pulmonary effort is normal. Breath sounds: Normal breath sounds. Abdominal: General: Abdomen is flat. Bowel sounds are normal. Palpations: Abdomen is soft. Tenderness: There is no abdominal tenderness. Comments: 5 robotic port sites well healed Genitourinary: General: Normal vulva. Comments: Vaginal cuff with suture visible, small area of friability at right vaginal cuff apex with scant dark red blood, silver nitrate applied, cuff approximated on bimanual exam Musculoskeletal: General: Normal range of motion. Cervical back: Normal range of motion. Skin: General: Skin is warm and dry. Neurological: Mental Status: She is alert. Mental status is at baseline. Psychiatric: Mood and Affect: Mood normal. Performance Status: Asymptomatic Pain Scale: 0 Results: WBC Count (10*3/uL) Date/Time Value 02/16/2025 1041 8.58 HGB (g/dL) Date/Time Value 02/16/2025 1041 12.9 HCT (%) Date/Time Value 02/16/2025 1041 38.1 Platelet Count (10*3/uL) Date/Time Value 02/16/2025 1041 470 (H) Creatinine, Plasma (mg/dL) Date/Time Value 02/16/2025 1041 0.58 (L) AST, Plasma (U/L) Date/Time Value 02/16/2025 1041 30 Component Final Diagnosis UTERUS, CERVIX, FALLOPIAN TUBES, AND OVARIES, TOTAL LAPAROSCOPIC HYSTERECTOMY WITH BILATERAL SALPINGO-OOPHORECTOMY: - OVARIES WITH HEMORRHAGIC CORPUS LUTEAL CYSTS AND CORPORA ALBICANTIA - BENIGN ENDOCERVIX POLYP - UTERINE CELLULAR LEIOMYOMA - BENIGN ENDOMETRIUM - LEFT FALLOPIAN TUBE WITH PARATUBAL CYST - RIGHT FALLOPIAN TUBE WITH NO SIGNIFICANT PATHOLOGIC CHANGES - NEGATIVE FOR DYSPLASIA, HYPERPLASIA OR MALIGNANCY at 1648 EST Assessment/Plan Pap Smear was not collected today. Problem 1: left ovarian cyst, benign Assessment and plan 1: s/p Robotic TLH/BSO. 02/02/25 -healing well, continue pelvic rest x 2 months -RTC PRN -letter provided to return to work on 03/22/[address] Nell Mckeon Problem 2: HTN Assessment and plan 2: continue home meds Problem 3: Alejandro thyroiditis Assessment and plan 3: continue home meds Problem 4: Moderate alcohol use (5-10 drinks a week) Assessment and plan 4: counseled on healthy alcohol intake Problem 5: hot flashes/menopausal symptoms Assessment and plan 5: will start lowest dose estrogen patch 0.025 mg Discussed following with obgyn for follow-up Patient seen and discussed with attending, Dr. Cee Garcia MD GY Fellow MD AP Villanueva [facility] [address] [place] [id number] Dept: [phone] Dept Loc: [phone] [1] Current Outpatient Medications: busPIRone (Buspar) 10 MG tablet, Take 1 [...] or vomiting., Disp: 20 tablet, Rfl: 0 [START ON 03/11/2025] estradiol (Vivelle-Dot) 0.025 MG/24HR, Place 1 patch on the skin 2 times a week over 96 hours., Disp: 8 patch, Rfl: 5 metFORMIN XR (Glucophage-XR) 500 MG 24 hr tablet, Take 1 tablet by mouth twice a day. (Patient not taking: Reported on 03/10/2025), Disp: , Rfl: oxyCODONE (Roxicodone) 5 MG immediate release tablet, Take 1 tablet by mouth every 4 hours as needed for severe pain. (Patient not taking: Reported on 03/10/2025), Disp: 3 tablet, Rfl: 0 Cosigned by Marlee Mike MD at 03/10/2025 2:23 PM EST Associated attestation - Marlee Mike MD - 03/10/2025 2:23 PM EST I saw and evaluated the patient with the resident/fellow. I discussed the case with the resident/fellow and agree with the findings and plan as documented. Advised to wait until follow-up of mammogram before starting estrogen. 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
--- OUTSIDE RECORDS SUMMARY | 2025-03-16 13:37 | XMS_ITS | Clinical Summary ---
Author Organization [facility] Address [address], [address] [place] [address] Care Team Providers Care Delivery Rep Name Role Phone Sherin Brady MD Primary Care Provider [phone] Allergies Active Allergy Reactions Criticality Noted Date [...] of Treatment Not on file Care Teams Delivery Rep Relationship Specialty Start Date End Date Sherin Brady MD PCP - General Family Medicine 01/23/12
--- OUTSIDE RECORDS SUMMARY | 2025-03-16 13:37 | XMS_ITS | Encounter Summary ---
Author Organization [facility] Address [address] [place] [address] [place] [address] Phone Care Team Providers Care Physical Chemistry Professor Name Role Phone Sherin Brady MD Primary Care Provider [phone] Pricila Post MD Unavailable [phone] Encounter Details Date Type Department Care Team (Late st Contact Info) Description 03/30/2013 [place] [place] [place] [address] [place] [phone] Pricila Post MD [address] [place], [place] [id number] Social History Tobacco Use Types Packs/Day Years [...] on filedocumented in this encounter Care Teams Physical Chemistry Professor Relationship Specialty Start Date End Date Sherin Brady MD PCP - General Family Medicine 04/30/13 Pricila Post MD Surgeon General Surgery 10/26/13 documented as of this encounter
--- OUTSIDE RECORDS SUMMARY | 2025-03-16 13:37 | XMS_ITS | Clinical Summary ---
Author Organization [facility] Address [address] [place] [address] [place] [address] Care Team Providers Care Cashier Name Role Phone Sherin Brady MD Primary Care Provider [phone] SejalPricila hart MD Unavailable [phone] Allergies Active Allergy Reactions Criticality Noted [...] Recently Relevant to Health Maintenance Care Teams Cashier Relationship Specialty Start Date End Date Sherin Brady MD PCP - General Family Medicine 04/30/13 Pricila Post MD Surgeon General Surgery 10/26/13
--- OUTSIDE RECORDS SUMMARY | 2025-03-16 13:38 | XMS_ITS | Clinical Summary ---
Author Organization [facility] Address [address] [place] [address] Phone Care Team Providers Care Scrape Gatherer Name Role Phone Sherin Brady MD Primary Care Provider [phone] Allergies Active Allergy Reactions Criticality Noted Date Comments Codeine Other (See Comments) Medium Drop in blood pressure Hydromorphone (Bulk) Rash Low 07/07/2010 Hydrocodone Nausea Only Low Morphine Rash Low Oxycodone-Acetaminophen Nausea Only,Rash Low 2013 Medications triamcinolone (KENALOG) 0.1 % Top CreamIndications :Rash Apply topically 2 times daily. 80 g 2 10/22/19 24 Active busPIRone (BUSPAR) 10 mg Oral TabletIndication s:Anxiety Take 1 tablet by mouth 4 times daily 360 Tablet 06/17/19 25 Active neomycin-polymyx in-hydrocortison e (CORTISPORIN) Otic SolutionIndicati ons:Otalgia of both ears Place 3 Drops into both ears 4 times daily. 10 mL 07/22/19 25 Active lisinopriL (PRINIVIL;ZESTRI L) 10 mg Oral TabletIndication s:Essential hypertension Take 1 Tablet by mouth daily. 90 Tablet 3 07/22/19 25 Active metFORMIN (GLUCOPHAGE XR) 500 mg Oral ER 24 hr tabletIndication s:PCOS (polycystic ovarian syndrome) Take 1 Tablet by mouth 2 times daily. 180 Tablet 3 07/22/19 25 Active liothyronine (CYTOMEL) 5 mcg Oral TabletIndication s:Hypothyroidism , unspecified type Take 1 Tablet by mouth daily. 90 Tablet 3 07/22/19 25 Active famotidine (PEPCID) 40 mg Oral TabletIndication s:Insect bite of left ankle, initial encounter Take 1 Tablet by mouth every evening. 30 Tablet 10/14/19 25 Active cetirizine (ZYRTEC) 10 mg Oral TabletIndication s:Facial edema Take 1 tablet by mouth once daily 90 Tablet 01/05/20 25 Active LEVOthyroxine (SYNTHROID) 125 mcg Oral TabletIndication s:Hypothyroidism , unspecified type Take 1 tablet by mouth once daily 90 Tablet 03/13/20 25 Active LEVOthyroxine (SYNTHROID) 125 mcg Oral TabletIndication s:Hypothyroidism , unspecified type Take 1 tablet by mouth once daily 90 Tablet 12/11/19 25 025 Discontinued Active Problems Problem Noted Date Diagnosed Date Anxiety 06/21/2023 History of endometrial ablation 06/21/2023 History of hypothyroidism 06/21/2023 Gall stones 10/09/2017 Biliary colic 10/09/2017 Acute febrile illness 10/09/2017 Mastodynia, female 04/30/2013 Vitamin D deficiency 04/11/2011 Assessment & Plan (07/21/2024 8:59 AM EDT): Orders: VITAMIN D 25 HYDROXY; Future Migraine 02/21/2010 GERD (gastroesophageal reflux disease) 0 PCOS (polycystic ovarian syndrome) 12/20/2009 Assessment & Plan (07/21/2024 8:59 AM EDT): Orders: metFORMIN (GLUCOPHAGE XR) 500 mg Oral ER 24 hr tablet; Take 1 Tablet by mouth 2 times daily. Depression 12/20/2009 Hypothyroid 12/20/2009 Assessment & Plan (12/16/2024 12:18 PM EDT): -Will recheck labs and adjust med PRN. Orders: THYROID STIMULATING HORMONE; Future T4, FREE (THYROXINE); Future Assessment & Plan (07/21/2024 8:59 AM EDT): -Will recheck labs and adjust dose PRN. Orders: THYROID STIMULATING HORMONE; Future T4, FREE (THYROXINE); Future liothyronine (CYTOMEL) 5 mcg Oral Tablet; Take 1 Tablet by mouth daily. Encounters Date Type Department Care Team Description 03/10/2025 Refill [facility] [address] [place], [place] [address] Lionel Albrecht APRN Medication Refill 01/04/2025 Refill [facility] [address] [place], [place] [address] Lionel Albrecht APRN Medication Refill 12/29/2024 Telephone [facility] Bernadette [address] [place], [place] [address] Sherin Brady MD Results (US) 12/28/2024 7:30 AM EDT - 12/28/2024 11:59 PM EDT Hospital Encounter [facility] Ultrasound [address] [place] [address] Lionel Albrecht APRN Pelvic pain Discharge Disposition: Home or Self Care 12/27/2024 Results Follow-Up [facility] Bernadette [address] [place] [address] Lionel Albrecht APRN URINE CULTURE (NO STAIN), US PELVIS AND TRANSVAGINAL NON OB COMPLETE 12/25/2024 9:30 AM EDT Office Visit [facility] [place] [address] Lionel Albrecht APRN Acute otitis media with effusion of left ear (Primary Dx); Pelvic pain; Right flank pain 12/17/2024 Results Follow-Up [facility] [place] [address] Lionel Albrecht APRN THYROID STIMULATING HORMONE, T4, FREE (THYROXINE), VITAMIN B12/ FOLIC ACID 12/16/2024 10:45 AM EDT Office Visit [facility] [place] [address] Lionel Albrecht APRN Acute otitis media with effusion of left ear (Primary Dx); Eustachian tube dysfunction, bilateral; B12 deficiency; Hypothyroidism, unspecified type from Last 3 Months Immunizations Immunization Administration Dates Next Due DTaP 07/24/1980, 9,04/06/1978,1977,1977 Hepatitis B, Unspecified Formulation 03/01/1993, 09/28/1992,08/22/1992 IPV 07/24/1980, 9,04/06/1978,1977,1977 Influenza Patient Reported 12/09/2017 Influenza Vaccine Quadrivalent 12/24/2014 Influenza Vaccine, Unspecifi ed Formulation 12/03/2012,01/18/2012,11/28/2010,2009 MMR 09/26/1989,11/16/1978 PPD Test 12/28/2014 Td, Unspecified Formulation 03/14/1991 Tdap 11/14/2018 Surgical History Surgery Date Site/Laterality Comments HEMORRHOID SURGERY APPENDECTOMY DENTAL SURGERY wisdom teeth extracted STOMACH SURGERY exploratory for abd pain r/o endometriosis TONSILLECTOMY EYE SURGERY lasik surgery bilat ADENOIDECTOMY CHOLECYSTECTOMY, LAPAROSCOPIC 10/09/2017 N/A LAPAROSCOPIC CHOLECYSTECTOMY, lysis of adhesions; Surgeon: Lawson Ayala MD; Location: [facility] MAIN OR; Service: General ABDOMEN SURGERY Medical History Medical History Date Comments Heartburn Thyroid disease Depression Polycystic ovary syndrome Anxiety Hypertension Family History Medical History Relation Name Comments Arthritis Father Dexter Roberson Heart Disease Father Dexter Roberson High Blood Pressure Father Dexter Roberson High Cholesterol Father Dexter Roberson Cancer Maternal Aunt 1 Arlene [place] Cancer Maternal Aunt 2 Cecy Ruff High Blood Pressure Mother Kely Roberson Early Paternal Grandfather Sumeet Roberson Heart Disease Paternal Grandfather Sumeet Roberson Cancer Paternal Grandmother Whitley Roberson Diabetes Paternal Grandmother Whitley Roberson Heart Disease Paternal Grandmother Whitley Roberson Relation Name Status Comments Father Dexter Roberson Alive Maternal Aunt 1 Arlene [place] Maternal Aunt 2 Cecy Ruff Mother Kely Roberson Alive Paternal Grandfather Sumeet Roberson Paternal Grandmother Whitley Roberson Social History Tobacco Use Types Packs/Day Years Used Date Smoking Tobacco: Former Cigarettes 0.5 29.8 0 03/18/1993 - 01/16/2023 Passive Smoke Exposure: Past Smokeless Tobacco: Never Tobacco Cessation:Counseling Given: Not Answered Comments:Quit on 01/23/12 Alcohol Use Standard Drinks/Week Comments Yes 3 [...] Sign Reading Time Taken Comments Blood Pressure 128/62 12/25/2024 9:29 AM EDT Pulse 93 10/14/2023 2:42 PM EDT Temperature 36.7 C (98 F) 12/25/2024 9:29 AM EDT Respiratory Rate 18 10/14/2023 2:42 PM EDT Oxygen Saturation 100% 08/07/2023 9:35 AM EDT Inhaled Oxygen Concentration - - Weight 72.2 kg (159 lb 3.2 oz) 12/25/2024 9:29 A M EDT Height 160 cm (5' 3 ) 12/25/2024 9:29 AM EDT Body Mass Index 28.2 12/25/2024 9:29 AM EDT Plan of Treatment Health Maintenance Due Date Last Done Comments HPV/Pap Cotest 08/28/2007 Cologuard 2022 FIT 2022 Sigmoidoscopy 2022 Virtual Colonography 2022 COVID-19 Vaccine ( season) 2024 Influenza Vaccine (#1) 2024 8, 01/15/2017 (Declined), 12/24/2014, Additional history exists Annual Wellness Exam 07/21/2025 07/21/2024, 08/04/2014 (Declined) Breast Cancer Screening 02/04/2026 02/05/20 24, 10/31/2022, 12/31/2013 Cervical Cancer Screening 06/17/2026 Pap Smear 06/17/2026 06/18/2023, 07/17 (Declined), 03/20/2012 (Postponed) DTaP/TDaP/Td (7 - Td or Tdap) 11/14/2028 11/14/2018, 03/14/1991, 07/24/1980, Additional history exists Colon Cancer Screening 08/04/2033 Colonoscopy 08/04/2033 08/07/2023 Hepatitis B Vaccine Completed 03/01/1993, 09/28/1992, 08/22/1992 Meningococcal B Vaccine Aged Out No l onger eligible based on patient's age to complete this topic Pneumococcal Vaccine 0-49 Aged Out No longer eligible based on patient's age to complete this topic Goals Goal Patient Goal Type Associated Problems Recent Progress Patient-Stated? Author Blood Pressure < 140/90 Blood Pressure 128/62(2024 9:29 AM EDT) No Sherin Brady MD Maintain a healthy diet, exercise regularly and maintain an ideal body weight General No Lida Her RMA Stay Tobacco Free Lifestyle No Lida Her RMA Procedures Procedure Name Priority Date/Time Associated Diagnosis Comments SCANNED LABS 01/06/2025 12:40 PM EDT US PELVIS AND TRANSVAGINAL NON OB COMPLETE Routine 12/28/2024 8:00 AM EDT Pelvic pain URINE CULTURE (NO STAIN) Routine 12/25/2024 9:38 AM EDT Right flank pain SEP URINALYSIS POC Routine 12/25/2024 9: 36 AM EDT Pelvic pain VITAMIN B12/ FOLIC ACID Routine 12/16/2024 11:13 AM EDT B12 deficiency T4, FREE (THYROXINE) Routine 12/16/2024 11:13 AM EDT Hypothyroidism, unspecified type THYROID STIMULATING HORMONE Routine 12/16/2024 11:13 AM EDT Hypothyroidism, unspecified type HM MAMMOGRAPHY Routine 02/05/2024 11:16 AM EST COLONOSCOPY Routine 08/07/2023 9:11 AM EDT Encounter for colonoscopy due to history of colonic polyp from Last 3 Months or Most Recently Relevant to Health Maintenance Results * SCANNED LABS (01/06/2025 12:40 PM EDT) 01/06/2025 12:4 0 PM EDT us Unknown Provider HEMATOLOGY ORDERABLES Final Res ult * US PELVIS AND TRANSVAGINAL NON OB COMPLETE (12/28/2024 8:00 AM EDT) Anatomical Region Laterality Modality Pelvis Ultrasound 12/28/2024 8:00 AM EDT Impressions 12/28/2024 12:48 PM EDT Complex cyst in the left ovary with echogenic mural nodule. Recommend consultation with gynecology oncology given suspicious features. Heterogeneous myometrium is nonspecific, but compatible with adenomyosis as described on the MRI from 11/18/2015. - Note: Radiology results need to be interpreted within a comprehensive clinical context. If you have questions about the radiology report, please contact the office of the ordering clinician. Narrative 12/28/2024 12:48 PM EDT US PELVIS AND TRANSVAGINAL NON OB COMPLETE 12/28/2024 8:00 AM CLINICAL HISTORY: R10.20-Pelvic and perineal pain unspecified [id number]. COMPARISON: Pelvic ultrasound from 11/10/2015 PROCEDURE COMMENTS: Sonographic evaluation of the pelvis per ordered protocol with customer response representative images and tech notes for sent [...] spectral Doppler flow to the bilateral ovaries. Procedure Note Kartik Ba MD - 12/28/2024 US PELVIS AND TRANSVAGINAL NON OB COMPLETE 12/28/2024 8:00 AM CLINICAL HISTORY: R10.20-Pelvic and perineal pain [id number]. COMPARISON: Pelvic ultrasound from 11/10/2015 PROCEDURE COMMENTS: Sonographic evaluation of the pelvis per orderedprotocol with customer response representative images and tech notes for sent for review. FINDINGS: Uterus: 9.7 x 5.2 x 5.1 cm overall size. Heterogeneity of themyometrium. Endometrium: 4 mm thickness. RIGHT ovary: 2.7 x 1.9 x 1.8 cm. Normal appearance for age. LEFT ovary: 3.3 x 2.6 x 2.1 cm. Complex cyst with solid appearing muralnodule in the left ovary measures 2.7 x 2.4 x 2.4 cm, with the mural nodulemeasuring up to 12 mm (best seen on image 91). No definite internal vascularity. Cul-de-sac: Small volume free fluid. Doppler flow: Normal color Doppler and spectral Doppler flow to thebilateral ovaries. IMPRESSION: Complex cyst in the left ovary with echogenic mural nodule. Recommend consultation with gynecology oncology given suspiciousfeatures. Heterogeneous myometrium is nonspecific, but compatible with adenomyosisas described on the MRI from 11/18/2015. - Note: Radiology results need to be interpreted within a comprehensiveclinical context. If you have questions about the radiology report, please contactthe office of the ordering clinician. us Lionel Albrecht APRN IMG US ORDERABLES Final Resu lt * URINE CULTURE (NO STAIN) (12/25/2024 9:38 AM EDT) Culture Multiple bacterial species isolated from urine consistent with urogenital commensal organisms. 12/27/2024 12:03 AM EDT [facility] [employer], [facility] Urine STRUCTURE OF URINARY TRACT PROPER / Unknown 12/25/2024 9:38 AM EDT 12/25/2024 9:38 AM EDT us Lionel Albrecht APRN MICROBIOLOGY - GENERAL ORDER JOSE Final Result [facility] [employer] [address] [facility] , [place] [address] * (ABNORMAL) SEP URINALYSIS POC (12/25/2024 9:36 AM EDT) UA Color POC Dark Yellow Color 12/25/2024 9:38 AM EDT [facility] [place] UA Appear POC Turbid(A) Clear 12/25/2024 9:38 AM EDT [facility] [place] UA Gluc POC Negative Negative mg/dL 12/25/2024 9:38 AM EDT [facility] [place] UA Bili POC Negative Negative 12/25/2024 9:38 AM EDT [facility] [place] UA Ketones POC Negative Negative mg/dL 12/25/2024 9:38 AM EDT [facility] [place] UA SG POC 1.020 1.001 - 1.035 no units 12/25/2024 9:38 AM EDT [facility] [place] UA Blood POC Negative Negative 12/25/2024 9:38 AM EDT [facility] [place] UA pH POC 7.5 5.0 - 8.0 pH 12/25/2024 9:38 AM EDT [facility] [place] UA Protein POC Negative Negative mg/dL 12/25/2024 9:38 AM EDT [facility] [place] UA Urobilinogen POC 0.2 0.2, 1.0 12/25/2024 9:38 AM EDT [facility] [place] UA Nitrite POC Negative Negative 12/25/2024 9:38 AM EDT [facility] [place] UA Leuk Est POC Negative Negative 9:38 AM EDT [facility] [place] Urine STRUCTURE OF URINARY TRACT PROPER / Unknown 12/25/2024 9:36 AM EDT 12/25/2024 9:38 AM EDT us Lionel Albrecht APRN POINT OF CARE TEST ORDERABLE S Final Result [facility] [place] [address] [facility] [place] [address] * VITAMIN B12/ FOLIC ACID (12/16/2024 11:13 AM EDT) Vitamin B12 819 232 - 1,245 pg/mL 12/16/2024 4:12 PM EDT [facility] [employer] Folate 10.80 >=4.80 ng/mL 12/16/2024 4:12 PM EDT [facility] [employer] Blood VENOUS BLOOD / Unknown Venipuncture / Unknown 12/16/2024 11:13 AM EDT 12/16/2024 11:13 AM EDT Narrative [employer] - 12/16/2024 4:12 PM EDT Ingestion of livia doses of biotin (>5 mg/day) taken within 8 hours of drawing blood sample can interfere with this immunoassay test. Lionel Albrecht APRN CHEMISTRY ORDERABLES Final Design [facility] Performing Organization Address [facility] Co de Phone Number [facility] [employer] [address] [place] [address] , [place] [address] * (ABNORMAL) THYROID STIMULATING HORMONE (12/16/2024 11:13 AM EDT) TSH 0.256(L) 0.270 - 4.200 mcIU/mL 12/16/2024 3:15 PM EDT [employer] Blood VENOUS BLOOD / Unknown Venipuncture / Unknown 12/16/2024 11:13 AM EDT 12/16/2024 11:13 AM EDT Narrative [employer] - 12/16/2024 3:15 PM EDT Ingestion of livia doses of biotin (>5 mg/day) taken within 8 hours of drawing blood sample can interfere with this immunoassay test. Lionel Albrecht APRN CHEMISTRY ORDERABLES Final R esult Performing Organization Address [facility]/ZIP Co de Phone Number [facility] [address] [place] [address] , [place] [address] * T4, FREE (THYROXINE) (12/16/2024 11:13 AM EDT) Free T4 1.32 0.80 - 1.80 ng/dL 12/16/2024 3:15 PM EDT [facility] Blood VENOUS BLOOD / Unknown Venipuncture / Unknown 12/16/2024 11:13 AM EDT 12/16/2024 11:13 AM EDT Narrative [facility] [employer] - 12/16/2024 3:15 PM EDT Ingestion of livia doses of biotin (>5 mg/day) taken within 8 hours of drawing blood sample can interfere with this immunoassay test. Lionel Albrecht APRN CHEMISTRY ORDERABLES Final R esult [facility] [address] [place] [address] , [place] [address] * HM MAMMOGRAPHY (02/05/2024 11:16 AM EST) [facility] Provider Generic HEALTH MAINTENANCE F inal Result Performing Organization Address City/[facility]/ZIP Co de Phone Number SEP OFFICE * COLONOSCOPY (08/07/2023 9:11 AM EDT) Anatomical Region Laterality Modality Endoscopy Narrative 08/07/2023 9:14 AM EDT Table formatting from the original result was not included. Findings External medium hemorrhoids observed during retroflexion Recommendation Repeat screening colonoscopy in 10 years, due: 08/04/2033 - Referral to colorectal as requested by patient for definitive hemorrhoid therapy Indication Encounter for colonoscopy due to history of colonic polyp Staff Staff Role Te Calloway MD Performing Provider Harper Haney RN Instructional Systems Specialist Jimmy Mirza CRNA REPORT DEVELOPER Medications See Anesthesia Record. Preprocedure A history and physical has been performed, and patient medication allergies have been reviewed. The patient's tolerance of previous anesthesia has been reviewed. The risks and benefits of the procedure and the sedation options and risks were discussed with the patient. All questions were answered and informed consent obtained. ASA 2 - Patient with mild systemic disease Details of the Procedure The patient underwent monitored anesthesia care, which was administered by an anesthesia professional. The patient's blood pressure, heart rate, level of consciousness, oxygen, respirations, ECG and ETCO2 were monitored throughout the procedure. A digital rectal exam was performed. The scope was introduced through the anus and advanced to the cecum. Retroflexion was performed in the rectum. Bowel prep was adequate. The patient experienced no blood loss. The procedure was not difficult. The patient tolerated the procedure well. There were no apparent adverse events. Patient provided education and educated on specific discharge instructions. Patient educated on medications given during the procedure and new medications for discharge. Patient verbalizes understanding of discharge education. Patient stable and awaiting transport for discharge. Events Procedure Events Event Event Time ENDO SCOPE IN TIME 08/07/2023 8:58 AM ENDO CECUM REACHED 08/07/2023 9:03 AM ENDO SCOPE OUT TIME 08/07/2023 9:10 AM Specimens No specimens collected Anesthesia Event Time In Patient In - Proc. Room 08:53 AM Patient Out - Proc. Room 09:11 AM Te Calloway MD ENDOSCOPY PROCEDURE ORDERABL ES Final Result from Last 3 Months or Most Recently Relevant to Health Maintenance Insurance [facility] * Guarantor: RIGHT [employer]MA [employer] Account Type Relation to Patient Date of Phone Billing Address [employer] 1975 [address] [place] [address] [employer] P[employer] Advance Directives For more information, please contact: [phone] * Full Code (Latest Code Status on File) Date Activated Date Inactivated Comments 10/09/2017 2:55 AM 10/10/2017 5:20 PM Care Teams Scrape Gatherer Relationship Specialty Start Date End Date Sherin Brady MD [address] [place] [address] PCP - General 05/16/10
--- OUTSIDE RECORDS SUMMARY | 2025-03-16 13:38 | XMS_ITS | Encounter Summary ---
Author Organization Healthcare Address [address] [place] [address] Care Team Providers Care Helicopter Mechanic Name Role Phone Nell Mckeon DO Unavailable Sherin Brady MD Primary Care Provider [phone] Encounter Details Date Type Department Care Team (Latest Contact Info) Description 02/16/2025 Travel Social History Tobacco Use Types Packs/Day Years [...] drink first t [place] in the morning (EYE-TOURIST GUIDE) to steady your nerves or to get rid of a hangover? 0 02/13/2025 CAGE Questionnaire Score 0 025 Comments No Sex and Gender Information Value Date Recorded Sex Assigned at Not on file Legal Sex Female 8:40 PM EDT Gender Identity Not on file Sexual Orientation Not on file documented as of this encounter Functional Status * Communicable Disease Screening Question Answer Date of Assessment Author Have you been in contact with someone who was sick? No / Unsure 02/16/2025 9:50 AM Corin Sears P Do you have any of the following new or worsening symptoms? None of these 02/16/2025 9:50 AM EST Sandra Pineda P * Travel Screening Question Answer Date of Assessment Author Have you traveled intern[place] or domestically in the last month? No 02/16/2025 9:50 AM EST Corin Ball P documented as of this encounter Mental Status * Communicable Disease Screening Question Answer Entry Date Author Have you been in contact with someone who was sick? No / Unsure 02/16/2025 9:50 AM EST Corin Pineda P Do you have any of the following new or worsening symptoms? None of these 02/16/2025 9:50 AM EST Sandra Pineda P * Travel Screening Question Answer Entry Date Author Have you traveled internatio [place] or domestically in the last month? No 02/16/2025 9:50 AM EST Corin Ball documented in this encounter Plan of Treatment Not on file documented as of this encounter Visit Diagnoses Not on filedocumented in this encounter Care Teams Helicopter Mechanic Relationship Specialty Start Date End Date Sherin Brady MD [address] [place] [address] PCP - General 01/08/25 Nell Mckeon DO [facility] [id number] Referring Physician Obstetrics and Gynecology 12/29/24 documented as of this encounter
--- OUTSIDE RECORDS SUMMARY | 2025-03-16 13:38 | XMS_ITS | Encounter Summary ---
Author Organization Healthcare Address [address] [place] [address] Care Team Providers Care Salvage Mend Worker Name Role Phone Nell Mckeon DO Unavailable [phone] Sherin Brady MD Primary Care Provider [phone] Encounter Details Date Type Department Care Team (Latest Contact Info) Description 02/22/2025 Travel Social History Tobacco Use Types Packs/Day [...] drink first t [place] in the morning (EYE-MARKETING DIRECTOR ASSISTED LIVING) to steady your nerves or to get [...] on filedocumented in this encounter Care Teams Salvage Mend Worker Relationship Specialty Start Date End Date Sherin Brady MD [address] [place] [address] PCP - General 01/08/25 Nell Mckeon DO [facility] [id number] Referring Physician Obstetrics and Gynecology 12/29/24 documented as of this encounter
--- OUTSIDE RECORDS SUMMARY | 2025-03-16 13:38 | XMS_ITS | Encounter Summary ---
Author Organization [place] [address] Care Team Providers Care Mds Coordinator Name Role Phone Sherin Brady MD Primary Care Provider [phone] Encounter Details Date Type Department Care Team (Late st Contact Info) Description 12/27/2024 Results Follow-Up [facility] [address] [place] [address] Lionel Albrecht, CONTROL BOARD OPERATOR [address] [place] [address] URINE CULTURE (NO STAIN), US PELVIS AND TRANSVAGINAL NON OB COMPLETE Social History Tobacco Use Types Packs/Day Years [...] Hussein Bright RMA documented in this encounter Plan of Treatment Not on file documented as of this encounter Goals Goal [...] on filedocumented in this encounter Care Teams Mds Coordinator Relationship Specialty Start Date End Date Sherin Brady MD [address] [place] [address] PCP - General 05/16/10 documented as of this encounter
--- OUTSIDE RECORDS SUMMARY | 2025-03-16 13:38 | XMS_ITS | Encounter Summary ---
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 No / Unsure 02/13/2025 7:19 PM Marilynn Danielson RN Do you have any of the following new or worsening symptoms? None of these 02/13/2025 7:19 PM Marilynn Danielson R N * Travel Screening Question Answer Date of Assessment Author Have you traveled [place] or domestically in the last month? No 02/13/2025 7:19 PM Marilynn Danielson RN documented as of this encounter Mental Status * Communicable Disease Screening Question Answer Entry Date Author Have you been in contact wit h someone who was sick? No / Unsure 02/13/2025 7:19 PM Marilynn Danielson RN Do you have any of the following new or worsening symptoms? None of these 02/13/2025 7:19 PM Marilynn Danielson R N * Travel Screening Question Answer Entry Date Author Have you traveled [place] or domestically in the last month? No 02/13/2025 7:19 PM Marilynn Danielson RN documented in this encounter Plan of Treatment Not on file documented as of this encounter Visit Diagnoses Not on filedocumented in this encounter Care Teams Fitness Instructor Relationship Specialty Start Date End Date Sherin Brady MD [address] [place] [address] PCP - General 01/08/25 Nell Mckeon DO [facility] [address] Referring Physician Obstetrics and Gynecology 12/29/24 documented as of this encounter
--- OUTSIDE RECORDS SUMMARY | 2025-03-16 13:38 | XMS_ITS | Encounter Summary ---
Author Organization [place] [address] Care Team Providers Care Refinery Operator Coking Name Role Phone Sherin Brady MD Primary Care Provider [phone] Encounter Details Date Type Department Care Team (Late st Contact Info) Description 12/17/2024 Results Follow-Up [facility] [address] [place] [address] Lionel Albrecht, SOFTWARE QUALITY ASSURANCE ENGINEER [address] [place] [address] THYROID STIMULATING HORMONE, T4, FREE (THYROXINE), VITAMIN B12/ FOLIC ACID Social History Tobacco Use Types Packs/Day Years [...] on filedocumented in this encounter Care Teams Refinery Operator Coking Relationship Specialty Start Date End Date Sherin Brady MD [address] [place] [address] PCP - General 05/16/10 documented as of this encounter
--- OUTSIDE RECORDS SUMMARY | 2025-03-16 13:38 | XMS_ITS | Encounter Summary ---
Author Organization [facility] Address [address] 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
--- OUTSIDE RECORDS SUMMARY | 2025-03-16 13:38 | XMS_ITS | Clinical Summary ---
Author Organization [facility] Address [address] [place] [address] Care Team Providers Care Explosive Ordnance Technician Name Role Phone Nell Mckeon DO Unavailable [phone] Sherin Brady MD Primary Care Provider [phone] Allergies Active Allergy Reactions Criticality Noted Date Comments Hydrocodone Nausea Low 01/23/2012 Hydrocodone-Acetaminophen Nausea,Rash Low 4 Oxycodone-Acetaminophen Nausea,Rash Low 04/30/2013 Medications busPIRone (Buspar) 10 MG tablet Take 1 tablet by mouth 4 times a day. 06/17/19 25 Active levothyroxine (Synthroid, Levoxyl) 125 MCG tablet Take 1 tablet by mouth daily. 12/11/19 25 Active liothyronine (Cytomel) 5 MCG tablet Take 1 tablet by mouth daily. 07/22/19 25 Active cetirizine (ZyrTEC) 10 MG tablet Take 1 tablet by mouth daily. 01/05/20 25 Active lisinopril 10 MG tablet Take 1 tablet by mouth daily. 07/22/19 25 Active docusate sodium 100 MG capsule Take 100 mg by mouth 2 times a day. 60 capsule 1 02/03/20 25 Active famotidine (Pepcid) 20 MG tablet Take 1 tablet by mouth 2 times a day. 60 tablet 02/03/20 25 Active ibuprofen 600 MG tablet Take 1 tablet by mouth every 6 hours. 60 tablet 2 02/04/20 25 Active ondansetron ODT (Zofran-ODT) 4 MG disintegrating tablet Dissolve 1 tablet on the tongue every 6 hours as needed for nausea or vomiting. 20 tablet 02/03/20 25 Active estradiol (Vivelle-Dot) 0.025 MG/24HR Place 1 patch on the skin 2 times a week over 96 hours. 8 patch 5 03/11/20 Active metFORMIN XR (Glucophage-XR) 500 MG 24 hr tablet Take 1 tablet by mouth twice a day. 07/22/19 25 025 Discontinued oxyCODONE (Roxicodone) 5 MG immediate release tablet Take 1 tablet by mouth every 4 hours as needed for severe pain. 3 tablet 02/03/20 025 Discontinued amoxicillin-clavul anate (Augmentin) 875-125 MG tabletIndications: Acute UTI Take 1 tablet by mouth 2 times a day for 5 days. 10 tablet 02/14/20 Active Problems Problem Noted Date Diagnosed Date Ovarian mass, left 02/02/2025 Complex cyst of left ovary 01/08/2025 Encounters Date Type Department Care Team Description 03/10/2025 1:45 PM EST Office Visit [facility] [address] [place] [address] Marlee Mike MD Complex cyst of left ovary (Primary Dx); Primary hypertension; Rian thyroiditis; Moderate alcohol consumption; Postoperative vaginal bleeding following genitourinary procedure; Alcohol use 03/10/2025 Travel 03/03/2025 Travel 02/22/2025 Travel 02/16/2025 10:30 AM EST Office Visit [facility] [address] [place] [address] Leslye Dooley APRN Transition of care (Primary Dx); Postoperative vaginal bleeding following genitourinary procedure 02/16/2025 Results Follow-Up [facility] [address] [place] [address] Leslye Dooley APRN 02/16/2025 Travel 02/13/2025 7:41 PM EST - 02/13/2025 11:56 PM EST Emergency [facility] [address] [place] [address] Kp Mann MD Akpunonu, Peter Damian S, MD Vaginal bleeding (Primary Dx); Acute UTI Discharge Disposition: Home or Self Care 02/13/2025 Travel 02/13/2025 Telephone [facility] Obstetrics & Gynecology [address] [place] [address] Adriana Santiago MD 02/05/2025 Results Follow-Up [facility] [address] [place] [address] Marlee Mike MD 02/02/2025 7:45 AM EST - 02/02/2025 12:00 PM EST Surgery [facility] [address] [place] [id number] Marlee Mike MD Robot TLHBSO, WASHINGS [[id number] (CPT )] 02/02/2025 7:36 AM EST Anesthesia Event [facility] [address] [place] [address] Kash Berman MD Mitchell, Shad A, OUTREACH CLINICIAN, DNP 02/02/2025 5:35 AM EST - 02/02/2025 6:16 PM EST Hospital Encounter [facility] [address] [place] [address] Marlee Mike MD Complex cyst of left ovary Discharge Disposition: Home or Self Care 02/02/2025 Travel 01/26/2025 Travel 01/13/2025 Travel 01/08/2025 9:00 AM EDT Office Visit [facility] [address] [place] [address] Marlee Mike MD Complex cyst of left ovary (Primary Dx); Primary hypertension; Rian thyroiditis; Moderate alcohol consumption 01/08/2025 8:30 AM EDT Ancillary Procedure [facility] [address] [place] [address] Complex cyst of left ovary 01/08/2025 Travel 12/28/2024 Orders Only External Location [address] [place] [phone] Provider, External from Last 3 Months Family History Medical History Relation Name Comments Malig Hyperthermia Neg Hx Social History Tobacco Use Types Packs/Day Years [...] drink first t [place] 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) to steady your nerves or to get [...] Mass Index 28 03/10/2025 1:53 PM EST Plan of Treatment Health Maintenance Due Date Last Done Comments [facility]-HIV Screening 1977 [facility]-Hepatitis C Screening 1977 [facility]-/Child/Adol SDOH Screenings 1975 [id number] Vaccine (#1) 02/26/1978 [facility]-Obesity Intervention 08/28/1983 [facility]- SDOH Screenings 08/28/1995 [facility]-Adult SDOH Screenings 08/28/1995 [facility]-Pneumococcal Vaccine: Pediatrics (0 to 5 Years) and At-Risk Patients (6 to 49 Years) (1 of 2 - PCV) 1996 [facility]-Pap Smear 1998 [facility]-Cervical Cancer Screening 08/28/2007 [facility]-HPV/Cotest 08/28/2007 CT Colonography 2022 Colonoscopy 2022 FIT-DNA 2022 FIT 2022 FOBT 2022 Sigmoidoscopy 2022 [facility]-Colorectal Cancer Screening 2022 [facility]-Influenza Vaccine (#1) 11/16/202412/09, 12/24/2014, 12/03/2012, Additional history exists [facility]-Depression Screening 03/10/2026 03/10/2025 [facility]-Zoster Vaccines (1 of 2) 08/28/2027 [facility]-DTaP,Tdap,and Td Vaccines (7 - Td or Tdap) 11/14/2028 11/14/2018, 03/14/1991, 07/24/1980, Additional history exists [facility]-IPV Vaccines Completed 07/24/1980, , 04/06/1978, Additional history exists [facility]-Hepatitis B Vaccines Completed 993, 09/28/1992, 08/22/1992 HPV Vaccines (No Doses Required) Completed [facility]-HIB Vaccines Aged Out No longer e ligible based on patient's age to complete this topic [facility]-Hepatitis A Vaccines Aged Out No longer eligible based on patient's age to complete this topic [facility]-Rotavirus Vaccines Aged Out No lo nger eligible based on patient's age to complete this topic Medical Devices Implanted Type Area Fleet Mechanic Device Identifier Shelf Expiration Date Model / Serial / Lot Screw Screw Right: Toes Description:Bunion Procedures Procedure Name Priority Date/Time Associated Diagnosis [...] care Postoperative vaginal bleeding following genitourinary procedure COMPREHENSIVE METABOLIC PANEL, PLASMA Routine 02/16/2025 10:41 AM EST Transition of care CBC WITH AUTO DIFFERENTIAL Routine 02/16/2025 10:41 AM EST Transition of care TRICHOMONAS VAGINALIS ANTIGEN STAT 02/13/2025 9:[address] ABDOMEN PELVIS W IV CONTRAST STAT 02/13/2025 9:30 PM EST CHLAMYDIA TRACHOMATIS DNA BY PCR STAT 02/13/2025 9:14 PM EST NEISSERIA GONORRHEA DNA BY PCR STAT 02/13/2025 9:14 PM EST SEND JUDY MESSAGE STAT 02/13/2025 7: 37 PM EST URINALYSIS MICROSCOPIC FOR UA REFLEX STAT 02/13/2025 7:37 PM EST APTT STAT 02/13/2025 7:37 PM EST URINE SUÁREZ PANEL STAT 02/13/2025 7:37 PM EST URINALYSIS WITH REFLEX MICROSCOPIC STAT 02/13/2025 7:37 PM EST URINALYSIS WITH REFLEX MICROSCOPIC AND CULTURE STAT 02/13/2025 7:37 PM EST URINE CULTURE STAT 02/13/2025 7:37 PM EST TYPE AND SCREEN STAT 02/13/2025 7:36 PM EST COMPREHENSIVE METABOLIC PANEL, PLASMA STAT 02/13/2025 7:36 PM EST CBC WITH AUTO DIFFERENTIAL STAT 02/13/2025 7:36 PM EST CBC W/O DIFFERENTIAL STAT 02/02/2025 2:06 PM EST SURGICAL PATHOLOGY EXAM Routine 02/03/20 9:26 AM EST Complex cyst of left ovary NON-GYNECOLOGIC CYTOLOGY Routine 02/02/2025 8:47 AM EST Complex cyst of left ovary ANESTHESIA PERIPHERAL IV PLACEMENT Routine 02/02/2025 7:50 AM EST PB ANESTHESIA PLACEHOLDER Routine 02/02/2025 7:48 AM EST UT AN ELECTIVE ENDOTRACHEAL AIRWAY Routine 02/02/2025 7:48 AM EST UT LAPAROSCOPY W TOT HYSTERECTUTERUS <=250 GRAM W TUBE/OVARY 02/02/2025 7:23 AM EST Complex cyst of left ovary TYPE AND SCREEN Routine 02/02/2025 6:57 AM EST POCT , URINE Routine 02/02/2025 6:23 AM EST POCT GLUCOSE METER UNSOLICITED RESULTS Routine 02/02/2025 6:15 AM EST HEMOGLOBIN A1C Routine 01/08/2025 10:52 AM EDT Complex cyst of left ovary COMPREHENSIVE METABOLIC PANEL, PLASMA Routine 01/08/2025 10:52 AM EDT Complex cyst of left ovary CBC W/O DIFFERENTIAL Routine 01/08/2025 10:52 AM EDT Complex cyst of left ovary US PELVIS TRANSVAGINAL Routine 9:17 AM EDT Complex cyst of left ovary US OUTSIDE IMAGES 12/28/2024 7:4 0 AM EDT from Last 3 Months Results * SEND JUDY MESSAGE (02/16/2025 10:44 AM EST) Only the most recent of2 resultswithin the time period is included. Urine Urine specimen obtained by clean catch procedure / Unknown Non-blood Collection / Unknown 02/16/2025 10:44 AM EST 02/16/2025 11:11 AM EST Leslye Dooley APRN LAB URINE ORDERABLES Final R esult Performing Organization Address City/[facility]/[place] [address] * Urine Suárez Panel (02/16/2025 10:44 AM EST) Only the most recent of2 resultswithin the time period is included. Extra Sent for Culture 02/16/2025 1:01 PM EST [facility] Urine Urine specimen obtained by clean catch procedure / Unknown Non-blood Collection / Unknown 02/16/2025 10:44 AM EST 02/16/2025 11:11 AM EST Leslye Thompson Miah MANAGER PROJECT MANAGEMENT LAB URINE ORDERABLES Final R [facility] Performing Organization Address City/[facility]/ZIP Co de Phone Number [facility] [address] [place] [address] * Urinalysis Microscopic Examination (02/16/2025 10:44 AM EST) Only the most recent of2 resultswithin the time period is included. Urine Urine specimen obtained by clean catch procedure / Unknown Non-blood Collection / Unknown 02/16/2025 10:44 AM EST 02/16/2025 11:11 AM EST Leslye Dooley MANAGER PROJECT MANAGEMENT LAB URINE ORDERABLES Final R esult Performing Organization Address City/[facility]/ZIP Co de Phone Number [facility] [address] [place] [address] * (ABNORMAL) Urinalysis with reflex microscopic (Culture NOT Included) (02/16/2025 10:44 AM [facility]) Only the most recent of2 resultswithin the time period is included. Color, Urine Yellow LAB URINALYSIS - AUTOMATED METHOD 02/16/2025 11:19 AM [facility] Clarity, Urine Clear LAB URINALYSIS - AUTOMATED METHOD 02/16/2025 11:19 AM [facility] Spec [place], Urine 1.008 1.005 - 1.030 LAB URINALYSIS - AUTOMATED METHOD 02/16/2025 11:19 AM [facility] pH, Urine 6.5 5.0 - 8.0 LAB URINALYSIS - AUTOMATED METHOD 02/16/2025 11:19 AM [facility] Protein, Urine Negative Negative mg/dL LAB URINALYSIS - AUTOMATED METHOD 02/16/2025 11:19 AM [facility] Glucose, Urine Negative Negative mg/dL LAB URINALYSIS - AUTOMATED METHOD 02/16/2025 11:19 AM [facility] Ketones, Urine Negative Negative mg/dL LAB URINALYSIS - AUTOMATED METHOD 02/16/2025 11:19 AM [facility] Blood, Urine Moderate(A) Negative LAB URINALYSIS - AUTOMATED METHOD 02/16/2025 11:19 AM [facility] Bilirubin, Urine Negative Negative LAB URINALYSIS - AUTOMATED METHOD 02/16/2025 11:19 AM [facility] Urobilinogen, Urine 0.2 0.2 to 1.0 mg/dL LAB URINALYSIS - AUTOMATED METHOD 02/16/2025 11:19 AM [facility] Leukocytes, Urine Large(A) Negative LAB URINALYSIS - AUTOMATED METHOD 02/16/2025 11:19 AM [facility] Nitrite, Urine Negative Negative LAB URINALYSIS - AUTOMATED METHOD 02/16/2025 11:19 AM [facility] RBC, Urine 2 0 to 3 /HPF LAB URINALYSIS - AUTOMATED METHOD 02/16/2025 11:19 AM [facility] WBC, Urine >50(A) 0 to 5 /HPF LAB URINALYSIS - AUTOMATED METHOD 02/16/2025 11:19 AM [facility] Squamous Epithelial Cells 0 - 2 0 to 5 /HPF LAB URINALYSIS - AUTOMATED METHOD 02/16/2025 11:19 AM EST [facility] Hyaline Casts 3 - 5 0 to 5 /LPF LAB URINALYSIS - AUTOMATED METHOD 02/16/2025 11:19 AM EST [facility] Bacteria, Urine Negative Negative LAB URINALYSIS - AUTOMATED METHOD 02/16/2025 11:19 AM EST [facility] Urine Urine specimen obtained by clean catch procedure / Unknown Non-blood Collection / Unknown 02/16/2025 10:44 AM EST 02/16/2025 11:11 AM EST us Leslye Dooley APRN LAB URINE ORDERABLES Final R esult Performing Organization Address City/[facility] Co de Phone Number [facility] [address] [place] [address] * Urine Culture (02/16/2025 10:44 AM EST) Only the most recent of2 resultswithin the time period is included. Culture No growth at day 1 02/17/2025 1:35 PM EST [facility] Urine Urine specimen obtained by clean catch procedure / Unknown Non-blood Collection / Unknown 02/16/2025 10:44 AM EST 02/16/2025 11:11 AM EST us Leslye Dooley APRN LAB MICROBIOLOGY - GENERAL O RDERABLES Final Result Performing Organization Address City/[facility] Co de Phone Number [facility] [address] [place] [address] * (ABNORMAL) CBC and Differential (02/16/2025 10:41 AM EST) Only the most recent of2 resultswithin the time period is included. WBC Count 8.58 3.70 - 10.30 10*3/uL LAB HEMATOLOGY METHOD 02/16/2025 11:20 AM EST [facility] RBC Count 4.48 3.90 - 5.20 10*6/uL LAB HEMATOLOGY METHOD 02/16/2025 11:20 AM EST [facility] HGB 12.9 11.2 - 15.7 g/dL LAB HEMATOLOGY METHOD 02/16/2025 11:20 AM [facility] HCT 38.1 34.0 - 45.0 % LAB HEMATOLOGY METHOD 02/16/2025 11:20 AM [facility] Platelet Count 470(H) 155 - 369 10*3/uL LAB HEMATOLOGY METHOD 02/16/2025 11:20 AM [facility] MCV 85 79 - 98 fL LAB HEMATOLOGY METHOD 02/16/2025 11:20 AM EST [facility] MCH 28.8 26.0 - 32.0 pg LAB HEMATOLOGY METHOD 02/16/2025 11:20 AM [facility] MCHC 33.9 30.7 - 35.5 g/dL LAB HEMATOLOGY METHOD 02/16/2025 11:20 AM [facility] RDW 11.5 11.5 - 14.5 % LAB HEMATOLOGY METHOD 02/16/2025 11:20 AM [facility] MPV 9.5 8.8 - 12.5 fL LAB HEMATOLOGY METHOD 02/16/2025 11:20 AM [facility] nRBC 0.0 <=0.0 per 100 WBCs LAB HEMATOLOGY METHOD 02/16/2025 11:20 AM [facility] Differential Type Automated LAB HEMATOLOGY METHOD 02/16/2025 11:20 AM [facility] Neutrophils % 56 % LAB HEMATOLOGY METHOD 02/16/2025 11:20 AM [facility] Lymphocytes % 31 % LAB HEMATOLOGY METHOD 02/16/2025 11:20 AM [facility] Monocytes % 6 % LAB HEMATOLOGY METHOD 02/16/2025 11:20 AM [facility] Eosinophils % 5 % LAB HEMATOLOGY METHOD 02/16/2025 11:20 AM [facility] Basophils % 1 % LAB HEMATOLOGY METHOD 02/16/2025 11:20 AM [facility] Immature Granulocytes % 1 % LAB HEMATOLOGY METHOD 02/16/2025 11:20 AM [facility] Neutrophils Absolute 4.87 1.60 - 6.10 10*3/uL LAB HEMATOLOGY METHOD 02/16/2025 11:20 AM [facility] Lymphocytes Absolute 2.69 1.20 - 3.90 10*3/uL LAB HEMATOLOGY METHOD 02/16/2025 11:20 AM [facility] Monocytes Absolute 0.47 0.30 - 0.90 10*3/uL LAB HEMATOLOGY METHOD 02/16/2025 11:20 AM EST [facility] Eosinophils Absolute 0.41 0.00 - 0.50 10*3/uL LAB HEMATOLOGY METHOD 02/16/2025 11:20 AM EST [facility] Basophils Absolute 0.08 0.00 - 0.10 10*3/uL LAB HEMATOLOGY METHOD 02/16/2025 11:20 AM EST [facility] Immature Granulocytes Absolute 0.06 0.00 - 0.06 10*3/uL LAB HEMATOLOGY METHOD 02/16/2025 11:20 AM EST [facility] Blood Venous blood specimen / Unknown Venipuncture / Unknown 02/16/2025 10:41 AM EST 02/16/2025 11:11 AM EST Narrative [facility] - 02/16/2025 11:20 AM EST Therapeutic decision making should be based on absolute values, rather than percentages. Leslye Dooley APRN LAB BLOOD ORDERABLES Final R esult [facility] [address] [place] [address] * (ABNORMAL) Comprehensive metabolic panel (02/16/2025 10:41 AM EST) Only the most recent of3 resultswithin the time period is included. Glucose, Plasma 104(H) 74 - 99 mg/dL 02/16/2025 11:42 AM EST [facility] BUN, Plasma 15 7 - 21 mg/dL 02/16/2025 11:42 AM EST [facility] Creatinine, Plasma 0.58(L) 0.60 - 1.10 mg/dL 02/16/2025 11:42 AM EST [facility] BUN/Creatinine Ratio 26 02/16/2025 11:42 AM EST [facility] Sodium, Plasma 139 136 - 145 mmol/L 02/16/2025 11:42 AM EST [facility] Potassium, Plasma 4.0 3.6 - 4.9 mmol/L 02/16/2025 11:42 AM EST [facility] Chloride, Plasma 102 97 - 107 mmol/L 02/16/2025 11:42 AM EST [facility] CO2, Plasma 26 22 - 29 mmol/L 02/16/2025 11:42 AM EST [facility] Anion Gap 11 6 - 16 mmol/L 02/16/2025 11:42 AM EST [facility] Total Calcium, Plasma 9.4 8.9 - 10.2 mg/dL 02/16/2025 11:42 AM EST [facility] Total Protein 7.3 6.3 - 7.9 g/dL 02/16/2025 11:42 AM EST [facility] Albumin, Plasma 4.1 3.5 - 5.2 g/dL 02/16/2025 11:42 AM EST [facility] AST, Plasma 30 10 - 35 U/L 02/16/2025 11:42 AM EST [facility] ALT, Plasma 85(H) 10 - 35 U/L 02/16/2025 11:42 AM EST [facility] Alkaline Phosphatase, Plasma 110(H) 35 - 104 U/L 02/16/2025 11:42 AM EST [facility] Total Bilirubin, Plasma <0.2(L) 0.2 - 1.1 mg/dL 02/16/2025 11:42 AM EST [facility] eGFRcr 112.5 mL/min/1.7 3m*2 02/16/2025 11:42 AM EST [facility] Comment:Reported eGFRcr in m L/min/1.73m2 is based the CKD-EPI 2020 equation that does not use a race coefficient. Blood Venous blood specimen / Unknown Venipuncture / Unknown 02/16/2025 10:41 AM EST 02/16/2025 11:13 AM EST us Leslye Dooley APRN LAB BLOOD ORDERABLES Final R esult [facility] [address] [place] [address] * Trichomonas Vaginalis Antigen (02/13/2025 9:45 PM EST) Trichomonas vaginalis Antigen Result Negative Negative 02/14/2025 7:01 AM [facility] Swab Vaginal structure / Unknown Non-blood Collection / Unknown 02/13/2025 9:45 PM EST 02/13/2025 10:14 PM EST Narrative [facility] - 02/14/2025 7:01 AM EST This test was developed and its performance characteristics determined by [facility]. It has not [...] LAB MICROBIOLOGY - GENERAL ORDERABLES Final Result [facility] [address] [place] [address] * CT Abdomen Pelvis w IV Contrast [...] Sky Gurrola MD on 02/13/2025 10:08 PM us Kp Mann MD IM CT PROCEDURES Final Re sult * Chlamydia trachomatis DNA by PCR (02/13/2025 9:14 PM EST) Chlamydia trachomatis DNA PCR Result Not Detected Not Detected 02/16/2025 2:18 PM EST [facility] Swab Vaginal structure / Unknown Non-blood Collection / Unknown 02/13/2025 9:14 PM EST 02/13/2025 9:46 PM EST Narrative [facility] - 02/16/2025 2:18 PM EST This test is performed by the [employer] m2000 instrument for Real Time PCR C. trachomatis and N. gonorrhea. This test is FDA approved for use with endocervical, vaginal, and urine specimens. This test is used for clinical purposes. It should not be regarded as invesigational or for research. The [facility] is certified under the Clinical Laboratory Improvement Amendments of 1988 (CLIA-88) as qualified to perform high complexity clinical laboratory testing. Kp Mann MD LAB MICROBIOLOGY - GENERAL ORDERABLES Final Result Performing Organization Address [facility] [place] [address] * Neisseria gonorrhea DNA, Quantitative (02/13/2025 9:14 PM EST) Neisseria gonorrhea DNA PCR Result Not Detected Not Detected. 02/16/2025 2:18 PM EST [facility] Swab Vaginal structure / Unknown Non-blood Collection / Unknown 02/13/2025 9:14 PM EST 02/13/2025 9:46 PM EST Narrative [facility] - 02/16/2025 2:18 PM EST This test is performed by the [employer] m2000 instrument for Real Time PCR C. trachomatis and N. gonorrhea. This test is FDA approved for use with endocervical, vaginal, and urine specimens. This test is used for clinical purposes. It should not be regarded as invesigational or for research. The [facility] is certified under the Clinical Laboratory Improvement Amendments of 1988 (CLIA-88) as qualified to perform high complexity clinical laboratory testing. Kp Mann MD LAB MICROBIOLOGY - GENERAL ORDERABLES Final Result Performing Organization Address [facility] Co de Phone Number [facility] [address] [place] [address] * APTT (02/13/2025 7:37 PM EST) aPTT 28 25 - 35 sec 02/13/2025 8:02 PM EST [facility] Blood Venous blood specimen / Unknown Venipuncture / Unknown 02/13/2025 7:37 PM EST 02/13/2025 7:45 PM EST Mark Celis MD LAB BLOOD ORDERABLES Final Res ult Performing Organization Address City/[facility]/ZIP Co de Phone Number [facility] [address] [place] [address] * Type and screen (02/13/2025 7:36 PM EST) Only the most recent of2 resultswithin the time period is included. ABO/Rh O Negative 02/13/2025 7:42 PM EST [facility] Antibody Screen Negative 02/13/2025 7:42 PM EST [facility] Specimen Expiration 02/16/2025 23:59 02/13/2025 7:42 PM EST [facility] Blood Venous blood specimen / Unknown Venipuncture / Unknown 02/13/2025 7:36 PM EST 02/13/2025 7:42 PM EST Mark Celis MD LAB BLOOD BANK TEST ORDERABLES Final Result Performing Organization Address [facility] [[email or web address]] de Phone Number BLOOD BANK [address] * (ABNORMAL) CBC W/O Differential (02/02/2025 2:06 PM EST) Only the most recent of2 resultswithin the time period is included. WBC Count 11.76(H) 3.70 - 10.30 10*3/uL LAB HEMATOLOGY METHOD 02/02/2025 2:38 PM EST [facility] RBC Count 4.22 3.90 - 5.20 10*6/uL LAB HEMATOLOGY METHOD 02/02/2025 2:38 PM EST [facility] HGB 12.5 11.2 - 15.7 g/dL LAB HEMATOLOGY METHOD 02/02/2025 2:38 PM EST [facility] HCT 36.8 34.0 - 45.0 % LAB HEMATOLOGY METHOD 02/02/2025 2:38 PM EST [facility] Platelet Count 240 155 - 369 10*3/uL LAB HEMATOLOGY METHOD 02/02/2025 2:38 PM EST [facility] MCV 87 79 - 98 fL LAB HEMATOLOGY METHOD 02/02/2025 2:38 PM EST [facility] MCH 29.6 26.0 - 32.0 pg LAB HEMATOLOGY METHOD 02/02/2025 2:38 PM EST [facility] MCHC 34.0 30.7 - 35.5 g/dL LAB HEMATOLOGY METHOD 02/02/2025 2:38 PM EST [facility] RDW 12.0 11.5 - 14.5 % LAB HEMATOLOGY METHOD 02/02/2025 2:38 PM EST [facility] MPV 10.4 8.8 - 12.5 fL LAB HEMATOLOGY METHOD 02/02/2025 2:38 PM EST [facility] nRBC 0.0 <=0.0 per 100 WBCs LAB HEMATOLOGY METHOD 02/02/2025 2:38 PM EST [facility] Blood Venous blood specimen / Unknown Venipuncture / Unknown 02/02/2025 2:06 PM EST 02/02/2025 2:31 PM EST us Marlee Mike MD LAB BLOOD ORDERABLES Samreen thompson Result [facility] [address] [place] [address] * Surgical Pathology Exam (02/02/2025 9:26 AM EST) Case Report Surgical Pathology Case: [id number] Authorizing Provider: Marlee Mike MD Collected: 02/02/2025 0926 Ordering Location: [facility] A OPERATING ROOM Received: 02/02/2025 1023 Pathologist: Estrella Sheriff MD Specimen: Uterus, Uterus, cervix, bilateral fallopian tubes and Ovaries . 02/04/2025 4:49 PM EST [facility] Final Diagnosis UTERUS, CERVIX, FALLOPIAN [...] HYPERPLASIA OR MALIGNANCY 02/04/2025 4:49 PM EST [facility] at 1648 EST Clinical Information Complex cyst of left ovary [N83.292] 02/04/2025 4:49 PM EST [facility] Gross Description A. UTERUS, CERVIX, [...] external surface of the fallopian tubes are suárez-purple, congested, smooth, and glistening. The lumens are [...] 2.2 x 1.1 x 1.1 cm polyp. Manager Call sections are submitted as follows: A1: Anterior endomyometrium, full-thickness A2-A3: Posterior endomyometrium, full-thickness, bisected A4: Whorled nodule A5-A6: Posterior cervix and lower uterine segment, bisected A7-A8: Anterior cervix and lower uterine segment, bisected A9-A10: Anterior cervical polyp, bisected A11-A12: Right ovary A13: Right fallopian tube A14-A15: Left ovary A16: Left fallopian tube Cold Time: 57m BUD Cerna (ASCP) 02/04/2025 4:49 PM EST [facility] Note: A resident was involved in the service. I attest I examined the relevant preparations for the specimens and confirmed the diagnosis or interpretation. 02/04/2025 4:49 PM EST [facility] Tissue Uterine structure / Unknown 02/02/2025 9:26 AM EST 02/02/2025 10:23 AM EST Comment:Pre-op diagnosis: Complex cyst of left ovary [N83.292] Marlee Mike MD LAB PATHOLOGY ORDERABLES Final Result Performing Organization Address City/State/[facility] Co de Phone Number [facility] [address] [place] [address] * Non-Gynecologic Cytology (02/02/2025 8:47 AM EST) Case Report Cytology Case: [id number] Authorizing Provider: Marlee Mike MD Collected: 02/02/2025 0847 Ordering Location: [facility] OPERATING ROOM Received: 02/02/2025 0900 Pathologist: Shayla Amos MD Specimen: Pelvic Washing, PELVIC WASHING 02/03/2025 1:08 PM EST [facility] Final Diagnosis A. PELVIC WASHING: -NEGATIVE FOR MALIGNANCY. - REACTIVE MESOTHELIAL CELLS. 02/03/2025 1:08 PM EST [facility] at 1308 EST Gross Description A. PELVIC WASHING 35 mls cloudy yellow fluid for cell block and thin prep processing Cold Time: 3h 43m 02/03/2025 1:08 PM EST [facility] Clinical Information Complex cyst of left ovary [N83.292] 02/03/2025 1:08 PM EST [facility] Washing Fluid specimen from pelvis / Unknown 02/02/2025 8:47 AM EST 02/02/2025 9:00 AM EST Comment:Pre-op diagnosis: Complex cyst of left ovary [N83.292] Marlee Mike MD LAB CYTOLOGY ORDERABLES F inal Result [facility] [address] [place] [address] * Peripheral IV (02/02/2025 7:50 AM EST) Narrative Dawson Toscano CRNA, DNP - 02/02/2025 7:50 AM EST Dawson Toscano CRNA, DNP 02/02/2025 8:08 AM Peripheral IV Date/Time: 02/02/2025 7:50 AM Inserted by: Dawson Toscano CRNA, DNP Placement Needle size: 20 G Location: hand Site prep: alcohol Technique: anatomical landmarks Attempts: 1 Kash Berman MD ANESTHESIA ORDERABLES Final Result * UT AN ELECTIVE ENDOTRACHEAL AIRWAY, PB ANESTHESIA PLACEHOLDER (02/02/2025 7:48 AM EST) Narrative Dawson Toscano CRNA, DNP - 02/02/2025 7:48 AM EST Dawson Toscano CRNA, DNP 02/02/2025 8:08 AM Airway Date/Time: 02/02/2025 7:48 AM Reason: elective Airway not difficult General Information and Staff Patient location during procedure: OR Anesthesiologist: Kash Berman MD OUTREACH CLINICIAN: Dawson Toscano CRNA, DNP Performed: SILVINO Patient [...] from: lips ETT to lips (cm): 21 Kash Berman MD ANESTHESIA ORDERABLES Final Result * POCT , URINE (02/02/2025 6:23 AM EST) Pathologist [facility] POCT Test, Urine Negative Males and Non- Females: Negative 02/02/2025 6:30 AM EST [facility] Field Broomer ID Allison Corbett 02/02/2025 6:30 AM EST [facility] Device ID [id number] 02/02/2025 6:30 AM EST [facility] Urine Urine specimen obtained by clean catch procedure / Unknown 02/02/2025 6:23 AM EST 02/02/2025 6:30 AM EST us Marlee Mike MD LAB POINT OF CARE TEST DOCKED DEVICE UNSOLICITED RESULTS Final Result Performing Organization Address [facility] Co de Phone Number [facility] [address] [place] [address] * POCT glucose meter (02/02/2025 6:15 AM EST) [facility] POCT Glucose 94 74 - 99 mg/dL 02/02/2025 6:16 AM EST [facility] Comment:Accuracy of a glucos e result [...] Comment 02/02/2025 6:16 AM EST [facility] Field Broomer ID Allison Corbett 02/02/2025 6:16 AM EST [facility] Device ID [id number] 02/02/2025 6:16 AM EST [facility] Specimen Type POC Capillary 02/02/2025 6:16 AM EST [facility] Blood Capillary blood specimen / Unknown 02/02/2025 6:15 AM EST 02/02/2025 6:16 AM EST us Marlee Mike MD LAB POINT OF CARE TEST DOCKED DEVICE UNSOLICITED RESULTS Final Result Performing Organization Address City/[facility]/ZIP Co de Phone Number [facility] [address] [place] [address] * Hemoglobin A1c (01/08/2025 10:52 AM EDT) Hemoglobin A1c 5.1 <5.7 % 01/08/2025 12:35 PM EDT [facility] Blood Venous blood specimen / Unknown Venipuncture / Unknown 01/08/2025 10:52 AM EDT 01/08/2025 11:21 AM EDT Narrative [facility] - 01/08/2025 12:35 PM EDT HA1C Interpretive Data: Diagnosis of Diabetes: Diabetic > or = 6.5% Pre-diabetic 5.7 to 6.4% Non-diabetic < or = 5.6% Glycemic Targets for Type I and Type II Diabetics: Non- Adults <7.0% Adults <6.0% Children and Adolescents <7.5% Source: [place] [employer]. Standards of medical care in diabetes,2017. Diabetes Care.2017:40 (suppl 1):S1-S135. us Marlee Mike MD LAB BLOOD ORDERABLES Samreen thompson Result [facility] [address] [place] [address] * US Pelvis Transvaginal (01/08/2025 9:17 AM EDT) Anatomical Region Laterality Modality Pelvis Ultrasound Narrative 01/08/2025 9:33 AM EDT US Pelvis Transvaginal Gemma Zarco Date of Exam: 01/08/2025 Date of : 1975 LMP: No LMP recorded. OB History: No obstetric history on file. Pertinent Hx: Complex cyst of left ovary [N83.292 (ICD-10-CM)] Uterine Measurements: Longitudinal: 7.9 cm AP Diameter: 4.8 cm Trans Diameter: 5.6 cm Vol: 110.5 ml Uterine Position: Retroverted Cervical canal appears heterogenous Uterine myometrium is heterogenous in appearance throughout Fundal fibroid noted: 2.4 X 1.7 X 2.3 cm Vol: 5 ml Endometrial Thickness: 9.1 mm Right Ovary: Yes 1.6 X 1.1 X 1.3 cm Vol: 1.1 ml Right ovary is follicular NM: 0 Left Ovary: Yes 2.7 X 1.7 X 1.6 cm Vol: 3.8 ml Left ovary contains an echogenic / solid cystic lesion NM: 4 Free Fluid: No Comments: Uterine position is retroverted Uterine myometrium is heterogenous in appearance throughout Cervical canal appears heterogenous Right ovary is follicular Left ovary contains an echogenic / solid cystic lesion No free fluid Elgin Arcos RVT , RDMS I was present for ultrasound and personally reviewed images and agree with above. Marlee Mike MD us Marlee Mike MD IMG US PROCEDURES Final R esult * US OUTSIDE IMAGES (12/28/2024 7:40 AM EDT) Anatomical Region Laterality Modality Ultrasound 12/28/2024 7:40 AM EDT us External Provider IMG US PROCEDURES Edited Resul t - Final from Last 3 Months Insurance ANTH Advance Directives * Full Code (Latest Code Status on File) Date Activated Date Inactivated Comments 02/02/2025 9:54 AM 02/02/2025 8:22 PM Question Answer Comments Patient has decision-making capacity? Yes Care Teams Explosive Ordnance Technician Relationship Specialty Start Date End Date Sherin Brady MD [address] [place] [address] PCP - General 01/08/25 Nell Mckeon DO [facility] [address] Referring Physician Obstetrics and Gynecology 12/29/24
--- OUTSIDE RECORDS SUMMARY | 2025-03-16 13:38 | XMS_ITS | Encounter Summary ---
Author Organization Healthcare Address [address] [place] [address] Care Team Providers Care Boat Deckhand Name Role Phone Nell Mckeon DO Unavailable [phone] Sherin Brady MD Primary Care Provider [phone] Encounter Details Date Type Department Care Team (Latest Contact Info) Description 01/26/2025 Travel Social History Tobacco Use Types Packs/Day [...] as of this encounter Functional Status * Travel Screening Question Answer Date of Assessment Author Have you traveled internatio k[place] or domestically in the last month? No 01/26/2025 12:23 PM EST Mych art, Generic documented as of this encounter Mental Status * Travel Screening Question Answer Entry Date Author Have you traveled internatio [place] or domestically in the last month? No 01/26/2025 12:23 PM EST Mych art, Generic documented in this encounter Plan of Treatment Not on file documented as of this encounter Visit Diagnoses Not on filedocumented in this encounter Care Teams Boat Deckhand Relationship Specialty Start Date End Date Sherin Brady MD [address] [place] [address] PCP - General 01/08/25 Nell Mckeon DO [facility] [address] Referring Physician Obstetrics and Gynecology 12/29/24 documented as of this encounter
--- OUTSIDE RECORDS SUMMARY | 2025-03-16 13:39 | XMS_ITS | Encounter Summary ---
Author Organization Healthcare Address [address] [place] [address] Care Team Providers Care Practical Nursing Faculty Name Role Phone Nell Mckeon DO Unavailable [phone] Sherin Brady MD Primary Care Provider [phone] Encounter Details Date Type Department Care Team (Latest Contact Info) Description 02/02/2025 Travel Social History Tobacco Use Types Packs/Day [...] someone who was sick? No / Unsure 02/02/2025 7:08 AM Anitra Platt RN Do you have any of the following new or worsening symptoms? None of these 02/02/2025 7:08 AM Harper Platt RN * Travel Screening Question Answer Date of Assessment Author Have you traveled internatio [place] or domestically in the last month? No 02/02/2025 7:08 AM Harper Roberts RN documented as of this encounter Mental Status * Communicable Disease Screening Question Answer Entry Date Author Have you been in contact with someone who was sick? No / Unsure 02/02/2025 7:08 AM Anitra Platt RN Do you have any of the following new or worsening symptoms? None of these 02/02/2025 7:08 AM Harper Platt RN * Travel Screening Question Answer Entry Date Author Have you traveled intern[place] or domestically in the last month? No 02/02/2025 7:08 AM Harper Roberts RN documented in this encounter Plan of Treatment Not on file documented as of this encounter Visit Diagnoses Not on filedocumented in this encounter Care Teams Practical Nursing Faculty Relationship Specialty Start Date End Date Sherin Brady MD [address] [place] [address] PCP - General 01/08/25 Nell Mckeon DO [facility] [address] Referring Physician Obstetrics and Gynecology 12/29/24 documented as of this encounter
--- OUTSIDE RECORDS SUMMARY | 2025-03-16 13:39 | XMS_ITS | Encounter Summary ---
Author Organization [place] [address] Care Team Providers Care Real Estate Leasing Manager Name Role Phone Sherin Brady MD Primary Care Provider [phone] Reason for Visit * Reason Comments Medication Refill Encounter Details Date Type Department Care Team (Late st Contact Info) Description 03/10/2025 Refill [facility] [address] [place] [address] Lionel Albrecht, DIETARY SERVICES DIRECTOR [address] [place], [place] [id number] Medication Refill Social History Tobacco Use Types [...] tablet by mouth once daily 90 Tablet 03/13/2025 documented in this encounter Miscellaneous Notes * Telephone Encounter - Samara Fong CPhT - 03/12/2025 6:19 PM EST Levothyroxine Future Visit: N/A Last Assessed Visit: 12/16/24 Follow-Up Date: 12/16/25 This patient requires the following labs/vitals. Routing to the office. Abnormal TSH documented in this encounter Plan of Treatment [...] Take 1 tablet by mouth once daily 12/10/2024 03/13/2025 documented as of this encounter Care Teams Real Estate Leasing Manager Relationship Specialty Start Date End Date Sherin Brady MD [address] [place] [address] PCP - General 05/16/10 documented as of this encounter
--- OUTSIDE RECORDS SUMMARY | 2025-03-16 13:39 | XMS_ITS | Encounter Summary ---
Author Organization Healthcare Address [address] [place] [address] Care Team Providers Care Mechanical Oxidizer Name Role Phone Nell Mckeon DO Unavailable [phone] Sherin Brady MD Primary Care Provider [phone] Encounter Details Date Type Department Care Team (Latest Contact Info) Description 03/10/2025 Travel Social History Tobacco Use Types Packs/Day [...] drink first t [place] in the morning (EYE-TOBACCO STRIPPER) to steady your nerves or to get [...] someone who was sick? No / Unsure 03/10/2025 1:14 PM EST Bhavesh, Deiona Y Do you have any of the follo wing new or worsening symptoms? None of these 03/10/2025 1:14 PM EST Bhavesh, Deio na Y * Travel Screening Question Answer Date of Assessment Author Have you traveled internatio k[place] or domestically in the last month? No 03/10/2025 1:14 PM EST Bhavesh, Deiona Y documented as of this encounter Mental Status * Communicable Disease Screening Question Answer Entry Date Author Have you been in contact wit h someone who was sick? No / Unsure 03/10/2025 1:14 PM EST Bhavesh, Deiona Y Do you have any of the follo wing new or worsening symptoms? None of these 03/10/2025 1:14 PM EST Bhavesh, Deio na Y * Travel Screening Question Answer Entry Date Author Have you traveled intern[place] or domestically in the last month? No 03/10/2025 1:14 PM EST Bhavesh, Deiona Y documented in this encounter Plan of Treatment Not on file documented as of this encounter Visit Diagnoses Not on filedocumented in this encounter Additional Health Concerns Assessment Noted Time A fall risk assessment has been complete d for the patient 03/10/2025 1:54 PM EST documented as of this encounter Care Teams Mechanical Oxidizer Relationship Specialty Start Date End Date Sherin Brady MD [address] [place] [address] PCP - General 01/08/25 Nell Mckeon DO [facility] [id number] Referring Physician Obstetrics and Gynecology 12/29/24 documented as of this encounter
--- OUTSIDE RECORDS SUMMARY | 2025-03-16 13:39 | XMS_ITS | Encounter Summary ---
Author Organization Healthcare Address [address] [place] [address] Care Team Providers Care Personnel Interviewer Name Role Phone Nell Mckeon DO Unavailable [phone] Sherin Brady MD Primary Care Provider [phone] Encounter Details Date Type Department Care Team (Late st Contact Info) Description 02/05/2025 Results Follow-Up [facility] [address] [place] [address] Marlee Mike MD [address] [facility] [address] [place] [address] Social History Tobacco Use Types Packs/Day Years [...] on filedocumented in this encounter Care Teams Personnel Interviewer Relationship Specialty Start Date End Date Sherin Brady MD [address] [place] [address] PCP - General 01/08/25 Nell Mckeon DO [facility] [address] Referring Physician Obstetrics and Gynecology 12/29/24 documented as of this encounter
--- OUTSIDE RECORDS SUMMARY | 2025-03-16 13:39 | XMS_ITS | Clinical Summary ---
Author Organization [facility] yste Address [address] [place] [address] Care Team Providers Care Compound Mixer Name Role Phone Provider, No Known Primary Care Provider [phone] Social History Tobacco Use Types Packs/Day Years [...] to complete this topic Insurance Care Teams Compound Mixer Relationship Specialty Start Date End Date Provider, [place] [address] PCP - General 11/07/15
--- OUTSIDE RECORDS SUMMARY | 2025-03-16 13:39 | XMS_ITS | Encounter Summary ---
Author Organization Healthcare Address [address] [place] [address] Care Team Providers Care Legal Support Specialist Name Role Phone Nell Mckeon DO Unavailable [phone] Sherin Brady MD Primary Care Provider [phone] Encounter Details Date Type Department Care Team (Latest Contact Info) Description 03/03/2025 Travel Social History Tobacco Use Types Packs/Day [...] drink first t [place] in the morning (EYE-AUTOMATIC SERGING MACHINE OPERATOR) to steady your nerves or [...] or domestically in the last month? No 03/03/2025 8:43 AM EST Mycha rt, Generic documented as of this encounter Mental Status * Travel Screening Question Answer Entry Date Author Have you traveled intern[place] or domestically in the last month? No 03/03/2025 8:43 AM EST Mycha rt, Generic documented in this encounter Plan of Treatment Not on file documented as of this encounter Visit Diagnoses Not on filedocumented in this encounter Care Teams Legal Support Specialist Relationship Specialty Start Date End Date Sherin Brady MD [address] [place] [address] PCP - General 01/08/25 Nell Mckeon DO [facility] [id number] Referring Physician Obstetrics and Gynecology 12/29/24 documented as of this encounter
--- OUTSIDE RECORDS SUMMARY | 2025-03-16 13:39 | XMS_ITS | Encounter Summary ---
Author Organization Healthcare Address [address] [place] [address] Care Team Providers Care Grey Roll Worker Name Role Phone Nell Mckeon DO Unavailable [phone] Sherin Brady MD Primary Care Provider [phone] Encounter Details Date Type Department Care Team (Late st Contact Info) Description 02/13/2025 Telephone [facility] Obstetrics & Gynecology [address] [place] [address] Adriana Santiago MD [address] [place] [address] Social History Tobacco Use Types Packs/Day Years [...] drink first t [place] in the morning (EYE-STAB SETTER AND DRILLER) to steady your nerves or to get rid of a hangover? 0 02/13/2025 CAGE Questionnaire Score 0 025 Comments No Sex and Gender Information Value Date Recorded Sex Assigned at Not on file Legal Sex Female 8:40 PM EDT Gender Identity Not on file Sexual Orientation Not on file documented as of this encounter Miscellaneous Notes * Telephone Encounter - Adriana Satniago MD - 02/13/2025 6:12 PM EST Answered patient call via [employer]. Gemma is POD#11 fro [facility] for benign ovarian cyst. She reports that she has been having vaginal bleeding that has filled several panty liners throughout the day today. Has had no vaginal bleeding since light spotting 3-4d following surgery. She denies dizziness/ lightheadedness. I recommended that she proceed to the nearest ED for evaluation and she plans to come here to [facility] ED. Recommend stat CTA abd/pelvis, CBC/Coags/CMP/Type & Screen, consult GYO for pelvic exam on arrival. documented in this encounter Plan of Treatment Not on file documented as of this encounter Visit Diagnoses Not on filedocumented in this encounter Care Teams Grey Roll Worker Relationship Specialty Start Date End Date Sherin Brady MD [address] [place] [address] PCP - General 01/08/25 Nell Mckeon DO [facility] [id number] Referring Physician Obstetrics and Gynecology 12/29/24 documented as of this encounter
--- NOTE | 2025-03-16 14:15 | MM_ITS ---
PROCEDURE INFORMATION: Exam: US Left Breast, Complete MG Left Diagnostic Breast Tomosynthesis Exam date and time: 03/16/2025 2:14 PM Age: 49 years old Clinical indication: Callback for a questionable 0.4 cm mass in the left retroareolar region. TECHNIQUE: Imaging protocol: Complete ultrasound of all four quadrants of the left breast and the retroareolar regions, including ultrasound of the axilla when performed. Left Diagnostic tomosynthesis and 2D mammography including computer-aided detection (CAD) when performed. Unilateral or bilateral exam. COMPARISON: MG MM DIG MAMM DX UNILAT LT CAD 03/16/2025 2:08 PM FINDINGS: MAMMOGRAPHY: Breast composition: There are scattered areas of fibroglandular density. Breast mammogram findings: On the spot-compression views, there is no discrete mass, distortion, or calcifications in the retroareolar aspect of the left breast. ULTRASOUND: Breast ultrasound findings: Ultrasound of the left retroareolar region demonstrates dilated ducts without evidence of suspicious intraductal mass, shadowing, or distortion. IMPRESSION: 1. No suspicious finding is seen retroareolar breast on additional views. 2. Annual bilateral mammographic screening is recommended unless otherwise clinically indicated. ASSESSMENT: BI-RADS Category 2: Benign.
== END 2025-03-16 23:59 | disposition home or self-care (01) ==
LOC: RAD 13:34
PROVIDERS: PCP Family Medicine; Visit Provider Obstetrics & Gynecology
DX: N63.42 Unspecified lump in left breast, subareolar (principal); N64.4 Mastodynia; R92.322 Mammographic fibroglandular density, left breast
CPT/HCPCS: 76641; 77061; 77065; G0279